=== PATIENT | female | born 1935 | race Caucasian/White ===

== ENCOUNTER 2017-10-27 07:30 | Outpatient (RCR) | payer MEDICARE, SELFPAY ==
--- NOTE | 2017-09-29 08:09 | NT_ITS ---
Brie cancelled today's scheduled appointment. She is going out of town for the day. Christine Kumar Foreign Language Interpreter
--- NOTE | 2017-10-01 09:30 | PTTR_ITS ---
DATE: 10/01/17 SUBJECTIVE: Brie states she continues to experience LBP with sciatica in L LE to the lower butt cheek, upper thigh posteriorly. Did make a bed today with more manageable symptoms compared to last week. Questions whether or not she thinks she is getting any better. She does note better tolerance with sitting. Manual therapy: ([id number]). Gentle grade 2 and grade 3 PA mobilizations to the lumbar spine, segmental mobilization into rotator L and R. Increased tenderness to palpation through the glut med, piriformis on the L. Hypomobility with PA mobilization. The patient received integrated dry needling today. Homeostatic points bilateral superior cluneals 3, bilateral inferior gluteal 3 , posterior cutaneous L5, paravertebrals L3-L5 with 2 bilaterally. Did perform symptomatic points with 3 to L glut med and piriformis. Also applied stim with IDN to L3-L5 bilaterally. Continued care performed by Meenakshi Garza PTA (see her note for specifics) Direct treatment time: 15 mins Total treatment time: 30 mins with me no charge dry needling. MM/dl
--- NOTE | 2017-10-01 10:00 | PTTR_ITS ---
DATE: 10/01/17 Co-treat with supervising therapist Yogi Hood DPT (see his note for details) Manual therapy: ([id number]). Did receive soft tissue mobilization throughout the entire back with focus on L periscapular region to mid back, utilized tendon massage along the thoracic and lumbar vertebra, medial, scapular borders , and iliac crest as well as cross friction to the mid thoracic paraspinals and trigger point work into the L periscapular region, skin rolling throughout bilateral lumbar and thoracic paraspinals was also performed as well as fascial stretching throughout the entire L thoracic region. * x Electrical Stim Unattended - [id number]: spot cold to the L mid back region with global heat to remaining back x15 mins in prone position. Direct treatment time: 18 MINS Total treatment time: 33 MINS SG/dl
--- NOTE | 2017-10-08 16:19 | PTTR_ITS ---
DATE: 10/08/17 SUBJECTIVE: Brie indicates today that she is currently feeling about the same. No significant change in her discomfort level. Continues to have discomfort int he left hip and upper thigh region. OBJECTIVE: Manual therapy: ([id number]). Did receive Grade 2 PA mobs to the lumbar vertebrae region while in prone, as well as segmental rotary mobs left / right, also while in the prone position. Soft tissue mobs were performed throughout the mid to low back and left glute / piriformis region while in prone. This included tendon massage along the lower thoracic / lumbar vertebrae and iliac crest as well as sacral border and posterior greater trochanter, as well as TP work to the QL, glutes and piriformis musculature. * [x] Electrical Stim Unattended - [id number][1]: applied with spot cold to the left sided low back / buttock region w/global moist heat to the remaining mid to low back while in prone x15 minutes. Direct treatment time: 20 minutes. Total treatment time: 35 minutes. SG/gc
--- NOTE | 2017-10-14 15:30 | PTTR_ITS ---
DATE: 10/14/17 SUBJECTIVE: Indicated she felt pretty good after last Wednesday's appt, but on Wednesday evening started having a great deal of pain in the left buttock region where cyst in located. Indicated this region feels swollen. Does not remember anything that could have triggered this pain. Frustrated today with left low back and buttock pain, continues to have radiating pain down into back side of left knee, does not feel the pain in the leg goes down any further than it had been. Has been laying on the couch a lot the last few days. Pain number: 10out of 10 at times since Wednesday evening Indicated she was feeling better at conclusion of session, upon exiting dept. OBJECTIVE: Manual therapy: ([id number]). Mobilization of low back and left buttock soft tissue with in prone position. This included tendon massage along the lower thoracic / lumbar vertebrae, iliac crest and sacral border. TPM to left LQ and CFM to lower thoracic / lumbar paraspinals. Attempted TPM to piriformis and glut max but this was too sensitive. Extremely sensitive around cyst region so left buttock soft tissue work was very limited today. Did have slight visible swelling in this region today. Advised to apply cryotherapy or try Salonpas in this region as per discussion with supervising PT. Performed grade 2 PA mobs to lumbar vertebrae and segmental rotational mobs R/L as well while in prone position without complaints of pain. * x HEP review: Reviewed TA activation exercise. Instructed to try doing them when she is hurting to see if this helps with pain. * x Electrical Stim Unattended - [id number]: Ended session with IFC and MHP x 15 minutes to low back with cryotherapy to left buttock. To be see again 1 x next week. Direct treatment time: 20 minutes Total treatment time: 35 minutes
--- NOTE | 2017-10-22 13:00 | PTTR_ITS ---
DATE: 10/22/17 SUBJECTIVE: Indicated she is frustrated with pain across her low back. Bought Salonpas and thinks this has helped a little in the left buttock region when used. Seeing her doctor in mid October. OBJECTIVE: Manual therapy: ([id number]). Mobilization of lumbar region consisting of grade 2 PA mobs and segmental rotational mobs on right and left while in prone. While remaining in prone she received STM throughout the low back and left buttock with care taken to avoid cyst region. Utilized tendon massage to lower thoracic and lumbar vertebrae, iliac crest and sacral border. TPM to left QL and gluts, CFM to bilateral lumbar paraspinals and fascial stretching throughout the entire low back and left buttock. * x Electrical Stim Unattended - [id number]: Ended session with IFC and cryotherapy to low back and left buttock x 15 minutes while in prone. Direct treatment time: 20 minutes Total treatment time: 35 minutes
--- NOTE | 2017-10-27 07:30 | PN_ITS ---
DATE: 10/27/17 REFERRING: NILDA Zarco REFERRING PROVIDER DIAGNOSIS:: PHYSICAL THERAPY DIAGNOSIS: REPORTING PERIOD (for progress note and discharge note only): 09/16/17 to SUBJECTIVE: Brie states she feels as though she is getting worse. Does have some mild symptom reduction with soft tissue work and dry needling, but admits that symptom reduction does not last long. She has a more open opinion of attending a consult at the pain clinic. Still having difficulty with functional activities such as cooking, prolonged standing, customer experience specialist, such as making beds and mowing her lawn. Had to make a turkey for [facility] wagner and had a lot of pain just standing to cook in the kitchen. Having more difficulty at night sleeping. Standardized Measures: * Modified Oswestry Low Back Pain Questionnaire (MOLBPDQ): 46% which is worse compared to IE which was 38% OBJECTIVE: Seen for re-check Upon observation, still moving with pain behaviors from sit to stand as well as transfers on the bed. Palpation: Pain with palpation through bilateral lumbar paraspinals L worse than R as well as L glut med, glut max and over her cyst near the glut med. Pain with PA mobilizations, grades 2 throughout the entire lumbar spine. AROM flexion WFL with pain, extension 10 degrees with pulling sensation and pain in the low back with radiation into L glut, lateral thigh. Rotation 45 degrees of bent knee fall out in supine. She has more pain with L rotation with pulling pain in L lumbar spine, sidebending hypomobile bilaterally with pain. Neurological: Myotomes WNL bilaterally. Sensation to light touch is WNL bilateral LE's. DTR's hyporesponsive. 1: KJ bilaterally, 0: AJ bilaterally * Special Tests (indicate): (+) compression testing, (-) SLR, (-) slump test. Treatment: Consisted of Ultrasound [id number]: continuous 1.0 w/cm2 to the L lumbar paraspinals Manual Therapy [id number]: for soft tissue mobilization to the low back, PRT's to L glut med and some strumming along the lateral border of the sacrum. Did perform some gentle segmental mobilization into rotator which patient did not tolerate very well. Pain with PA's L1-L5. We do discuss the possibility of her initiating a pool program, which she is agreeable to. Ended with ESU [id number] for 15 mins in prone with cryotherapy. Treatment time: 35 mins Direct/45 mins total ASSESSMENT: No appreciable gains being made at this point. No ST/LTG have been met. Do feel return to physician is required, which she was told to do to discuss pain clinic and aquatic therapy to initiate. (SEE BELOW FOR GOALS) She appears to be gaining some mild symptom reduction, but short term symptom control. G-Codes (fill in modifier after appropriate code): Patient's primary functional limitation remain in the category of: __x__ Mobility - walking and moving around : [id number] Projected goal: __x__ Mobility - walking and moving around: [id number], based on her MOLBPDQ STG: __6__ weeks. 1) decrease pain by 50% 2) improve tolerance to household activities by 50% (per subjective report) 3) painfree AROM of the lumbar spine LTG: __12__ weeks. 1) return to painfree functional mobility PLAN: Continue as above. MM/dl
== END 2017-10-29 23:59 | disposition home or self-care (01) ==
LOC: PT 07:30
DX: M54.5 Low back pain (principal); M47.26 Other spondylosis with radiculopathy, lumbar region; M35.3 Polymyalgia rheumatica
CPT/HCPCS: 97014; 97035; 97140; G8978

== ENCOUNTER 2017-11-19 00:26 | Outpatient (CLI) | payer MEDICARE, SELFPAY ==
--- NOTE | 2017-11-19 09:30 | DI.MAMMO_ITS ---
SYMPTOM/DIAGNOSIS: PERSONAL HX OF BREAST CA, C50.264 RIGHT MAMMOGRAM: Mammograms were interpreted according to the usual protocol including computer analysis with CAD system, tomosynthesis and C view imaging. The patient is status post left mastectomy. Breast density B. No masses or microcalcifications are seen. There is nothing to suggest malignancy. IMPRESSION: Negative mammogram. Routine screening is recommended. Category I. MQSA ASSESSMENT OF FINDINGS: Negative. Category 1. Patient will receive a letter notifying them of these results. BI-RADS category B. There are scattered areas of fibroglandular density.
== END 2017-11-19 00:46 ==
DX: C50.912 Malignant neoplasm of unspecified site of left female breast (principal); Z90.12 Acquired absence of left breast and nipple
CPT/HCPCS: 77063; 77067

== ENCOUNTER 2017-11-26 07:14 | Outpatient (CLI) | payer MEDICARE, SELFPAY ==
[2017-11-26 08:13] LABS: HCT 32.4 % (36.0-46.0); HGB 10.4 g/dL (12.0-15.5)
[2017-11-26 09:13] LABS: ALT 32 U/L (12-78); AST 21 U/L (15-37); Albumin 3.7 g/dL (3.4-5.0); Alkaline Phosphatase 88 U/L (46-116); Anion Gap 7.5 mmol/L (3-11); BUN 25 mg/dL (7-18); Bilirubin, Total 0.4 mg/dL (0.2-1.0); CO2 25.5 mmol/L (21.0-32.0); CREATININE 1.21 mg/dL (0.55-1.02); Chloride 105 mmol/L (98-107); Cholesterol 307 mg/dL (50-200); Glucose 110 mg/dL (70-100); HDL Cholesterol 36 mg/dL (40-60); LDL CHOLESTEROL 221 mg/dL (<100); Potassium 5.1 mmol/L (3.5-5.1); Sodium 138 mmol/L (136-145); TSH (W/Ref FT4) 9.59 uIU/mL (0.358-3.74); Total Protein 6.7 g/dL (6.4-8.2); Triglyceride 251 mg/dL (30-150)
[2017-11-26 09:42] LABS: FREE T4 0.66 ng/dL (0.76-1.46)
== END 2017-11-26 07:34 ==
DX: D64.9 Anemia, unspecified (principal); E78.5 Hyperlipidemia, unspecified; E03.9 Hypothyroidism, unspecified; K21.9 Gastro-esophageal reflux disease without esophagitis; M54.30 Sciatica, unspecified side; I10 Essential (primary) hypertension; M35.3 Polymyalgia rheumatica; R73.01 Impaired fasting glucose
CPT/HCPCS: 36415; 80053; 80061; 83721; 84439; 84443; 85014; 85018

== ENCOUNTER 2017-12-16 11:51 | Outpatient (CLI) | payer MEDICARE, SELFPAY ==
--- NOTE | 2017-12-16 06:00 | DI.RAD_ITS ---
SYMPTOMS/DIAGNOSIS: LUMBAR RADICULOPATHY PAIN CLINIC LUMBAR SPINE: Fluoroscopy Time: 43.5 sec Images submitted from the Pain Clinic demonstrate needle positioning over the right paramedian position at the level of S1 in conjunction with a caudal epidural steroid injection. Please see Dr. Valenzuela's procedure report for further information.
[2017-12-16 11:53] VITALS: BP 160/56; PULSE 64; RESP 20; TEMP 36.6
--- NOTE | 2017-12-16 12:26 | PDOC.PAIN ---
Pain Clinic Procedure Note Current Active Problems Problem Status Onset Lumbar radiculopathy Acute Chronic renal disease, stage 3, moderately decreased glomerular filtration rate (GFR) between 30-59 mL/min/1.73 square meter Acute CAUDAL EPIDURAL STEROID WITH CATHETER INJECTION PROCEDURE NOTE COMMENTS: I did review the evaluation by Ms. Osborn from 12/08/17 and her recent imaging.. REGINO GRIMALDO has been referred to the [facility] for lumbar epidural steroid injection. Patient was greeted by the nurse who verified patients name and . Patient was then taken to the fluoroscopy suite. Patient was interviewed and the medical record reviewed. There were no medical, pharmacologic, radiographic, or other structural contraindications to attempting fluoroscopically guided lumbar epidural steroid injection. Risks and expected side effects as well as potential benefits of the procedure were reviewed and voiced concerns addressed. The patient consent form was signed and witnessed. Standard time-out procedure was performed. Patient was placed in the prone position on the fluoroscopy table and automated blood pressure cuff and pulse oximeter applied. The skin entry point for entering/approaching the epidural space at the sacral hiatus and marked. Following thorough chlorhexadine preparation of the skin and draping and 1% lidocaine infiltration of the skin entry point and subcutaneous tissues, a 17 gauge Touhy needle was placed under fluoroscopic guidance and with loss of resistance technique into the epidural space. Needle tip placement and depth were aided and confirmed by fluoroscopy. There was no paresthesia or return of blood or CSF through the needle. An Arrow cath was thread to the L5-S1 and 1 cc's of Omnipaque 240 was injected with clear epidural spread confirmed with fluoroscopy. 80mg depomedrol was injected. There was not any unusual discomfort expressed. Vital signs were stable throughout the procedure and were as recorded in nursing records. Follow up plans and appointments were discussed.Post procedure instruction was given as documented in nursing records and having met discharge criteria and was discharged from the [facility] Management Center. COMMENTS: This procedure can be completed up to 3 times per 12 months if it is found to be helpful. Kalia Valenzuela DO, MPH ABPMR - SU[employer]pec[employer]ty Board Certification in Pain Medicine
[2017-12-16] MEDS: Omnipaque 240 MG/ML 50 ML BTL IJ (12:28)
[2017-12-16] MEDS: methylPREDNISolone ACETATE 80 MG/ML VIAL IM (12:29)
--- NOTE | 2017-12-16 12:29 | PDOC.PAIN_ITS ---
Pain Clinic Procedure Note Current Active Problems Problem Status Onset Lumbar radiculopathy Acute Chronic renal disease, stage 3, moderately decreased glomerular filtration rate (GFR) between 30-59 mL/min/1.73 square meter Acute CAUDAL EPIDURAL STEROID WITH CATHETER INJECTION PROCEDURE NOTE COMMENTS: I did review the evaluation by Ms. Osborn from 12/08/17 and her recent imaging.. REGINO GRIMALDO has been referred to the [facility] for lumbar epidural steroid injection. Patient was greeted by the nurse who verified patients name and . Patient was then taken to the fluoroscopy suite. Patient was interviewed and the medical record reviewed. There were no medical , pharmacologic, radiographic, or other structural contraindications to attempting fluoroscopically guided lumbar epidural steroid injection. Risks and expected side effects as well as potential benefits of the procedure were reviewed and voiced concerns addressed. The patient consent form was signed and witnessed. Standard time-out procedure was performed. Patient was placed in the prone position on the fluoroscopy table and automated blood pressure cuff and pulse oximeter applied. The skin entry point for entering/approaching the epidural space at the sacral hiatus and marked. Following thorough chlorhexadine preparation of the skin and draping and 1% lidocaine infiltration of the skin entry point and subcutaneous tissues, a 17 gauge Touhy needle was placed under fluoroscopic guidance and with loss of resistance technique into the epidural space. Needle tip placement and depth were aided and confirmed by fluoroscopy. There was no paresthesia or return of blood or CSF through the needle. An Arrow cath was thread to the L5-S1 and 1 cc' s of Omnipaque 240 was injected with clear epidural spread confirmed with fluoroscopy. 80mg depomedrol was injected. There was not any unusual discomfort expressed. Vital signs were stable throughout the procedure and were as recorded in nursing records. Follow up plans and appointments were discussed.Post procedure instruction was given as documented in nursing records and having met discharge criteria and was discharged from the [facility] Management Center. COMMENTS: This procedure can be completed up to 3 times per 12 months if it is found to be helpful. Kalia Valenzuela DO, MPH ABPMR - SU[employer]pec[employer]ty Board Certification in Pain Medicine
[2017-12-16 12:44] VITALS: BP 158/56; PULSE 71; RESP 17; O2SAT 99
== END 2017-12-16 12:11 ==
PROVIDERS: Visit Provider Preventive Medicine Occupational Medicine
DX: M54.16 Radiculopathy, lumbar region (principal)
CPT/HCPCS: 62323; 72100; J1040; Q9967

== ENCOUNTER 2018-01-05 13:01 | Outpatient (CLI) | payer MEDICARE, SELFPAY ==
[2018-01-05 13:10] VITALS: BP 121/57; PULSE 73; RESP 20; TEMP 36.5; O2SAT 97
--- NOTE | 2018-01-05 14:07 | DI.RAD_ITS ---
SYMPTOMS/DIAGNOSIS: SACROILIAC JOINT DYSFUNCTION PAIN CLINIC SACROILIAC JOINT: Fluoroscopy Time: 45.8 sec 15.78 mGy Fluoroscopy was utilized by Dr. Cristina during the performance of a right sacroiliac joint injection. Please refer to the procedure report for complete details.
[2018-01-05 14:11] VITALS: BP 132/70; PULSE 69; RESP 21; O2SAT 100
--- NOTE | 2018-01-05 14:13 | PDOC.PAIN ---
Pain Clinic Procedure Note Current Active Problems Problem Status Onset Sacroiliac joint dysfunction Chronic INTRA-ARTICULAR SI JOINT INJECTION REGINO GRIMALDO has been referred to the [facility] for intra-articular SI joint injection. COMMENTS: Patient has had multiple injections including epidurals and radiofrequency ablation. She has severe spinal stenosis at multiple levels. She had a caudal epidural last visit which only gave her 20% relief of her pain. She did not complaining mostly pain in the right sacrum. Painful to sit on that side. On examination she has a positive maneuvers for SI joint dysfunction including: Richy's, hip, distraction, and compression. Patient was interviewed and the medical record reviewed. There were no medical, pharmacologic, radiographic or other structural contraindications to attempting fluoroscopically guided intra-articular SI joint injection. Risks and expected side effects as well as potential benefit of the procedure were reviewed and voiced concerns addressed. The printed consent form was signed and witnessed. Standard time-out procedure was performed. Patient was placed in the prone position on the fluoroscopy table and automated blood pressure cuff and pulse oximeter applied. The skin entry point for approaching {right} SI joints was identified under the most advantageous fluoroscopic view and marked. Following thorough Chlorhexadine preparation of the skin and draping and 1% lidocaine infiltration of the skin entry point and subcutaneous tissues, a 22 gauge spinal needle was placed under fluoroscopic guidance into {right/} SI joints was identified under the most advantageous fluoroscopic view and marked. Following thorough Chlorhexadine preparation of the skin and draping and 1% lidocaine infiltration of the skin entry point and subcutaneous tissues, a 22 gauge spinal needle was placed under fluoroscopic guidance into {right/} SI joint. Intra-articular placement was confirmed by a clear arthrogram resulting from the injection of 0.25ml Omnipaque 240, 1ml 0.5% bupivacaine, and half ml (40mg) of 80mg concentration Depomedrol were injected intra-articularily with an initial reproduction of a significant component of the usual pain. Vital signs were stable throughout the procedure and were as recorded in the docflowsheet by the nursing staff. If given, dosages of intravenous drugs for anxiolysis and analgesia were documented in MAR. Follow up plans and appointments were discussed with the patient. Post procedure instruction was given as documented in nursing documentation and having met discharge criteria, and was discharged from the Pain Management Center. COMMENTS: pain went from 7/10 to 0/10. f/u prn. CC: Maricel Bella
[2018-01-05] MEDS: Omnipaque 240 MG/ML 50 ML BTL IJ (14:16)
[2018-01-05] MEDS: methylPREDNISolone ACETATE 80 MG/ML VIAL IJ (14:16)
[2018-01-05] MEDS: Bupivacaine 0.5% Pres-Free 30 ML VIAL IJ (14:17)
--- NOTE | 2018-01-05 14:17 | PDOC.PAIN_ITS ---
Pain Clinic Procedure Note Current Active Problems Problem Status Onset Sacroiliac joint dysfunction Chronic INTRA-ARTICULAR SI JOINT INJECTION REGINO GRIMALDO has been referred to the [facility] for intra- articular SI joint injection. COMMENTS: Patient has had multiple injections including epidurals and radiofrequency ablation. She has severe spinal stenosis at multiple levels. She had a caudal epidural last visit which only gave her 20% relief of her pain. She did not complaining mostly pain in the right sacrum. Painful to sit on that side. On examination she has a positive maneuvers for SI joint dysfunction including: Richy's, hip, distraction, and compression. Patient was interviewed and the medical record reviewed. There were no medical , pharmacologic, radiographic or other structural contraindications to attempting fluoroscopically guided intra-articular SI joint injection. Risks and expected side effects as well as potential benefit of the procedure were reviewed and voiced concerns addressed. The printed consent form was signed and witnessed. Standard time-out procedure was performed. Patient was placed in the prone position on the fluoroscopy table and automated blood pressure cuff and pulse oximeter applied. The skin entry point for approaching {right} SI joints was identified under the most advantageous fluoroscopic view and marked. Following thorough Chlorhexadine preparation of the skin and draping and 1% lidocaine infiltration of the skin entry point and subcutaneous tissues, a 22 gauge spinal needle was placed under fluoroscopic guidance into {right/} SI joints was identified under the most advantageous fluoroscopic view and marked. Following thorough Chlorhexadine preparation of the skin and draping and 1% lidocaine infiltration of the skin entry point and subcutaneous tissues, a 22 gauge spinal needle was placed under fluoroscopic guidance into {right/} SI joint. Intra-articular placement was confirmed by a clear arthrogram resulting from the injection of 0.25ml Omnipaque 240, 1ml 0.5% bupivacaine, and half ml (40mg) of 80mg concentration Depomedrol were injected intra- articularily with an initial reproduction of a significant component of the usual pain. Vital signs were stable throughout the procedure and were as recorded in the docflowsheet by the nursing staff. If given, dosages of intravenous drugs for anxiolysis and analgesia were documented in MAR. Follow up plans and appointments were discussed with the patient. Post procedure instruction was given as documented in nursing documentation and having met discharge criteria, and was discharged from the Pain Management Center. COMMENTS: pain went from 7/10 to 0/10. f/u prn. CC: Maricel Bella
== END 2018-01-05 13:21 ==
PROVIDERS: Visit Provider Anesthesiology Pain Medicine
DX: M53.3 Sacrococcygeal disorders, not elsewhere classified (principal)
CPT/HCPCS: 27096; 72200; J1040; Q9967

== ENCOUNTER 2018-02-10 13:05 | Outpatient (CLI) | payer MEDICARE, SELFPAY ==
[2018-02-10 14:28] LABS: BUN 29 mg/dL (7-18); CREATININE 1.12 mg/dL (0.55-1.02); Chloride 106 mmol/L (98-107); Estimated GFR 46.57 (mL/min/1.73m2); Glucose 99 mg/dL (70-100); Potassium 5.4 mmol/L (3.5-5.1); Sodium 142 mmol/L (136-145); TSH (W/Ref FT4) 0.03 uIU/mL (0.358-3.74)
[2018-02-10 14:51] LABS: FREE T4 1.48 ng/dL (0.76-1.46)
== END 2018-02-10 13:25 ==
DX: E03.9 Hypothyroidism, unspecified (principal); I10 Essential (primary) hypertension; N18.3 Chronic kidney disease, stage 3 (moderate)
CPT/HCPCS: 36415; 80048; 84439; 84443

== ENCOUNTER 2018-04-16 09:37 | Inpatient (IN) | payer MEDICARE, SELFPAY ==
[2018-04-16] VITALS (107 sets, daily range): BP systolic 93–176; BP diastolic 22–143; PULSE 60–103; RESP 12–27; TEMP 36.8–37.3; O2SAT 91–100
--- NOTE | 2018-04-16 09:53 | DI.CT_ITS ---
SYMPTOM/DIAGNOSIS: SYNCOPE, RT ARM WEAKNESS, GARBLED SPEECH NONCONTRAST HEAD CT: No priors. There is cerebral atrophy consistent with the patient's age. There are areas of decreased attenuation in the white matter, most consistent with small vessel ischemic disease. No evidence of acute intracranial hemorrhage, infarct, midline shift or mass effect is identified. The visualized paranasal sinuses are clear. The mastoid air cells are well pneumatized. The calvarium is intact. There is patient motion artifact present. IMPRESSION: No acute intracranial process. PE CHEST CT: CT angiography was performed with multi slice acquisition and multi planar and 3D reconstruction. CT scan of the chest was performed according to the pulmonary embolus protocol. Comparison CT scan is abdomen and pelvis from 10/28/11. There is no evidence of a pulmonary embolus. There is atherosclerosis of the thoracic aorta but no aneurysmal dilatation or dissection is seen. There does appear to be narrowing of the proximal right innominate and left subclavian arteries. Heart size is within normal limits. No significant pericardial effusion is seen. No evidence of right ventricular dysfunction is present. Coronary artery calcifications are identified. There is no significant thoracic adenopathy, pleural effusion or pneumothorax. Within the lungs, there is again seen a 6 mm., non calcified pulmonary nodule in the right lower lobe. This is unchanged compared to the CT scan of the abdomen from 10/28/11. There is a 5 mm. nodule in the right middle lobe, this area was not definitely imaged on the prior examination. No pulmonary infiltrates are seen. The tracheobronchial tree is unremarkable. Dependent atelectatic changes are seen in the lung bases. Upper abdominal images show the patient is status post cholecystectomy. Degenerative changes are seen in the spine. IMPRESSION: 1. No evidence of a pulmonary embolus, thoracic aortic dissection or aneurysm. 2. Pulmonary nodules in the right lung. There is an unchanged right lower lobe pulmonary nodule. The right middle lobe pulmonary nodule may be new but the area was not definitely imaged on the prior examination. Follow up as clinically indicated. For high risk patients, a follow up CT scan of the chest in 6-12 months is recommended.
--- NOTE | 2018-04-16 09:57 | ED.GENADUL_ITS ---
Discharge Plan Discharge Details Chief Complaint: CVA/TIA Reason For Visit: SYNCOPAL EPISODE,HYPERKALEMIA,R PERIPROSTHETIC DIS Admit Date/Time: 04/16/18 11:42 Admit Provider: Karyna Romero Attending Provider: Karyna Romero Primary Care Provider: Maricel Bella ED Provider: Braeden Harding Discharge Data Discharge Date/Time-TO BE ENTERED AT DEPARTURE: 04/16/18 13:20 Medical Decision Making 10:00 --patient seen immediately after arrival. 82-year-old female with multiple medical problems including history of hyperlipidemia and hypertension here after syncopal episode with mild dysarthria, weakness in her right upper extremity and right lower extremity pain. Concern for CVA versus arrhythmia versus pulmonary embolism versus other. Consider injury to right lower extremity. ECG reviewed and interpreted by me: nsr 62bpm, nl axis, nondiagnostic Plan for stat CT head. CT chest to assess for pulmonary embolism. Will obtain x-ray imaging of the right knee. 10:50 -- Patient reassessed: speech improved. Still with mild weakness right editing internship. CT of the head interpreted by radiology: No acute abnormality. Will give asa 325. 11:00 -- CT of the chest interpreted by radiology: No pulmonary arterial embolism. Atherosclerosis of these thoracic aorta and great vessels. Moderate stenosis of the proximal right innominate and left subclavian arteries. Unchanged 6 mm right lower lobe pulmonary nodule and 6 mm right middle lobe pulmonary nodule either new or not imaged on prior CT. X-ray of the right knee interpreted by radiology: Acute mildly impacted and posterior laterally angled the periprosthetic fracture of the distal femur metaphysis. Will place knee immobilizer. 11:23 -- Labs reviewed. CORBIN noted. Will give IVF bolus. Hyperkalemia noted. Will give insulin/gluc, sodium bicarb. Spoke with baylee Trinidad, he will see patient in consult. Spoke with hospitalist - looking into bed availability. -- Patient admitting to hospitalist. HPI General Mode of arrival: ambulatory . Date/Time Provider Initiated Documentation: 04/16/18 09:38 . Limitations to Documentation: no limitations . Information obtained by: patient . HPI Narrative: 82-year-old female with multiple medical problems including history of hyperlipidemia, hypertension, presents after syncopal episode. Patient notes she was feeling well this morning and was at [employer] and suddenly lost consciousness at around 8:45a. She did not have any symptoms prior to losing consciousness. She was helped to the floor. She was unconscious for about 30sec. EMS was called and when they arrived they noted she was somewhat confused and drowsy but arousable to voice. No observed seizure activity. Patient denies feeling weak or having slurred speech. She does complain of pain in her right lower leg mainly in her knee. She does not recall injuring this and was not painful prior to syncope. No recent cough, fever, chest pain or SOB. Related Data Home Medications Medication Instructions Recorded Confirmed halobetasol propionate [Ultravate] 1 jason TOPICAL HS PRN #50 gm 03/09/14 04/16/18 acetaminophen [Tylenol] 650 mg PO Q4H PRN PRN tab 12/15/16 04/16/18 hydrocortisone [Proctozone-Hc] 30 gm RC BID PRN #30 gm 02/01/17 04/16/18 cyanocobalamin (vitamin B-12) 1 tab PO DAILY #100 tab 03/02/17 04/16/18 [B-12] levothyroxine 100 mcg tablet 100 mcg PO DAILY #90 tab 02/15/18 04/16/18 acetaminophen 300 mg-codeine 30 mg 1 - 2 tab PO Q8H PRN #90 tab 03/03/18 04/16/18 tablet hydrochlorothiazide 25 mg PO q AM #90 tab-cap 04/08/18 04/16/18 Previous Rx's Medication Instructions Recorded acetaminophen [Tylenol] 650 mg PO Q4H PRN PRN tab 12/15/16 cyanocobalamin (vitamin B-12) 1 tab PO DAILY #100 tab 03/02/17 [B-12] levothyroxine 100 mcg tablet 100 mcg PO DAILY #90 tab 02/15/18 acetaminophen 300 mg-codeine 30 mg 1 - 2 tab PO Q8H PRN #90 tab 03/03/18 tablet hydrochlorothiazide 25 mg PO q AM #90 tab-cap 04/08/18 Allergies Allergy/AdvReac Type Severity Reaction Status Date / Time adhesive Allergy Severe Skin Rash Unverified 04/16/18 09:58 latex Allergy Intermediate Skin Rash Unverified 04/16/18 09:58 azithromycin AdvReac Severe DIARRHEA Unverified 04/16/18 09:58 fluticasone propionate AdvReac Severe SEVER NOSE Unverified 04/16/18 09:58 [From Flonase] IRRITATION General Stated Complaint: CVA/TIA AYAD: 2 Review of Systems Review of Systems All systems reviewed & are unremarkable except as noted in HPI and below Cardiovascular Denies chest pain, Reports syncope and Denies dyspnea Respiratory Denies cough and Denies dyspnea Gastrointestinal Denies abdominal pain and Reports belching Neurologic Reports syncope PFSH Medical History Sacroiliac joint dysfunction (Chronic) Cervical radiculopathy Chronic shoulder pain Cold sore Colon polyps GERD (gastroesophageal reflux disease) Hx of breast cancer Hyperlipidemia Hypertension Hypothyroidism Impaired fasting glucose Lichen planus Osteoarthritis PMR (polymyalgia rheumatica) Sciatica Surgical History S/P carpal tunnel release (Acute) Breast, Mastectomy Cholecystectomy Repair of umbilical hernia (04/15/16) Replacement of total knee joint Family History Sister Personal history of malignant neoplasm Mother No problems noted. Father No problems noted. Sister No problems noted. Son No problems noted. Son No problems noted. Social History housing: house lives independently: Yes number of children: 2 current occupation: retired pets and animals: No what type of physical activity do you participate in: swimming frequency: 1-2 times per week Smoking and Tabacco status: Former Tobacco Use alcohol intake: current alcohol intake frequency: holidays/special occasions only substance use type: does not use mia/orthodoxy: Buddhist special mia needs: No Exam Const General: cooperative and no acute distress HENMT Head: normocephalic and atraumatic Mouth: moist mucous membranes Eyes Conjunctivae: normal conjunctivae Sclera: normal sclerae EOM: EOM intact bilaterally Neck Neck: trachea midline and supple Resp Auscultation: clear to auscultation bilaterally, no rales, no rhonchi and no wheezes Cardio Jugular venous pressure: no JVD Rate: regular rate and not tachycardic Rhythm: regular rhythm GI Palpation: soft, not firm, no guarding, no masses, not rigid and nontender Skin General skin exam: no rashes or lesions noted Neuro General: alert, awake, oriented x3 and tone normal Cranial Nerves: PERRL and EOM intact bilaterally Cognition: normal cognition Speech: other (garbled speech) Motor: other (RUE 4/5 strenght, LUE 5/5 strenght, wiggles toes but unable to assess RLE) Sensory Exam: no sensory deficits noted Extrem General: no edema Psych Appearance: grossly normal Mental Status: mental status grossly normal Speech and Movement: speech and movement normal Course Vital Signs Temperature 36.9 C 04/16/18 09:46 Pulse 65 04/16/18 09:46 Respiratory Rate 18 04/16/18 09:46 Blood Pressure 136/49 L 04/16/18 09:46 Pulse Oximetry 96 04/16/18 09:46 Temperature 36.9 C 04/16/18 09:46 Temperature Source Temporal Artery Scan 04/16/18 09:46 Pulse 65 04/16/18 09:46 Respiratory Rate 18 04/16/18 09:46 Respiratory Effort Non-Labored 04/16/18 09:55 Blood Pressure 136/49 L 04/16/18 09:46 Blood Pressure Position Supine 04/16/18 09:46 Pulse Oximetry 96 04/16/18 09:46 Oxygen Delivery Method Room Air 04/16/18 09:46 Oxygen Flow Rate 0 04/16/18 09:46 Pain Level 9 04/16/18 09:46
--- NOTE | 2018-04-16 09:57 | DI.RAD_ITS ---
SYMPTOM/DIAGNOSIS: PAIN RIGHT KNEE: Three views. Comparison is made with 10/08/10. There is again seen the distal aspect of an intramedullary christina with two screws. There is also again seen a right total knee replacement. There is a transverse fracture through the distal metaphysis of the right femur. There is lateral angulation and impaction of the fracture noted. The bones appear osteopenic. No other fracture is seen. Vascular calcifications are seen in the soft tissues. IMPRESSION: Acute impacted and laterally angulated periprosthetic fracture involving the distal right femoral metaphysis.
[2018-04-16] MEDS: Omnipaque 350 MG/ML 100 ML BTL IJ (10:11)
[2018-04-16] MEDS: Normal Saline Flush 10 ML SYR IVP ×3 (10:12→20:18)
--- NOTE | 2018-04-16 10:23 | DI.VRAD_ITS ---
EXAM: CT Head Without Contrast EXAM DATE/TIME: 04/16/2018 9:55 AM CLINICAL HISTORY: 82 years old, female; Signs and symptoms; Other: Right arm weakness, garbled speech TECHNIQUE: Axial computed tomography images of the head/brain without contrast. All CT scans at this facility use at least one of these dose optimization techniques: automated exposure control; mA and/or kV adjustment per patient size (includes targeted exams where dose is matched to clinical indication); or iterative reconstruction. Coronal and sagittal reformatted images were created and reviewed. COMPARISON: No relevant prior studies available. FINDINGS: Brain: Global cerebral atrophy is consistent with patient's age. Decreased attenuation within the white matter tracts of both cerebral hemispheres is nonspecific but typically seen with small vessel disease/chronic white matter ischemic changes of aging. No CT scan evidence of acute stroke. No intracranial hemorrhage or mass effect. Ventricles: Unremarkable. No ventriculomegaly. Bones/joints: Unremarkable. No acute fracture. Sinuses: Visualized sinuses are unremarkable. No acute sinusitis. Mastoid air cells: Visualized mastoid air cells are unremarkable. No mastoid effusion. Soft tissues: Unremarkable. Vasculature: Atherosclerosis of the cavernous carotid and vertebral arteries. IMPRESSION: No acute abnormality. Dictated and Authenticated by: Godwin Tobar MD. Ordering:ROXY Deras MD
[2018-04-16 10:37] LABS: Abs Immature Grans 0.03 k/cumm (0.0-0.09); Absolute Basophil Count 0.04 k/cumm (0.0-0.2); Absolute Eosinophil Count 0.14 k/cumm (0.0-0.7); Absolute Lymphocyte Count 1.44 k/cumm (1.2-3.4); Absolute Monocyte Count 0.68 k/cumm (0.11-0.7); Absolute Neutrophil Count 6.04 k/cumm (1.2-6.7); Basophils % 0.5; Eosinophils % 1.7; HCT 34.8 % (36.0-46.0); HGB 11.2 g/dL (12.0-15.5); Immature Grans % 0.4; Lymphocytes % 17.2; Mean Corp. HGB Concentration 32.2 g/dL (32.0-36.0); Mean Corpuscular Hemoglobin 30.7 pg (27.0-33.0); Mean Corpuscular Volume 95.3 fL (80-95); Mean Platelet Volume 11.2 fL (8.0-11.0); Monocytes % 8.1; Neutrophils % 72.1; Platelet Count 286 x1000/uL (130-400); RBC 3.65 m/cumm (4.00-5.20); White Blood Cell Count 8.37 k/cumm (4.4-10.8)
[2018-04-16 10:52] LABS: ALT 26 U/L (12-78); AST 21 U/L (15-37); Alkaline Phosphatase 87 U/L (46-116); Anion Gap 13.2 mmol/L (3-11); BUN 31 mg/dL (7-18); Bilirubin, Total 0.5 mg/dL (0.2-1.0); CO2 22.8 mmol/L (21.0-32.0); Calcium 10.2 mg/dL (8.5-10.1); Chloride 106 mmol/L (98-107); Estimated GFR 28.77 (mL/min/1.73m2); Glucose 163 mg/dL (70-100); Magnesium 1.8 mg/dL (1.8-2.4); Potassium 5.7 mmol/L (3.5-5.1); Sodium 142 mmol/L (136-145); Total Protein 7.7 g/dL (6.4-8.2)
--- NOTE | 2018-04-16 10:55 | DI.VRAD_ITS ---
EXAM: CT Angiography Chest With Contrast EXAM DATE/TIME: 04/16/2018 9:55 AM CLINICAL HISTORY: 82 years old, female; Signs and symptoms; Other: Syncope, right leg pain TECHNIQUE: Axial computed tomographic angiography images of the chest with intravenous contrast using CT angiography protocol. All CT scans at this facility use at least one of these dose optimization techniques: automated exposure control; mA and/or kV adjustment per patient size (includes targeted exams where dose is matched to clinical indication); or iterative reconstruction. Coronal and sagittal reformatted images were created and reviewed. MIP reconstructed images were created and reviewed. CONTRAST: 100 ml of Omnipaque 350 administered intravenously. COMPARISON: CR ABD FLAT UPRIGHT PA CHEST 10/28/2011 9:25 AM FINDINGS: Pulmonary arteries: No pulmonary arterial embolism. Aorta: Moderate atherosclerosis of the thoracic aorta. No aortic aneurysm or dissection. Great vessels off aortic arch: Atherosclerosis of the proximal aspects of the great vessels with moderate stenoses within the right innominate and proximal left subclavian arteries. Lungs: Minimal dependent atelectasis within the lung bases. No pulmonary consolidation. Pleural space: Normal. No pneumothorax. No pleural effusion. Heart: Normal. No cardiomegaly. No pericardial effusion. Kidneys and ureters: Tiny left renal cysts, incompletely visualized. Upper abdomen: 5 mm right middle lobe pulmonary nodule (axial image 48 of series 5) not present or imaged on the prior examination CT scan of the abdomen performed on 10/28/2011. 6 mm nodule within the right lower lobe (axial image 70 of series 5), unchanged compared to the prior CT scan of the abdomen performed 2011. Lymph nodes: Unremarkable. No enlarged lymph nodes. Bones/joints: Unremarkable. No acute fracture. Soft tissues: Unremarkable. IMPRESSION: 1. No pulmonary arterial embolism. 2. Atherosclerosis of the thoracic aorta and great vessels. No dissection or aneurysm. Moderate stenoses of the proximal right innominate and left subclavian arteries. 3. Unchanged 6 mm right lower lobe pulmonary nodule and 6 mm right middle lobe pulmonary nodule, either new or not imaged on the prior CT scan of the abdomen performed at 2011. For patients at low risk (minimal or absent history of smoking and of other known risk factors), no routine follow-up is indicated. For patients at high risk (history of smoking or of other known risk factors), consider optional CT at 12 months. (armaan Crawford al., Fleischner Society, 2017). Dictated and Authenticated by: Godwin Tobar MD. Ordering:ROXY Deras MD
--- NOTE | 2018-04-16 10:58 | DI.VRAD_ITS ---
EXAM: XR Right Knee, 3 Views EXAM DATE/TIME: 04/16/2018 9:58 AM CLINICAL HISTORY: 82 years old, female; Signs and symptoms; Other: Pain; Prior surgery; Surgery date: 6+ months; Surgery type: Femur christina TECHNIQUE: XR Right knee 3 views. COMPARISON: No relevant prior studies available. FINDINGS: A knee arthroplasty consisting of cemented femoral and tibial components is present. No radiographic evidence of prosthesis component loosening is seen. There is an intramedullary christina extending into the distal femur metaphysis. There is an acute mildly impacted fracture of the distal femur metaphysis. This fracture is mildly posteriorly and laterally angled. The bones are osteopenic. No focal osteolytic or blastic lesion is seen. IMPRESSION: Acute, mildly impacted and postero-laterally angled periprosthetic fracture of the distal femur metaphysis. Dictated and Authenticated by: Godwin Tobar MD. Ordering:ROXY Deras MD
[2018-04-16 11:04] LABS: Troponin I < 0.02 ng/mL (0.00-0.06)
[2018-04-16 11:13] LABS: Bilirubin Negative (Negative); Blood Negative (Negative); Clarity Clear; Glucose Negative (Negative); Ketones Negative (Negative); Leukocyte Esterase Negative (Negative); Nitrite Negative (Negative); Urobilinogen 0.2 EU/dL (Up TO 0.2)
[2018-04-16 12:00] LABS: Creatine Kinase 120 U/L (26-192)
[2018-04-16] MEDS: Normal Saline 1,000 ML 1000 ML IV (12:06)
[2018-04-16] MEDS: Aspirin 325 MG TAB PO (12:09)
[2018-04-16] MEDS: Dextrose 50%-Water 25 GM/50 ML SYR IVP (12:19)
[2018-04-16] MEDS: Sodium Bicarbonate 50 MEQ/50 ML SYR IVP (12:19)
[2018-04-16] MEDS: Insulin REGULAR-Human 100 UNITS/ML UNIT 10 UNITS SC (12:20)
[2018-04-16] MEDS: Calcium Gluconate 4.65 MEQ/10 ML VIAL 4.65 MG IVP (12:30)
[2018-04-16] MEDS: Normal Saline 50 ML (12:37)
[2018-04-16] MEDS: Heparin 5,000 UNITS/ML VIAL 5000 UNITS SC ×2 (12:42→20:18)
--- NOTE | 2018-04-16 13:12 | NUR.NOTE ---
report to joanna rn in ICU and pt family has her belongings and brant pt was placed on right knee imobliser Nursing Note:
--- NOTE | 2018-04-16 13:16 | NUR.NOTE ---
16 fr middleton cath placed with myself and solomon arevalo Nursing Note:
[2018-04-16 13:22] LABS: Anion Gap 9.4 mmol/L (3-11); BUN 29 mg/dL (7-18); CO2 25.6 mmol/L (21.0-32.0); CREATININE 1.35 mg/dL (0.55-1.02); Calcium 9.6 mg/dL (8.5-10.1); Chloride 105 mmol/L (98-107); Estimated GFR 37.54 (mL/min/1.73m2); Glucose 183 mg/dL (70-100); Potassium 4.7 mmol/L (3.5-5.1); Sodium 140 mmol/L (136-145)
--- NOTE | 2018-04-16 15:31 | W.PM.HP.N ---
Date of service: 04/16/18 Time of Service: 15:31 Assessment and Plan (1) Syncopal episodes: Current visit: Yes Status: Chronic Episode (singular). Continue to monitor on tele. So far, EKG and troponins are negative. Obtain a carotid doppler and echo. (2) Transient neurologic deficit: Current visit: Yes Status: Acute Possibly signs of hypoperfusion in setting of syncope - but could be TIA. Will need MRI/neurology consult. Neurochecks. Start aspirin 81 mg PO daily. (3) Tata-prosthetic femur fracture at tip of prosthesis: Current visit: Yes Status: Acute Orthopedics consulted. Keep in knee immobilizer. Check vitamin D level (4) Hypothyroidism: Current visit: No Status: Acute Continue synthroid Qualifiers: Hypothyroidism type: unspecified Qualified Code(s): E03.9 - Hypothyroidism, unspecified (5) Hyperlipidemia: Current visit: No Status: Acute Check fasting lipid panel (6) Essential hypertension: Current visit: No Status: Acute Hold HCTZ (7) Hyperkalemia: Current visit: Yes Status: Acute Resolved. No evidence for rhabdo. 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 The patient states that the last thing that she remembers is sitting down at a bar stool. She does not recall feeling dizzy, having palpitations or chest pain. She came to it on the floor. It was felt that her speech was not quite right. She could not get up from the floor because of pain in her R leg. She cannot definitively say whether or not she felt any weakness, numbness or tingling in her R arm. She was taken to [facility] ED by EMS. Here, she was felt to be dysarthric and to have RUE weakness. Her CT of the head was negative. The XR of her R knee does show an acute, mildly impacted and postero-laterally angled periprosthetic fracture of the distal femur metaphysis. We were asked to admit the patient for furher care and evaluation of the syncopal episode, possible TIA, and R femoral periprosthetic fx. Review of Systems Review of Systems 12 systems reviewed. Pertinent positives and negatives are as per HPI. Additionally, the patient reported a very brief L-sided chest pain at the time of our actual interview, gone in less than 1 second, as well as L-sided chest-wall pain (chronic). She states she does not normally get dizzy, have chest pains, or shortness of breath. She was nauseated when she came to it, but isn't now. She is having some belching. [facility] Medical History Sacroiliac joint dysfunction (Chronic) Cervical radiculopathy Chronic shoulder pain Cold sore Colon polyps GERD (gastroesophageal reflux disease) Hx of breast cancer Hyperlipidemia Hypertension Hypothyroidism Impaired fasting glucose Lichen planus Osteoarthritis PMR (polymyalgia rheumatica) Sciatica Surgical History S/P carpal tunnel release (Acute) Breast, Mastectomy Cholecystectomy Repair of umbilical hernia (04/15/16) Replacement of total knee joint Family History Sister Personal history of malignant neoplasm Mother No problems noted. Father No problems noted. Sister No problems noted. Son No problems noted. Son No problems noted. Social History housing: house lives independently: Yes number of children: 2 current occupation: retired pets and animals: No what type of physical activity do you participate in: swimming frequency: 1-2 times per week Smoking and Tabacco status: Former Tobacco Use alcohol intake: current alcohol intake frequency: holidays/special occasions only substance use type: does not use mia/yarsanism: [employer]aritan special mia needs: No Meds Home Medications Medication Instructions Recorded Confirmed Type halobetasol propionate [Ultravate] 1 jason TOPICAL HS PRN #50 gm 03/09/14 04/16/18 History acetaminophen [Tylenol] 650 mg PO Q4H PRN PRN tab 12/15/16 04/16/18 Rx hydrocortisone [Proctozone-Hc] 30 gm RC BID PRN #30 gm 02/01/17 04/16/18 History cyanocobalamin (vitamin B-12) 1 tab PO DAILY #100 tab 03/02/17 04/16/18 Rx [B-12] levothyroxine 100 mcg tablet 100 mcg PO DAILY #90 tab 02/15/18 04/16/18 Rx acetaminophen 300 mg-codeine 30 mg 1 - 2 tab PO Q8H PRN #90 tab 03/03/18 04/16/18 Rx tablet hydrochlorothiazide 25 mg PO q AM #90 tab-cap 04/08/18 04/16/18 Rx Allergies Allergy/AdvReac Type Severity Reaction Status Date / Time adhesive Allergy Severe Skin Rash Unverified 04/16/18 09:58 latex Allergy Intermediate Skin Rash Unverified 04/16/18 09:58 azithromycin AdvReac Severe DIARRHEA Unverified 04/16/18 09:58 fluticasone propionate AdvReac Severe SEVER NOSE Unverified 04/16/18 09:58 [From Flonase] IRRITATION Exam Narrative Exam Narrative: General: Very pleasant elderly female, very conversant, not in acute distress Neurological: A&Ox3, no focal deficits appreciated, equal strength in BUE's. Clear speech Psychiatric: appropriate speech pattern/content; bright affect Skin: no bruising or rashes appreciated; R knee in immobilizer at the time of exam HEENT: EOMI, Dry MM, clear oropharynx, no submandibular/cervical lymphadenopathy, no goiter or JVD Cardiovascular: RRR, + KRISHAN Lungs: CTAB Gastrointestinal: abdomen soft, full, nontender, nondistended Genitourinary: Has a middleton Extremities: RLE in immobilizer. No e/c/c BLE's; 2+ pedal pulses B. Results Imaging Additional studies: CT head without contrast: no acute abnormality. CTA chest: 1. No pulmonary arterial embolism. 2. Atherosclerosis of the thoracic aorta and great vessels. No dissection or aneurysm. Moderate stenoses of the proximal right innominate and left subclavian arteries. 3. Unchanged 6 mm right lower lobe pulmonary nodule and 6 mm right middle lobe pulmonary nodule, either new or not imaged on the prior CT scan of the abdomen performed at 2012. For patients at low risk (minimal or absent history of smoking and of other known risk factors), no routine follow-up is indicated. For patients at high risk (history of smoking or of other known risk factors), consider optional CT at 12 months. (Yvette et al., Fleischner Society, 2017). XR right knee: Acute, mildly impacted and postero-laterally angled periprosthetic fracture of the distal femur metaphysis. EKG: HR 62, NSR, no acute ischemia Labs : 04/16/18 10:00 04/16/18 13:00 Laboratory Results - last 24 hr 04/16/18 04/16/18 04/16/18 10:00 10:00 10:53 WBC 8.37 RBC 3.65 L Hgb 11.2 L Hct 34.8 L MCV 95.3 H MCH 30.7 MCHC 32.2 RDW 13.0 Plt Count 286 MPV 11.2 H Immature Gran % 0.4 Neutrophils % 72.1 Lymphocytes % 17.2 Monocytes % 8.1 Eosinophils % 1.7 Basophils % 0.5 Absolute Neutrophils 6.04 Absolute Lymphocytes 1.44 Absolute Monocytes 0.68 Absolute Eosinophils 0.14 Absolute Basophils 0.04 Sodium 142 Potassium 5.7 H Chloride 106 Carbon Dioxide 22.8 Anion Gap 13.2 H BUN 31 H Creatinine 1.70 H Estimated GFR/1.73 m2 28.77 Glucose 163 H Calcium 10.2 H Magnesium 1.8 Total Bilirubin 0.5 AST 21 ALT 26 Alkaline Phosphatase 87 Creatine Kinase 120 Troponin I < 0.02 Total Protein 7.7 Albumin 4.0 Urine Color Yellow Urine Clarity Clear Urine pH 6.0 Ur Specific [place] 1.010 Urine Protein Negative Urine Ketones Negative Urine Blood Negative Urine Nitrite Negative Urine Bilirubin Negative Urine Urobilinogen 0.2 Ur Leukocyte Esterase Negative Urine Glucose Negative 04/16/18 13:00 WBC RBC Hgb Hct MCV MCH MCHC RDW Plt Count MPV Immature Gran % Neutrophils % Lymphocytes % Monocytes % Eosinophils % Basophils % Absolute Neutrophils Absolute Lymphocytes Absolute Monocytes Absolute Eosinophils Absolute Basophils Sodium 140 Potassium 4.7 Chloride 105 Carbon Dioxide 25.6 Anion Gap 9.4 BUN 29 H Creatinine 1.35 H Estimated GFR/1.73 m2 37.54 Glucose 183 H Calcium 9.6 Magnesium Total Bilirubin AST ALT Alkaline Phosphatase Creatine Kinase Troponin I Total Protein Albumin Urine Color Urine Clarity Urine pH Ur Specific [place] Urine Protein Urine Ketones Urine Blood Urine Nitrite Urine Bilirubin Urine Urobilinogen Ur Leukocyte Esterase Urine Glucose Last Vital Signs Temp 37.1 C 04/16/18 13:14 Pulse 89 04/16/18 13:20 Resp 15 04/16/18 13:20 BP 147/103 H 04/16/18 13:20 Pulse Ox 99 04/16/18 13:14
[2018-04-16 17:18] LABS: Troponin I < 0.02 ng/mL (0.00-0.06)
[2018-04-16] MEDS: Normal Saline 1,000 ML 125 ML IV (18:20)
[2018-04-16] MEDS: Acetaminophen 325 MG TAB PO (20:19)
[2018-04-16] MEDS: Docusate Sodium 100 MG CAP PO (20:20)
[2018-04-16 22:37] LABS: Troponin I < 0.02 ng/mL (0.00-0.06)
[2018-04-17] VITALS (159 sets, daily range): BP systolic 103–141; BP diastolic 35–87; PULSE 54–90; RESP 10–28; TEMP 36.7–37.6; O2SAT 88–97
[2018-04-17] MEDS: Acetaminophen 325 MG TAB PO (00:27)
[2018-04-17] MEDS: Normal Saline 1,000 ML 125 ML IV ×3 (01:04→17:34)
[2018-04-17] MEDS: Heparin 5,000 UNITS/ML VIAL 5000 UNITS SC (03:39)
[2018-04-17] MEDS: Levothyroxine 100 MCG TAB PO (05:50)
[2018-04-17 06:08] LABS: Abs Immature Grans 0.02 k/cumm (0.0-0.09); Absolute Basophil Count 0.03 k/cumm (0.0-0.2); Absolute Eosinophil Count 0.21 k/cumm (0.0-0.7); Absolute Lymphocyte Count 1.85 k/cumm (1.2-3.4); Absolute Monocyte Count 0.74 k/cumm (0.11-0.7); Absolute Neutrophil Count 2.08 k/cumm (1.2-6.7); Basophils % 0.6; Eosinophils % 4.3; HCT 27.1 % (36.0-46.0); HGB 8.5 g/dL (12.0-15.5); Immature Grans % 0.4; Lymphocytes % 37.5; Mean Corp. HGB Concentration 31.4 g/dL (32.0-36.0); Mean Corpuscular Hemoglobin 30.7 pg (27.0-33.0); Mean Corpuscular Volume 97.8 fL (80-95); Mean Platelet Volume 10.7 fL (8.0-11.0); Neutrophils % 42.2; Platelet Count 215 x1000/uL (130-400); RBC 2.77 m/cumm (4.00-5.20); RBC Distribution Width 13.1 % (11.7-14.6); White Blood Cell Count 4.93 k/cumm (4.4-10.8)
[2018-04-17 06:24] LABS: Anion Gap 8.9 mmol/L (3-11); BUN 31 mg/dL (7-18); CO2 26.1 mmol/L (21.0-32.0); CREATININE 1.44 mg/dL (0.55-1.02); Calcium 8.6 mg/dL (8.5-10.1); Chloride 105 mmol/L (98-107); Estimated GFR 34.85 (mL/min/1.73m2); Glucose 93 mg/dL (70-100); Potassium 4.4 mmol/L (3.5-5.1); Sodium 140 mmol/L (136-145)
[2018-04-17 06:34] LABS: Cholesterol 255 mg/dL (50-200); HDL Cholesterol 37 mg/dL (40-60); LDL CHOLESTEROL 182 mg/dL (<100); Magnesium 1.7 mg/dL (1.8-2.4); TSH (W/Ref FT4) 0.04 uIU/mL (0.358-3.74); Triglyceride 173 mg/dL (30-150)
[2018-04-17 07:11] LABS: FREE T4 1.09 ng/dL (0.76-1.46)
[2018-04-17 08:09] LABS: RBC Morphology Normal
[2018-04-17] MEDS: Aspirin 81 MG CHEW PO (08:18)
[2018-04-17] MEDS: Cyanocobalamin 500 MCG TAB 1000 MCG PO (08:18)
--- NOTE | 2018-04-17 08:35 | PT.INIE ---
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 She sustained a periprosthetic femur fracture as a result of the fall on the right. PMHX: Sacroiliac joint dysfunction (Chronic),Cervical radiculopathy,Chronic shoulder pain,Cold sore Colon polyps, GERD (gastroesophageal reflux disease), Hx of breast cancer,Hyperlipidemia,Hypertension Hypothyroidism, Impaired fasting glucose, Lichen planus, Osteoarthritis, PMR (polymyalgia rheumatica) Sciatica Social History/Home Situation: She lives alone and prior to admission was I. She reports that her home is 1 level living and does report of 2 steps to enter. She reports that she does not have a handicap shower. She has a traditional tub/shower combo. She does have railings in her bathroom however no other adaptive equipment Current Functional Limitations: S/p fracture of the periprosthetic femur NWB awaiting ortho consultation. Equipment Owned/DME: No equipment at home Subjective: Brie reports that she is very tired this morning. She did not sleep well at all last night. Objective: General Observation: Catheter, telemetry, IV, R LE immobilizer Mental Status: Alert and oriented x3. Pain: 6-7/10 on VAS right knee Vital Signs: BP 109/40 mmHg; HR 69 bpm, O2 97% ROM: Right Upper Extremity: Active shoulder flexion 130 degrees, abduction 100 degrees, able to place hand behind head. Demonstrates WFL elbow and wrist mobility Left Upper Extremity: Active shoulder flexion 130 degrees, abduction 100 degrees, able to place hand behind head. Demonstrates WFL elbow and wrist mobility Right Lower Extremity: N/A, Long leg immobilizer in place s/p fracture Left Lower Extremity: Demonstrates hip flexion 100 degrees, knee flexion 100 degrees, knee extension 0 degrees Strength: Right Upper Extremity: Demonstrates grossly 4-/5 to 4/5 UE strength. Weak sustainable landscape architect Left Upper Extremity: Demonstrates grossly 4-/5 to 4/5 UE strength. Weak sustainable landscape architect Right Lower Extremity: N/A Left Lower Extremity: I SLR, Hip flexion 4/5, knee flexion 4/5, knee extension 4/5, DF 5/5 Bed Mobility/Transfers: Supine-sit: HOB 30 degrees mod A Sit-supine: HOB flat mod Ax2 Gait: N/A at this time. Awaiting ortho consult Balance: Static Sitting: Normal Dynamic Sitting: Good Static Standing: N/A Dynamic Standing: N/A Special Tests: Mobility Limitations Standardized Measure [facility] AM-PAC 6 clicks Basic Mobility Inpatient Short Form: Raw Score: 9 Standardized Score: 25.33 CMS Score: 79% [facility] Modifier: CI Informed Consent/Education: Patient instructed in purpose of PT consult and plan of care. Assessment: Patient is a 82 year old female referred to physical therapy services with the diagnosis of syncopal episode status post fall resulting in a periprosthetic femur fracture right. Patient presents with clinical signs and symptoms consistent with diagnosis, as demonstrated by the following impairment level findings: Nonweightbearing right lower extremity with impaired joint mobility, motor function, muscle performance, gait and balance. Impairments are contributing to the following functional limitations: AMPAC score. 79%. Patient requires skilled PT services to promote tranfers, bed mobility, gait, and balance promoting UE and LE strength. Awaiting ortho consultation for further orders on Right LE. Patient is assessed as a Moderate 72626 complexity based on the following: History: See above Examination: See above functional limitations Presentation: Evolving Decision Making: Moderate Goals: Goals X1 week 1. Supine-Sit SBA 2. Sit-Supine SBA 3. Sit-Stand CGA with FWW 4. Stand-Sit CGA 5. Bed-Chair Jurgen with FWW 6. Chair-Bed Jurgen with FWW 7. Gait Jurgen with FWW 25ft or greater Plan of Care/Treatment Plan: 1-2x/day, 7 days/week x 1 week. Plan of care has been reviewed with the HOP WEIGHER providing the service under Physical Therapy direction. Initiate Physical Therapy intervention for strengthening, bed mobility, transfers, gait, stairs, balance training, use of assistive device. DISCHARGE RECOMMENDATIONS: Probable Rehab placement due to living alone. TREATMENT CODE/TIME: 25 [place] [id number] Tracey Graham, YEIMY
--- NOTE | 2018-04-17 08:38 | IN_ITS ---
Date of service: 04/17/18 Time of Service: 08:10 PT Notes Inpatient Physical Therapy Evaluation Date: April 17, 2018 Referring Doctor: Karyna Romero MD PT Orders: PT CONSULT: eval and treat Precautions: falls, NWB right LE Patient Profile/Admitting Diagnosis: Brie is a 82 year old female referred for PT consult s/p admission yesterday due to a syncopal episode while serving pancakes at her [employer] breakfast. She sustained a periprosthetic femur fracture as a result of the fall on the right. PMHX: Sacroiliac joint dysfunction (Chronic),Cervical radiculopathy,Chronic shoulder pain,Cold sore Colon polyps, GERD (gastroesophageal reflux disease), Hx of breast cancer,Hyperlipidemia,Hypertension Hypothyroidism, Impaired fasting glucose, Lichen planus, Osteoarthritis, PMR (polymyalgia rheumatica) Sciatica Social History/Home Situation: She lives alone and prior to admission was I. She reports that her home is 1 level living and does report of 2 steps to enter. She reports that she does not have a handicap shower. She has a traditional tub/shower combo. She does have railings in her bathroom however no other adaptive equipment Current Functional Limitations: S/p fracture of the periprosthetic femur NWB awaiting ortho consultation. Equipment Owned/DME: No equipment at home Subjective: Brie reports that she is very tired this morning. She did not sleep well at all last night. Objective: General Observation: Catheter, telemetry, IV, R LE immobilizer Mental Status: Alert and oriented x3. Pain: 6-7/10 on VAS right knee Vital Signs: BP 109/40 mmHg; HR 69 bpm, O2 97% ROM: Right Upper Extremity: Active shoulder flexion 130 degrees, abduction 100 degrees, able to place hand behind head. Demonstrates WFL elbow and wrist mobility Left Upper Extremity: Active shoulder flexion 130 degrees, abduction 100 degrees, able to place hand behind head. Demonstrates WFL elbow and wrist mobility Right Lower Extremity: N/A, Long leg immobilizer in place s/p fracture Left Lower Extremity: Demonstrates hip flexion 100 degrees, knee flexion 100 degrees, knee extension 0 degrees Strength: Right Upper Extremity: Demonstrates grossly 4-/5 to 4/5 UE strength. Weak cutter operator brick Left Upper Extremity: Demonstrates grossly 4-/5 to 4/5 UE strength. Weak cutter operator brick Right Lower Extremity: N/A Left Lower Extremity: I SLR, Hip flexion 4/5, knee flexion 4/5, knee extension 4/5, DF 5/5 Bed Mobility/Transfers: Supine-sit: HOB 30 degrees mod A Sit-supine: HOB flat mod Ax2 Gait: N/A at this time. Awaiting ortho consult Balance: Static Sitting: Normal Dynamic Sitting: Good Static Standing: N/A Dynamic Standing: N/A Special Tests: Mobility Limitations Standardized Measure [facility] AM-PAC 6 clicks Basic Mobility Inpatient Short Form: Raw Score: 9 Standardized Score: 25.33 CMS Score: 79% [facility] Modifier: CI Informed Consent/Education: Patient instructed in purpose of PT consult and plan of care. Assessment: Patient is a 82 year old female referred to physical therapy services with the diagnosis of syncopal episode status post fall resulting in a periprosthetic femur fracture right. Patient presents with clinical signs and symptoms consistent with diagnosis, as demonstrated by the following impairment level findings: Nonweightbearing right lower extremity with impaired joint mo bility, motor function, muscle performance, gait and balance. Impairments are contributing to the following functional limitations: AMPAC score. 79%. Patient requires skilled PT services to promote tranfers, bed mobility, gait, and balance promoting UE and LE strength. Awaiting ortho consultation for further orders on Right LE. Patient is assessed as a Moderate [id number] complexity based on the following: History: See above Examination: See above functional limitations Presentation: Evolving Decision Making: Moderate Goals: Goals X1 week 1. Supine-Sit SBA 2. Sit-Supine SBA 3. Sit-Stand CGA with FWW 4. Stand-Sit CGA 5. Bed-Chair Jurgen with FWW 6. Chair-Bed Jurgen with FWW 7. Gait Jurgen with FWW 25ft or greater Plan of Care/Treatment Plan: 1-2x/day, 7 days/week x 1 week. Plan of care has been reviewed with the PRESS ASSISTANT AND FEEDER providing the service under Physical Therapy direction. Initiate Physical Therapy intervention for strengthening, bed mobility, transfers, gait, stairs, balance training, use of assistive device. DISCHARGE RECOMMENDATIONS: Probable Rehab placement due to living alone. TREATMENT CODE/TIME: 25 [place] [id number] Tracey Graham, YEIMY
[2018-04-17 10:40] LABS: Creatine Kinase 75 U/L (26-192)
[2018-04-17] MEDS: MAGNESIUM SULFATE 2 GM/50 ML BAG IVPB (10:56)
--- NOTE | 2018-04-17 12:27 | W.ORTHOCONSU ---
Date of service: 04/17/18 Time of Service: 12:27 History of Present Illness Chief Complaint: Right knee pain Narrative: This is an 82-year-old white female well-known to me due to previous orthopedic procedures, who had a syncopal episode at her hinduism as pancake breakfast yesterday. She does not remember what happened but came to on the floor. She has no clear recollection of an an injury to her right knee. Nevertheless, when she was evaluated in the emergency room x-ray revealed a periprosthetic fracture of the right distal femur. She was admitted for further evaluation of her syncopal episode and for observation. I was consulted for treatment of her periprosthetic fracture. She had a right total knee by Dr. Fraire in [place] over 20 years ago. In 2008 she had a subtrochanteric fracture of her right femur that was treated by me with a trochanteric femoral nail. I purposely extended the nail so that it was at the level of the flange of her total knee femoral component. The nail was locked distally with 2 screws. She had had no problems with her right knee over the years. Assessment and Plan (1) Tata-prosthetic femur fracture at tip of prosthesis: Current visit: Yes Status: Acute Assessment: Periprosthetic fracture right total knee replacement. The fracture occurred at the distal locking screw of her TFN. The distal femur including the femoral component of her total knee replacement is now flexed and increased valgus. This should be corrected. Treatment choices are closed treatment with a long-leg cast or ORIF. I have a long discussion with Brie and her son about the pluses and minuses of both treatments. She does not feel that she will tolerate closed treatment with a long-leg cast. ORIF offers multiple advantages including improve mobility, early weightbearing and early range of motion. . Plan: When she has been stabilized and any intracranial pathology is ruled out, I can proceed with semielective ORIF of a periprosthetic fracture right distal femur. My plan is to fixate it with a lateral locking plate. I should be able to fixate the plate around the IM nail with a combination of unicortical locking screws, nonlocking screws, and cerclage cables. I have spoken with Dr. Romero about this and she will notify me when she feels the patient is stable for surgery. [facility] Medical History Sacroiliac joint dysfunction (Chronic) Cervical radiculopathy Chronic shoulder pain Cold sore Colon polyps GERD (gastroesophageal reflux disease) Hx of breast cancer Hyperlipidemia Hypertension Hypothyroidism Impaired fasting glucose Lichen planus Osteoarthritis PMR (polymyalgia rheumatica) Sciatica Surgical History S/P carpal tunnel release (Acute) Breast, Mastectomy Cholecystectomy Repair of umbilical hernia (04/15/16) Replacement of total knee joint Family History Sister Personal history of malignant neoplasm Mother No problems noted. Father No problems noted. Sister No problems noted. Son No problems noted. Son No problems noted. Social History housing: house lives independently: Yes number of children: 2 current occupation: retired pets and animals: No what type of physical activity do you participate in: swimming frequency: 1-2 times per week Smoking and Tabacco status: Former Tobacco Use alcohol intake: current alcohol intake frequency: holidays/special occasions only substance use type: does not use mia/scientologist: Yazdanism special mia needs: No Exam Narrative Exam Narrative: She has good peripheral pulses right foot. She has good sensation of her entire right foot. No skin breakdown is noted in her right foot or lower leg. Her right knee is lined up and increased valgus that is noticeable. She has localized tenderness around the distal femur. She has been mobilized bed to chair by PT yesterday and today. She has a knee immobilizer on her right. I review her x-rays of her right knee. She has a transverse fracture of the distal femur at the level of her distal interlocking screw from her TFN. She has a posterior cruciate retaining knee replacement. The distal fracture fragment is flexed relative to the femoral shaft on the lateral view. On the AP view there is impaction of the lateral femoral cortex causing increased valgus angulation of the distal femur. It looks like he has adequate bone on the distal fracture fragment to allow for fixation. Results Last Vital Signs Temp 37.2 C 04/17/18 08:21 Pulse 75 04/17/18 12:15 Resp 16 04/17/18 08:10 BP 109/40 L 02/17/19 08:01 Pulse Ox 96 04/17/18 08:01 Labs : 04/17/18 05:52 04/17/18 05:52 Laboratory Results - last 24 hr 04/16/18 04/16/18 04/16/18 13:00 16:32 21:45 WBC RBC Hgb Hct MCV MCH MCHC RDW Plt Count MPV Immature Gran % Neutrophils % Lymphocytes % Monocytes % Eosinophils % Basophils % Absolute Neutrophils Absolute Lymphocytes Absolute Monocytes Absolute Eosinophils Absolute Basophils RBC Morphology Sodium 140 Potassium 4.7 Chloride 105 Carbon Dioxide 25.6 Anion Gap 9.4 BUN 29 H Creatinine 1.35 H Estimated GFR/1.73 m2 37.54 Glucose 183 H Calcium 9.6 Magnesium Creatine Kinase Troponin I < 0.02 < 0.02 Triglycerides Total Cholesterol LDL Cholesterol Direct HDL Cholesterol TSH Free T4 04/17/18 04/17/18 04/17/18 05:52 05:52 05:52 WBC 4.93 D RBC 2.77 L Hgb 8.5 L D Hct 27.1 L D MCV 97.8 H MCH 30.7 MCHC 31.4 L RDW 13.1 Plt Count 215 MPV 10.7 Immature Gran % 0.4 Neutrophils % 42.2 Lymphocytes % 37.5 Monocytes % 15.0 Eosinophils % 4.3 Basophils % 0.6 Absolute Neutrophils 2.08 Absolute Lymphocytes 1.85 Absolute Monocytes 0.74 H Absolute Eosinophils 0.21 Absolute Basophils 0.03 RBC Morphology Normal Sodium 140 Potassium 4.4 Chloride 105 Carbon Dioxide 26.1 Anion Gap 8.9 BUN 31 H Creatinine 1.44 H Estimated GFR/1.73 m2 34.85 Glucose 93 D Calcium 8.6 Magnesium 1.7 L Creatine Kinase 75 Troponin I Triglycerides 173 H Total Cholesterol 255 H LDL Cholesterol Direct 182 H HDL Cholesterol 37 L TSH 0.04 L Free T4 1.09
--- NOTE | 2018-04-17 12:41 | OCONE_ITS ---
Date of service: 04/17/18 Time of Service: 12:27 History of Present Illness Chief Complaint: Right knee pain Narrative: This is an 82-year-old white female well-known to me due to previous orthopedic procedures, who had a syncopal episode at her confucianism as pancake breakfast yesterday. She does not remember what happened but came to on the floor. She has no clear recollection of an an injury to her right knee. Nevertheless, when she was evaluated in the emergency room x-ray revealed a periprosthetic fracture of the right distal femur. She was admitted for further evaluation of her syncopal episode and for observation. I was consulted for treatment of her periprosthetic fracture. She had a right total knee by Dr. Fraire in [place] over 20 years ago. In 2008 she had a subtrochanteric fracture of her right femur that was treated by me with a trochanteric femoral nail. I purposely extended the nail so that it was at the level of the flange of her total knee femoral component. The nail was locked distally with 2 screws. She had had no problems with her right knee over the years. Assessment and Plan (1) Tata-prosthetic femur fracture at tip of prosthesis: Current visit: Yes Status: Acute Assessment: Periprosthetic fracture right total knee replacement. The fracture occurred at the distal locking screw of her TFN. The distal femur including the femoral component of her total knee replacement is now flexed and increased valgus. This should be corrected. Treatment choices are closed treatment with a long-leg cast or ORIF. I have a long discussion with Brie and her son about the pluses and minuses of both treatments. She does not feel that she will tolerate closed treatment with a long-leg cast. ORIF offers multiple advantages including improve mobility, early weightbearing and early range of motion. . Plan: When she has been stabilized and any intracranial pathology is ruled out, I can proceed with semielective ORIF of a periprosthetic fracture right distal f huma. My plan is to fixate it with a lateral locking plate. I should be able to fixate the plate around the IM nail with a combination of unicortical locking screws, nonlocking screws, and cerclage cables. I have spoken with Dr. Romero about this and she will notify me when she feels the patient is stable for surgery. [facility] Medical History Sacroiliac joint dysfunction (Chronic) Cervical radiculopathy Chronic shoulder pain Cold sore Colon polyps GERD (gastroesophageal reflux disease) Hx of breast cancer Hyperlipidemia Hypertension Hypothyroidism Impaired fasting glucose Lichen planus Osteoarthritis PMR (polymyalgia rheumatica) Sciatica Surgical History S/P carpal tunnel release (Acute) Breast, Mastectomy Cholecystectomy Repair of umbilical hernia (04/15/16) Replacement of total knee joint Family History Sister Personal history of malignant neoplasm Mother No problems noted. Father No problems noted. Sister No problems noted. Son No problems noted. Son No problems noted. Social History housing: house lives independently: Yes number of children: 2 current occupation: retired pets and animals: No what type of physical activity do you participate in: swimming frequency: 1-2 times per week Smoking and Tabacco status: Former Tobacco Use alcohol intake: current alcohol intake frequency: holidays/special occasions only substance use type: does not use mia/orthodoxy: Christianity special mia needs: No Exam Narrative Exam Narrative: She has good peripheral pulses right foot. She has good sensation of her entire right foot. No skin breakdown is noted in her right foot or lower leg. Her right knee is lined up and increased valgus that is noticeable. She has localized tenderness around the distal femur. She has been mobilized bed to chair by PT yesterday and today. She has a knee immobilizer on her right. I review her x-rays of her right knee. She has a transverse fracture of the distal femur at the level of her distal interlocking screw from her TFN. She has a posterior cruciate retaining knee replacement. The distal fracture fragment is flexed relative to the femoral shaft on the lateral view. On the AP view there is impaction of the lateral femoral cortex causing increased valgus angulation of the distal femur. It looks like he has adequate bone on the distal fracture fragment to allow for fixation. Results Last Vital Signs Temp 37.2 C 04/17/18 08:21 Pulse 75 04/17/18 12:15 Resp 16 04/17/18 08:10 BP 109/40 L 04/17/18 08:01 Pulse Ox 96 04/17/18 08:01 Labs : 04/17/18 05:52 04/17/18 05:52 Laboratory Results - last 24 hr 04/16/18 04/16/18 04/16/18 13:00 16:32 21:45 WBC RBC Hgb Hct MCV MCH MCHC RDW Plt Count MPV Immature Gran % Neutrophils % Lymphocytes % Monocytes % Eosinophils % Basophils % Absolute Neutrophils Absolute Lymphocytes Absolute Monocytes Absolute Eosinophils Absolute Basophils RBC Morphology Sodium 140 Potassium 4.7 Chloride 105 Carbon Dioxide 25.6 Anion Gap 9.4 BUN 29 H Creatinine 1.35 H Estimated GFR/1.73 m2 37.54 Glucose 183 H Calcium 9.6 Magnesium Creatine Kinase Troponin I < 0.02 < 0.02 Triglycerides Total Cholesterol LDL Cholesterol Direct HDL Cholesterol TSH Free T4 04/17/18 04/17/18 04/17/18 05:52 05:52 05:52 WBC 4.93 D RBC 2.77 L Hgb 8.5 L D Hct 27.1 L D MCV 97.8 H MCH 30.7 MCHC 31.4 L RDW 13.1 Plt Count 215 MPV 10.7 Immature Gran % 0.4 Neutrophils % 42.2 Lymphocytes % 37.5 Monocytes % 15.0 Eosinophils % 4.3 Basophils % 0.6 Absolute Neutrophils 2.08 Absolute Lymphocytes 1.85 Absolute Monocytes 0.74 H Absolute Eosinophils 0.21 Absolute Basophils 0.03 RBC Morphology Normal Sodium 140 Potassium 4.4 Chloride 105 Carbon Dioxide 26.1 Anion Gap 8.9 BUN 31 H Creatinine 1.44 H Estimated GFR/1.73 m2 34.85 Glucose 93 D Calcium 8.6 Magnesium 1.7 L Creatine Kinase 75 Troponin I Triglycerides 173 H Total Cholesterol 255 H LDL Cholesterol Direct 182 H HDL Cholesterol 37 L TSH 0.04 L Free T4 1.09
--- NOTE | 2018-04-17 14:11 | INITIAL_ITS ---
Care Management Initial Assess REASON FOR HOSPITALIZATION:: Syncopal episode, R periprosthetic fracture of the distal femur PAST MEDICAL HISTORY/PAST SURGICAL HISTORY:: Medical: Sacroiliac joint dysfunction,Cervical radiculopathy,Chronic shoulder pain,Cold sore,Colon polyps, GERD,Hx of breast cancer, Hyperlipidemia, hypertension, Hypothyroidism,Impaired fasting glucose,Lichen planus,. Osteoarthritis, PMR (polymyalgia rheumatica), Sciatica. Surgical: S/P carpal tunnel release, Breast, Mastectomy,Cholecystectomy,. Repair of umbilical hernia, Replacement of total knee joint PREVIOUS FUNCTIONAL STATUS/SOCIAL/FAMILY SUPPORTS:: She lives alone and prior to admission was Independent. PT reports that her home is 1 level living and there are 2 steps to enter. She reports that she does not have a handicap shower. She has a traditional tub/shower combo. She does have railings in her bathroom however no other adaptive equipment Son, Jay, lives nearby in [place] and is supportive. CURRENT FUNCTIONAL STATUS:: Brie was last in the hospital for Ambulatory surgical procedure, L Carpal Tunnel release 12/15/16. She was sitting up in bed and expected Dr. Villar to see her today about her right leg. ADVANCE DIRECTIVES:: None on file Has patient been provided with information about the portal?: No Did the patient sign up for the portal?: No CODE STATUS:: Full Code INSURANCE COVERAGE / FINANCIAL ISSUES:: Medicare. AARP CURRENT HOME/COMMUNITY SERVICES/EQUIPMENT:: No current services or equipment. PRIMARY CARE PHYSICIAN:: [facility]: Maricel Bella NP POTENTIAL DISCHARGE NEEDS:: DME, HH Services for PT/OT PATIENT/FAMILY EDUCATION NEEDS:: Discharge instructions, F/U appointments ANTICIPATED BARRIERS TO DISCHARGE:: None identified TRANSPORTATION:: Family will transport PLAN:: Return home when medically cleared for discharge. Will need F2F for new HH services for PT/OT and will need to order any needed adaptive equipment. Family to transport.
[2018-04-17 14:25] LABS: HCT 28.4 % (36.0-46.0)
[2018-04-17] MEDS: Acetaminophen 500 MG TAB 1000 MG PO ×2 (14:36→20:11)
[2018-04-17] MEDS: Ondansetron 4 MG/2 ML VIAL IVP (14:36)
--- NOTE | 2018-04-17 14:54 | NUR.NOTE ---
C/O nausea. Vomiting small amount mucous. Dr. Romero made aware. Zophran PO given with effect pending.Nursing Note:
--- NOTE | 2018-04-17 15:01 | W.PM.PROGNOT ---
Date of Service Date of service: 04/17/18 Time of Service: 15:01 Assessment and Plan (1) Syncopal episodes: Current visit: Yes Status: Acute It now appears that there may have been 2 episodes. Continue to monitor on tele. Repeat EKG pending. Obtain a carotid doppler and echo. (2) Transient neurologic deficit: Current visit: Yes Status: Acute Possibly signs of hypoperfusion in setting of syncope - but could be TIA. Will need MRI/neurology consult. Continue aspirin 81 mg PO daily. Start a statin based on the lipid profile. (3) Tata-prosthetic femur fracture at tip of prosthesis: Current visit: Yes Status: Acute Orthopedics consulted. Plan is to take the patient to the OR once medically cleared - ?Wednesday Keep in knee immobilizer. Check vitamin D level (4) Hypothyroidism: Current visit: No Status: Acute TSH is 0.04, so synthroid is actually on hold as the patient likely has iatrogenic hyperthyroidism. We are rechecking TSH tomorrow to ensure that there has not been a lab error. Qualifiers: Hypothyroidism type: unspecified Qualified Code(s): E03.9 - Hypothyroidism, unspecified (5) Hyperlipidemia: Current visit: No Status: Acute Start atorvastatin (6) Essential hypertension: Current visit: No Status: Acute Hold HCTZ (7) Hyperkalemia: Current visit: Yes Status: Acute Resolved. No evidence for rhabdo. (8) DVT prophylaxis: Current visit: Yes Status: Acute Heparin SC + TEDs + SCD's (9) Discharge planning issues: Current visit: Yes Status: Acute Full code Lives alone at home on Discharge, may require rehab Subjective Interval history since last seen: Ms Dai says that her pain is well controlled. However, she reports nausea and vomiting without abdominal pain. She also reports belching. Her last BM was 3 days ago. She states she has not passed flatus since arrival to the hospital. Per patient, she was told by her friends at the [employer] that there in fact were 2 syncopal episodes and that she was lowered down to the ground rather than falling there, so she definitely did not hit her head. She denies dizziness, chest pain, shortness of breath. Exam Narrative Exam Narrative: General: Very pleasant elderly female, belching Neurological: A&Ox3, no focal deficits; pupils are pinpoint Psychiatric: appropriate speech pattern/content HEENT: EOMI, MMM, no JVD Cardiovascular: RRR, + KRISHAN Lungs: CTAB Gastrointestinal: abdomen soft, full, nontender, nondistended Genitourinary: Has a middleton Extremities: RLE in immobilizer. No e/c/c BLE's; 2+ pedal pulses B. Objective Objective Clinical Data: Abnormal lab results 04/17/18 04/17/18 04/17/18 Range/Units 05:52 05:52 05:52 RBC 2.77 L (4.00-5.20) m/cumm Hgb 8.5 L D (12.0-15.5) g/dL Hct 27.1 L D (36.0-46.0) % MCV 97.8 H (80-95) fL MCHC 31.4 L (32.0-36.0) g/dL Absolute Monocytes 0.74 H (0.11-0.7) k/cumm BUN 31 H (7-18) mg/dL Creatinine 1.44 H (0.55-1.02) mg/dL Magnesium 1.7 L (1.8-2.4) mg/dL Triglycerides 173 H (30-150) mg/dL Total Cholesterol 255 H (50-200) mg/dL LDL Cholesterol Direct 182 H (<100) mg/dL HDL Cholesterol 37 L (40-60) mg/dL TSH 0.04 L (0.358-3.74) uIU/mL 04/17/18 Range/Units 14:10 RBC (4.00-5.20) m/cumm Hgb 9.0 L (12.0-15.5) g/dL Hct 28.4 L (36.0-46.0) % MCV (80-95) fL MCHC (32.0-36.0) g/dL Absolute Monocytes (0.11-0.7) k/cumm BUN (7-18) mg/dL Creatinine (0.55-1.02) mg/dL Magnesium (1.8-2.4) mg/dL Triglycerides (30-150) mg/dL Total Cholesterol (50-200) mg/dL LDL Cholesterol Direct (<100) mg/dL HDL Cholesterol (40-60) mg/dL TSH (0.358-3.74) uIU/mL Vital Signs Temperature 37.2 C 04/17/18 08:21 Temperature Source Temporal Artery Scan 04/17/18 08:21 Pulse 75 04/17/18 12:15 Pulse Rhythm Regular 04/17/18 12:05 Pulse 67 04/17/18 14:40 Respiratory Rate 15 04/17/18 14:40 Respiratory Effort 04/17/18 12:05 Respiratory Depth Normal 04/16/18 16:11 Respiratory Pattern Normal 04/16/18 16:11 Blood Pressure 115/61 04/17/18 10:01 Blood Pressure Mean 68 04/17/18 10:01 Blood Pressure Position Supine 04/16/18 16:11 Pulse Oximetry 96 04/17/18 08:01 Oxygen Delivery Method Room Air 04/17/18 00:05 Oxygen Flow Rate 0 04/17/18 00:05 Pain Level 8 04/17/18 10:55 Intake & Output 04/16/18 04/17/18 04/17/18 23:59 11:59 23:59 Intake Total 1550 / 1550 2131.667 / 2131.667 Output Total 1150 / 1575 425 / 1575 Balance 1550 / 1550 981.667 / 556.667 -425 / 556.667 Weight 95 kg 95.8 kg Intake: IV 1000 / 1000 1841.667 / 1841.667 Oral 550 / 550 290 / 290 Output: Urine 1150 / 1575 425 / 1575 Other: Urine Color Yellow Yellow Urine Appearance Clear Cloudy Urine Odor Strong Comment REPORTS BREAST CA, MASTECOMY Draining QS Voiding Methods Indwelling Catheter Laboratory Results WBC 4.93 k/cumm (4.4-10.8) D 04/17/18 05:52 RBC 2.77 m/cumm (4.00-5.20) L 04/17/18 05:52 Hgb 9.0 g/dL (12.0-15.5) L 04/17/18 14:10 Hct 28.4 % (36.0-46.0) L 04/17/18 14:10 MCV 97.8 fL (80-95) H 04/17/18 05:52 MCH 30.7 pg (27.0-33.0) 04/17/18 05:52 MCHC 31.4 g/dL (32.0-36.0) L 04/17/18 05:52 RDW 13.1 % (11.7-14.6) 04/17/18 05:52 Plt Count 215 x1000/uL (130-400) 04/17/18 05:52 MPV 10.7 fL (8.0-11.0) 04/17/18 05:52 Immature Gran % 0.4 04/17/18 05:52 Neutrophils % 42.2 04/17/18 05:52 Lymphocytes % 37.5 04/17/18 05:52 Monocytes % 15.0 04/17/18 05:52 Eosinophils % 4.3 04/17/18 05:52 Basophils % 0.6 04/17/18 05:52 Absolute Neutrophils 2.08 k/cumm (1.2-6.7) 04/17/18 05:52 Absolute Lymphocytes 1.85 k/cumm (1.2-3.4) 04/17/18 05:52 Absolute Monocytes 0.74 k/cumm (0.11-0.7) H 04/17/18 05:52 Absolute Eosinophils 0.21 k/cumm (0.0-0.7) 04/17/18 05:52 Absolute Basophils 0.03 k/cumm (0.0-0.2) 04/17/18 05:52 RBC Morphology Normal 04/17/18 05:52 Sodium 140 mmol/L (136-145) 04/17/18 05:52 Potassium 4.4 mmol/L (3.5-5.1) 04/17/18 05:52 Chloride 105 mmol/L (98-107) 04/17/18 05:52 Carbon Dioxide 26.1 mmol/L (21.0-32.0) 04/17/18 05:52 Anion Gap 8.9 mmol/L (3-11) 04/17/18 05:52 BUN 31 mg/dL (7-18) H 04/17/18 05:52 Creatinine 1.44 mg/dL (0.55-1.02) H 04/17/18 05:52 Estimated GFR/1.73 m2 34.85 (mL/min/1.73m2) 04/17/18 05:52 Glucose 93 mg/dL (70-100) D 04/17/18 05:52 Calcium 8.6 mg/dL (8.5-10.1) 04/17/18 05:52 Magnesium 1.7 mg/dL (1.8-2.4) L 04/17/18 05:52 Total Bilirubin 0.5 mg/dL (0.2-1.0) 04/16/18 10:00 AST 21 U/L (15-37) 04/16/18 10:00 ALT 26 U/L (12-78) 04/16/18 10:00 Alkaline Phosphatase 87 U/L (46-116) 04/16/18 10:00 Creatine Kinase 75 U/L (26-192) 04/17/18 05:52 Troponin I < 0.02 ng/mL (0.00-0.06) 04/16/18 21:45 Total Protein 7.7 g/dL (6.4-8.2) 04/16/18 10:00 Albumin 4.0 g/dL (3.4-5.0) 04/16/18 10:00 Triglycerides 173 mg/dL (30-150) H 04/17/18 05:52 Total Cholesterol 255 mg/dL (50-200) H 04/17/18 05:52 LDL Cholesterol Direct 182 mg/dL (<100) H 04/17/18 05:52 HDL Cholesterol 37 mg/dL (40-60) L 04/17/18 05:52 TSH 0.04 uIU/mL (0.358-3.74) L 04/17/18 05:52 Free T4 1.09 ng/dL (0.76-1.46) 04/17/18 05:52 Urine Color Yellow (Yellow) 04/16/18 10:53 Urine Clarity Clear 04/16/18 10:53 Urine pH 6.0 (5-8) 04/16/18 10:53 Ur Specific [place] 1.010 (1.005-1.025) 04/16/18 10:53 Urine Protein Negative mg/dL (Negative) 04/16/18 10:53 Urine Ketones Negative mg/dL (Negative) 04/16/18 10:53 Urine Blood Negative (Negative) 04/16/18 10:53 Urine Nitrite Negative (Negative) 04/16/18 10:53 Urine Bilirubin Negative (Negative) 04/16/18 10:53 Urine Urobilinogen 0.2 EU/dL (Up TO 0.2) 04/16/18 10:53 Ur Leukocyte Esterase Negative (Negative) 04/16/18 10:53 Urine Glucose Negative mg/dL (Negative) 04/16/18 10:53
[2018-04-17] MEDS: Normal Saline Flush 10 ML SYR IVP ×2 (20:11→23:52)
[2018-04-17] MEDS: Senna TAB 1 TAB PO (20:11)
[2018-04-17] MEDS: Docusate Sodium 100 MG CAP PO ×2 (20:12)
[2018-04-17] MEDS: HYDROmorphone 2 MG/ML VIAL 0.5 MG IVP ×2 (20:12→23:52)
[2018-04-17] MEDS: Atorvastatin 40 MG TAB PO (20:13)
[2018-04-18] VITALS (46 sets, daily range): BP systolic 95–134; BP diastolic 38–92; PULSE 55–79; RESP 9–24; TEMP 36.6–37.6; O2SAT 90–97
[2018-04-18] MEDS: Normal Saline 1,000 ML 125 ML IV ×2 (00:45→10:31)
[2018-04-18 07:41] LABS: Abs Immature Grans 0.01 k/cumm (0.0-0.09); Absolute Basophil Count 0.02 k/cumm (0.0-0.2); Absolute Eosinophil Count 0.23 k/cumm (0.0-0.7); Absolute Lymphocyte Count 1.31 k/cumm (1.2-3.4); Absolute Monocyte Count 0.76 k/cumm (0.11-0.7); Absolute Neutrophil Count 3.53 k/cumm (1.2-6.7); Basophils % 0.3; Eosinophils % 3.9; HCT 26.2 % (36.0-46.0); Immature Grans % 0.2; Lymphocytes % 22.4; Mean Corp. HGB Concentration 30.5 g/dL (32.0-36.0); Mean Corpuscular Hemoglobin 30.1 pg (27.0-33.0); Mean Corpuscular Volume 98.5 fL (80-95); Mean Platelet Volume 11.5 fL (8.0-11.0); Neutrophils % 60.2; Platelet Count 194 x1000/uL (130-400); RBC 2.66 m/cumm (4.00-5.20); RBC Distribution Width 12.8 % (11.7-14.6); White Blood Cell Count 5.86 k/cumm (4.4-10.8)
--- NOTE | 2018-04-18 08:00 | DI.US_ITS ---
SYMPTOM/DIAGNOSIS: SYNCOPE, ? CAROTID STENOSIS, HYPERTENSION CAROTID ULTRASOUND: Routine examination was performed. On the right, there is significant plaque seen in the carotid bulb with marked elevation of the velocities in the internal carotid artery, particularly proximally. The findings are consistent with significant stenosis (greater than 70%, likely near occlusive). The right vertebral artery is antegrade. There is moderate plaque seen in the distal left common carotid artery and carotid bulb with elevation of the velocities in the internal carotid arteries consistent with greater than 70% internal carotid artery stenosis. The left vertebral artery is antegrade. IMPRESSION: Hemodynamically significant bilateral internal carotid artery stenosis, right greater than left.
[2018-04-18 08:11] LABS: Anion Gap 8.4 mmol/L (3-11); BUN 25 mg/dL (7-18); CO2 22.6 mmol/L (21.0-32.0); CREATININE 1.41 mg/dL (0.55-1.02); Calcium 8.5 mg/dL (8.5-10.1); Chloride 108 mmol/L (98-107); Estimated GFR 35.71 (mL/min/1.73m2); Glucose 96 mg/dL (70-100); Magnesium 1.9 mg/dL (1.8-2.4); Potassium 4.8 mmol/L (3.5-5.1); Sodium 139 mmol/L (136-145); TSH (W/Ref FT4) 0.02 uIU/mL (0.358-3.74)
[2018-04-18 08:30] LABS: FREE T4 1.09 ng/dL (0.76-1.46)
[2018-04-18 08:48] LABS: Vitamin D 25 Total 13.5 ng/ml (30-100)
[2018-04-18 08:51] LABS: Hypochromasia 1+
[2018-04-18 08:52] LABS: Diff Comment RBC Morph Reviewed
[2018-04-18] MEDS: Aspirin 81 MG CHEW PO (08:54)
[2018-04-18] MEDS: Pantoprazole 40 MG VIAL IVP (08:54)
[2018-04-18] MEDS: Cyanocobalamin 500 MCG TAB 1000 MCG PO (08:54)
[2018-04-18] MEDS: Docusate Sodium 100 MG CAP PO ×2 (08:54→20:42)
[2018-04-18] MEDS: Senna TAB 1 TAB PO ×2 (08:54→20:42)
[2018-04-18] MEDS: Acetaminophen 500 MG TAB 1000 MG PO ×3 (08:54→20:42)
[2018-04-18] MEDS: Normal Saline Flush 10 ML SYR IVP ×5 (08:55→21:02)
--- NOTE | 2018-04-18 09:15 | MERGE_ITS ---
*[facility]* *[facility]* [address] [place] [address] Date of study: 04/18/2018 Transthoracic Echocardiography M-mode, complete 2D, complete spectral Doppler, and color Doppler *STUDY CONCLUSIONS* Summary: 1. Left ventricle: The cavity size was normal. Wall thickness was increased in a pattern of mild LVH. The estimated ejection fraction was 65%. Findings consistent with diastolic dysfunction. Doppler parameters are consistent with high ventricular filling pressure. 2. Mitral valve: There was mild to moderate regurgitation. 3. Right ventricle: The cavity size was normal. Wall thickness was normal. Systolic function was normal. 4. Right atrium: The atrium was mildly dilated. 5. Atrial septum: No defect or patent foramen ovale was identified. 6. Pulmonary arteries: Pulmonary systolic pressure was in the range of 55mm Hg to 65mm Hg. 7. Inferior vena cava: The vessel was patent and normal in size. The respirophasic diameter changes were in the normal range (greater than or equal to 50%), consistent with normal central venous pressure. *PATIENT PRESENTATION* Height: 167.6cm ((66in) ) S/D Pressure: 133 / 92 Weight: 95.7kg ((210.6lb) ) BSA: 2.15m^2 Test start time: 09:15 AM. Test stop time: 10:10 AM. REFERRING Jay Mabry MD PERFORMING Unknown PERFORMING [facility] ARTS MANAGER Magalie Lucia, RT (R)(CT), RDCS REFERRING Md Raghavendra Lamar CONSULTING Karyna Romero ORDERING Karyna Romero REFERRING Karyna Romero *PROCEDURE DATA* Procedure information: The patient was identified by two identifiers. This study was interpreted by [facility]. Pertinent images and digital data are archived for permanent storage and are available for subsequent review. No prior study was available for comparison. Study status: Routine. Transthoracic echocardiography. M-mode, complete 2D, complete spectral Doppler, and color Doppler. A Transthoracic Echocardiogram was performed. Scanning was performed from the parasternal, apical, subcostal, and suprasternal notch acoustic windows. Images were obtained using an [id number] cardiac ultrasound machine. Image quality was adequate. Study completion: The patient tolerated the procedure well. History: PMH: Syncope heart murmur. *CARDIAC ANATOMY* Left ventricle: The cavity size was normal. Wall thickness was increased in a pattern of mild LVH. The estimated ejection fraction was 65%. The tissue Doppler parameters were abnormal. Findings consistent with diastolic dysfunction. Doppler parameters are consistent with high ventricular filling pressure. Aortic valve: Trileaflet. Doppler: There was no stenosis. There was no regurgitation. VTI ratio of LVOT to aortic valve: 0.54. Valve area (VTI): 2cm^2. Indexed valve area (VTI): 0.9cm^2/m^2. Peak velocity ratio of LVOT to aortic valve: 0.54. Valve area (Vmax): 1.9cm^2. Indexed valve area (Vmax): 0.9cm^2/m^2. Mean velocity ratio of LVOT to aortic valve: 0.46. Valve area (Vmean): 1.7cm^2. Indexed valve area (Vmean): 0.8cm^2/m^2. Mean gradient (S): 9.5mm Hg. Peak gradient (S): 16.3mm Hg. Aorta: Aortic root: The aortic root was normal in size. Ascending aorta: The ascending aorta was mildly dilated. Mitral valve: Doppler: There was no evidence for stenosis. There was mild to moderate regurgitation. Valve area by pressure half-time: 4.3cm^2. Indexed valve area by pressure half-time: 2cm^2/m^2. Peak gradient (D): 8.7mm Hg. Left atrium: The atrium was normal in size. Atrial septum: No defect or patent foramen ovale was identified. Right ventricle: The cavity size was normal. Wall thickness was normal. Systolic function was normal. Pulmonic valve: Doppler: There was no evidence for stenosis. There was mild regurgitation. Peak gradient (S): 4.5mm Hg. Tricuspid valve: Doppler: There was mild regurgitation. Pulmonary artery: Poorly visualized. Pulmonary systolic pressure was in the range of 55mm Hg to 65mm Hg. Right atrium: The atrium was mildly dilated. Pericardium: There was no pericardial effusion. Systemic veins: Inferior vena cava: Well visualized. The vessel was patent and normal in size. The respirophasic diameter changes were in the normal range (greater than or equal to 50%), consistent with normal central venous pressure. Baseline ECG: Normal sinus rhythm. Measurements Left ventricle Value Reference LV ID, ED, PLAX 5.2 cm 3.5 - 6.0 LV ID, ES, PLAX 3.5 cm 2.1 - 4.0 LV PW thickness, ED, PLAX 1.3 cm LV end-diastolic volume, 1-p A2C 99 ml LV ejection fraction, 1-p A2C 61 % LV end-diastolic volume, 1-p A4C 111 ml LV ejection fraction, 1-p A4C 74 % LV e', lateral 0.098 m/sec LV E/e', lateral 15 LV e', medial 0.073 m/sec LV E/e', medial 20 LV e', average 0.085 m/sec LV E/e', average 17 Ventricular septum Value Reference IVS thickness, ED, PLAX 1.2 cm LVOT Value Reference LVOT ID, A-P 2.1 cm LVOT area 3.6 cm^2 LVOT peak velocity, S 1.09 m/sec LVOT mean velocity, S 0.68 m/sec LVOT VTI, S 22.8 cm LVOT peak gradient, S 4.7 mm Hg LVOT mean gradient, S 2.2 mm Hg Stroke volume (SV), LVOT DP 82 ml Stroke index (SV/bsa), LVOT DP 38 ml/m^2 Aortic valve Value Reference Aortic valve peak velocity, S 2 m/sec Aortic valve mean velocity, S 1.46 m/sec Aortic valve VTI, S 42.0 cm Aortic mean gradient, S 9.5 mm Hg Aortic peak gradient, S 16.3 mm Hg VTI ratio, LVOT/AV 0.54 Aortic valve area, VTI 2 cm^2 Velocity ratio, peak, LVOT/AV 0.54 Aortic valve area, peak velocity 1.9 cm^2 Velocity ratio, mean, LVOT/AV 0.46 Aortic valve area, mean velocity 1.7 cm^2 Aortic valve area/bsa, mean velocity 0.8 cm^2/m^2 Aorta Value Reference Aortic root ID, ED 2.9 cm Ascending aorta ID, A-P, S 3.5 cm Left atrium Value Reference LA ID, A-P, ES 3.5 cm LA ID/bsa, A-P 1.6 cm/m^2 <=2.2 LA area, ES, A4C (H) 24.4 cm^2 8.8 - 23.4 LA area, ES, A2C 16 cm^2 LA volume/bsa, ES, 1-p A4C 36 ml/m^2 LA volume, ES, 2-p 68 ml LA volume/bsa, ES, 2-p 32 ml/m^2 LA/aortic root ratio 1.17 Mitral valve Value Reference Mitral E-wave peak velocity 1.47 m/sec Mitral A-wave peak velocity 1.16 m/sec Mitral deceleration time 175 ms 150 - 230 Mitral pressure half-time 51 ms Mitral peak gradient, D 8.7 mm Hg Mitral E/A ratio, peak 1.27 Mitral valve area, PHT, DP 4.3 cm^2 Mitral peak LV-LA gradient, S 148.6 mm Hg Mitral maximal regurg velocity, PISA 6.09 m/sec Mitral regurg VTI, PISA 178.7 cm Tricuspid valve Value Reference Tricuspid regurg peak velocity 3.8 m/sec Tricuspid peak RV-RA gradient 58.2 mm Hg Right atrium Value Reference RA area, ES, A4C (H) 25.4 cm^2 8.3 - 19.5 Pulmonic valve Value Reference Pulmonic peak gradient, S 4.5 mm Hg Legend: (L) and (H) tomy values outside specified reference range. I have personally reviewed the images and have reviewed and edited the reported findings. Electronically signed by Jay Mabry MD 04/18/2018 10:48
--- NOTE | 2018-04-18 09:32 | PT.INTREAT ---
Date of service: 04/18/18 Time of Service: 08:30 PT Notes 04/18/18 Subjective: Patient states that she is feeling comfortable with the exception of her knee immobilizer pressing into her thigh. She states that nursing added a foam pad posteriorly yesterday. She's hopeful that she'll be going into surgery tomorrow. Objective: Pain: 0/10 at rest. Increased with any movement. Supine-Sit: Unable due to pain Rolling: Patient able to perform partial roll for inspection of posterior aspect of knee immobilizer Treatment: Patient was instructed in bed exercises for completion throughout the day. Her knee immobilizer was inspected, and additional padding added. ([id number]) Assessment: Patient will complete limited exercise program in bed while she awaits surgery. Otherwise, will place on hold from formal PT intervention until after surgical repair, which is anticipated tomorrow. Plan: Hold PT until patient undergoes ORIF.
[2018-04-18] MEDS: HYDROmorphone 2 MG/ML VIAL 0.5 MG IVP ×3 (09:35→21:01)
[2018-04-18] MEDS: LORazepam 2 MG/ML VIAL 0.5 MG IVP (10:50)
--- NOTE | 2018-04-18 11:47 | OT.INIE ---
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 She sustained a periprosthetic femur fracture as a result of the fall on the (R) LE. Past Medical History: Sacroiliac joint dysfunction (Chronic),Cervical radiculopathy,Chronic shoulder pain,Cold sore Colon polyps, GERD (gastroesophageal reflux disease), Hx of breast cancer,Hyperlipidemia,Hypertension, Hypothyroidism, Impaired fasting glucose, Lichen planus, Osteoarthritis, PMR (polymyalgia rheumatica), Sciatica. Current Functional Limitations: NWB (R) LE, surgery performed by Dr. Villar to be performed on 04/19/18, decreased functional activity tolerance, decreased strength (B) UE, decreased (I) ADLs/IADLs. Social History/Home Situation: Pt lives alone in a private home with 2 steps to enter. Prior to admission her baseline is (I) in all ADLs/ IADLs. She reports that she has a tub/shower combination and at baseline stands in shower. She also has grab bars in her bathroom. Equipment owned/DME: Grab bars. SUBJECTIVE: Pt reports that she has had multiple tests performed this morning. She is agreeable to OT consult and reports that she is getting ready to go to another test soon. OBJECTIVE: General Observation: Romero, telemetry, IV Mental Status: A&Ox3 Pain: no c/o pain although pt had just received pain medication ROM: RUE AROM WFL L UE AROM WFL STRENGTH: RUE 4-/5 shoulder flexion and elbow, ride operator is weak LUE 4-/5 shoulder flexion and elbow, ride operator is weak FUNCTIONAL MOBILITY/ADLS: No ADLs performed at todays evaluation. BATHING- baseline standing in tub/shower combination with grab bars in shower (I) DRESSING- baseline Sitting in chair (I) UE/LE GROOMING - baseline standing at sink (I) with teeth/hair brushing TOILETING - baseline (I) on toilet EATING (I) BALANCE: Static sitting Normal Dynamic Sitting Good Static Standing NT Dynamic Standing NT SPECIAL TESTS: Daily Activity Limitations Standardized Measure [facility] AM -PAC ?6 clicks? Daily Activity Inpatient Short Form: Raw score: 18 CMS score: 46.65% INFORMED CONSENT/EDUCATION: Pt instructed in purpose of OT Consult and plan of care. 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 She sustained a periprosthetic femur fracture as a result of the fall on the (R) LE in setting of Sacroiliac joint dysfunction (Chronic),Cervical radiculopathy,Chronic shoulder pain,Cold sore Colon polyps, GERD (gastroesophageal reflux disease), Hx of breast cancer,Hyperlipidemia,Hypertension, Hypothyroidism, Impaired fasting glucose, Lichen planus, Osteoarthritis, PMR (polymyalgia rheumatica), Sciatica. Patient presents with clinical signs and symptoms consistent with dx, as demonstrated by the following impairment level findings: NWB (R) LE, surgery performed by Dr. Villar to be performed on 04/19/18, decreased functional activity tolerance, decreased strength (B) UE, decreased (I) ADLs/IADLs. Impairments are contributing to the following functional limitations: Decreased (I) in ADLs/IADLs, decreased functional activity tolerance, decreased WB status. AMPAC score 18, CMS score 46.65% Patient is assessed as a high 95759 complexity based on the following: History: See Above Examination: See Above Presentation: Evolving Decision Making: AMPAC score 18, CMS score 46.65% GOALS Goals x1 week 1. Transfers CGA, FWW 2. Dressing- pt will be able to (I) don and doff LE dressing with adaptive equipment. 3. Bathing- Sitting in chair pt will be able to (I) bath UE/LE. 4. Toileting- On toilet, SBA 5. Eating- (I) PLAN OF CARE/TREATMENT PLAN: 1x/day, 5 days/ week x 1week Initiate Occupational Therapy Services for bathing, dressing, grooming, toileting, eating, transfer training. DISCHARGE RECOMMENDATIONS OT recommends that pt at this time due to medical status go to SNF for further rehabilitation post surgery OT recommends shower bench to increase pts safety when transferring into tub/shower combination TREATMENT TIME/MINUTES/CODES 57120, 10 minutes, (10:40) Tessa Alvarez, OTR/L [facility]
--- NOTE | 2018-04-18 12:04 | OTIE_ITS ---
Occupational Therapy Notes Inpatient Occupational Therapy Evaluation Date: 04/18/18 Referring Doctor: Karyna Romero MD OT Orders: Eval and treat Precautions: NWB (R) LE, Fall and Standard precautions PATIENT PROFILE/ADMITTING DIAGNOSIS: Pt is an 82 year old female who was admitted to [facility] s/p admission yesterday due to a syncopal episode while serving pancakes at her judaism breakfast. She sustained a periprosthetic femur fracture as a result of the fall on the (R) LE. Past Medical History: Sacroiliac joint dysfunction (Chronic),Cervical radiculopathy,Chronic shoulder pain,Cold sore Colon polyps, GERD (gastroesophageal reflux disease), Hx of breast cancer,Hyperlipidemia,Hypertension, Hypothyroidism, Impaired fasting glucose, Lichen planus, Osteoarthritis, PMR (polymyalgia rheumatica), Sciatica. Current Functional Limitations: NWB (R) LE, surgery performed by Dr. Villar to be performed on 04/19/18, decreased functional activity tolerance, decreased strength (B) UE, decreased (I) ADLs/IADLs. Social History/Home Situation: Pt lives alone in a private home with 2 steps to enter. Prior to admission her baseline is (I) in all ADLs/ IADLs. She reports that she has a tub/shower combination and at baseline stands in shower. She also has grab bars in her bathroom. Equipment owned/DME: Grab bars. SUBJECTIVE: Pt reports that she has had multiple tests performed this morning. She is agreeable to OT consult and reports that she is getting ready to go to another test soon. OBJECTIVE: General Observation: Romero, telemetry, IV Mental Status: A&Ox3 Pain: no c/o pain although pt had just received pain medication ROM: RUE AROM WFL L UE AROM WFL STRENGTH: RUE 4-/5 shoulder flexion and elbow, putaway driver is weak LUE 4-/5 shoulder flexion and elbow, putaway driver is weak FUNCTIONAL MOBILITY/ADLS: No ADLs performed at todays evaluation. BATHING- baseline standing in tub/shower combination with grab bars in shower (I) DRESSING- baseline Sitting in chair (I) UE/LE GROOMING - baseline standing at sink (I) with teeth/hair brushing TOILETING - baseline (I) on toilet EATING (I) BALANCE: Static sitting Normal Dynamic Sitting Good Static Standing NT Dynamic Standing NT SPECIAL TESTS: Daily Activity Limitations Standardized Measure [facility] AM -PAC ?6 clicks? Daily Activity Inpatient Short Form: Raw score: 18 CMS score: 46.65% INFORMED CONSENT/EDUCATION: Pt instructed in purpose of OT Consult and plan of care. ASSESSMENT: Patient is a 82-year-old female referred to occupational therapy services with diagnosis of s/p admission yesterday due to a syncopal episode while serving pancakes at her judaism breakfast. She sustained a periprosthetic femur fracture as a result of the fall on the (R) LE in setting of Sacroiliac joint dysfunction (Chronic),Cervical radiculopathy,Chronic shoulder pain,Cold sore Colon polyps, GERD (gastroesophageal reflux disease), Hx of breast cancer,Hyperlipidemia,Hypertension, Hypothyroidism, Impaired fasting glucose, Lichen planus, Osteoarthritis, PMR (polymyalgia rheumatica), Sciatica. Patient presents with clinical signs and symptoms consistent with dx, as demonstrated by the following impairment level findings: NWB (R) LE, surgery performed by Dr. Villar to be performed on 04/19/18, decreased functional activity tolerance, decreased strength (B) UE, decreased (I) ADLs/IADLs. Impairments are contributing to the following functional limitations: Decreased (I) in ADLs/IADLs, decreased functional activity tolerance, decreased WB status. AMPAC score 18, CMS score 46.65% Patient is assessed as a high 42922 complexity based on the following: History: See Above Examination: See Above Presentation: Evolving Decision Making: AMPAC score 18, CMS score 46.65% GOALS Goals x1 week 1. Transfers CGA, FWW 2. Dressing- pt will be able to (I) don and doff LE dressing with adaptive equipment. 3. Bathing- Sitting in chair pt will be able to (I) bath UE/LE. 4. Toileting- On toilet, SBA 5. Eating- (I) PLAN OF CARE/TREATMENT PLAN: 1x/day, 5 days/ week x 1week Initiate Occupational Therapy Services for bathing, dressing, grooming, toileting, eating, transfer training. DISCHARGE RECOMMENDATIONS OT recommends that pt at this time due to medical status go to SNF for further rehabilitation post surgery OT recommends shower bench to increase pts safety when transferring into tub/shower combination TREATMENT TIME/MINUTES/CODES 14928, 10 minutes, (10:40) Tessa Alvarez, OTR/L [facility]
--- NOTE | 2018-04-18 12:05 | DI.MRI_ITS ---
SYMPTOM/DIAGNOSIS: TRANSIENT NEUROLOGICAL DEFECT BRAIN MRI: Routine noncontrast examination was performed. Comparison CT is 04/16/18. There is age appropriate cerebral atrophy present. There are areas of T 2 hyperintensity in the white matter on the FLAIR and T 2 weighted images most suggestive of small vessel ischemic disease. The diffusion weighted images show no evidence of an acute infarct. The gradient images show no evidence of intracranial hemorrhage. The ventricles are intact. The basilar cisterns are patent. No acute midline shift or mass effect is identified. The visualized paranasal sinuses are clear. 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 No evidence of an acute infarct. MRA OF [place]: Routine noncontrast examination was performed. The distal intracranial internal carotid arteries are unremarkable. No aneurysm or occlusion is seen. No significant stenosis is present. The anterior cerebral arteries are unremarkable without evidence of occlusion or aneurysm. No significant stenosis is seen. The middle cerebral arteries are unremarkable. No occlusion or aneurysm is seen. No significant stenosis is present. The basilar artery and distal vertebral arteries are unremarkable without evidence of occlusion, aneurysm or significant stenosis. The posterior cerebral arteries are unremarkable without evidence of occlusion, aneurysm or significant stenosis. IMPRESSION: Unremarkable [place].
--- NOTE | 2018-04-18 13:39 | PDOC.CMIN ---
- If Service Date Differs Date of service: 04/18/18 Time of Service: 13:39 Care Management Initial Assess REASON FOR HOSPITALIZATION:: Syncopal episode, right distal femur fracture PAST MEDICAL HISTORY/PAST SURGICAL HISTORY:: Cervical radiculopathy, chronic shoulder pain, colon polyps, GERD, history of breast cancer, hyperlipidemia, hypertension, hypothyroidism, impaired fasting glucose, osteoarthritis, polymyalgia rheumatica, sacral joint dysfunction, sciatica. Surgical history breast mastectomy left, cholecystectomy, repair of umbilical hernia, replacement of total knee on the right, carpal tunnel release. PREVIOUS FUNCTIONAL STATUS/SOCIAL/FAMILY SUPPORTS:: Brie lives alone in [place], [place]. She has two son's that live locally she states that they are helpful if they need to be. She is independent at baseline she does have a FINISH CLEANER through [facility]. Has patient been provided with information about the portal?: Yes Did the patient sign up for the portal?: No CODE STATUS:: Full Code POTENTIAL DISCHARGE NEEDS:: .
--- NOTE | 2018-04-18 13:58 | INITIAL_ITS ---
- If Service Date Differs Date of service: 04/18/18 Time of Service: 13:39 Care Management Initial Assess REASON FOR HOSPITALIZATION:: Syncopal episode, right distal femur fracture PAST MEDICAL HISTORY/PAST SURGICAL HISTORY:: Cervical radiculopathy, chronic shoulder pain, colon polyps, GERD, history of breast cancer, hyperlipidemia, hypertension, hypothyroidism, impaired fasting glucose, osteoarthritis, polymyalgia rheumatica, sacral joint dysfunction, sciatica. Surgical history breast mastectomy left, cholecystectomy, repair of umbilical hernia, replacement of total knee on the right, carpal tunnel release. PREVIOUS FUNCTIONAL STATUS/SOCIAL/FAMILY SUPPORTS:: Brie lives alone in [place], [place]. She has two son's that live locally she states that they are helpful if they need to be. She is independent at baseline she does have a ROOF SHINGLER through [facility]. Has patient been provided with information about the portal?: Yes Did the patient sign up for the portal?: No CODE STATUS:: Full Code POTENTIAL DISCHARGE NEEDS:: .
--- NOTE | 2018-04-18 15:31 | CHAPLAIN ---
I first visited with Brie on Wednesday (04/16) when she was first admitted. Today Brie was meeting with Catrachita Faust RN, from Care Management, when I visited. Brie talked about the tests she had today and her visit with Dr. Villar about her leg and the plan for surgery. Brie said later that Dr. Zavala was also going to be looking at her exrays and the plan. I offered a prayer with Brie and she said a prayer with Fr. Arthur this morning. She is a member of the [employer]. Her sulfonator operator is aware that she is here. Her son has been into visit and a granddaughter keeps in touch by phone.
--- NOTE | 2018-04-18 15:37 | PDOC.CMPRO ---
- If Service Date Differs Date of service: 04/18/18 Time of Service: 15:37 Care Management Progress Note S/O: CM met with patient at the bedside she is alert and engaged.at times. She has been down for serval imaging studies today. She is asking for a bed bath at the time of CM visit. Brie states that she believes she will need a half-way facility for short-term rehab prior to returning home. She describes a minimal support network. Anticipate Brie will have surgical repair of right femur possibly on Wednesday with Dr. Villar. CM to continue to provide support and send referrals at the request of the patient when she identifies facilities. A: Brie is a 82-year-old female admitted related to a syncopal episode, resulting in fracture of her right femur. P: Brie remains in the ICU, orthopedic consult for surgical repair of her right femur fracture. CM offered local half-way facilities to the patient. Brie would like to think about where to send referrals. Brie, will provide CM with a list when ready
--- NOTE | 2018-04-18 15:55 | CMPROGNOTE_ITS ---
- If Service Date Differs Date of service: 04/18/18 Time of Service: 15:37 Care Management Progress Note S/O: CM met with patient at the bedside she is alert and engaged.at times. She has been down for serval imaging studies today. She is asking for a bed bath at the time of CM visit. Brie states that she believes she will need a [facility] facility for short-term rehab prior to returning home. She describes a minimal support network. Anticipate Brie will have surgical repair of right femur possibly on Wednesday with Dr. Villar. CM to continue to provide support and send referrals at the request of the patient when she identifies facilities. A: Brie is a 82-year-old female admitted related to a syncopal episode, resulting in fracture of her right femur. P: Brie remains in the ICU, orthopedic consult for surgical repair of her right femur fracture. CM offered local [facility] facilities to the patient. Brie would like to think about where to send referrals. Brie, will provide CM with a list when ready
--- NOTE | 2018-04-18 16:01 | NCONE_ITS ---
Date of service: 04/18/18 Time of Service: 16:01 Assessment and Plan (1) Syncopal episodes: Current visit: Yes Status: Acute Ms. Dai is an 82 year-old, right handed woman admitted s/p collapse complicated by a right femur fracture. Upon awakening from her collapse, she was noted to have right hand weakness (which is stable on exam and chronic) as well as transient slurred speech. I do not think that her symptoms are consistent with TIA and a brain MRI today did not show any evidence of stroke. As for her collapse symptoms, I suspect that she had a syncopal episode, especially in light of further symptoms upon sitting (and not laying). The etiology of her syncope is unknown. Cardiac syncope remains the most worrisome of the possibilities and I recommend extended cardiac monitoring as further work-up after discharge. Otherwise, her labs were consistent with dehydration, but then one would expect an orthostatic component to her syncope which has not been reported. Finally, as she appeared to be asleep, sleep apnea also remains in the differential. She does not need aspirin from a TIA/stroke perspective as there is no benefit in primary prevention. As far as surgical risk, I could not find any studies equating risk s/p syncope. There is however, the concern below. She should f/up in the Neurology clinic 4-6 weeks after discharge. Qualifiers: Encounter type: initial encounter (2) Babinski reflex: Current visit: Yes Status: Acute On neurological exam, she had bilateral Babinski reflexes. This is concerning for a bilateral central nervous problem. She has no evidence of prior strokes on brain imaging. Therefore, I recommend a cervical spine MRI w/o contrast as further work-up. This is particularly important in light of need for surgery which will be associated with neck manipulation. History of Present Illness Chief Complaint: syncope Narrative: Handedness: right. HPI: Ms. Dai is an 82-year-old woman with a past medical history of hypertension, hyperlipidemia, thyroid disease, osteoporosis, prediabetes, polymyalgia rheumatica, remote breast cancer, osteoarthritis, and chronic constipation. 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 Someone around her recognized that she was unwell and helped her to sit down. She was becoming less responsive and was subsequently helped down to the floor. There was no reported fall or head injury. She was reported to look asleep for approximately 3-4 minutes with her eyes closed. She had no shaking. She had no preceding dizziness, vision changes, palpitations, tachycardia, or shortness of breath. EMS reported she appeared confused and drowsy upon arrival. Upon awakening, she recalls severe right leg pain as well as nausea. She was brought to the [facility] emergency room where she was noted to have mild dysarthria as well as right canine enforcement officer weakness. She reports a many year history of chronic right hand canine enforcement officer weakness. She does not know why she has that. The slurred speech resolved within an hour of arrival. Workup in the ER was significant for acute renal injury with a creatinine of 1.7. Her baseline is 1.1. She had a normal UA. Her TSH was 0.04 with a normal free T4. She had a CT chest which was negative for PE. She had a CT head which I was able to review and showed mild chronic white matter changes. She had an x-ray of her knee which showed a distal femur fracture around her prosthesis. Subsequent workup has included an MRI brain as well as an MRA head. I was able to review both of those images. She has no evidence of acute or prior strokes. She has mild chronic white matter changes with mild cerebral atrophy. MRA head was unremarkable. She had a TTE which showed mild left ventricular hypertrophy, an EF of 65%, no wall motion abnormalities, and a mildly dilated right atria. The left atria was normal. Carotid ultrasound is pending. On telemetry, she has had a first-degree heart block as well as sinus rhythm. Otherwise, she has no prior history of passing out spells or seizures. She has no family history of seizures. She does not have any history of head injuries or meningitis/encephalitis. She is not on aspirin at baseline. Last night, she was given supplemental oxygen for low O2 sats. She is not on oxygen at home. She has never had a sleep study. She does not know if she snores. She never feels rested even if she gets a full night sleep. Her son notes that she often naps daily. On the day of the event, she had been up since 4 AM. Her son thinks that she was dehydrated. Review of Systems Review of Systems All systems reviewed & are unremarkable except as noted in HPI and below [facility] Medical History Chronic constipation (Acute) Osteoporosis (Chronic) Sacroiliac joint dysfunction (Chronic) Cervical radiculopathy Chronic shoulder pain Cold sore Colon polyps GERD (gastroesophageal reflux disease) Hx of breast cancer Hyperlipidemia Hypertension Hypothyroidism Impaired fasting glucose Lichen planus Osteoarthritis PMR (polymyalgia rheumatica) Sciatica Surgical History S/P carpal tunnel release (Acute) Breast, Mastectomy Cholecystectomy Repair of umbilical hernia (04/15/16) Replacement of total knee joint Family History Sister Personal history of malignant neoplasm Mother No problems noted. Father No problems noted. Sister No problems noted. Son No problems noted. Son No problems noted. Social History housing: house lives independently: Yes number of children: 2 current occupation: retired pets and animals: No what type of physical activity do you participate in: swimming frequency: 1-2 times per week Smoking and Tabacco status: Former Tobacco Use alcohol intake: current alcohol intake frequency: holidays/special occasions only substance use type: does not use mia/mormonism: Religion special mia needs: No Visit Medication and Allergies Active Medications Generic Name Dose Route Start Last Admin Trade Name Freq PRN Reason Stop Dose Admin Acetaminophen 1,000 mg 04/17/18 14:00 04/18/18 14:30 Tylenol PO 1,000 mg TID MONSE Administration Al Hydrox/Mg Hydrox/Simethicone 30 ml 04/16/18 11:41 Mylanta Liquid PO Q2H PRN PRN Aspirin 81 mg 04/17/18 08:30 04/18/18 08:54 PO 81 mg DAILY MONSE Administration Atorvastatin Calcium 40 mg 04/17/18 20:00 04/17/18 20:13 Lipitor PO 40 mg QPM MONSE Administration Bisacodyl 10 mg 04/17/18 13:59 Dulcolax PO DAILY PRN PRN Calcium Citrate 950 mg 04/18/18 20:00 Citracal PO BID MONSE Cyanocobalamin 1,000 mcg 04/17/18 08:30 04/18/18 08:54 Vitamin B-12 PO 1,000 mcg DAILY MONSE Administration Dimethicone/Zinc Oxide 0 gm 04/16/18 11:41 Natasha Protect Cream TP PRN PRN Docusate Sodium 100 mg 04/16/18 11:41 04/17/18 20:12 Colace PO 100 mg TID PRN PRN Administration Docusate Sodium 100 mg 04/17/18 20:00 04/18/18 08:54 Colace PO 100 mg BID MONSE Administration Heparin Sodium (Porcine) 5,000 units 04/16/18 12:00 04/17/18 03:39 SC 5,000 units Q8H MONSE Administration Hydromorphone HCl 0.5 mg 04/17/18 14:00 04/18/18 09:35 Dilaudid Injection IVP 0.5 mg Q4H PRN PRN Administration Sodium Chloride 1,000 mls @ 125 mls/hr 04/16/18 11:45 04/18/18 10:31 Saline 1000ml Bag IV 125 mls/hr INFUSION MONSE Administration IV Miscellaneous Supplies 1 each 04/16/18 10:00 IV DIRECTED MONSE Iohexol 100 ml 04/16/18 10:15 04/16/18 10:11 Omnipaque 350 IJ 05/16/18 23:59 100 ml DIRECTED MONSE Administration Lorazepam 0.5 mg 04/18/18 15:54 Ativan Injection IVP 04/18/18 15:55 DIRECTED ONE Magnesium Hydroxide 30 ml 04/16/18 11:41 Milk Of Magnesia PO DAILY PRN PRN Ondansetron HCl 4 mg 04/17/18 13:55 Zofran Injection IVP Q6H PRN PRN Pantoprazole Sodium 40 mg 04/18/18 08:30 04/18/18 08:54 Protonix Injection IVP 40 mg DAILY MONSE Administration Halobetasol 1 each 04/17/18 07:45 Propionate 0.05% TP Ointment HS PRN PRN Sennosides 1 tab 04/17/18 20:00 04/18/18 08:54 Senokot PO 1 tab BID MONSE Administration Sodium Chloride 0 ml 04/16/18 09:53 04/18/18 14:29 Saline Flush 10 Ml Syringe IVP 20 ml PRN PRN Administration Allergies adhesive Allergy (Severe, Unverified 04/16/18 09:58) Skin Rash latex Allergy (Intermediate, Unverified 04/16/18 09:58) Skin Rash azithromycin Adverse Reaction (Severe, Unverified 04/16/18 09:58) DIARRHEA fluticasone propionate [From Flonase] Adverse Reaction (Severe, Unverified 04/16/18 09:58) SEVER NOSE IRRITATION Exam Narrative Exam Narrative: Physical Exam: Gen: Patient of apparent stated age, NAD Head and face: no facial or cranial abnormalities Neck: Supple, no meningismus, no occipital tenderness CV: + S1, S2, RRR, no murmur Resp: CTA B/L Abd: soft, nontender, nondistended Ext: No edema. No clubbing or cyanosis. R leg mobilizer in place. Neuro Exam: Language: fluency, naming, repetition, and comprehension intact; Mental Status: AAOx3, current events intact, fund of knowledge intact; Speech: no dysarthria Cranial nerves: Funduscopy: not performed CN II: visual coon intact CN III, IV, : extraocular movements intact, no nystagmus, pupils symmetric and reactive to light CN V: face sensation intact to LT and PP CN VII: no facial asymmetry noted CN VIII: hearing intact bilaterally CN IX, X: palate rises symmetrically CN XI: trapezius/SCM 5/5 bilaterally CN XII: protrudes tongue symmetrically Sensory: intact to LT, PP and joint position in all extremities; absent vibration in the toes bilaterally; Motor: bulk and tone intact. Fine motor movements intact bilaterally. No pronator drift. Strength 5/5 throughout the bilateral UE and LLE. RLE not teste d. She had reduced canine enforcement officer strength on the right which she reports as chronic. Reflexes: hyporeflexic throughout the bilateral UE and LLE; +Babinski bilaterally; Coordination: FTN intact bilaterally Gait: deferred Results Last Vital Signs Temp 37.4 C 04/18/18 14:00 Pulse 65 04/18/18 14:01 Resp 23 04/18/18 14:01 BP 107/54 L 04/18/18 14:00 Pulse Ox 95 04/18/18 14:00 Labs : 04/18/18 06:40 04/18/18 06:40 Laboratory Results - last 24 hr 04/18/18 04/18/1819 06:40 06:40 06:40 WBC 5.86 RBC 2.66 L Hgb 8.0 L Hct 26.2 L MCV 98.5 H MCH 30.1 MCHC 30.5 L RDW 12.8 Plt Count 194 MPV 11.5 H Immature Gran % 0.2 Neutrophils % 60.2 Lymphocytes % 22.4 Monocytes % 13.0 Eosinophils % 3.9 Basophils % 0.3 Absolute Neutrophils 3.53 Absolute Lymphocytes 1.31 Absolute Monocytes 0.76 H Absolute Eosinophils 0.23 Absolute Basophils 0.02 Differential Comment Rbc morph reviewed RBC Morphology See below Hypochromasia 1+ Sodium 139 Potassium 4.8 Chloride 108 H Carbon Dioxide 22.6 Anion Gap 8.4 BUN 25 H Creatinine 1.41 H Estimated GFR/1.73 m2 35.71 Glucose 96 Calcium 8.5 Magnesium 1.9 25-OH Vitamin D Total 13.5 L TSH 0.02 L Free T4 1.09
--- NOTE | 2018-04-18 18:54 | W.PM.PROGNOT ---
Date of Service Date of service: 04/18/18 Time of Service: 16:45 Assessment and Plan (1) Syncopal episodes: Current visit: Yes Status: Acute So far, does not appear cardiogenic, but will continue to monitor on tele. Await the read of the carotid doppler. (2) Transient neurologic deficit: Current visit: Yes Status: Resolved Possibly signs of hypoperfusion in setting of syncope. No evidence of TIA Continue aspirin 81 mg PO daily and atorvastatin. (3) Tata-prosthetic femur fracture at tip of prosthesis: Current visit: Yes Status: Acute Orthopedics consulted. Plan is for OR tomorrow assuming there is no emergent pathology seen on MRI c-spine. Continue to keep the extremity in an immobilizer. Vitamin D is noted to be low. Replete and supplement calcium as well. (4) Hypothyroidism: Current visit: No Status: Acute Repeat TSH is also low. We will continue to hold her Synthroid. Qualifiers: Hypothyroidism type: unspecified Qualified Code(s): E03.9 - Hypothyroidism, unspecified (5) Hyperlipidemia: Current visit: No Status: Acute Continue atorvastatin (6) Essential hypertension: Current visit: No Status: Chronic Hold HCTZ (7) Hyperkalemia: Current visit: Yes Status: Acute Resolved. No evidence for rhabdo. (8) Pulmonary hypertension: Current visit: Yes Status: Acute Suggestive of sleep apnea, in addition to her nocturnal hypoxia. Will benefit from a sleep study as an outpatient. At this time, I will hold her IV fluids. (9) Nocturnal hypoxia: Current visit: Yes Status: Acute Will need a sleep study as outpatient. (10) Cervical stenosis of spinal canal: Current visit: Yes Status: Suspected For MRI of her C-spine prior to surgery tomorrow. (11) Acute on chronic anemia: Current visit: Yes Status: Acute Likely due to acute right femoral fracture, also dilutional. We are checking her iron studies, B12, folate, and Hemoccult. Hold heparin. (12) DVT prophylaxis: Current visit: Yes Status: Acute Heparin SC is on hold due to anemia, likely due to her fracture. Continue TEDs + SCD's (13) Discharge planning issues: Current visit: Yes Status: Acute Full code Lives alone at home on Discharge, may require rehab Subjective Interval history since last seen: Continues to report nausea/vomiting after every time she eats. She doesn't seem to be getting nauseated after dilaudid. She denies dizziness, chest pain, shortness of breath, nausea, vomiting. Nursing reports that overnight the patient desaturated down to the 80's and required 2 L of O2. She does not have a diagnosis of JUNA. She was evaluated by neurology. She does not appear to have had a stroke, but there is a concern for cervical stenosis as Dr Cervantes noted abnormal plantar responses B. She is recommended to have an MRI of her C-spine prior to surgery. Exam Narrative Exam Narrative: General: Very pleasant elderly female, comfortable in bed Neurological: A&Ox3, no focal deficits; pupils are pinpoint Psychiatric: appropriate speech pattern/content HEENT: EOMI, MMM, no JVD Cardiovascular: RRR, + KRISHAN Lungs: CTAB Gastrointestinal: abdomen soft, full, nontender, nondistended Genitourinary: Has a middleton Extremities: RLE in immobilizer. No e/c/c BLE's; 2+ pedal pulses B. Objective Objective Clinical Data: Abnormal lab results 04/18/18 04/18/18 04/18/18 Range/Units 06:40 06:40 06:40 RBC 2.66 L (4.00-5.20) m/cumm Hgb 8.0 L (12.0-15.5) g/dL Hct 26.2 L (36.0-46.0) % MCV 98.5 H (80-95) fL MCHC 30.5 L (32.0-36.0) g/dL MPV 11.5 H (8.0-11.0) fL Absolute Monocytes 0.76 H (0.11-0.7) k/cumm Chloride 108 H (98-107) mmol/L BUN 25 H (7-18) mg/dL Creatinine 1.41 H (0.55-1.02) mg/dL 25-OH Vitamin D Total 13.5 L (30-100) ng/ml TSH 0.02 L (0.358-3.74) uIU/mL Vital Signs Temperature 37.4 C 04/18/18 14:00 Temperature Source Temporal Artery Scan 04/18/18 14:00 Pulse 66 04/18/18 15:57 Pulse Rhythm Regular 04/18/18 15:40 Pulse 65 02/18/19 16:00 Respiratory Rate 24 04/18/18 16:00 Respiratory Effort 04/18/18 15:40 Respiratory Depth Normal 04/18/18 15:40 Respiratory Pattern Normal 04/18/18 15:40 Blood Pressure 127/38 L 04/18/18 15:50 Blood Pressure Mean 60 04/18/18 15:50 Blood Pressure Position Supine 04/16/18 16:11 Pulse Oximetry 93 L 04/18/18 15:50 Oxygen Delivery Method Room Air 04/18/18 14:00 Oxygen Flow Rate 0 04/18/18 14:00 Pain Level 7 04/18/18 16:14 Intake & Output 04/17/18 04/18/18 04/18/18 23:59 11:59 23:59 Intake Total 1794.333 / 3926.000 1564.583 / 1864.583 300 / 1864.583 Output Total 1025 / 2175 750 / 1350 600 / 1350 Balance 769.333 / 1751.000 814.583 / 514.583 -300 / 514.583 Weight 102 kg Intake: IV 1394.333 / 3236.000 1564.583 / 1564.583 Oral 400 / 690 300 / 300 Output: Urine 975 / 2125 750 / 1350 600 / 1350 Emesis 50 / 50 Other: Urine Color Pale Yellow Yellow Yellow Urine Appearance Clear Clear Clear Emesis Description Clear/Water Retching Laboratory Results WBC 5.86 k/cumm (4.4-10.8) 04/18/18 06:40 RBC 2.66 m/cumm (4.00-5.20) L 04/18/18 06:40 Hgb 8.0 g/dL (12.0-15.5) L 04/18/18 06:40 Hct 26.2 % (36.0-46.0) L 04/18/18 06:40 MCV 98.5 fL (80-95) H 04/18/18 06:40 MCH 30.1 pg (27.0-33.0) 04/18/18 06:40 MCHC 30.5 g/dL (32.0-36.0) L 04/18/18 06:40 RDW 12.8 % (11.7-14.6) 04/18/18 06:40 Plt Count 194 x1000/uL (130-400) 04/18/18 06:40 MPV 11.5 fL (8.0-11.0) H 04/18/18 06:40 Immature Gran % 0.2 04/18/18 06:40 Neutrophils % 60.2 04/18/18 06:40 Lymphocytes % 22.4 04/18/18 06:40 Monocytes % 13.0 04/18/18 06:40 Eosinophils % 3.9 04/18/18 06:40 Basophils % 0.3 04/18/18 06:40 Absolute Neutrophils 3.53 k/cumm (1.2-6.7) 04/18/18 06:40 Absolute Lymphocytes 1.31 k/cumm (1.2-3.4) 04/18/18 06:40 Absolute Monocytes 0.76 k/cumm (0.11-0.7) H 04/18/18 06:40 Absolute Eosinophils 0.23 k/cumm (0.0-0.7) 04/18/18 06:40 Absolute Basophils 0.02 k/cumm (0.0-0.2) 04/18/18 06:40 Differential Comment Rbc morph reviewed 04/18/18 06:40 RBC Morphology See below 04/18/18 06:40 Hypochromasia 1+ 04/18/18 06:40 Sodium 139 mmol/L (136-145) 04/18/18 06:40 Potassium 4.8 mmol/L (3.5-5.1) 04/18/18 06:40 Chloride 108 mmol/L (98-107) H 04/18/18 06:40 Carbon Dioxide 22.6 mmol/L (21.0-32.0) 04/18/18 06:40 Anion Gap 8.4 mmol/L (3-11) 04/18/18 06:40 BUN 25 mg/dL (7-18) H 04/18/18 06:40 Creatinine 1.41 mg/dL (0.55-1.02) H 04/18/18 06:40 Estimated GFR/1.73 m2 35.71 (mL/min/1.73m2) 04/18/18 06:40 Glucose 96 mg/dL (70-100) 04/18/18 06:40 Calcium 8.5 mg/dL (8.5-10.1) 04/18/18 06:40 Magnesium 1.9 mg/dL (1.8-2.4) 04/18/18 06:40 Total Bilirubin 0.5 mg/dL (0.2-1.0) 04/16/18 10:00 AST 21 U/L (15-37) 04/16/18 10:00 ALT 26 U/L (12-78) 04/16/18 10:00 Alkaline Phosphatase 87 U/L (46-116) 04/16/18 10:00 Creatine Kinase 75 U/L (26-192) 04/17/18 05:52 Troponin I < 0.02 ng/mL (0.00-0.06) 04/16/18 21:45 Total Protein 7.7 g/dL (6.4-8.2) 04/16/18 10:00 Albumin 4.0 g/dL (3.4-5.0) 04/16/18 10:00 Triglycerides 173 mg/dL (30-150) H 04/17/18 05:52 Total Cholesterol 255 mg/dL (50-200) H 04/17/18 05:52 LDL Cholesterol Direct 182 mg/dL (<100) H 04/17/18 05:52 HDL Cholesterol 37 mg/dL (40-60) L 04/17/18 05:52 25-OH Vitamin D Total 13.5 ng/ml (30-100) L 04/18/18 06:40 TSH 0.02 uIU/mL (0.358-3.74) L 04/18/18 06:40 Free T4 1.09 ng/dL (0.76-1.46) 04/18/18 06:40 Urine Color Yellow (Yellow) 04/16/18 10:53 Urine Clarity Clear 04/16/18 10:53 Urine pH 6.0 (5-8) 04/16/18 10:53 Ur Specific [place] 1.010 (1.005-1.025) 04/16/18 10:53 Urine Protein Negative mg/dL (Negative) 04/16/18 10:53 Urine Ketones Negative mg/dL (Negative) 04/16/18 10:53 Urine Blood Negative (Negative) 04/16/18 10:53 Urine Nitrite Negative (Negative) 04/16/18 10:53 Urine Bilirubin Negative (Negative) 04/16/18 10:53 Urine Urobilinogen 0.2 EU/dL (Up TO 0.2) 04/16/18 10:53 Ur Leukocyte Esterase Negative (Negative) 04/16/18 10:53 Urine Glucose Negative mg/dL (Negative) 04/16/18 10:53 US carotid: read done; pending Echo; 1. Left ventricle: The cavity size was normal. Wall thickness was increased in a pattern of mild LVH. The estimated ejection fraction was 65%. Findings consistent with diastolic dysfunction. Doppler parameters are consistent with high ventricular filling pressure. 2. Mitral valve: There was mild to moderate regurgitation. 3. Right ventricle: The cavity size was normal. Wall thickness was normal. Systolic function was normal. 4. Right atrium: The atrium was mildly dilated. 5. Atrial septum: No defect or patent foramen ovale was identified. 6. Pulmonary arteries: Pulmonary systolic pressure was in the range of 55mm Hg to 65mm Hg. 7. Inferior vena cava: The vessel was patent and normal in size. The respirophasic diameter changes were in the normal range (greater than or equal to 50%), consistent with normal central venous pressure.
[2018-04-18] MEDS: Atorvastatin 40 MG TAB PO (20:42)
[2018-04-18] MEDS: Calcium Citrate 950 MG TAB PO (20:42)
[2018-04-18] MEDS: Bisacodyl 10 MG SUPP PR (20:42)
[2018-04-19] VITALS (25 sets, daily range): BP systolic 132–158; BP diastolic 39–69; PULSE 59–94; RESP 15–23; TEMP 36.6–37.1; O2SAT 92–97
[2018-04-19] MEDS: HYDROmorphone 2 MG/ML VIAL 0.5 MG IVP ×2 (01:13→18:30)
--- NOTE | 2018-04-19 07:05 | OT.INNT ---
Date of service: 04/19/18 Time of Service: 07:05 Occupational Therapy Notes 04/19/18 Pt is hold for OT services today as she is going for surgery on her (R) LE performed by Dr. Villar. OT will follow up with pt tomorrow for continued OT services at that time. Tessa Alvarez, OTR/L [facility]
[2018-04-19 07:47] LABS: Abs Immature Grans 0.02 k/cumm (0.0-0.09); Absolute Basophil Count 0.02 k/cumm (0.0-0.2); Absolute Eosinophil Count 0.24 k/cumm (0.0-0.7); Absolute Lymphocyte Count 1.01 k/cumm (1.2-3.4); Absolute Monocyte Count 0.79 k/cumm (0.11-0.7); Absolute Neutrophil Count 4.17 k/cumm (1.2-6.7); Basophils % 0.3; Eosinophils % 3.8; HCT 24.8 % (36.0-46.0); HGB 7.7 g/dL (12.0-15.5); Immature Grans % 0.3; Lymphocytes % 16.2; Mean Corpuscular Hemoglobin 30.1 pg (27.0-33.0); Mean Corpuscular Volume 96.9 fL (80-95); Mean Platelet Volume 11.7 fL (8.0-11.0); Monocytes % 12.6; Neutrophils % 66.8; Platelet Count 184 x1000/uL (130-400); RBC 2.56 m/cumm (4.00-5.20); RBC Distribution Width 12.5 % (11.7-14.6); White Blood Cell Count 6.25 k/cumm (4.4-10.8)
[2018-04-19 08:10] LABS: Anion Gap 5.5 mmol/L (3-11); BUN 24 mg/dL (7-18); CO2 24.5 mmol/L (21.0-32.0); CREATININE 1.28 mg/dL (0.55-1.02); Calcium 8.6 mg/dL (8.5-10.1); Chloride 109 mmol/L (98-107); Estimated GFR 39.92 (mL/min/1.73m2); Ferritin 488 ng/mL (8-388); Folate 11.5 ng/mL (8.6-20.0); Glucose 117 mg/dL (70-100); Magnesium 1.8 mg/dL (1.8-2.4); Potassium 5.1 mmol/L (3.5-5.1); Sodium 139 mmol/L (136-145)
[2018-04-19 08:33] LABS: Prothrombin Time 9.5 sec (9.3-11.0)
[2018-04-19 08:33] LABS: Iron 29 ug/dL (50-175); Total Iron Binding Capacity 182 ug/dL (250-450); Transferrin Sat 16 % (15-50)
[2018-04-19] MEDS: Pantoprazole 40 MG VIAL IVP (08:34)
[2018-04-19] MEDS: Normal Saline Flush 10 ML SYR IVP ×3 (08:35→23:55)
[2018-04-19] MEDS: Calcium Citrate 950 MG TAB PO ×2 (08:36→20:14)
[2018-04-19] MEDS: Cyanocobalamin 500 MCG TAB 1000 MCG PO (08:36)
[2018-04-19] MEDS: Acetaminophen 500 MG TAB 1000 MG PO ×2 (08:37→20:14)
[2018-04-19] MEDS: Aspirin 81 MG CHEW PO (08:49)
[2018-04-19 09:01] LABS: Vitamin B12 1138 pg/mL (193-986)
--- NOTE | 2018-04-19 11:34 | PHARADMIT ---
Addendum entered by Jessica Vergara 04/21/18 14:40: Pharmacy Note Subjective Objective VS good, lytes good, SCr up 1.66 (CrCl~24.4ml/min), H/H down 7.3/23.8 Pain 6/10, Heme positive stool yesterday Assessment one unit blood today PPI is IV daily Tramadol dc'd due to confusion which later resolved PT:increased pain with movement & dizziness but progressing Toradol dc'd, pain meds: MS IVP (not using), Dilaudid IVP Cefazolin completed post-op Heparin SQ is on HOLD due to anemia Plan Possible discharge Wednesday to H&R Original Note: Addendum entered by Osmany Gonzalez III 04/20/18 16:17: Pharmacy Note Subjective Tata-posthetic femur fracture at tip of prosthesis, repaired by yesterday. MRA today-pending : significant Carotid stenosis on US. Neurology to follow.. Objective VS-OK K+5.3 SCr-1.31 Assessment Patiromer given, Ancef 2gm post-op X 2 Plan Continue PT ZIO patch on discharge Original Note: Admission Pharmacy Clinical Review SYNCOPAL EPISODE, HYPERKALEMIA, Right PERIPROSSTHETIC DIS Code Status Full Code Current Weight Wgt-102.3 kg Renally Cleared and Narrow Therapeutic Index Meds CrCl~ 31.7 mL/min Meds-OK QTc Value / Action Taken QTc-422 NA BP Control, Fever BP-132/45 Tmax- 37.4C Electrolytes reviewed Na- 139 K+5.1 Mag-1.8 DVT Prophylaxis Heparin SC, ASA Opiate Usage / Scheduled Bowel Regimen Ordered Yes Yes Plt/SCr for Heparin / Enoxaparin Plts-184 SCr-1.28 INR for Warfarin inr-1.0 H/H stable, WBC/Bands H&H- 7.7/24.8 WBC- 6.25 Antibiotic appropriateness none Cultures and Sensitivities none Surgical ABX d/c within 24 hr na DM control / Insulin Dosing BG-117 Heart Failure (Check EF%) (ADRIANA's, B-Block, Diuretics) None IV to PO Switch No Home Meds Reviewed Yes Home Meds Not Ordered Acyclovir, HCTZ, Levothyroxine, Lisinopril, PROCTOSONE CRM, Comments PatOwn Halobetasol oint,
[2018-04-19] MEDS: Lactated Ringers 1,000 ML 200 ML IV ×2 (13:20→17:08)
--- NOTE | 2018-04-19 14:39 | PDOC.CMPRO ---
- If Service Date Differs Date of service: 04/19/18 Time of Service: 14:39 Care Management Progress Note S/O:Patient has gone to the OR at the time of CM visit. Per report she had family with her prior to transfer to the OR. No change in patient status today. CM to continue to provide support to patient discharge planning and disposition. A: Brie is a 82-year-old female admitted related to a syncopal episode, resulting in fracture of her right femur. P: Brie remains in the ICU, OR today for repair right femur. CM offered local fdc facilities to the patient. Brie would like to think about where to send referrals. Brie, will provide CM with a list when ready
--- NOTE | 2018-04-19 14:42 | CMPROGNOTE_ITS ---
- If Service Date Differs Date of service: 04/19/18 Time of Service: 14:39 Care Management Progress Note S/O:Patient has gone to the OR at the time of CM visit. Per report she had family with her prior to transfer to the OR. No change in patient status today. CM to continue to provide support to patient discharge planning and disposition. A: Brie is a 82-year-old female admitted related to a syncopal episode, resulting in fracture of her right femur. P: Brie remains in the ICU, OR today for repair right femur. CM offered local detention facilities to the patient. Brie would like to think about where to send referrals. Brie, will provide CM with a list when ready
--- NOTE | 2018-04-19 15:51 | DI.RAD_ITS ---
SYMPTOM/DIAGNOSIS: FEMUR FX, POST OP, CHECK REDUCTION AFTER ORIF RIGHT FEMUR IN THE OR: Fluoroscopy Time: 86.5 sec 6.98 Fluoroscopy was utilized by Dr. Villar during the reduction and internal fixation of the fracture involving the distal right femur. Alignment appears anatomic. Please refer to the procedure report for complete details. RIGHT FEMUR: Images of the distal right femur were obtained. Post surgical changes are now seen of reduction and internal fixation of the distal right femoral fracture. Side plate and screws are seen now transfixing the fracture. Findings of an old intramedullary christina and total knee replacement are also present. Skin anu are seen. IMPRESSION: Status post reduction and internal fixation of the distal right femoral fracture.
[2018-04-19] MEDS: Lidocaine 1% Multi-Dose 50 ML VIAL (16:15)
[2018-04-19] MEDS: fentaNYL 100 MCG/2 ML VIAL (17:07)
[2018-04-19 17:20] LABS: HCT 26.5 % (36.0-46.0); HGB 8.4 g/dL (12.0-15.5); Mean Corp. HGB Concentration 31.7 g/dL (32.0-36.0); Mean Corpuscular Hemoglobin 30.5 pg (27.0-33.0); Mean Corpuscular Volume 96.4 fL (80-95); Mean Platelet Volume 11.1 fL (8.0-11.0); Platelet Count 176 x1000/uL (130-400); RBC 2.75 m/cumm (4.00-5.20); RBC Distribution Width 12.5 % (11.7-14.6); White Blood Cell Count 5.09 k/cumm (4.4-10.8)
[2018-04-19 17:30] LABS: Anion Gap 5.7 mmol/L (3-11); BUN 22 mg/dL (7-18); CO2 26.3 mmol/L (21.0-32.0); CREATININE 1.19 mg/dL (0.55-1.02); Calcium 9.2 mg/dL (8.5-10.1); Chloride 110 mmol/L (98-107); Estimated GFR 43.43 (mL/min/1.73m2); Glucose 104 mg/dL (70-100); Potassium 5.1 mmol/L (3.5-5.1); Sodium 142 mmol/L (136-145)
[2018-04-19 17:37] LABS: Creatine Kinase 115 U/L (26-192)
[2018-04-19] MEDS: Ketorolac 15 MG/ML VIAL IVP ×2 (18:32→23:55)
[2018-04-19] MEDS: Ondansetron 4 MG/2 ML VIAL IVP (18:32)
--- NOTE | 2018-04-19 18:42 | ROE_ITS ---
DATE OF PROCEDURE: April 19, 2018 PREOPERATIVE DIAGNOSIS: Periprosthetic fracture right distal femur. POSTOPERATIVE DIAGNOSIS: Periprosthetic fracture right distal femur. PROCEDURE: Open reduction and internal fixation of periprosthetic fracture right distal femur. SURGEON: Sy Villar M.D. PACKAGE DYEING MACHINE OPERATOR: Parvin Haynes PA-C ANESTHESIA: Spinal, Bowen Ramos CRNA INDICATIONS: This is an 82-year-old white female who had a syncopal episode and fell at a [employer] cake breakfast on 04/16/18. She has sustained a periprosthetic fracture of her distal femur. She has a total knee in place from some 20 or 30 years ago on the right. In addition, she had a locked troc hanteric nail from a previous hip fracture that extended to the flange of the femoral component of he r knee replacement. She fractured transversely through the distal locking screw of the trochanteric nail device. The fracture caused the knee to be in increased valgus and it caused the femoral compon ent to be flexed relative to the femoral shaft. Open reduction and internal fixation of the peripros thetic fracture using a lateral locking plate was advised as optimum treatment. The risks and compli cations of the procedure were explained to the patient in detail preoperatively. PROCEDURE: After obtaining medical clearance, the patient was brought to the Operating Room on . A spinal anesthetic was administered. Once a good spinal was obtained, she was placed supine on the operating table. A large roll was placed under her right buttock and a proximal tourniquet was applied to the right thigh. The right lower extremity was then prepped from toes to tourniquet and d raped free in the usual sterile fashion. The leg was exsanguinated by elevation and the tourniquet w as inflated to 350 mmHg. A straight lateral incision was made in line with the lateral femur and it was extended distally to the joint line. The length of the incision was probably 10 to 12 inches. T he lateral incision was placed sufficiently so there was a wide skin bridge between the incision and the old total knee scar that would not compromise circulation. The incision was carried down to the iliotibial band. The iliotibial band was longitudinally incised in line with the skin incision. Sha rp dissection was then carried onto the lateral femoral condyle. The periosteum was stripped around the fracture until the total knee femoral component could be clearly seen, especially the anterior fl amanda. Two distal locking screws from the trochanteric femoral neck were easily removed. There was e nough mobility in the fracture site that I could easily reduce it and correct the valgus angulation a nd the flexion of the femoral component. I had an eight-hole lateral locking plate and I applied it to the distal femur. Using the C-arm image intensifier I was able to provisionally fix the plate dis tally to the distal fracture fragment. Using C-arm image intensification and control I was able to f britney four locking screws into the distal fracture fragment, providing secure fixation distally. I the n secured the plate proximally by placing some locking screws anterior and posterior to the nail. I was able to place one locking screw through the plate and through one of the distal holes in the IM n ail for more secure fixation. I then put in several unicortical screws proximal to the fracture. Ve ry stable fixation was obtained. The preoperative valgus angulation was corrected and the flexion of the femoral component was corrected as well. I then took 10 cc of demineralized bone matrix to pack into the fracture site and below the lateral locking plate. The wound was irrigated with Betadine a nd saline solution. The vastus lateralis was allowed to fall back over the plate. I repaired the iliotibial band and the lateral capsule of the knee with interrupted [id number] s utures of #1 Vicryl suture material. The subcu was approximated with interrupted #2-0 Vicryl sutures . The skin edges were approximated with skin anu. The wound margins were infiltrated with 0.5% Marcaine with epinephrine solution prior to beginning skin closure to help with postoperative analges ia. The tourniquet was released prior to beginning closure of the wound. I wrapped the leg with an Esmarch bandage, held it for two minutes, and then blood loss was minimal following tourniquet releas e. A few small bleeders were cauterized. No major bleeding was seen. The wound was dressed with Xe roform gauze, sterile gauze 4x4s, covered with ABD pads, wrapped with a Kerlix bandage, and then wrap ped with an Josesito bandage. Her right leg was placed in a knee immobilizer splint. Blood loss was mini mal due to tourniquet use. The patient tolerated the procedure well and was discharged to Recovery i n good condition.
--- NOTE | 2018-04-19 19:11 | PGE_ITS ---
Date of Service Date of service: 04/19/18 Time of Service: 13:15 Subjective Interval history since last seen: Attempted to see this patient x2 today. She was not back from the OR. Will follow up tomorrow. Objective Objective Clinical Data: Abnormal lab results 04/19/18 04/19/18 04/19/18 Range/Units 06:35 06:35 06:35 RBC 2.56 L (4.00-5.20) m/cumm Hgb 7.7 L (12.0-15.5) g/dL Hct 24.8 L (36.0-46.0) % MCV 96.9 H (80-95) fL MCHC 31.0 L (32.0-36.0) g/dL MPV 11.7 H (8.0-11.0) fL Absolute Lymphocytes 1.01 L (1.2-3.4) k/cumm Absolute Monocytes 0.79 H (0.11-0.7) k/cumm Chloride 109 H (98-107) mmol/L BUN 24 H (7-18) mg/dL Creatinine 1.28 H (0.55-1.02) mg/dL Glucose 117 H (70-100) mg/dL Iron 29 L (50-175) ug/dL TIBC 182 L (250-450) ug/dL Ferritin 488 H (8-388) ng/mL Vitamin B12 1138 H (193-986) pg/mL 04/19/18 04/19/18 Range/Units 17:00 17:00 RBC 2.75 L (4.00-5.20) m/cumm Hgb 8.4 L (12.0-15.5) g/dL Hct 26.5 L (36.0-46.0) % MCV 96.4 H (80-95) fL MCHC 31.7 L (32.0-36.0) g/dL MPV 11.1 H (8.0-11.0) fL Absolute Lymphocytes (1.2-3.4) k/cumm Absolute Monocytes (0.11-0.7) k/cumm Chloride 110 H (98-107) mmol/L BUN 22 H (7-18) mg/dL Creatinine 1.19 H (0.55-1.02) mg/dL Glucose 104 H (70-100) mg/dL Iron (50-175) ug/dL TIBC (250-450) ug/dL Ferritin (8-388) ng/mL Vitamin B12 (193-986) pg/mL Vital Signs Temperature 36.6 C 04/19/18 17:15 Temperature Source Temporal Artery Scan 04/19/18 12:55 Pulse 68 04/19/18 17:15 Pulse Rhythm Regular 04/19/18 08:30 Pulse 68 04/19/18 12:39 Respiratory Rate 15 04/19/18 17:15 Respiratory Effort Non-Labored 04/19/18 08:30 Respiratory Depth Normal 04/19/18 08:30 Respiratory Pattern Normal 04/19/18 08:30 Blood Pressure 150/60 H 04/19/18 17:15 Blood Pressure Mean 84 04/19/18 12:39 Blood Pressure Position Supine 04/16/18 16:11 Pulse Oximetry 96 04/19/18 17:15 Respiratory End-tidal CO2 42 04/19/18 17:15 Oxygen Delivery Method Room Air 04/19/18 17:15 Oxygen Flow Rate 0 04/19/18 17:15 Pain Level 10 04/19/18 18:32 Intake & Output 04/18/18 04/19/18 04/19/18 23:59 11:59 23:59 Intake Total 3000 / 4564.583 1000 / 1000 Output Total 1550 / 2300 1075 / 1735 660 / 1735 Balance 1450 / 2264.583 -1075 / -735 340 / -735 Weight 102.3 kg Intake: IV 1999 / 3564.583 1000 / 1000 Oral 1000 / 1000 Output: Urine 1550 / 2300 1025 / 1685 660 / 1685 Stool 50 / 50 Other: Urine Color Pale Yellow Yellow Yellow Urine Appearance Clear Clear Clear Urine Odor None Stool Occult Blood Negative Stool Size Moderate Stool Characteristics Liquid Brown Emesis Description None Laboratory Results WBC 5.09 k/cumm (4.4-10.8) 04/19/18 17:00 RBC 2.75 m/cumm (4.00-5.20) L 04/19/18 17:00 Hgb 8.4 g/dL (12.0-15.5) L 04/19/18 17:00 Hct 26.5 % (36.0-46.0) L 04/19/18 17:00 MCV 96.4 fL (80-95) H 04/19/18 17:00 MCH 30.5 pg (27.0-33.0) 04/19/18 17:00 MCHC 31.7 g/dL (32.0-36.0) L 04/19/18 17:00 RDW 12.5 % (11.7-14.6) 04/19/18 17:00 Plt Count 176 x1000/uL (130-400) 04/19/18 17:00 MPV 11.1 fL (8.0-11.0) H 04/19/18 17:00 Immature Gran % 0.3 04/19/18 06:35 Neutrophils % 66.8 04/19/18 06:35 Lymphocytes % 16.2 04/19/18 06:35 Monocytes % 12.6 04/19/18 06:35 Eosinophils % 3.8 04/19/18 06:35 Basophils % 0.3 04/19/18 06:35 Absolute Neutrophils 4.17 k/cumm (1.2-6.7) 04/19/18 06:35 Absolute Lymphocytes 1.01 k/cumm (1.2-3.4) L 04/19/18 06:35 Absolute Monocytes 0.79 k/cumm (0.11-0.7) H 04/19/18 06:35 Absolute Eosinophils 0.24 k/cumm (0.0-0.7) 04/19/18 06:35 Absolute Basophils 0.02 k/cumm (0.0-0.2) 04/19/18 06:35 Differential Comment Rbc morph reviewed 04/18/18 06:40 RBC Morphology See below 04/18/18 06:40 Hypochromasia 1+ 04/18/18 06:40 PT 9.5 sec (9.3-11.0) 04/19/18 08:00 INR 1.0 (0.9-1.1) 04/19/18 08:00 Sodium 142 mmol/L (136-145) 04/19/18 17:00 Potassium 5.1 mmol/L (3.5-5.1) 04/19/18 17:00 Chloride 110 mmol/L (98-107) H 04/19/18 17:00 Carbon Dioxide 26.3 mmol/L (21.0-32.0) 04/19/18 17:00 Anion Gap 5.7 mmol/L (3-11) 04/19/18 17:00 BUN 22 mg/dL (7-18) H 04/19/18 17:00 Creatinine 1.19 mg/dL (0.55-1.02) H 04/19/18 17:00 Estimated GFR/1.73 m2 43.43 (mL/min/1.73m2) 04/19/18 17:00 Glucose 104 mg/dL (70-100) H 04/19/18 17:00 Calcium 9.2 mg/dL (8.5-10.1) 04/19/18 17:00 Magnesium 1.8 mg/dL (1.8-2.4) 04/19/18 06:35 Iron 29 ug/dL (50-175) L 04/19/18 06:35 TIBC 182 ug/dL (250-450) L 04/19/18 06:35 Transferrin % Sat 16 % (15-50) 04/19/18 06:35 Ferritin 488 ng/mL (8-388) H 04/19/18 06:35 Total Bilirubin 0.5 mg/dL (0.2-1.0) 04/16/18 10:00 AST 21 U/L (15-37) 04/16/18 10:00 ALT 26 U/L (12-78) 04/16/18 10:00 Alkaline Phosphatase 87 U/L (46-116) 04/16/18 10:00 Creatine Kinase 115 U/L (26-192) 04/19/18 17:00 Troponin I < 0.02 ng/mL (0.00-0.06) 04/16/18 21:45 Total Protein 7.7 g/dL (6.4-8.2) 04/16/18 10:00 Albumin 4.0 g/dL (3.4-5.0) 04/16/18 10:00 Triglycerides 173 mg/dL (30-150) H 04/17/18 05:52 Total Cholesterol 255 mg/dL (50-200) H 04/17/18 05:52 LDL Cholesterol Direct 182 mg/dL (<100) H 04/17/18 05:52 HDL Cholesterol 37 mg/dL (40-60) L 04/17/18 05:52 Vitamin B12 1138 pg/mL (193-986) H 04/19/18 06:35 25-OH Vitamin D Total 13.5 ng/ml (30-100) L 04/18/18 06:40 Folate 11.5 ng/mL (8.6-20.0) 04/19/18 06:35 TSH 0.02 uIU/mL (0.358-3.74) L 04/18/18 06:40 Free T4 1.09 ng/dL (0.76-1.46) 04/18/18 06:40 Urine Color Yellow (Yellow) 04/16/18 10:53 Urine Clarity Clear 04/16/18 10:53 Urine pH 6.0 (5-8) 04/16/18 10:53 Ur Specific [place] 1.010 (1.005-1.025) 04/16/18 10:53 Urine Protein Negative mg/dL (Negative) 04/16/18 10:53 Urine Ketones Negative mg/dL (Negative) 04/16/18 10:53 Urine Blood Negative (Negative) 04/16/18 10:53 Urine Nitrite Negative (Negative) 04/16/18 10:53 Urine Bilirubin Negative (Negative) 04/16/18 10:53 Urine Urobilinogen 0.2 EU/dL (Up TO 0.2) 04/16/18 10:53 Ur Leukocyte Esterase Negative (Negative) 04/16/18 10:53 Urine Glucose Negative mg/dL (Negative) 04/16/18 10:53 Patient ABO/Rh A Positive 04/19/18 06:35 Antibody Screen Negative 04/19/18 06:35
[2018-04-19] MEDS: Atorvastatin 40 MG TAB PO (20:14)
[2018-04-19] MEDS: Normal Saline 1,000 ML 125 ML IV (20:40)
[2018-04-19] MEDS: HYDROcodone 5/Acetaminophen 325 TAB PO (23:55)
[2018-04-20] VITALS (17 sets, daily range): BP systolic 141–167; BP diastolic 37–84; PULSE 63–79; RESP 14–26; TEMP 37–37.2; O2SAT 94–98
[2018-04-20] MEDS: Normal Saline 1,000 ML 125 ML IV (03:57)
--- NOTE | 2018-04-20 05:13 | NUR.NOTE ---
Nursing Note: 04/20/18 @ 0345: removed ring from right hand without difficulty. placed in bag with patient sticker and then bag placed in patient's belongings bag in room.
[2018-04-20] MEDS: Ketorolac 15 MG/ML VIAL IVP ×3 (07:08→18:50)
[2018-04-20 07:37] LABS: Abs Immature Grans 0.02 k/cumm (0.0-0.09); Absolute Basophil Count 0.01 k/cumm (0.0-0.2); Absolute Eosinophil Count 0.24 k/cumm (0.0-0.7); Absolute Lymphocyte Count 0.62 k/cumm (1.2-3.4); Absolute Monocyte Count 0.95 k/cumm (0.11-0.7); Absolute Neutrophil Count 4.06 k/cumm (1.2-6.7); Basophils % 0.2; Eosinophils % 4.1; HCT 25.3 % (36.0-46.0); HGB 7.9 g/dL (12.0-15.5); Immature Grans % 0.3; Lymphocytes % 10.5; Mean Corp. HGB Concentration 31.2 g/dL (32.0-36.0); Mean Corpuscular Hemoglobin 30.2 pg (27.0-33.0); Mean Corpuscular Volume 96.6 fL (80-95); Mean Platelet Volume 11.1 fL (8.0-11.0); Monocytes % 16.1; Neutrophils % 68.8; Platelet Count 181 x1000/uL (130-400); RBC 2.62 m/cumm (4.00-5.20); RBC Distribution Width 12.5 % (11.7-14.6)
[2018-04-20 07:49] LABS: Anion Gap 5.8 mmol/L (3-11); BUN 24 mg/dL (7-18); CO2 25.2 mmol/L (21.0-32.0); CREATININE 1.31 mg/dL (0.55-1.02); Calcium 8.9 mg/dL (8.5-10.1); Chloride 109 mmol/L (98-107); Estimated GFR 38.87 (mL/min/1.73m2); Glucose 129 mg/dL (70-100); Magnesium 1.6 mg/dL (1.8-2.4); Potassium 5.3 mmol/L (3.5-5.1); Sodium 140 mmol/L (136-145)
[2018-04-20] MEDS: Normal Saline Flush 10 ML SYR IVP ×5 (08:00→18:49)
[2018-04-20] MEDS: LORazepam 2 MG/ML VIAL 0.5 MG IVP ×2 (08:00→12:44)
[2018-04-20] MEDS: Pantoprazole 40 MG VIAL IVP (09:03)
[2018-04-20] MEDS: Acetaminophen 500 MG TAB 1000 MG PO ×3 (09:04→20:44)
[2018-04-20] MEDS: Furosemide 40 MG/4 ML VIAL IVP (09:04)
[2018-04-20] MEDS: Aspirin 81 MG CHEW PO (09:04)
[2018-04-20] MEDS: Docusate Sodium 100 MG CAP PO ×2 (09:04→20:44)
[2018-04-20] MEDS: Calcium Citrate 950 MG TAB PO ×2 (09:04→20:44)
[2018-04-20] MEDS: Senna TAB 1 TAB PO ×2 (09:04→20:44)
[2018-04-20] MEDS: Ferrous Sulfate 325 MG TAB PO (09:05)
[2018-04-20] MEDS: Cyanocobalamin 500 MCG TAB 1000 MCG PO (09:05)
--- NOTE | 2018-04-20 10:11 | PDOC.CMPRO ---
- If Service Date Differs Date of service: 04/20/18 Time of Service: 10:11 Care Management Progress Note S/O:CM met with the patient at the bedside. She is alert and engaged with CM during assessment. She is requesting a referral [facility] her only choice. CM contacted director of infection control and faxed a referral. Anticipate she will not be ready until the end of the week vs Wednesday. A: Brie is a 82-year-old female admitted related to a syncopal episode, resulting in fracture of her right femur. P: Brie remains in the ICU she is status post femur repair. Brie, will need SNF placement coordinated for discharge. CM faxed referrals to requested SNF per the patient. Transportation to be determined pending disposition. CM to continue to provide support to Pt discharge planning and disposition.
--- NOTE | 2018-04-20 10:12 | OT.INTREAT ---
Date of service: 04/20/18 Time of Service: 09:25 Occupational Therapy Notes Occupational Therapy Inpatient Treatment Note Date: 04/20/18 PRECAUTIONS: PWBAT (R) LE, Fall and Standard precautions SUBJECTIVE: Pt had surgery performed by Dr. Villar on 04/19/18. She is now able to partial WB on (R) LE as tolerated. She was agreeable to OT session. She reports that she has brushed her teeth and does not want to get totally washed up until after her MRI which she reports is scheduled for today. OBJECTIVE: PAIN:c/o pain in (R) LE she does not quantify pain FUNCTIONAL MOBILITY performed with PT, please refer to PT note. BATHING: Sitting on side of the bed pt (I) washed her face and chest, max (A) back. GROOMING: Sitting on side of the bed min (A) brushing hair in the back otherwise (I) TOILETING: Romero ASSESSMENT/PLAN: Progression of ADLs in the sitting position at side of bed. TREATMENT CODES/TIME: [id number], 15 minutes (09:25) Tessa Alvarez OTR/[facility]
--- NOTE | 2018-04-20 10:16 | CMPROGNOTE_ITS ---
- If Service Date Differs Date of service: 04/20/18 Time of Service: 10:11 Care Management Progress Note S/O:CM met with the patient at the bedside. She is alert and engaged with CM during assessment. She is requesting a referral to [facility] which is her only choice. CM contacted observatory director and faxed a referral. Anticipate she will not be ready until the end of the week vs Wednesday. A: Brie is a 82-year-old female admitted related to a syncopal episode, resulting in fracture of her right femur. P: Brie remains in the ICU she is status post femur repair. Brie, will need SNF placement coordinated for discharge. CM faxed referrals to requested SNF per the patient. Transportation to be determined pending disposition. CM to continue to provide support to Pt discharge planning and disposition.
--- NOTE | 2018-04-20 10:21 | OTTR_ITS ---
Date of service: 04/20/18 Time of Service: 09:25 Occupational Therapy Notes Occupational Therapy Inpatient Treatment Note Date: 04/20/18 PRECAUTIONS: PWBAT (R) LE, Fall and Standard precautions SUBJECTIVE: Pt had surgery performed by Dr. Villar on 04/19/18. She is now able to partial WB on (R) LE as tolerated. She was agreeable to OT session. She reports that she has brushed her teeth and does not want to get totally washed up until after her MRI which she reports is scheduled for today. OBJECTIVE: PAIN:c/o pain in (R) LE she does not quantify pain FUNCTIONAL MOBILITY performed with PT, please refer to PT note. BATHING: Sitting on side of the bed pt (I) washed her face and chest, max (A) back. GROOMING: Sitting on side of the bed min (A) brushing hair in the back otherwise (I) TOILETING: Romero ASSESSMENT/PLAN: Progression of ADLs in the sitting position at side of bed. TREATMENT CODES/TIME: 51303q0, 15 minutes (09:25) Tessa Alvarez OTR/[facility]
--- NOTE | 2018-04-20 10:26 | PT.INPN ---
Date of service: 04/20/18 Time of Service: 09:45 PT Notes Date: April 20, 2018 Referring Doctor: Dr. Villar PT Orders: PT CONSULT: mobilize post-op repair of fifi-prosthetic fx right distal femur. PWB as tolerated RLE. 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 She sustained a periprosthetic femur fracture as a result of the fall on the right. She underwent surgery 04/19/18. PT was originally ordered 04/17/18, although patient was placed on hold the following day due to restriction to bedrest. PT has been re-ordered by Dr. Villar for post-operative mobilization. PMHX: Sacroiliac joint dysfunction (Chronic),Cervical radiculopathy,Chronic shoulder pain,Cold sore Colon polyps, GERD (gastroesophageal reflux disease), Hx of breast cancer,Hyperlipidemia,Hypertension Hypothyroidism, Impaired fasting glucose, Lichen planus, Osteoarthritis, PMR (polymyalgia rheumatica) Sciatica Social History/Home Situation: She lives alone and prior to admission was I. She reports that her home is 1 level living and does report of 2 steps to enter. She reports that she does not have a handicap shower. She has a traditional tub/shower combo. She does have railings in her bathroom however no other adaptive equipment Equipment Owned/DME: No equipment at home Subjective: Brie reports that she is feeling okay. She has no pain at rest. She's awaiting an MRI of the cervical spine which is scheduled for this morning. Objective: General Observation: Catheter, telemetry, IV, R LE immobilizer Mental Status: Alert and oriented x3. Pain: 0/10 on VAS right knee at rest ROM: Right Upper Extremity: Active shoulder flexion 130 degrees, abduction 100 degrees, able to place hand behind head. Demonstrates WFL elbow and wrist mobility Left Upper Extremity: Active shoulder flexion 130 degrees, abduction 100 degrees, able to place hand behind head. Demonstrates WFL elbow and wrist mobility Right Lower Extremity: Ankle DF is limited by ADRIANA wrap, although patient demonstrates good functional range. Knee ROM was not assessed. Left Lower Extremity: Demonstrates hip flexion 100 degrees, knee flexion 100 degrees, knee extension 0 degrees Strength: Right Upper Extremity: Demonstrates grossly 4-/5 to 4/5 UE strength. Weak medical collections representative Left Upper Extremity: Demonstrates grossly 4-/5 to 4/5 UE strength. Weak medical collections representative Right Lower Extremity: Ankle DF 3/5 or greater. She's able to perform SLR with 25% assist to the RLE with immobilizer in place. Left Lower Extremity: I SLR, Hip flexion 4/5, knee flexion 4/5, knee extension 4/5, DF 5/5 Bed Mobility/Transfers: Supine-sit: HOB 30 degrees mod Ax2 Sit-supine: HOB flat mod Ax2 sit-stand: modAx2 stand-sit: modAx2 Gait: Patient ambulates 10' with FWW with Mod A x 2. Balance: Static Sitting: Normal Dynamic Sitting: Fair Static Standing: fair Dynamic Standing: Fair Special Tests: Mobility Limitations Standardized Measure [facility] AM-PAC 6 clicks Basic Mobility Inpatient Short Form: Raw Score: 12 CMS Score: 69% Informed Consent/Education: Patient instructed in purpose of PT consult and plan of care. Assessment: Patient is a 82 year old female referred to physical therapy services with the diagnosis of syncopal episode status post fall resulting in a periprosthetic femur fracture right, which was surgically repaired by Dr. Villar 04/19/18. She's been on hold from PT while awaiting surgery, and new orders were received today for post-operative mobilization with patient to maintain PWB RLE. She tolerated early mobilization well, although with need for assist of 2 for bed mobility, transfers and ambulation. Anticipate need for short term rehab stay after her acute care stay to facilitate safe return home to independent living. Patient presents with clinical signs and symptoms consistent with diagnosis, as demonstrated by the following impairment level findings: 1. Decreased RLE ROM 2. Decreased RLE strength 3. Decreased activity tolerance 4. Post-operative pain 5. PWB RLE (post-op precaution) Impairments are contributing to the following functional limitations: 1. Unable to tolerate household distance ambulation 2. Unable to independently perform bed mobility 3. Unable to independently transfer 4. Unable to manage stairs Goals: Goals X1 week 1. Supine-Sit SBA (not met) 2. Sit-Supine SBA(not met) 3. Sit-Stand CGA with FWW(not met) 4. Stand-Sit CGA(not met) 5. Bed-Chair Jurgen with FWW(not met) 6. Chair-Bed Jurgen with FWW(not met) 7. Gait Jurgen with FWW 25ft or greater(not met) Plan of Care/Treatment Plan: 1-2x/day, 7 days/week x 1 week. Plan of care has been reviewed with the STORE DETECTIVE providing the service under Physical Therapy direction. Initiate Physical Therapy intervention for strengthening, bed mobility, transfers, gait, stairs, balance training, use of assistive device. DISCHARGE RECOMMENDATIONS: Probable Rehab placement due to significant mobility limitations. Patient will also require FWW prior to d/c. TREATMENT CODE/TIME:9:45-10:10 ([id number])
--- NOTE | 2018-04-20 10:35 | INPN_ITS ---
Date of service: 04/20/18 Time of Service: 09:45 PT Notes Date: April 20, 2018 Referring Doctor: Dr. Villar PT Orders: PT CONSULT: mobilize post-op repair of fifi-prosthetic fx right distal femur. PWB as tolerated RLE. 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 She sustained a periprosthetic femur fracture as a result of the fall on the right. She underwent surgery 04/19/18. PT was originally ordered 04/17/18, although patient was placed on hold the following day due to restriction to bedrest. PT has been re-ordered by Dr. Villar for post-operative mobilization. PMHX: Sacroiliac joint dysfunction (Chronic),Cervical radiculopathy,Chronic shoulder pain,Cold sore Colon polyps, GERD (gastroesophageal reflux disease), Hx of breast cancer,Hyperlipidemia,Hypertension Hypothyroidism, Impaired fasting glucose, Lichen planus, Osteoarthritis, PMR (polymyalgia rheumatica) Sciatica Social History/Home Situation: She lives alone and prior to admission was I. She reports that her home is 1 level living and does report of 2 steps to enter. She reports that she does not have a handicap shower. She has a traditional tub/shower combo. She does have railings in her bathroom however no other adaptive equipment Equipment Owned/DME: No equipment at home Subjective: Brie reports that she is feeling okay. She has no pain at rest. She's awaiting an MRI of the cervical spine which is scheduled for this morning. Objective: General Observation: Catheter, telemetry, IV, R LE immobilizer Mental Status: Alert and oriented x3. Pain: 0/10 on VAS right knee at rest ROM: Right Upper Extremity: Active shoulder flexion 130 degrees, abduction 100 degrees, able to place hand behind head. Demonstrates WFL elbow and wrist mobility Left Upper Extremity: Active shoulder flexion 130 degrees, abduction 100 degrees, able to place hand behind head. Demonstrates WFL elbow and wrist mobility Right Lower Extremity: Ankle DF is limited by ADRIANA wrap, although patient demonstrates good functional range. Knee ROM was not assessed. Left Lower Extremity: Demonstrates hip flexion 100 degrees, knee flexion 100 degrees, knee extension 0 degrees Strength: Right Upper Extremity: Demonstrates grossly 4-/5 to 4/5 UE strength. Weak bet taker Left Upper Extremity: Demonstrates grossly 4-/5 to 4/5 UE strength. Weak bet taker Right Lower Extremity: Ankle DF 3/5 or greater. She's able to perform SLR with 25% assist to the RLE with immobilizer in place. Left Lower Extremity: I SLR, Hip flexion 4/5, knee flexion 4/5, knee extension 4/5, DF 5/5 Bed Mobility/Transfers: Supine-sit: HOB 30 degrees mod Ax2 Sit-supine: HOB flat mod Ax2 sit-stand: modAx2 stand-sit: modAx2 Gait: Patient ambulates 10' with FWW with Mod A x 2. Balance: Static Sitting: Normal Dynamic Sitting: Fair Static Standing: fair Dynamic Standing: Fair Special Tests: Mobility Limitations Standardized Measure [facility] AM-PAC 6 clicks Basic Mobility Inpatient Short Form: Raw Score: 12 CMS Score: 69% Informed Consent/Education: Patient instructed in purpose of PT consult and plan of care. Assessment: Patient is a 82 year old female referred to physical therapy services with the diagnosis of syncopal episode status post fall resulting in a periprosthetic femur fracture right, which was surgically repaired by Dr. Villar 04/19/18. She's been on hold from PT while awaiting surgery, and new orders were received today for post-operative mobilization with patient to maintain PWB RLE. She tolerated early mobilization well, although with need for assist of 2 for bed mobility, transfers and ambulation. Anticipate need for short term rehab stay after her acute care stay to facilitate safe return home to independent living. Patient presents with clinical signs and symptoms consistent with diagnosis, as demonstrated by the following impairment level findings: 1. Decreased RLE ROM 2. Decreased RLE strength 3. Decreased activity tolerance 4. Post-operative pain 5. PWB RLE (post-op precaution) Impairments are contributing to the following functional limitations: 1. Unable to tolerate household distance ambulation 2. Unable to independently perform bed mobility 3. Unable to independently transfer 4. Unable to manage stairs Goals: Goals X1 week 1. Supine-Sit SBA (not met) 2. Sit-Supine SBA(not met) 3. Sit-Stand CGA with FWW(not met) 4. Stand-Sit CGA(not met) 5. Bed-Chair Jurgen with FWW(not met) 6. Chair-Bed Jurgen with FWW(not met) 7. Gait Jurgen with FWW 25ft or greater(not met) Plan of Care/Treatment Plan: 1-2x/day, 7 days/week x 1 week. Plan of care has been reviewed with the SENIOR SQL SERVER DATABASE DEVELOPER providing the service under Physical Therapy direction. Initiate Physical Therapy intervention for strengthening, bed mobility, transfers, gait, stairs, balance training, use of assistive device. DISCHARGE RECOMMENDATIONS: Probable Rehab placement due to significant mobility limitations. Patient will also require FWW prior to d/c. TREATMENT CODE/TIME:9:45-10:10 ([id number])
[2018-04-20] MEDS: Magnesium Oxide 400 MG TAB PO ×2 (10:36→20:44)
--- NOTE | 2018-04-20 12:32 | W.PM.PROGNOT ---
Date of Service Date of service: 04/20/18 Time of Service: 12:32 Assessment and Plan (1) Syncopal episodes: Current visit: Yes Status: Acute Ms. Dai is an 82 year-old, right handed woman admitted s/p collapse complicated by a right femur fracture. Upon awakening from her collapse, she was noted to have right hand weakness (which is stable on exam and chronic) as well as transient slurred speech. She was subsequently found to have significant bilateral carotid stenosis, right greater than left. I still do not think that her presenting symptoms are consistent with TIA/stroke. It's unlikely that the carotid stenosis caused her syncope. As far as the syncope, I recommend with continued cardiac monitoring and extended cardiac monitoring upon discharge. I also recommend a sleep study evaluation as an outpatient. At far as the carotid stenosis, it does not seem like the MRA neck is going to be very helpful that was performed today. We will wait to see if there are further images available. Otherwise, we should consider a CTA of the neck as further workup, even knowing her renal status, versus consulting with vascular an outside facility on their opinion she should continue aspirin and statin. . Qualifiers: Encounter type: initial encounter Syncope type: (2) Babinski reflex: Current visit: No Status: Acute On neurological exam, she had an incidental finding of bilateral Babinski reflexes. She has no clinical signs or symptoms of progressive myelopathy. 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 I recommend an MRI of her cervical spine without contrast as further workup. This can be done inpatient or outpatient. She should be on fall precautions. She should follow-up in the neurology clinic in 4-6 weeks after discharge. (3) Carotid stenosis, bilateral: Current visit: Yes Status: Acute Subjective Interval history since last seen: Mrs. Dai successfully underwent repair of her right femur fracture yesterday. She is doing well today. She was not able to get a cervical spine MRI yesterday due to the MRI machine being down. Of note, she does not have any history of clinical symptoms consistent with a myelopathy (progressive imbalance, etc). Otherwise, she had a carotid ultrasound which showed near occlusion of the right internal carotid and greater than 70% stenosis on the left. Radiology recommended MRA over a CTA due to renal insufficiency. The MRA of the neck was completed this afternoon. The official report is pending. I was able to look at the images myself. Unfortunately, there is significant motion artifact and I do not think that we can make any conclusion from it. Exam Narrative Exam Narrative: Physical Exam: Constitutional: Patient of apparent stated age, well nourished, well developed, no acute distress Neuro: MS/Language/Speech: Alert, oriented, clear language (fluency and comprehension), no dysarthria Reflexes: +Babinski bilaterally - not as robust response on left Gait: deferred Objective Objective Clinical Data: Abnormal lab results 04/19/18 04/19/18 04/20/18 Range/Units 17:00 17:00 07:25 RBC 2.75 L (4.00-5.20) m/cumm Hgb 8.4 L (12.0-15.5) g/dL Hct 26.5 L (36.0-46.0) % MCV 96.4 H (80-95) fL MCHC 31.7 L (32.0-36.0) g/dL MPV 11.1 H (8.0-11.0) fL Absolute Lymphocytes (1.2-3.4) k/cumm Absolute Monocytes (0.11-0.7) k/cumm Potassium 5.3 H (3.5-5.1) mmol/L Chloride 110 H 109 H (98-107) mmol/L BUN 22 H 24 H (7-18) mg/dL Creatinine 1.19 H 1.31 H (0.55-1.02) mg/dL Glucose 104 H 129 H (70-100) mg/dL Magnesium 1.6 L (1.8-2.4) mg/dL 04/20/18 Range/Units 07:25 RBC 2.62 L (4.00-5.20) m/cumm Hgb 7.9 L (12.0-15.5) g/dL Hct 25.3 L (36.0-46.0) % MCV 96.6 H (80-95) fL MCHC 31.2 L (32.0-36.0) g/dL MPV 11.1 H (8.0-11.0) fL Absolute Lymphocytes 0.62 L (1.2-3.4) k/cumm Absolute Monocytes 0.95 H (0.11-0.7) k/cumm Potassium (3.5-5.1) mmol/L Chloride (98-107) mmol/L BUN (7-18) mg/dL Creatinine (0.55-1.02) mg/dL Glucose (70-100) mg/dL Magnesium (1.8-2.4) mg/dL Vital Signs Temperature 37 C 04/20/18 08:20 Temperature Source Temporal Artery Scan 04/20/18 08:20 Pulse 73 04/20/18 08:39 Pulse Rhythm Regular 04/20/18 08:20 Pulse 79 04/20/18 10:00 Respiratory Rate 17 04/20/18 10:00 Respiratory Effort 04/20/18 08:20 Respiratory Depth Normal 04/20/18 08:20 Respiratory Pattern Normal 04/20/18 08:20 Blood Pressure 149/37 H 04/20/18 08:39 Blood Pressure Mean 66 04/20/18 08:39 Blood Pressure Position Supine 04/16/18 16:11 Pulse Oximetry 97 04/20/18 08:39 Respiratory End-tidal CO2 42 04/19/18 17:15 Oxygen Delivery Method Room Air 04/20/18 08:20 Oxygen Flow Rate 0 04/20/18 08:20 Pain Level 7 04/20/18 10:04 Intake & Output 04/19/18 04/20/18 04/20/18 23:59 11:59 23:59 Intake Total 0 / 0 1260.417 / 1260.417 Output Total 1009 175 / 175 Balance 930 / -145 1085.417 / 1085.417 Weight 104.2 kg Intake: IV 1700 / 1700 910.417 / 910.417 Oral 240 / 240 350 / 350 Output: Urine 1009 175 / 175 Other: Urine Color Yellow Light Genny Urine Appearance Clear Clear Emesis Description None Laboratory Results WBC 5.90 k/cumm (4.4-10.8) 04/20/18 07:25 RBC 2.62 m/cumm (4.00-5.20) L 04/20/18 07:25 Hgb 7.9 g/dL (12.0-15.5) L 04/20/18 07:25 Hct 25.3 % (36.0-46.0) L 04/20/18 07:25 MCV 96.6 fL (80-95) H 04/20/18 07:25 MCH 30.2 pg (27.0-33.0) 04/20/18 07:25 MCHC 31.2 g/dL (32.0-36.0) L 04/20/18 07:25 RDW 12.5 % (11.7-14.6) 04/20/18 07:25 Plt Count 181 x1000/uL (130-400) 04/20/18 07:25 MPV 11.1 fL (8.0-11.0) H 04/20/18 07:25 Immature Gran % 0.3 04/20/18 07:25 Neutrophils % 68.8 04/20/18 07:25 Lymphocytes % 10.5 04/20/18 07:25 Monocytes % 16.1 04/20/18 07:25 Eosinophils % 4.1 04/20/18 07:25 Basophils % 0.2 04/20/18 07:25 Absolute Neutrophils 4.06 k/cumm (1.2-6.7) 04/20/18 07:25 Absolute Lymphocytes 0.62 k/cumm (1.2-3.4) L 04/20/18 07:25 Absolute Monocytes 0.95 k/cumm (0.11-0.7) H 04/20/18 07:25 Absolute Eosinophils 0.24 k/cumm (0.0-0.7) 04/20/18 07:25 Absolute Basophils 0.01 k/cumm (0.0-0.2) 04/20/18 07:25 Differential Comment Rbc morph reviewed 04/18/18 06:40 RBC Morphology See below 04/18/18 06:40 Hypochromasia 1+ 04/18/18 06:40 PT 9.5 sec (9.3-11.0) 04/19/18 08:00 INR 1.0 (0.9-1.1) 04/19/18 08:00 Sodium 140 mmol/L (136-145) 04/20/18 07:25 Potassium 5.3 mmol/L (3.5-5.1) H 04/20/18 07:25 Chloride 109 mmol/L (98-107) H 04/20/18 07:25 Carbon Dioxide 25.2 mmol/L (21.0-32.0) 04/20/18 07:25 Anion Gap 5.8 mmol/L (3-11) 04/20/18 07:25 BUN 24 mg/dL (7-18) H 04/20/18 07:25 Creatinine 1.31 mg/dL (0.55-1.02) H 04/20/18 07:25 Estimated GFR/1.73 m2 38.87 (mL/min/1.73m2) 04/20/18 07:25 Glucose 129 mg/dL (70-100) H 04/20/18 07:25 Calcium 8.9 mg/dL (8.5-10.1) 04/20/18 07:25 Magnesium 1.6 mg/dL (1.8-2.4) L 04/20/18 07:25 Iron 29 ug/dL (50-175) L 04/19/18 06:35 TIBC 182 ug/dL (250-450) L 04/19/18 06:35 Transferrin % Sat 16 % (15-50) 04/19/18 06:35 Ferritin 488 ng/mL (8-388) H 04/19/18 06:35 Total Bilirubin 0.5 mg/dL (0.2-1.0) 04/16/18 10:00 AST 21 U/L (15-37) 04/16/18 10:00 ALT 26 U/L (12-78) 04/16/18 10:00 Alkaline Phosphatase 87 U/L (46-116) 04/16/18 10:00 Creatine Kinase 115 U/L (26-192) 04/19/18 17:00 Troponin I < 0.02 ng/mL (0.00-0.06) 04/16/18 21:45 Total Protein 7.7 g/dL (6.4-8.2) 04/16/18 10:00 Albumin 4.0 g/dL (3.4-5.0) 04/16/18 10:00 Triglycerides 173 mg/dL (30-150) H 04/17/18 05:52 Total Cholesterol 255 mg/dL (50-200) H 04/17/18 05:52 LDL Cholesterol Direct 182 mg/dL (<100) H 04/17/18 05:52 HDL Cholesterol 37 mg/dL (40-60) L 04/17/18 05:52 Vitamin B12 1138 pg/mL (193-986) H 04/19/18 06:35 25-OH Vitamin D Total 13.5 ng/ml (30-100) L 04/18/18 06:40 Folate 11.5 ng/mL (8.6-20.0) 04/19/18 06:35 TSH 0.02 uIU/mL (0.358-3.74) L 04/18/18 06:40 Free T4 1.09 ng/dL (0.76-1.46) 04/18/18 06:40 Urine Color Yellow (Yellow) 04/16/18 10:53 Urine Clarity Clear 04/16/18 10:53 Urine pH 6.0 (5-8) 04/16/18 10:53 Ur Specific [place] 1.010 (1.005-1.025) 04/16/18 10:53 Urine Protein Negative mg/dL (Negative) 04/16/18 10:53 Urine Ketones Negative mg/dL (Negative) 04/16/18 10:53 Urine Blood Negative (Negative) 04/16/18 10:53 Urine Nitrite Negative (Negative) 04/16/18 10:53 Urine Bilirubin Negative (Negative) 04/16/18 10:53 Urine Urobilinogen 0.2 EU/dL (Up TO 0.2) 04/16/18 10:53 Ur Leukocyte Esterase Negative (Negative) 04/16/18 10:53 Urine Glucose Negative mg/dL (Negative) 04/16/18 10:53 Patient ABO/Rh A Positive 04/19/18 06:35 Antibody Screen Negative 04/19/18 06:35
--- NOTE | 2018-04-20 14:13 | PT.INTREAT ---
Date of service: 04/20/18 Time of Service: 14:13 PT Notes 04/20/18 SUBJECTIVE: Osmany continues to slur his speech making it difficult to understand what he is saying. He is talking about a medication that he is going to refuse to take anymore because he thinks its the reason he is feeling so weak. He requests to talk to healthcare market consultant. OBJECTIVE: Pt is sitting in his recliner. Agreeable to PT treatment. TRANSFERS: Sit to stand: Min A Stand to sit: Min A Gait: Pt stands to walker and reporting feeling dizzy. He stands for approx. 2 minutes with increase in dizziness and we defer gait at this time and pt sits back down. Therex: Seated UE/LE strengthening performed in seated position. See flow sheet. ASSESSMENT: We decide to defer gait this afternoon due to his significant dizziness upon standing. He is frustrated with his current condition. We will monitor how he is feeling tomorrow in hopes to increase his gait distance and strength in his LE's. PLAN: Continue per established POC. Treatment time: 15 minutes [id number] Coretta Willams PTA
--- NOTE | 2018-04-20 14:15 | DI.MRI_ITS ---
SYMPTOMS/DIAGNOSIS: SUSPECTED CERVICAL STENOSIS, ABNORMAL PLANTAR RESPONSES MRI OF THE CERVICAL SPINE: Routine noncontrast examination. There is normal signal in the spinal cord. No evidence of tonsillar ectopia. Comparison is 11/07/14. At C7-T1, there is no significant central spinal canal stenosis. There are degenerative changes at the facets, resulting in mild bilateral neural foraminal stenosis. At C6-C7, there are degenerative endplate signal changes. There is prominence of the osteophyte-disc complex. Mild narrowing of the central spinal canal is noted. No significant neural foraminal stenosis is present. At C5-C6, there is prominence of the osteophyte-disc complex. Degenerative endplate signal changes are present. There is mild narrowing of the central spinal canal. Degenerative changes of the uncovertebral joints result in mild bilateral neural foraminal stenosis. At C4-C5, there is prominence of the osteophyte-disc complex resulting in mild central spinal canal stenosis. Degenerative changes of the uncovertebral joints bilaterally result in mild bilateral neural foraminal stenosis, left greater than right. At C3-C4, there is mild prominence of the osteophyte-disc complex effacing the anterior subarachnoid space, narrowing the central spinal canal. Degenerative changes of the facets and uncovertebral joints are noted. There is mild narrowing of the right neural foramen. C2-C3 shows no significant neural foraminal stenosis. Mild narrowing of the central spinal canal is seen. Apart from the degenerative signal changes, marrow signal is within normal limits. IMPRESSION: 1. Multilevel degenerative changes in the cervical spine resulting in multilevel central spinal canal and neural foraminal stenosis. 2. Normal signal seen in the spinal cord.
--- NOTE | 2018-04-20 14:15 | DI.MRI_ITS ---
SYMPTOMS/DIAGNOSIS: F/U SIGNIFICANT CAROTID ARTERY STENOSIS MRA OF THE NECK: Routine examination was performed. Comparison is with ultrasound from 04/18/18. The study is suboptimal due to significant patient motion artifact. There does appear to be narrowing at the origins of both internal carotid arteries. The degree of abnormality in this region is indeterminate as there is significant patient motion artifact present. The vertebral arteries appear patent without significant stenosis. The visualized portion of the basilar artery appears patent without significant stenosis. IMPRESSION: Severely limited examination due to significant patient motion artifact. Please see the above discussion for complete details.
--- NOTE | 2018-04-20 14:18 | PTTR_ITS ---
Date of service: 04/20/18 Time of Service: 14:13 PT Notes 04/20/18 SUBJECTIVE: Osmany continues to slur his speech making it difficult to understand what he is saying. He is talking about a medication that he is going to refuse to take anymore because he thinks its the reason he is feeling so weak. 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 OBJECTIVE: Pt is sitting in his recliner. Agreeable to PT treatment. TRANSFERS: Sit to stand: Min A Stand to sit: Min A Gait: Pt stands to walker and reporting feeling dizzy. He stands for approx. 2 minutes with increase in dizziness and we defer gait at this time and pt sits back down. Therex: Seated UE/LE strengthening performed in seated position. See flow sheet. ASSESSMENT: We decide to defer gait this afternoon due to his significant dizziness upon standing. He is frustrated with his current condition. We will monitor how he is feeling tomorrow in hopes to increase his gait distance and strength in his LE's. PLAN: Continue per established POC. Treatment time: 15 minutes [id number] Coretta Willams PTA
--- NOTE | 2018-04-20 14:47 | PGE_ITS ---
Date of Service Date of service: 04/20/18 Time of Service: 14:45 Assessment and Plan (1) Tata-prosthetic femur fracture at tip of prosthesis: Current visit: Yes Status: Acute Repaired by Dr. Villar on 04/19/2018. Doing well postoperatively. Continue physical therapy, continue pain control. Resume DVT prophylaxis per Ortho. (2) Carotid stenosis, bilateral: Current visit: Yes Status: Acute Significant bilateral carotid artery stenosis on ultrasound. MRA pending. Neurology following. Will potentially need CEA. (3) Syncopal episodes: Current visit: Yes Status: Acute Carotid artery ultrasound as above. MRA pending. Neurology continues to follow. Will need ZioPatch patch upon discharge. Qualifiers: Syncope type: Encounter type: initial encounter (4) Hypothyroidism: Current visit: No Status: Acute TSH low. Continue to hold levothyroxine. Qualifiers: Hypothyroidism type: unspecified Qualified Code(s): E03.9 - Hypothyroidism, unspecified (5) Hyperlipidemia: Current visit: No Status: Acute Continue atorvastatin. (6) Essential hypertension: Current visit: No Status: Chronic Blood pressure within acceptable range. Hydrochlorothiazide remains on hold. Continue to monitor blood pressures. (7) Hyperkalemia: Current visit: Yes Status: Acute Potassium elevated. [place] x1. Reassess BMP in the morning. (8) Pulmonary hypertension: Current visit: No Status: Acute With documented nocturnal hypoxia. Suggestive of sleep apnea. Will benefit from a sleep study as an outpatient. (9) Cervical stenosis of spinal canal: Current visit: No Status: Suspected MRI of her C-spine pending. (10) Acute on chronic anemia: Current visit: No Status: Acute Anemia of chronic disease. Stools Hemoccult negative. Continue iron supplementation. Subcutaneous heparin on hold. Reassess CBC in the morning. (11) DVT prophylaxis: Current visit: Yes Status: Acute Subcutaneous heparin on hold due to anemia. Continue teds and SCDs. Restart DVT prophylaxis per ortho. (12) Discharge planning issues: Current visit: Yes Status: Acute Is a full code She will likely need rehab prior to returning home. This case was discussed with Dr. Romero who is in agreement. 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 There was concern that a syncopal episode could have potentially contributed to her fall. She went to the operating room with Dr. Villar on 04/19/2018 for a repair of the fracture. Of note, during her workup for possible CVA versus TIA, she was noted to have significant bilateral carotid artery stenosis, greater than 70%. Neurology is also following her case. An MRA neck and MRI c-spine are currently pending. She reports that she is doing well today. She was able to get up out of bed and ambulate to the door in her room with physical therapy. She did have increased pain with ambulation. She denies significant pain at rest. She did feel slightly dizzy getting out of bed. She slept well last night. She denies headaches, fever, shortness of breath, coughing, wheezing, chest pain/pressure, palpitations, she is eating and drinking and tolerating her diet. She does report belching, no nausea, vomiting or diarrhea. She had a bowel movement yesterday. She reports that the brace on her right knee is uncomfortable, nursing is helping with positioning. She feels that she has some edema in her right leg and in her arms bilaterally. Exam Narrative Exam Narrative: General: Very pleasant elderly female, resting in bed, with head of bed elevated, in no acute distress. Answers questions approp riately. Neurological: A&Ox3, pupils are equal and round. No focal deficits HEENT: EOMI, Mucous membranes moist, no JVD Cardiovascular: Regular rate and rhythm, + KRISHAN. Lungs: Respirations even and unlabored, lung sounds clear to auscultation throughout. Gastrointestinal: abdomen round, soft, normoactive bowel sounds, nontender, nondistended Genitourinary: Has a middleton, draining clear yellow urine. Extremities: RLE in immobilizer. Trace to +1 pitting edema to right ankle. 2+ pedal pulses bilaterally. Objective Objective Clinical Data: Abnormal lab results 04/19/18 04/19/18 04/20/18 Range/Units 17:00 17:00 07:25 RBC 2.75 L (4.00-5.20) m/cumm Hgb 8.4 L (12.0-15.5) g/dL Hct 26.5 L (36.0-46.0) % MCV 96.4 H (80-95) fL MCHC 31.7 L (32.0-36.0) g/dL MPV 11.1 H (8.0-11.0) fL Absolute Lymphocytes (1.2-3.4) k/cumm Absolute Monocytes (0.11-0.7) k/cumm Potassium 5.3 H (3.5-5.1) mmol/L Chloride 110 H 109 H (98-107) mmol/L BUN 22 H 24 H (7-18) mg/dL Creatinine 1.19 H 1.31 H (0.55-1.02) mg/dL Glucose 104 H 129 H (70-100) mg/dL Magnesium 1.6 L (1.8-2.4) mg/dL 04/20/18 Range/Units 07:25 RBC 2.62 L (4.00-5.20) m/cumm Hgb 7.9 L (12.0-15.5) g/dL Hct 25.3 L (36.0-46.0) % MCV 96.6 H (80-95) fL MCHC 31.2 L (32.0-36.0) g/dL MPV 11.1 H (8.0-11.0) fL Absolute Lymphocytes 0.62 L (1.2-3.4) k/cumm Absolute Monocytes 0.95 H (0.11-0.7) k/cumm Potassium (3.5-5.1) mmol/L Chloride (98-107) mmol/L BUN (7-18) mg/dL Creatinine (0.55-1.02) mg/dL Glucose (70-100) mg/dL Magnesium (1.8-2.4) mg/dL Vital Signs Temperature 37 C 04/20/18 08:20 Temperature Source Temporal Artery Scan 04/20/18 08:20 Pulse 73 04/20/18 08:39 Pulse Rhythm Regular 04/20/18 08:20 Pulse 79 04/20/18 10:00 Respiratory Rate 17 04/20/18 10:00 Respiratory Effort 04/20/18 08:20 Respiratory Depth Normal 04/20/18 08:20 Respiratory Pattern Normal 04/20/18 08:20 Blood Pressure 149/37 H 04/20/18 08:39 Blood Pressure Mean 66 04/20/18 08:39 Blood Pressure Position Supine 04/16/18 16:11 Pulse Oximetry 97 04/20/18 08:39 Respiratory End-tidal CO2 42 04/19/18 17:15 Oxygen Delivery Method Room Air 04/20/18 08:20 Oxygen Flow Rate 0 04/20/18 08:20 Pain Level 7 04/20/18 10:04 Intake & Output 04/19/18 04/20/18 04/20/18 23:59 11:59 23:59 Intake Total 1940 / 1940 1260.417 / 1260.417 Output Total 1009 / 5 175 / 1375 1200 / 1375 Balance 930 / -145 1085.417 / -114.583 -1200 / -114.583 Weight 104.2 kg Intake: IV 1700 / 1700 910.417 / 910.417 Oral 240 / 240 350 / 350 Output: Urine 1009 / 5 175 / 1375 1200 / 1375 Other: Urine Color Yellow Light Genny Pale Yellow Urine Appearance Clear Clear Clear Emesis Description None Laboratory Results WBC 5.90 k/cumm (4.4-10.8) 04/20/18 07:25 RBC 2.62 m/cumm (4.00-5.20) L 04/20/18 07:25 Hgb 7.9 g/dL (12.0-15.5) L 04/20/18 07:25 Hct 25.3 % (36.0-46.0) L 04/20/18 07:25 MCV 96.6 fL (80-95) H 04/20/18 07:25 MCH 30.2 pg (27.0-33.0) 04/20/18 07:25 MCHC 31.2 g/dL (32.0-36.0) L 04/20/18 07:25 RDW 12.5 % (11.7-14.6) 04/20/18 07:25 Plt Count 181 x1000/uL (130-400) 04/20/18 07:25 MPV 11.1 fL (8.0-11.0) H 04/20/18 07:25 Immature Gran % 0.3 04/20/18 07:25 Neutrophils % 68.8 04/20/18 07:25 Lymphocytes % 10.5 04/20/18 07:25 Monocytes % 16.1 04/20/18 07:25 Eosinophils % 4.1 04/20/18 07:25 Basophils % 0.2 04/20/18 07:25 Absolute Neutrophils 4.06 k/cumm (1.2-6.7) 04/20/18 07:25 Absolute Lymphocytes 0.62 k/cumm (1.2-3.4) L 04/20/18 07:25 Absolute Monocytes 0.95 k/cumm (0.11-0.7) H 04/20/18 07:25 Absolute Eosinophils 0.24 k/cumm (0.0-0.7) 04/20/18 07:25 Absolute Basophils 0.01 k/cumm (0.0-0.2) 04/20/18 07:25 Differential Comment Rbc morph reviewed 04/18/18 06:40 RBC Morphology See below 04/18/18 06:40 Hypochromasia 1+ 04/18/18 06:40 PT 9.5 sec (9.3-11.0) 04/19/18 08:00 INR 1.0 (0.9-1.1) 04/19/18 08:00 Sodium 140 mmol/L (136-145) 04/20/18 07:25 Potassium 5.3 mmol/L (3.5-5.1) H 04/20/18 07:25 Chloride 109 mmol/L (98-107) H 04/20/18 07:25 Carbon Dioxide 25.2 mmol/L (21.0-32.0) 04/20/18 07:25 Anion Gap 5.8 mmol/L (3-11) 04/20/18 07:25 BUN 24 mg/dL (7-18) H 04/20/18 07:25 Creatinine 1.31 mg/dL (0.55-1.02) H 04/20/18 07:25 Estimated GFR/1.73 m2 38.87 (mL/min/1.73m2) 04/20/18 07:25 Glucose 129 mg/dL (70-100) H 04/20/18 07:25 Calcium 8.9 mg/dL (8.5-10.1) 04/20/18 07:25 Magnesium 1.6 mg/dL (1.8-2.4) L 04/20/18 07:25 Iron 29 ug/dL (50-175) L 04/19/18 06:35 TIBC 182 ug/dL (250-450) L 04/19/18 06:35 Transferrin % Sat 16 % (15-50) 04/19/18 06:35 Ferritin 488 ng/mL (8-388) H 04/19/18 06:35 Total Bilirubin 0.5 mg/dL (0.2-1.0) 04/16/18 10:00 AST 21 U/L (15-37) 04/16/18 10:00 ALT 26 U/L (12-78) 04/16/18 10:00 Alkaline Phosphatase 87 U/L (46-116) 04/16/18 10:00 Creatine Kinase 115 U/L (26-192) 04/19/18 17:00 Troponin I < 0.02 ng/mL (0.00-0.06) 04/16/18 21:45 Total Protein 7.7 g/dL (6.4-8.2) 04/16/18 10:00 Albumin 4.0 g/dL (3.4-5.0) 04/16/18 10:00 Triglycerides 173 mg/dL (30-150) H 04/17/18 05:52 Total Cholesterol 255 mg/dL (50-200) H 04/17/18 05:52 LDL Cholesterol Direct 182 mg/dL (<100) H 04/17/18 05:52 HDL Cholesterol 37 mg/dL (40-60) L 04/17/18 05:52 Vitamin B12 1138 pg/mL (193-986) H 04/19/18 06:35 25-OH Vitamin D Total 13.5 ng/ml (30-100) L 04/18/18 06:40 Folate 11.5 ng/mL (8.6-20.0) 04/19/18 06:35 TSH 0.02 uIU/mL (0.358-3.74) L 04/18/18 06:40 Free T4 1.09 ng/dL (0.76-1.46) 04/18/18 06:40 Urine Color Yellow (Yellow) 04/16/18 10:53 Urine Clarity Clear 04/16/18 10:53 Urine pH 6.0 (5-8) 04/16/18 10:53 Ur Specific Simpson 1.010 (1.005-1.025) 04/16/18 10:53 Urine Protein Negative mg/dL (Negative) 04/16/18 10:53 Urine Ketones Negative mg/dL (Negative) 04/16/18 10:53 Urine Blood Negative (Negative) 04/16/18 10:53 Urine Nitrite Negative (Negative) 04/16/18 10:53 Urine Bilirubin Negative (Negative) 04/16/18 10:53 Urine Urobilinogen 0.2 EU/dL (Up TO 0.2) 04/16/18 10:53 Ur Leukocyte Esterase Negative (Negative) 04/16/18 10:53 Urine Glucose Negative mg/dL (Negative) 04/16/18 10:53 Patient ABO/Rh A Positive 04/19/18 06:35 Antibody Screen Negative 04/19/18 06:35
[2018-04-20] MEDS: traMADol 50 MG TAB PO (15:26)
--- NOTE | 2018-04-20 15:29 | NT_ITS ---
Date of service: 04/20/18 Time of Service: 15:28 PT Notes 04/20/18 Pt just returning from testing this PM and is quite fatigued and uncomfortable. Would like to hold on PT this afternoon. Resume in AM. Coretta Willams, PERSONAL FINANCE INSTRUCTOR
[2018-04-20] MEDS: Atorvastatin 40 MG TAB PO (20:44)
[2018-04-21] VITALS (38 sets, daily range): BP systolic 107–170; BP diastolic 39–77; PULSE 60–78; RESP 13–22; TEMP 36.2–36.9; O2SAT 80–99
[2018-04-21] MEDS: Ketorolac 15 MG/ML VIAL IVP (02:10)
[2018-04-21] MEDS: Mylanta Suspension 30 ML CUP PO (05:30)
[2018-04-21 07:19] LABS: HCT 23.8 % (36.0-46.0); HGB 7.3 g/dL (12.0-15.5); Mean Corp. HGB Concentration 30.7 g/dL (32.0-36.0); Mean Corpuscular Hemoglobin 29.4 pg (27.0-33.0); Mean Platelet Volume 11.6 fL (8.0-11.0); Platelet Count 174 x1000/uL (130-400); RBC 2.48 m/cumm (4.00-5.20); RBC Distribution Width 12.7 % (11.7-14.6); White Blood Cell Count 4.94 k/cumm (4.4-10.8)
[2018-04-21 07:37] LABS: Anion Gap 7.7 mmol/L (3-11); BUN 28 mg/dL (7-18); CO2 25.3 mmol/L (21.0-32.0); CREATININE 1.66 mg/dL (0.55-1.02); Chloride 108 mmol/L (98-107); Estimated GFR 29.58 (mL/min/1.73m2); Glucose 126 mg/dL (70-100); Potassium 4.5 mmol/L (3.5-5.1); Sodium 141 mmol/L (136-145)
[2018-04-21] MEDS: Senna TAB 1 TAB PO ×2 (09:12→21:23)
[2018-04-21] MEDS: Pantoprazole 40 MG VIAL IVP (09:12)
[2018-04-21] MEDS: Magnesium Oxide 400 MG TAB PO ×2 (09:12→21:24)
[2018-04-21] MEDS: Normal Saline Flush 10 ML SYR IVP ×4 (09:12→21:07)
[2018-04-21] MEDS: Aspirin 81 MG CHEW PO (09:12)
[2018-04-21] MEDS: Calcium Citrate 950 MG TAB PO ×2 (09:12→21:24)
[2018-04-21] MEDS: Acetaminophen 500 MG TAB 1000 MG PO ×2 (09:13→14:38)
[2018-04-21] MEDS: Cyanocobalamin 500 MCG TAB 1000 MCG PO (09:13)
[2018-04-21] MEDS: Docusate Sodium 100 MG CAP PO ×2 (09:13→21:22)
[2018-04-21] MEDS: Ferrous Sulfate 325 MG TAB PO (09:13)
[2018-04-21] MEDS: diphenhydrAMINE 25 MG CAP PO (10:45)
--- NOTE | 2018-04-21 10:51 | PDOC.CMPRO ---
Care Management Progress Note S/O: Brie presented with some acute confusion last night per MD and it is assumed this was in reaction to tramadol which has now been discontinued. Kerry will have a surgical consult today as well as a blood transfusion due to heme positive stools and down trending hemoglobin. She continues to be closely monitored in the ICU, no change to disposition at this time. A: Brie is a 82-year-old female admitted related to a syncopal episode, resulting in fracture of her right femur. P: Brie remains in the ICU she is status post femur repair. Brie's referral continues to be reviewed by [facility] for possible admission early next week when Brie is medically stable. Transportation to be determined pending disposition. CM to continue to provide support regarding discharge planning and disposition.
[2018-04-21 11:22] LABS: Magnesium 1.8 mg/dL (1.8-2.4)
--- NOTE | 2018-04-21 12:02 | OT.INTREAT ---
Date of service: 04/21/18 Time of Service: 10:16 Occupational Therapy Notes Occupational Therapy Inpatient Treatment Note Date: 04/21/18 PRECAUTIONS: PWB (R) LE, standard precautions SUBJECTIVE: Pt was sitting in chair with leg elevated. She reports that she worked with physical therapy earlier and states that it feels nice to sit in the chair. OBJECTIVE: PAIN: no c/o pain during OT session. BATHING: Sitting in chair, max (A) set up Upper Body: (I) (B) UE, max (A) back and max (A) hair Lower Body: Washed to knees (I) DRESSING: Sitting in chair Upper Extremity: Mod (A) don and doing [facility] gown due to medical lines Lower Extremity: NT GROOMING: Sitting in chair, pt was mod (A) hair as pt had difficulty brushing out tangles. Pt has functional ROM to perform hair brushing. TOILETING: Device: Romero ASSESSMENT: Pt demonstrated increased (I) in ADL routine in the sitting position. She stayed in the sitting position with leg stabilized in brace. She was able to perform ADLs in sitting with min vc and (I). Pt would benefit from continued skilled OT intervention for progression of ADLs and increased (I) in functional activity tolerance. PLAN: Progression of ADLs TREATMENT CODES/TIME: [id number], 33 minutes (10:16) Tessa Alvarez OTR/[facility]
--- NOTE | 2018-04-21 12:11 | OTTR_ITS ---
Date of service: 04/21/18 Time of Service: 10:16 Occupational Therapy Notes Occupational Therapy Inpatient Treatment Note Date: 04/21/18 PRECAUTIONS: PWB (R) LE, standard precautions SUBJECTIVE: Pt was sitting in chair with leg elevated. She reports that she worked with physical therapy earlier and states that it feels nice to sit in the chair. OBJECTIVE: PAIN: no c/o pain during OT session. BATHING: Sitting in chair, max (A) set up Upper Body: (I) (B) UE, max (A) back and max (A) hair Lower Body: Washed to knees (I) DRESSING: Sitting in chair Upper Extremity: Mod (A) don and doing [facility] gown due to medical lines Lower Extremity: NT GROOMING: Sitting in chair, pt was mod (A) hair as pt had difficulty brushing out tangles. Pt has functional ROM to perform hair brushing. TOILETING: Device: Romero ASSESSMENT: Pt demonstrated increased (I) in ADL routine in the sitting position. She stayed in the sitting position with leg stabilized in brace. She was able to perform ADLs in sitting with min vc and (I). Pt would benefit from continued skilled OT intervention for progression of ADLs and increased (I) in functional activity tolerance. PLAN: Progression of ADLs TREATMENT CODES/TIME: [id number], 33 minutes (10:16) Tessa Alvarez OTR/[facility]
--- NOTE | 2018-04-21 12:21 | NUR.NOTE ---
04/21/18: Attempted to infuse ordered 1 unit PRBCs, IV leaking and painful, infusion stopped, blood bank notified.
[2018-04-21] MEDS: HYDROmorphone 2 MG/ML VIAL 0.5 MG IVP (13:04)
--- NOTE | 2018-04-21 13:31 | PT.INTREAT ---
Date of service: 04/21/18 Time of Service: 13:31 PT Notes 04/21/18 SUBJECTIVE: Brie stating she is doing okay today. She is comfortable in resting position but has increase in pain with movement. She complains of being dizzy during our AM session. OBJECTIVE: Pt seen for Pt treament in AM and PM. TRANSFERS Supine to sit: SBA Sit to supine: Min A for Right LE Sit to stand: CGA Stand to sit: CGA GAIT Device: FWW Weight bearing: PWB R to tolerance Assist: CGA Distance: 5' in AM, 5' in PM Deviation: In PM stood EOB x 2 minutes Therex: Instruct pt in early strengthening including quad and glut setting, SLR performs active assistively x 10 reps. See flow sheet for details. ASSESSMENT: Progressing with her mobility today. She requires cues for walker management to unweight the right LE. Begin with light LE strengthening which she tolerates well and is performing throughout the day. PLAN: Continue to progress per established POC. Treatment time: AM: 20 minutes [id number] PM: 25 minutes [id number], [id number] Coretta Willams PTA
--- NOTE | 2018-04-21 13:37 | PTTR_ITS ---
Date of service: 04/21/18 Time of Service: 13:31 PT Notes 04/21/18 SUBJECTIVE: Brie stating she is doing okay today. She is comfortable in resting position but has increase in pain with movement. She complains of being dizzy during our AM session. OBJECTIVE: Pt seen for Pt treament in AM and PM. TRANSFERS Supine to sit: SBA Sit to supine: Min A for Right LE Sit to stand: CGA Stand to sit: CGA GAIT Device: FWW Weight bearing: PWB R to tolerance Assist: CGA Distance: 5' in AM, 5' in PM Deviation: In PM stood EOB x 2 minutes Therex: Instruct pt in early strengthening including quad and glut setting, SLR performs active assistively x 10 reps. See flow sheet for details. ASSESSMENT: Progressing with her mobility today. She requires cues for walker management to unweight the right LE. Begin with light LE strengthening which she tolerates well and is performing throughout the day. PLAN: Continue to progress per established POC. Treatment time: AM: 20 minutes [id number] PM: 25 minutes [id number] Coretta Willams PTA
--- NOTE | 2018-04-21 17:29 | W.PM.PROGNOT ---
Date of Service Date of service: 04/21/18 Time of Service: 17:51 Assessment and Plan (1) Tata-prosthetic femur fracture at tip of prosthesis: Current visit: Yes Status: Acute Repaired by Dr. Villar on 04/19/2018. Doing well postoperatively. Continue physical therapy, continue pain control. DC tramadol because of mental status change. Resume Crane at limited dose and as needed acetaminophen. (2) Carotid stenosis, bilateral: Current visit: Yes Status: Acute Significant bilateral carotid artery stenosis on ultrasound. MRA pending. Neurology following. Will potentially need CEA. (3) Syncopal episodes: Current visit: Yes Status: Acute Carotid artery ultrasound as above. MRA was nondiagnostic. Neurology continues to follow. At this point is recommended that she have a CT angiogram of her carotids provided her renal function improves. Will base referral to vascular surgery on further testing. Will need ZioPatch patch upon discharge. Qualifiers: Encounter type: initial encounter Syncope type: (4) Hypothyroidism: Current visit: No Status: Acute TSH low. Continue to hold levothyroxine. Qualifiers: Hypothyroidism type: unspecified Qualified Code(s): E03.9 - Hypothyroidism, unspecified (5) Hyperlipidemia: Current visit: No Status: Acute Continue atorvastatin. (6) Essential hypertension: Current visit: No Status: Chronic Blood pressure within acceptable range. Hydrochlorothiazide remains on hold. Continue to monitor blood pressures. (7) Hyperkalemia: Current visit: Yes Status: Acute Potassium has normalized. BMP in the morning. (8) Pulmonary hypertension: Current visit: No Status: Acute With documented nocturnal hypoxia. Suggestive of sleep apnea. Will benefit from a sleep study as an outpatient. (9) Cervical stenosis of spinal canal: Current visit: No Status: Suspected MRI of her C-spine nondiagnostic due to patient motion. (10) Acute on chronic anemia: Current visit: No Status: Acute Anemia of chronic disease. Stools Hemoccult positive.. Continue iron supplementation. Subcutaneous heparin on hold. Aspirin on hold. Reassess CBC in the morning. (11) DVT prophylaxis: Current visit: Yes Status: Acute Subcutaneous heparin on hold due to anemia. Continue teds and SCDs. Restart DVT prophylaxis per ortho. (12) Discharge planning issues: Current visit: Yes Status: Acute Is a full code She will likely need rehab prior to returning home. 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 There was concern that a syncopal episode could have potentially contributed to her fall. She went to the operating room with Dr. Villar on 04/19/2018 for a repair of the fracture. Of note, during her workup for possible CVA versus TIA, she was noted to have significant bilateral carotid artery stenosis, right near total and left greater than 70%. Neurology is also following her case. An MRA neck and MRI c-spine were done 04/20/18. She reports that she is doing well today. She was able to get up out of bed and ambulate to the door in her room with physical therapy. She did have increased pain with ambulation. She denies significant pain at rest. She did feel slightly dizzy getting out of bed. She slept well last night. She denies headaches, fever, shortness of breath, coughing, wheezing, chest pain/pressure, palpitations, she is eating and drinking and tolerating her diet. She does report belching, no nausea, vomiting or diarrhea. She received 1 unit of packed red cells today. Exam Narrative Exam Narrative: Generally pleasant and in no apparent distress. She was sitting up in the chair with her right leg propped up on pillows. Her brace on the right leg was intact. The brace was taken down. She has an Josesito wrap that was left in place. There is no apparent bruising or ecchymosis above or below the Josesito wrap. Distal perfusion appeared to be good. Sensation was intact. Const General: cooperative, healthy appearing and comfortable Nutritional Appearance: overweight Orientation: alert, awake and oriented x3 Resp Auscultation: clear to auscultation bilaterally Cardio Rate: regular rate Rhythm: regular rhythm Heart Sounds: no murmurs GI Palpation: soft and nontender Extrem Right lower extremity: knee (Knee immobilizer taken off, good distal perfusion) Psych Appearance: grossly normal Mental Status: mental status grossly normal Objective Objective Clinical Data: Abnormal lab results 04/19/18 04/21/18 04/21/18 Range/Units 06:35 06:22 06:22 RBC 2.48 L (4.00-5.20) m/cumm Hgb 7.3 L (12.0-15.5) g/dL Hct 23.8 L (36.0-46.0) % MCV 96.0 H (80-95) fL MCHC 30.7 L (32.0-36.0) g/dL MPV 11.6 H (8.0-11.0) fL Chloride 108 H (98-107) mmol/L BUN 28 H (7-18) mg/dL Creatinine 1.66 H (0.55-1.02) mg/dL Glucose 126 H (70-100) mg/dL Crossmatch See Detail Vital Signs Temperature 36.6 C 04/21/18 15:30 Temperature Source Temporal Artery Scan 04/21/18 12:16 Pulse 62 04/21/18 16:01 Pulse Rhythm Regular 04/21/18 16:00 Pulse 61 04/21/18 16:01 Respiratory Rate 20 04/21/18 16:01 Respiratory Effort 04/21/18 16:00 Respiratory Depth Normal 04/21/18 16:00 Respiratory Pattern Normal 04/21/18 16:00 Blood Pressure 134/45 L 04/21/18 16:01 Blood Pressure Mean 65 04/21/18 16:01 Blood Pressure Position Supine 04/16/18 16:11 Pulse Oximetry 97 04/21/18 15:46 Respiratory End-tidal CO2 42 04/19/18 17:15 Oxygen Delivery Method Room Air 04/21/18 15:30 Oxygen Flow Rate 0 04/21/18 15:30 Pain Level 6 04/21/18 14:04 Intake & Output 04/20/18 04/21/18 04/21/18 23:59 11:59 23:59 Intake Total 2280 / 3640.417 133 / 1980 650 / 1980 Output Total 2350 / 2525 900 / 1450 550 / 1450 Balance -70 / 1115.417 430 / 530 100 / 530 Intake: IV 1100 / 2110.417 1010 / 1020 10 / 1020 Oral 1180 / 1530 320 / 610 290 / 610 Blood Product 350 / 350 Rbc Leuko Reduced Unit [id number] Rbc Leuko Reduced Unit 340 / 340 [id number] Output: Urine 2350 / 2525 900 / 1450 550 / 1450 Other: Urine Color Yellow Light Genny Yellow Urine Appearance Clear Clear Clear Comment kane d/c'd at this time Stool Occult Blood Positive Stool Size Moderate Stool Characteristics Formed Laboratory Results WBC 4.94 k/cumm (4.4-10.8) 04/21/18 06:22 RBC 2.48 m/cumm (4.00-5.20) L 04/21/18 06:22 Hgb 7.3 g/dL (12.0-15.5) L 04/21/18 06:22 Hct 23.8 % (36.0-46.0) L 04/21/18 06:22 MCV 96.0 fL (80-95) H 04/21/18 06:22 MCH 29.4 pg (27.0-33.0) 04/21/18 06:22 MCHC 30.7 g/dL (32.0-36.0) L 04/21/18 06:22 RDW 12.7 % (11.7-14.6) 04/21/18 06:22 Plt Count 174 x1000/uL (130-400) 04/21/18 06:22 MPV 11.6 fL (8.0-11.0) H 04/21/18 06:22 Immature Gran % 0.3 04/20/18 07:25 Neutrophils % 68.8 04/20/18 07:25 Lymphocytes % 10.5 04/20/18 07:25 Monocytes % 16.1 04/20/18 07:25 Eosinophils % 4.1 04/20/18 07:25 Basophils % 0.2 04/20/18 07:25 Absolute Neutrophils 4.06 k/cumm (1.2-6.7) 04/20/18 07:25 Absolute Lymphocytes 0.62 k/cumm (1.2-3.4) L 04/20/18 07:25 Absolute Monocytes 0.95 k/cumm (0.11-0.7) H 04/20/18 07:25 Absolute Eosinophils 0.24 k/cumm (0.0-0.7) 04/20/18 07:25 Absolute Basophils 0.01 k/cumm (0.0-0.2) 04/20/18 07:25 Differential Comment Rbc morph reviewed 04/18/18 06:40 RBC Morphology See below 04/18/18 06:40 Hypochromasia 1+ 04/18/18 06:40 PT 9.5 sec (9.3-11.0) 04/19/18 08:00 INR 1.0 (0.9-1.1) 04/19/18 08:00 Sodium 141 mmol/L (136-145) 04/21/18 06:22 Potassium 4.5 mmol/L (3.5-5.1) 04/21/18 06:22 Chloride 108 mmol/L (98-107) H 04/21/18 06:22 Carbon Dioxide 25.3 mmol/L (21.0-32.0) 04/21/18 06:22 Anion Gap 7.7 mmol/L (3-11) 04/21/18 06:22 BUN 28 mg/dL (7-18) H 04/21/18 06:22 Creatinine 1.66 mg/dL (0.55-1.02) H 04/21/18 06:22 Estimated GFR/1.73 m2 29.58 (mL/min/1.73m2) 04/21/18 06:22 Glucose 126 mg/dL (70-100) H 04/21/18 06:22 Calcium 9.0 mg/dL (8.5-10.1) 04/21/18 06:22 Magnesium 1.8 mg/dL (1.8-2.4) 04/21/18 06:22 Iron 29 ug/dL (50-175) L 04/19/18 06:35 TIBC 182 ug/dL (250-450) L 04/19/18 06:35 Transferrin % Sat 16 % (15-50) 04/19/18 06:35 Ferritin 488 ng/mL (8-388) H 04/19/18 06:35 Total Bilirubin 0.5 mg/dL (0.2-1.0) 04/16/18 10:00 AST 21 U/L (15-37) 04/16/18 10:00 ALT 26 U/L (12-78) 04/16/18 10:00 Alkaline Phosphatase 87 U/L (46-116) 04/16/18 10:00 Creatine Kinase 115 U/L (26-192) 04/19/18 17:00 Troponin I < 0.02 ng/mL (0.00-0.06) 04/16/18 21:45 Total Protein 7.7 g/dL (6.4-8.2) 04/16/18 10:00 Albumin 4.0 g/dL (3.4-5.0) 04/16/18 10:00 Triglycerides 173 mg/dL (30-150) H 04/17/18 05:52 Total Cholesterol 255 mg/dL (50-200) H 04/17/18 05:52 LDL Cholesterol Direct 182 mg/dL (<100) H 04/17/18 05:52 HDL Cholesterol 37 mg/dL (40-60) L 04/17/18 05:52 Vitamin B12 1138 pg/mL (193-986) H 04/19/18 06:35 25-OH Vitamin D Total 13.5 ng/ml (30-100) L 04/18/18 06:40 Folate 11.5 ng/mL (8.6-20.0) 04/19/18 06:35 TSH 0.02 uIU/mL (0.358-3.74) L 04/18/18 06:40 Free T4 1.09 ng/dL (0.76-1.46) 04/18/18 06:40 Urine Color Yellow (Yellow) 04/16/18 10:53 Urine Clarity Clear 04/16/18 10:53 Urine pH 6.0 (5-8) 04/16/18 10:53 Ur Specific [place] 1.010 (1.005-1.025) 04/16/18 10:53 Urine Protein Negative mg/dL (Negative) 04/16/18 10:53 Urine Ketones Negative mg/dL (Negative) 04/16/18 10:53 Urine Blood Negative (Negative) 04/16/18 10:53 Urine Nitrite Negative (Negative) 04/16/18 10:53 Urine Bilirubin Negative (Negative) 04/16/18 10:53 Urine Urobilinogen 0.2 EU/dL (Up TO 0.2) 04/16/18 10:53 Ur Leukocyte Esterase Negative (Negative) 04/16/18 10:53 Urine Glucose Negative mg/dL (Negative) 04/16/18 10:53 Patient ABO/Rh A Positive 04/19/18 06:35 Antibody Screen Negative 04/19/18 06:35 Crossmatch See Detail 04/19/18 06:35
[2018-04-21 17:30] LABS: HCT 25.9 % (36.0-46.0); HGB 8.2 g/dL (12.0-15.5)
--- NOTE | 2018-04-21 20:03 | PGE_ITS ---
Date of Service Date of service: 04/21/18 Time of Service: 17:02 Assessment and Plan (1) Syncopal episodes: Current visit: Yes Status: Acute Ms. Dai is an 82 year-old, right handed woman admitted s/p collapse complicated by a right femur fracture. Upon awakening from her collapse, she was noted to have right hand weakness (which is stable on exam and chronic) as well as transient slurred speech. She was subsequently found to have significant bilateral carotid stenosis, right greater than left. I still do not think that her presenting symptoms are consistent with TIA/stroke. Dysarthria alone is not a localizing symptom. It's unlikely that the carotid stenosis caused her syncope. As far as the syncope, I recommend continued cardiac monitoring and extended cardiac monitoring upon discharge. I also recommend a sleep study evaluation as an outpatient. Qualifiers: Syncope type: Encounter type: initial encounter (2) Babinski reflex: Current visit: No Status: Acute She had an incidental finding of bilateral Babinski reflexes. She has no clinical signs or symptoms of progressive myelopathy. MRI of the neck confirms severe cervical stenosis without cord impingement. No further work-up necessary. We discussed neck precautions - limited lifting, proper head rest alignment, etc. (3) Carotid stenosis, bilateral: Current visit: Yes Status: Acute Incidental finding. Per carotid ultrasound, she has near occlusive stenosis on the right and >70% on the left. MRA was unhelpful due to significant motion artifact. I recommend a CTA neck if able to from a renal standpoint. Please resume aspirin when able (on hold due to GI bleed). Otherwise, needs referral to vascular surgery. She should follow-up in the neurology clinic in 4-6 weeks after discharge. Subjective Interval history since last seen: Ms. Dai is overall doing well and progressing with PT. Her aspirin was held today for low H/H. She was transfused 1u PRBCS. She is stool guaiac positive. The MRI of her neck was performed yesterday and I was able to view the images. She has mild central canal narrowing throughout with more severe central canal stenosis at C4-5. There are no cord signal changes. The MRA was non-diagnostic. Unfortunately, her Cr is rising today and she is not a candidate for CTA. Exam Narrative Exam Narrative: Physical Exam: Constitutional: Patient of apparent stated age, well nourished, well developed, no acute distress Neuro: MS/Language/Speech: Alert, oriented, clear language (fluency and comprehension), no dysarthria CN: EOMI, visual coon full, trigeminal sensation intact, no facial asymmetry, hearing intact to whisper Motor: Normal bulk and tone. FMM intact, no pronator drift. 5/5 strength in bilateral upper and LLE. RLE in brace. Sensation: Intact to light touch throughout Reflexes: +R Babinski; Left toe neutral. Coordination: Finger to nose performed without dysmetria Gait: Deferred Objective Objective Clinical Data: Abnormal lab results 04/19/18 04/21/18 04/21/18 Range/Units 06:35 06:22 06:22 RBC 2.48 L (4.00-5.20) m/cumm Hgb 7.3 L (12.0-15.5) g/dL Hct 23.8 L (36.0-46.0) % MCV 96.0 H (80-95) fL MCHC 30.7 L (32.0-36.0) g/dL MPV 11.6 H (8.0-11.0) fL Chloride 108 H (98-107) mmol/L BUN 28 H (7-18) mg/dL Creatinine 1.66 H (0.55-1.02) mg/dL Glucose 126 H (70-100) mg/dL Crossmatch See Detail 04/21/18 Range/Units 16:58 RBC (4.00-5.20) m/cumm Hgb 8.2 L (12.0-15.5) g/dL Hct 25.9 L (36.0-46.0) % MCV (80-95) fL MCHC (32.0-36.0) g/dL MPV (8.0-11.0) fL Chloride (98-107) mmol/L BUN (7-18) mg/dL Creatinine (0.55-1.02) mg/dL Glucose (70-100) mg/dL Crossmatch Vital Signs Temperature 36.6 C 04/21/18 15:30 Temperature Source Temporal Artery Scan 04/21/18 12:16 Pulse 62 04/21/18 16:01 Pulse Rhythm Regular 04/21/18 16:00 Pulse 61 04/21/18 16:01 Respiratory Rate 20 04/21/18 16:01 Respiratory Effort 04/21/18 16:00 Respiratory Depth Normal 04/21/18 16:00 Respiratory Pattern Normal 04/21/18 16:00 Blood Pressure 134/45 L 04/21/18 16:01 Blood Pressure Mean 65 04/21/18 16:01 Blood Pressure Position Supine 04/16/18 16:11 Pulse Oximetry 97 04/21/18 15:46 Respiratory End-tidal CO2 42 04/19/18 17:15 Oxygen Delivery Method Room Air 04/21/18 15:30 Oxygen Flow Rate 0 04/21/18 15:30 Pain Level 6 04/21/18 14:04 Intake & Output 04/20/18 04/21/18 04/21/18 23:59 11:59 23:59 Intake Total 2280 / 3640.417 133 / 1980 650 / 1980 Output Total 2350 / 2525 900 / 1450 550 / 1450 Balance -70 / 1115.417 430 / 530 100 / 530 Intake: IV 1100 / 2110.417 1010 / 1020 10 / 1020 Oral 1180 / 1530 320 / 610 290 / 610 Blood Product 350 / 350 Rbc Leuko Reduced Unit [id number] Rbc Leuko Reduced Unit 340 / 340 [id number] Output: Urine 2350 / 2525 900 / 1450 550 / 1450 Other: Urine Color Yellow Light Genny Yellow Urine Appearance Clear Clear Clear Comment kane d/c'd at this time Stool Occult Blood Positive Stool Size Moderate Stool Characteristics Formed Laboratory Results WBC 4.94 k/cumm (4.4-10.8) 04/21/18 06:22 RBC 2.48 m/cumm (4.00-5.20) L 04/21/18 06:22 Hgb 8.2 g/dL (12.0-15.5) L 04/21/18 16:58 Hct 25.9 % (36.0-46.0) L 04/21/18 16:58 MCV 96.0 fL (80-95) H 04/21/18 06:22 MCH 29.4 pg (27.0-33.0) 04/21/18 06:22 MCHC 30.7 g/dL (32.0-36.0) L 04/21/18 06:22 RDW 12.7 % (11.7-14.6) 04/21/18 06:22 Plt Count 174 x1000/uL (130-400) 04/21/18 06:22 MPV 11.6 fL (8.0-11.0) H 04/21/18 06:22 Immature Gran % 0.3 04/20/18 07:25 Neutrophils % 68.8 04/20/18 07:25 Lymphocytes % 10.5 04/20/18 07:25 Monocytes % 16.1 04/20/18 07:25 Eosinophils % 4.1 04/20/18 07:25 Basophils % 0.2 04/20/18 07:25 Absolute Neutrophils 4.06 k/cumm (1.2-6.7) 04/20/18 07:25 Absolute Lymphocytes 0.62 k/cumm (1.2-3.4) L 04/20/18 07:25 Absolute Monocytes 0.95 k/cumm (0.11-0.7) H 04/20/18 07:25 Absolute Eosinophils 0.24 k/cumm (0.0-0.7) 04/20/18 07:25 Absolute Basophils 0.01 k/cumm (0.0-0.2) 04/20/18 07:25 Differential Comment Rbc morph reviewed 04/18/18 06:40 RBC Morphology See below 04/18/18 06:40 Hypochromasia 1+ 04/18/18 06:40 PT 9.5 sec (9.3-11.0) 04/19/18 08:00 INR 1.0 (0.9-1.1) 04/19/18 08:00 Sodium 141 mmol/L (136-145) 04/21/18 06:22 Potassium 4.5 mmol/L (3.5-5.1) 04/21/18 06:22 Chloride 108 mmol/L (98-107) H 04/21/18 06:22 Carbon Dioxide 25.3 mmol/L (21.0-32.0) 04/21/18 06:22 Anion Gap 7.7 mmol/L (3-11) 04/21/18 06:22 BUN 28 mg/dL (7-18) H 04/21/18 06:22 Creatinine 1.66 mg/dL (0.55-1.02) H 04/21/18 06:22 Estimated GFR/1.73 m2 29.58 (mL/min/1.73m2) 04/21/18 06:22 Glucose 126 mg/dL (70-100) H 04/21/18 06:22 Calcium 9.0 mg/dL (8.5-10.1) 04/21/18 06:22 Magnesium 1.8 mg/dL (1.8-2.4) 04/21/18 06:22 Iron 29 ug/dL (50-175) L 04/19/18 06:35 TIBC 182 ug/dL (250-450) L 04/19/18 06:35 Transferrin % Sat 16 % (15-50) 04/19/18 06:35 Ferritin 488 ng/mL (8-388) H 04/19/18 06:35 Total Bilirubin 0.5 mg/dL (0.2-1.0) 04/16/18 10:00 AST 21 U/L (15-37) 04/16/18 10:00 ALT 26 U/L (12-78) 04/16/18 10:00 Alkaline Phosphatase 87 U/L (46-116) 04/16/18 10:00 Creatine Kinase 115 U/L (26-192) 04/19/18 17:00 Troponin I < 0.02 ng/mL (0.00-0.06) 04/16/18 21:45 Total Protein 7.7 g/dL (6.4-8.2) 04/16/18 10:00 Albumin 4.0 g/dL (3.4-5.0) 04/16/18 10:00 Triglycerides 173 mg/dL (30-150) H 04/17/18 05:52 Total Cholesterol 255 mg/dL (50-200) H 04/17/18 05:52 LDL Cholesterol Direct 182 mg/dL (<100) H 04/17/18 05:52 HDL Cholesterol 37 mg/dL (40-60) L 04/17/18 05:52 Vitamin B12 1138 pg/mL (193-986) H 04/19/18 06:35 25-OH Vitamin D Total 13.5 ng/ml (30-100) L 04/18/18 06:40 Folate 11.5 ng/mL (8.6-20.0) 04/19/18 06:35 TSH 0.02 uIU/mL (0.358-3.74) L 04/18/18 06:40 Free T4 1.09 ng/dL (0.76-1.46) 04/18/18 06:40 Urine Color Yellow (Yellow) 04/16/18 10:53 Urine Clarity Clear 04/16/18 10:53 Urine pH 6.0 (5-8) 04/16/18 10:53 Ur Specific [place] 1.010 (1.005-1.025) 04/16/18 10:53 Urine Protein Negative mg/dL (Negative) 04/16/18 10:53 Urine Ketones Negative mg/dL (Negative) 04/16/18 10:53 Urine Blood Negative (Negative) 04/16/18 10:53 Urine Nitrite Negative (Negative) 04/16/18 10:53 Urine Bilirubin Negative (Negative) 04/16/18 10:53 Urine Urobilinogen 0.2 EU/dL (Up TO 0.2) 04/16/18 10:53 Ur Leukocyte Esterase Negative (Negative) 04/16/18 10:53 Urine Glucose Negative mg/dL (Negative) 04/16/18 10:53 Patient ABO/Rh A Positive 04/19/18 06:35 Antibody Screen Negative 04/19/18 06:35 Crossmatch See Detail 04/19/18 06:35
[2018-04-21] MEDS: Atorvastatin 40 MG TAB PO (21:23)
[2018-04-21] MEDS: HYDROcodone 5/Acetaminophen 325 TAB PO (21:29)
[2018-04-22] VITALS (8 sets, daily range): BP systolic 149–185; BP diastolic 51–70; PULSE 66–90; RESP 16–18; TEMP 36.9–37.5; O2SAT 94–96
[2018-04-22] MEDS: HYDROcodone 5/Acetaminophen 325 TAB PO ×2 (03:50→15:07)
[2018-04-22 07:16] LABS: HCT 26.1 % (36.0-46.0); HGB 8.2 g/dL (12.0-15.5); Mean Corp. HGB Concentration 31.4 g/dL (32.0-36.0); Mean Corpuscular Hemoglobin 29.6 pg (27.0-33.0); Mean Corpuscular Volume 94.2 fL (80-95); Mean Platelet Volume 11.3 fL (8.0-11.0); Platelet Count 189 x1000/uL (130-400); RBC 2.77 m/cumm (4.00-5.20); RBC Distribution Width 13.1 % (11.7-14.6); White Blood Cell Count 5.24 k/cumm (4.4-10.8)
[2018-04-22 07:40] LABS: Anion Gap 8.2 mmol/L (3-11); BUN 25 mg/dL (7-18); CO2 23.8 mmol/L (21.0-32.0); CREATININE 1.36 mg/dL (0.55-1.02); Calcium 8.6 mg/dL (8.5-10.1); Chloride 108 mmol/L (98-107); Estimated GFR 37.23 (mL/min/1.73m2); Glucose 98 mg/dL (70-100); Potassium 4.7 mmol/L (3.5-5.1); Sodium 140 mmol/L (136-145)
[2018-04-22] MEDS: Pantoprazole 40 MG VIAL IVP (09:15)
[2018-04-22] MEDS: Normal Saline Flush 10 ML SYR IVP (09:15)
[2018-04-22] MEDS: Ferrous Sulfate 325 MG TAB PO (09:16)
[2018-04-22] MEDS: Cyanocobalamin 500 MCG TAB 1000 MCG PO (09:16)
[2018-04-22] MEDS: Calcium Citrate 950 MG TAB PO ×2 (09:16→20:29)
[2018-04-22] MEDS: Senna TAB 1 TAB PO ×2 (09:16→20:30)
[2018-04-22] MEDS: Magnesium Oxide 400 MG TAB PO ×2 (09:17→20:30)
[2018-04-22] MEDS: Docusate Sodium 100 MG CAP PO ×2 (09:17→20:29)
--- NOTE | 2018-04-22 10:20 | PT.INTREAT ---
Date of service: 04/22/18 Time of Service: 10:20 PT Notes 04/22/18 SUBJECTIVE: Pt stating she had increase pain upon movement during the night. She has been in bed for quite some time and would like to get up and move. She notes that she will need a rehab stay prior to returning home. OBJECTIVE: Pt supine in bed. Agreeable to PT treatment. TRANSFERS Supine to sit: Min A for LE's Sit to stand: CGA Stand to sit: CGA GAIT Device: FWW Weight bearing: PWB R Assist: CGA Distance: 5'+8' Deviation: Cueing for walker management. Immobilizer donned. Therex: Light LE strengthening performed as noted on flow sheet. See flow sheet for details. Pt able to tolerate active SLR with immobilizer on. ASSESSMENT: Pt's technique with walker is improving. She continues to complain of pain through the right leg with transfers especially. PLAN: Continue to progress per established POC. AM session: 25 minutes [id number], [id number] Coretta Willams PTA
--- NOTE | 2018-04-22 11:04 | OT.INTREAT ---
Date of service: 04/22/18 Time of Service: 08:50 Occupational Therapy Notes Occupational Therapy Inpatient Treatment Note Date: 04/22/18 PRECAUTIONS: Fall, PWB (R) LE SUBJECTIVE: Pt was lying in bed when OT arrived. She was agreeable to OT session and was transferring out of bed with CUST[employer]S IMPORT SPECIALIST. OBJECTIVE: PAIN:c/o pain in (R) LE with functional mobility FUNCTIONAL MOBILITY Sit-stand: CGA, FWW Stand-sit: CGA, FWW BATHING: Sitting in chair with max (A) set up Upper Body: (I) face, (B) UE, max (A) back Lower Body: Max (A) (B) feet DRESSING: Sitting in chair Upper Extremity: (I) don and doffing [facility] gown Lower Extremity: Max (A) don and doffing (B) socks GROOMING: Sitting in chair max (A) set up, (I) brushing teeth, mod (A) hair as pt reports discomfort with lifting her arms above her head for long periods of time. TOILETING: Device: Commode Assist: Max (A) toileting hygiene ASSESSMENT: Pt is tolerating ADL routine well. She is demonstrating increased (I) in ADLs while sitting in the chair and pt would benefit from continued skilled OT intervention for education on energy conservation techniques, increased functional activity tolerance and increased (I) in ADLs in the standing position. PLAN: Pt reports that the plan is for her to go to SNF when medically cleared per MD for continued rehab at this time. TREATMENT CODES/TIME: [id number], 45 minutes (08:50) [facility]
--- NOTE | 2018-04-22 11:10 | OTTR_ITS ---
Date of service: 04/22/18 Time of Service: 08:50 Occupational Therapy Notes Occupational Therapy Inpatient Treatment Note Date: 04/22/18 PRECAUTIONS: Fall, PWB (R) LE SUBJECTIVE: Pt was lying in bed when OT arrived. She was agreeable to OT session and was transferring out of bed with ACCESS ANALYST. OBJECTIVE: PAIN:c/o pain in (R) LE with functional mobility FUNCTIONAL MOBILITY Sit-stand: CGA, FWW Stand-sit: CGA, FWW BATHING: Sitting in chair with max (A) set up Upper Body: (I) face, (B) UE, max (A) back Lower Body: Max (A) (B) feet DRESSING: Sitting in chair Upper Extremity: (I) don and doffing [facility] gown Lower Extremity: Max (A) don and doffing (B) socks GROOMING: Sitting in chair max (A) set up, (I) brushing teeth, mod (A) hair as pt reports discomfort with lifting her arms above her head for long periods of time. TOILETING: Device: Commode Assist: Max (A) toileting hygiene ASSESSMENT: Pt is tolerating ADL routine well. She is demonstrating increased (I) in ADLs while sitting in the chair and pt would benefit from continued skilled OT intervention for education on energy conservation techniques, increased functional activity tolerance and increased (I) in ADLs in the standing position. PLAN: Pt reports that the plan is for her to go to SNF when medically cleared per MD for continued rehab at this time. TREATMENT CODES/TIME: [id number], 45 minutes (08:50) [facility]
--- NOTE | 2018-04-22 12:10 | DI.CT_ITS ---
SYMPTOMS/DIAGNOSIS: F/U SIGNIFICANT CAROTID ARTERY STENOSIS: CERVICAL CT ANGIOGRAPHY: CT angiography was performed with multi slice acquisition and multi planar and 3D reconstruction. CT Angiography of the cervical region was performed with intravenous infusion of 85 cc's of Omnipaque 350. Images obtained through the lung apices show no focal pulmonary abnormality. No cervical mass or adenopathy. The tracheolaryngeal structures appear intact. The visualized brain is unremarkable. The orbital and temporal bone structures appear intact. The aortic arch is heavily calcified. No aneurysmal dilatation. There is some motion artifact obscuring the proximal most portions of the branches of the aortic arch but no gross stenosis is seen. Right common carotid artery is unremarkable in appearance to the level of the bifurcation. At the bifurcation there is heavy calcific plaque which limits interpretation. There appears to be an approximately 2 mm luminal diameter stenosis, more distal ICA has diameter of about 4 mm. The findings are consistent with 50% luminal diameter stenosis. The cavernous portion of the internal carotid artery on the right also shows heavily calcified plaque which limits interpretation. The findings suggest 50- 79% luminal diameter stenosis. On the left the common carotid artery is patent and is unremarkable to the level of the bifurcation where there is heavily calcified plaque. Minimal luminal diameter appears to be approximately 1 mm, more distal ICA is about 4 mm luminal diameter consistent with 70-80% luminal diameter stenosis. Heavily calcified plaque also noted in cavernous internal carotid artery with less than 50% stenosis. The vertebral arteries are patent and unremarkable bilaterally except for some calcified plaque. There is a left dominant vertebral circulation. The basal artery is unremarkable in appearance. Middle, anterior and posterior cerebral arteries and major branches are patent with no evidence of dissection, occlusion or aneurysm. CONCLUSION: 1. Limited evaluation of the carotid bifurcations/proximal internal carotid arteries due to heavily calcified plaque. 2. Stenosis of proximal right internal carotid artery estimated at 50% of the luminal diameter, cavernous portion right ICA stenosis estimated at 50-70% luminal diameter. 3. Proximal left ICA luminal diameter stenosis estimated at 70-80% of the luminal diameter, cavernous ICA on the left estimated luminal diameter stenosis about 50%. No additional significant findings.
[2018-04-22] MEDS: Omnipaque 350 MG/ML 100 ML BTL IJ (12:11)
--- NOTE | 2018-04-22 14:28 | PT.INPN ---
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 She sustained a periprosthetic femur fracture as a result of the fall on the right. She underwent ORIF 04/19/18, as well as a blood transfusion yesterday. She has been participating in PT intervention 1-2x/day since surgery, with a total of 7 PT sessions over the past 6 days. Her plan is to transition to a SNF for continued rehab prior to returning home. PMHX: Sacroiliac joint dysfunction (Chronic),Cervical radiculopathy,Chronic shoulder pain,Cold sore Colon polyps, GERD (gastroesophageal reflux disease), Hx of breast cancer,Hyperlipidemia,Hypertension Hypothyroidism, Impaired fasting glucose, Lichen planus, Osteoarthritis, PMR (polymyalgia rheumatica) Sciatica Social History/Home Situation: She lives alone and prior to admission was I. She reports that her home is 1 level living and does report of 2 steps to enter. She reports that she does not have a handicap shower. She has a traditional tub/shower combo. She does have railings in her bathroom however no other adaptive equipment Current Functional Limitations: S/p fracture of the periprosthetic femur NWB awaiting ortho consultation. Equipment Owned/DME: No equipment at home Subjective: Brie states that she has had a very busy day. She has just returned from a CT scan, and states that she needs to use the commode. She continues to struggle with dizziness. Objective: General Observation: R LE immobilizer Mental Status: Alert and oriented x3. Pain: 6-7/10 on VAS right lateral thigh ROM: Right Upper Extremity: Active shoulder flexion 130 degrees, abduction 100 degrees, able to place hand behind head. Demonstrates WFL elbow and wrist mobility Left Upper Extremity: Active shoulder flexion 130 degrees, abduction 100 degrees, able to place hand behind head. Demonstrates WFL elbow and wrist mobility Right Lower Extremity: N/A, Long leg immobilizer in place s/p fracture Left Lower Extremity: Demonstrates hip flexion 100 degrees, knee flexion 100 degrees, knee extension 0 degrees Strength: Right Upper Extremity: Demonstrates grossly 4-/5 to 4/5 UE strength. Weak social worker psychiatric Left Upper Extremity: Demonstrates grossly 4-/5 to 4/5 UE strength. Weak social worker psychiatric Right Lower Extremity: Patient requires 50% assist for SLR on the right. She is unable to perform supine hip abduction on the right (requires 50% assist). Ankle dorsiflexion greater than or equal to 3/5 Left Lower Extremity: I SLR, Hip flexion 4/5, knee flexion 4/5, knee extension 4/5, DF 5/5 Bed Mobility/Transfers: Supine-sit: Min assist Sit-supine: HOB flat min assist x1 Sit to stand: C GA Stand to sit: CGA Gait: During today's session, patient ambulates 3 feet x1, 6 feet x1, each with FW W, PWB right, CGA. She requires significant cueing for technique and equipment management. During the course of her care, her farthest distance has been 8 feet of ambulation, again with CGA, PWB ER, FW W (performed earlier this morning; see treatment note 04/22/2018). Balance: Static Sitting: Normal Dynamic Sitting: Good Static Standing: Fair Dynamic Standing: Fair Treatment: Today's session consisted of gait and transfer training as noted above. Patient was also instructed in a therapeutic exercise program, consisting of supine activities with both active and active assisted range of motion activities. She required a significant amount of positioning post treatment due to discomfort from her knee immobilizer. This was padded with 4 x 4 gauze pads to reduce pressure from brace stays. Assessment: Patient is a 82 year old female referred to physical therapy services with the diagnosis of syncopal episode status post fall resulting in a periprosthetic femur fracture right. Patient patient is now 3 days postop, and demonstrating slow gains in functional mobility. She is going to require extensive PT intervention, which [facility] once she medically stabilizes. She will require continued PT intervention in an acute care setting, to maximize independence and safety prior to transition to SNF for ongoing rehab. Goals: Goals X1 week 1. Supine-Sit SBA (progressing towards) 2. Sit-Supine SBA (progressing towards) 3. Sit-Stand CGA with FWW (met) 4. Stand-Sit CGA (met) 5. Bed-Chair Jurgen with FWW (met) 6. Chair-Bed Jurgen with FWW (met) 7. Gait Jurgen with FWW 25ft or greater (progressing towards) Plan of Care/Treatment Plan: Continue 1-2x/day, 7 days/week x 1 week. Plan of care has been reviewed with the TRACK OILER providing the service under Physical Therapy direction. Initiate Physical Therapy intervention for strengthening, bed mobility, transfers, gait, stairs, balance training, use of assistive device. DISCHARGE RECOMMENDATIONS: SNF for ongoing rehabilitation TREATMENT CODE/TIME: 145?155; 2:00?220 ([id number])
--- NOTE | 2018-04-22 14:39 | INPN_ITS ---
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 She sustained a periprosthetic femur fracture as a result of the fall on the right. She underwent ORIF 04/19/18, as well as a blood transfusion yesterday. She has been participating in PT intervention 1- 2x/day since surgery, with a total of 7 PT sessions over the past 6 days. Her plan is to transition to a SNF for continued rehab prior to returning home. PMHX: Sacroiliac joint dysfunction (Chronic),Cervical radiculopathy,Chronic shoulder pain,Cold sore Colon polyps, GERD (gastroesophageal reflux disease), Hx of breast cancer,Hyperlipidemia,Hypertension Hypothyroidism, Impaired fasting glucose, Lichen planus, Osteoarthritis, PMR (polymyalgia rheumatica) Sciatica Social History/Home Situation: She lives alone and prior to admission was I. She reports that her home is 1 level living and does report of 2 steps to enter. She reports that she does not have a handicap shower. She has a traditional tub/shower combo. She does have railings in her bathroom however no other adaptive equipment Current Functional Limitations: S/p fracture of the periprosthetic femur NWB awaiting ortho consultation. Equipment Owned/DME: No equipment at home Subjective: Brie states that she has had a very busy day. She has just returned from a CT scan, and states that she needs to use the commode. She continues to struggle with dizziness. Objective: General Observation: R LE immobilizer Mental Status: Alert and oriented x3. Pain: 6-7/10 on VAS right lateral thigh ROM: Right Upper Extremity: Active shoulder flexion 130 degrees, abduction 100 degrees, able to place hand behind head. Demonstrates WFL elbow and wrist mobility Left Upper Extremity: Active shoulder flexion 130 degrees, abduction 100 degrees, able to place hand behind head. Demonstrates WFL elbow and wrist mobility Right Lower Extremity: N/A, Long leg immobilizer in place s/p fracture Left Lower Extremity: Demonstrates hip flexion 100 degrees, knee flexion 100 degrees, knee extension 0 degrees Strength: Right Upper Extremity: Demonstrates grossly 4-/5 to 4/5 UE strength. Weak finance accounting internship Left Upper Extremity: Demonstrates grossly 4-/5 to 4/5 UE strength. Weak finance accounting internship Right Lower Extremity: Patient requires 50% assist for SLR on the right. She is unable to perform supine hip abduction on the right (requires 50% assist). Ankle dorsiflexion greater than or equal to 3/5 Left Lower Extremity: I SLR, Hip flexion 4/5, knee flexion 4/5, knee extension 4/5, DF 5/5 Bed Mobility/Transfers: Supine-sit: Min assist Sit-supine: HOB flat min assist x1 Sit to stand: C GA Stand to sit: CGA Gait: During today's session, patient ambulates 3 feet x1, 6 feet x1, each with FW W, PWB right, CGA. She requires significant cueing for technique and equipment management. During the course of her care, her farthest distance has been 8 feet of ambulation, again with CGA, PWB ER, FW W (performed earlier this morning; see treatment note 04/22/2018). Balance: Static Sitting: Normal Dynamic Sitting: Good Static Standing: Fair Dynamic Standing: Fair Treatment: Today's session consisted of gait and transfer training as noted above. Patient was also instructed in a therapeutic exercise program, consisting of supine activities with both active and active assisted range of motion activities. She required a significant amount of positioning post treatment due to discomfort from her knee immobilizer. This was padded with 4 x 4 gauze pads to reduce pressure from brace stays. Assessment: Patient is a 82 year old female referred to physical therapy services with the diagnosis of syncopal episode status post fall resulting in a periprosthetic femur fracture right. Patient patient is now 3 days postop, and demonstrating slow gains in functional mobility. She is going to require extensive PT intervention, which will be best achieved in a [facility] facility once she medically stabilizes. She will require continued PT intervention in an acute care setting, to maximize independence and safety prior to transition to SNF for ongoing rehab. Goals: Goals X1 week 1. Supine-Sit SBA (progressing towards) 2. Sit-Supine SBA (progressing towards) 3. Sit-Stand CGA with FWW (met) 4. Stand-Sit CGA (met) 5. Bed-Chair Jurgen with FWW (met) 6. Chair-Bed Jurgen with FWW (met) 7. Gait Jurgen with FWW 25ft or greater (progressing towards) Plan of Care/Treatment Plan: Continue 1-2x/day, 7 days/week x 1 week. Plan of care has been reviewed with the AUTOMATIC RIVETING MACHINE OPERATOR providing the service under Physical Therapy direction. Initiate Physical Therapy intervention for strengthening, bed mobility, transfers, gait, stairs, balance training, use of assistive device. DISCHARGE RECOMMENDATIONS: SNF for ongoing rehabilitation TREATMENT CODE/TIME: 145?155; 2:00?220 ([id number], [id number])
[2018-04-22] MEDS: Normal Saline 1,000 ML 100 ML IV (15:10)
--- NOTE | 2018-04-22 16:08 | CHAPLAIN ---
Brie was in bed when I visited. She said she had been up and walking a short distance today. She had another test today and is unclear what the test was for and she is nervous about that. Brie said there is something else wrong besides me leg now, and she is worrying about that. She is trying to take things day by day, but is worried about possible health issues that haven't been discussed with her yet. I offered a prayer with her and after we prayed she was a teary, talking about not knowing what will be happening. She is a member of the [employer] and her private branch exchange operator, Rev. Kenny Brooks, has been in to visit her.
--- NOTE | 2018-04-22 17:39 | PDOC.CMPRO ---
- If Service Date Differs Date of service: 04/22/18 Time of Service: 17:39 Care Management Progress Note S/O: Brie is In the chair in her room. She is being prepared to have a CTA. Brie has been offered a bed from [facility] and rehab plan will be for her to discharge there when medically ready. Carotid CT scan to determine if she will need transfer to vascular surgery at tertiary center prior to transfer SNF. Brie continues to receive pain control, PT and OT. Neurology consult, and surgical consult have been done. No change in status today. A: Brie is a 82-year-old female admitted related to a syncopal episode, resulting in fracture of her right femur. P: Brie remains acute she is status post femur repair. Brie's has been accepted at [facility] for possible admission early next week when she is medically ready. Transportation via wheelchair van. CM to continue to provide support regarding discharge planning and disposition.
--- NOTE | 2018-04-22 17:44 | CMPROGNOTE_ITS ---
- If Service Date Differs Date of service: 04/22/18 Time of Service: 17:39 Care Management Progress Note S/O: Brie is In the chair in her room. She is being prepared to have a CTA. Brie has been offered a bed from [facility] and rehab plan will be for her to discharge there when medically ready. Carotid CT scan to determine if she will need transfer to vascular surgery at tertiary center prior to transfer SNF. Brie continues to receive pain control, PT and OT. Neurology consult, and surgical consult have been done. No change in status today. A: Brei is a 82-year-old female admitted related to a syncopal episode, resulting in fracture of her right femur. P: Brie remains acute she is status post femur repair. Brie's has been accepted at [facility] for possible admission early next week when she is medically ready. Transportation via wheelchair van. CM to continue to provide support regarding discharge planning and disposition.
--- NOTE | 2018-04-22 18:17 | W.PM.PROGNOT ---
Date of Service Date of service: 04/22/18 Time of Service: 18:17 Assessment and Plan (1) Tata-prosthetic femur fracture at tip of prosthesis: Current visit: Yes Status: Acute Repaired by Dr. Villar on 04/19/2018. Doing well postoperatively. Continue physical therapy, continue pain control. Tramadol discontinued due to mental status change. Resume [place] at limited dose and as needed acetaminophen. (2) Carotid stenosis, bilateral: Current visit: No Status: Acute Significant bilateral carotid artery stenosis on ultrasound. MRA nondiagnostic due to patient motion. Neck CTA shows 50% stenosis on right, left with 70-80% stenosis of proximal ICA, left cavernous ICA about 50%. Will need referral to vascular surgery for further evaluation. Resume aspirin when safe, currently on hold due to hemepositive stools. (3) Syncopal episodes: Current visit: Yes Status: Acute No further syncopal episodes. She has been seen by neurology. Neurology following and recommends continued cardiac monitoring and extended cardiac monitoring upon discharge. She will need a sleep study evaluation as an outpatient. She will need to follow-up in the neurology clinic in 4-6 weeks after discharge. [place] as above. Qualifiers: Syncope type: Encounter type: initial encounter (4) Hypothyroidism: Current visit: No Status: Acute TSH low. Continue to hold levothyroxine. Qualifiers: Hypothyroidism type: unspecified Qualified Code(s): E03.9 - Hypothyroidism, unspecified (5) Hyperlipidemia: Current visit: No Status: Acute Continue atorvastatin. (6) Essential hypertension: Current visit: No Status: Chronic Blood pressure within acceptable range. Hydrochlorothiazide remains on hold. Continue to monitor blood pressures. (7) Pulmonary hypertension: Current visit: No Status: Acute With documented nocturnal hypoxia. Suggestive of sleep apnea. Will benefit from a sleep study as an outpatient. (8) Acute on chronic anemia: Current visit: No Status: Acute Anemia of chronic disease. Stools Hemoccult positive. Received one unit of PRBCs yesterday. Continue iron supplementation. Subcutaneous heparin on hold. Aspirin on hold. Reassess CBC in the morning. (9) DVT prophylaxis: Current visit: Yes Status: Acute Subcutaneous heparin on hold due to anemia. Continue teds and SCDs. Restart DVT prophylaxis per ortho. (10) Discharge planning issues: Current visit: Yes Status: Acute She is a full code. She will transfer to [facility] when ready. 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 There was concern that a syncopal episode could have potentially contributed to her fall. She went to the operating room with Dr. Villar on 04/19/2018 for a repair of the fracture. Of note, during her workup for possible CVA versus TIA, she was noted to have significant bilateral carotid artery stenosis, right near total and left greater than 70%. Neurology is also following her case. She reports doing well. She has some discomfort along the lateral aspect of her left leg. She has been working with PT. She has an occasional nonproductive cough. She denies shortness of breath, wheezing, chest pain/pressure, palpitations, she is eating and drinking and tolerating her diet. She does report belching, no nausea, vomiting or diarrhea. Exam Narrative Exam Narrative: General: Pleasant and cooperative, answers questions appropriately, sitting up in bed with her right lower extremity elevated on pillows. She is alert and oriented, she is in no acute distress. HEENT: Normocephalic, atraumatic, pupils equal and round, extraocular movements intact, mucous membranes moist. Neck: Supple, no JVD. Respiratory: Respirations even and unlabored. Lung sounds clear to auscultation throughout. Cardiovascular: Heart has regular rate and rhythm, 2/6 murmur at left sternal border. GI: Normoactive bowel sounds throughout all 4 quadrants, abdomen soft, nontender, no masses appreciated. Extremities: Right leg with knee immobilizer. Brace opened, dressing with [place] wrap in place, 1+ pitting edema to RLE. pedal pulses palpable. Objective Objective Clinical Data: Abnormal lab results 04/22/18 04/22/18 Range/Units 07:00 07:00 RBC 2.77 L (4.00-5.20) m/cumm Hgb 8.2 L (12.0-15.5) g/dL Hct 26.1 L (36.0-46.0) % MCHC 31.4 L (32.0-36.0) g/dL MPV 11.3 H (8.0-11.0) fL Chloride 108 H (98-107) mmol/L BUN 25 H (7-18) mg/dL Creatinine 1.36 H (0.55-1.02) mg/dL Vital Signs Temperature 37.5 C 04/22/18 16:55 Temperature Source Tympanic 04/22/18 16:55 Pulse 67 04/22/18 16:55 Pulse Rhythm Regular 04/22/18 08:30 Pulse 61 04/21/18 16:01 Respiratory Rate 18 04/22/18 16:55 Respiratory Effort Non-Labored 04/22/18 08:30 Respiratory Depth Normal 04/22/18 08:30 Respiratory Pattern Normal 04/22/18 08:30 Blood Pressure 155/61 H 04/22/18 16:55 Blood Pressure Mean 65 04/21/18 16:01 Blood Pressure Position Supine 04/16/18 16:11 Pulse Oximetry 96 04/22/18 16:55 Respiratory End-tidal CO2 42 04/19/18 17:15 Oxygen Delivery Method Room Air 04/22/18 16:55 Oxygen Flow Rate 0 04/22/18 16:55 Pain Level 7 04/22/18 15:07 Intake & Output 04/21/18 04/22/18 04/22/18 23:59 11:59 23:59 Intake Total 1110 / 2440 240 / 240 Output Total 1050 / 1950 600 / 1300 700 / 1300 Balance 60 / 490 -360 / -1060 -700 / -1060 Weight 98.9 kg Intake: IV 20 / 1030 Oral 740 / 1060 240 / 240 Blood Product 350 / 350 Rbc Leuko Reduced Unit 10 10 [id number] Rbc Leuko Reduced Unit 340 / 340 [id number] Output: Urine 1050 / 1950 600 / 1300 700 / 1300 Emesis 0 / 0 Other: Urine Color Yellow Yellow Yellow Urine Appearance Clear Clear Clear Urine Odor Normal Normal Normal Comment up to commode x2 this shift Stool Size Moderate Stool Characteristics Soft Formed Brown Emesis Description None Voiding Methods Bedside Commode Bedside Commode Bedside Commode Laboratory Results WBC 5.24 k/cumm (4.4-10.8) 04/22/18 07:00 RBC 2.77 m/cumm (4.00-5.20) L 04/22/18 07:00 Hgb 8.2 g/dL (12.0-15.5) L 04/22/18 07:00 Hct 26.1 % (36.0-46.0) L 04/22/18 07:00 MCV 94.2 fL (80-95) 04/22/18 07:00 MCH 29.6 pg (27.0-33.0) 04/22/18 07:00 MCHC 31.4 g/dL (32.0-36.0) L 04/22/18 07:00 RDW 13.1 % (11.7-14.6) 04/22/18 07:00 Plt Count 189 x1000/uL (130-400) 04/22/18 07:00 MPV 11.3 fL (8.0-11.0) H 04/22/18 07:00 Immature Gran % 0.3 04/20/18 07:25 Neutrophils % 68.8 04/20/18 07:25 Lymphocytes % 10.5 04/20/18 07:25 Monocytes % 16.1 04/20/18 07:25 Eosinophils % 4.1 04/20/18 07:25 Basophils % 0.2 04/20/18 07:25 Absolute Neutrophils 4.06 k/cumm (1.2-6.7) 04/20/18 07:25 Absolute Lymphocytes 0.62 k/cumm (1.2-3.4) L 04/20/18 07:25 Absolute Monocytes 0.95 k/cumm (0.11-0.7) H 04/20/18 07:25 Absolute Eosinophils 0.24 k/cumm (0.0-0.7) 04/20/18 07:25 Absolute Basophils 0.01 k/cumm (0.0-0.2) 04/20/18 07:25 Differential Comment Rbc morph reviewed 04/18/18 06:40 RBC Morphology See below 04/18/18 06:40 Hypochromasia 1+ 04/18/18 06:40 PT 9.5 sec (9.3-11.0) 04/19/18 08:00 INR 1.0 (0.9-1.1) 04/19/18 08:00 Sample Site Cancelled 04/21/18 18:30 pCO2 Cancelled 04/21/18 18:30 pO2 Cancelled 04/21/18 18:30 O2 Saturation Cancelled 04/21/18 18:30 ABG pH Cancelled 04/21/18 18:30 ABG HCO3 Cancelled 04/21/18 18:30 ABG Total CO2 Cancelled 04/21/18 18:30 ABG Base Excess Cancelled 04/21/18 18:30 Oxygen Liter Flow Cancelled 04/21/18 18:30 FiO2 Cancelled 04/21/18 18:30 Sodium 140 mmol/L (136-145) 04/22/18 07:00 Potassium 4.7 mmol/L (3.5-5.1) 04/22/18 07:00 Chloride 108 mmol/L (98-107) H 04/22/18 07:00 Carbon Dioxide 23.8 mmol/L (21.0-32.0) 04/22/18 07:00 Anion Gap 8.2 mmol/L (3-11) 04/22/18 07:00 BUN 25 mg/dL (7-18) H 04/22/18 07:00 Creatinine 1.36 mg/dL (0.55-1.02) H 04/22/18 07:00 Estimated GFR/1.73 m2 37.23 (mL/min/1.73m2) 04/22/18 07:00 Glucose 98 mg/dL (70-100) 04/22/18 07:00 Calcium 8.6 mg/dL (8.5-10.1) 04/22/18 07:00 Magnesium 1.8 mg/dL (1.8-2.4) 04/21/18 06:22 Iron 29 ug/dL (50-175) L 04/19/18 06:35 TIBC 182 ug/dL (250-450) L 04/19/18 06:35 Transferrin % Sat 16 % (15-50) 04/19/18 06:35 Ferritin 488 ng/mL (8-388) H 04/19/18 06:35 Total Bilirubin 0.5 mg/dL (0.2-1.0) 04/16/18 10:00 AST 21 U/L (15-37) 04/16/18 10:00 ALT 26 U/L (12-78) 04/16/18 10:00 Alkaline Phosphatase 87 U/L (46-116) 04/16/18 10:00 Creatine Kinase 115 U/L (26-192) 04/19/18 17:00 Troponin I < 0.02 ng/mL (0.00-0.06) 04/16/18 21:45 Total Protein 7.7 g/dL (6.4-8.2) 04/16/18 10:00 Albumin 4.0 g/dL (3.4-5.0) 04/16/18 10:00 Triglycerides 173 mg/dL (30-150) H 04/17/18 05:52 Total Cholesterol 255 mg/dL (50-200) H 04/17/18 05:52 LDL Cholesterol Direct 182 mg/dL (<100) H 04/17/18 05:52 HDL Cholesterol 37 mg/dL (40-60) L 04/17/18 05:52 Vitamin B12 1138 pg/mL (193-986) H 04/19/18 06:35 25-OH Vitamin D Total 13.5 ng/ml (30-100) L 04/18/18 06:40 Folate 11.5 ng/mL (8.6-20.0) 04/19/18 06:35 TSH 0.02 uIU/mL (0.358-3.74) L 04/18/18 06:40 Free T4 1.09 ng/dL (0.76-1.46) 04/18/18 06:40 Urine Color Yellow (Yellow) 04/16/18 10:53 Urine Clarity Clear 04/16/18 10:53 Urine pH 6.0 (5-8) 04/16/18 10:53 Ur Specific [place] 1.010 (1.005-1.025) 04/16/18 10:53 Urine Protein Negative mg/dL (Negative) 04/16/18 10:53 Urine Ketones Negative mg/dL (Negative) 04/16/18 10:53 Urine Blood Negative (Negative) 04/16/18 10:53 Urine Nitrite Negative (Negative) 04/16/18 10:53 Urine Bilirubin Negative (Negative) 04/16/18 10:53 Urine Urobilinogen 0.2 EU/dL (Up TO 0.2) 04/16/18 10:53 Ur Leukocyte Esterase Negative (Negative) 04/16/18 10:53 Urine Glucose Negative mg/dL (Negative) 04/16/18 10:53 Patient ABO/Rh A Positive 04/19/18 06:35 Antibody Screen Negative 04/19/18 06:35 Crossmatch See Detail 04/19/18 06:35
[2018-04-22] MEDS: Atorvastatin 40 MG TAB PO (20:30)
[2018-04-23] VITALS (8 sets, daily range): BP systolic 145–182; BP diastolic 55–75; PULSE 65–85; RESP 18–19; TEMP 37.1–37.5; O2SAT 94–98
[2018-04-23] MEDS: Normal Saline 1,000 ML 100 ML IV ×2 (00:26→09:22)
[2018-04-23] MEDS: Mylanta Suspension 30 ML CUP PO ×2 (00:27→13:49)
[2018-04-23] MEDS: Normal Saline Flush 10 ML SYR IVP ×3 (00:28→20:51)
[2018-04-23] MEDS: Ondansetron 4 MG/2 ML VIAL IVP (00:28)
[2018-04-23] MEDS: HYDROmorphone 2 MG/ML VIAL 0.5 MG IVP (02:08)
--- NOTE | 2018-04-23 08:11 | PGE_ITS ---
Date of Service Date of service: 04/22/18 Time of Service: 16:08 Assessment and Plan (1) Tata-prosthetic femur fracture at tip of prosthesis: Current visit: Yes Status: Acute Brie is an 82-year-old status post ORIF of a distal femoral periprosthetic fracture. She is doing very well. She does have acute postoperative blood loss anemia but appears stable. She has been able to ambulate with physical therapy although with some discomfort and with need will assistance. At this point, she may start working on bending the knee. This should be done only with physical therapy. When she is mobilizing or sleeping the knee immobilizer should be strapped on. If she is awake and laying in the bed or supported on a chair she may remove knee immobilizer to allow the knee some freedom. She remains touchdown weightbearing on the right lower extremity. She will likely need jail facility for discharge given her significant weakness, gait disturbances, immobility, and pain. Qualifiers: Encounter type: sequela Qualified Code(s): M97.8XXS - Periprosthetic fracture around other internal prosthetic joint, sequela; Z96.649 - Presence of unspecified artificial hip joint Subjective Interval history since last seen: Brie reports be doing well. She still continues have some dizziness. She has pain over the lateral aspect of the right proximal leg, knee, and distal thigh. She has been able to ambulate with physical therapy. She has been able to ambulate although with some assistance with her nonweightbearing precautions. She denies any fevers or chills. Exam Narrative Exam Narrative: No acute distress. Alert oriented x3. Lying comfortably in the bed. Knee immobilizer removed. The dressings are removed and the wound is inspected. There are no signs of active bleeding. No signs of infection. Minimal swelling. She tolerates gentle motion of the knee without significant increase in pain. She is also able to lift the leg off the bed with very minimal assistance. She endorses full sensation to the foot including the superficial deep peroneal nerve and tibial nerve. She has intact ankle dorsiflexion, plantarflexion and great toe extension and flexion. The foot is warm and well perfused with a palpable DP PT pulse. A Mepilex dressing was applied. Objective Objective Clinical Data: Vital Signs Temperature 37.5 C 04/23/18 04:12 Temperature Source Tympanic 04/23/18 04:12 Pulse 72 04/23/18 07:40 Pulse Rhythm Regular 04/22/18 23:30 Pulse 61 04/21/18 16:01 Respiratory Rate 19 04/23/18 04:12 Respiratory Effort 04/22/18 23:30 Respiratory Depth Normal 04/22/18 23:30 Respiratory Pattern Normal 04/22/18 23:30 Blood Pressure 171/75 H 04/23/18 04:12 Blood Pressure Mean 65 04/21/18 16:01 Blood Pressure Position Supine 04/16/18 16:11 Pulse Oximetry 96 04/23/18 04:12 Respiratory End-tidal CO2 42 04/19/18 17:15 Oxygen Delivery Method Room Air 04/23/18 04:12 Oxygen Flow Rate 0 04/23/18 04:12 Pain Level 8 04/23/18 02:08 Intake & Output 04/22/18 04/22/18 04/23/18 11:59 23:59 11:59 Intake Total 240 / 9203.252 1394.667 / 1256.667 590 / 590 Output Total 600 / 2500 1900 / 2500 Balance -360 / -1243.333 -883.333 / -1243.333 590 / 590 Weight 98.9 kg 98.9 kg Intake: IV 536.667 / 536.667 390 / 390 Oral 240 / 720 480 / 720 200 / 200 Output: Urine 600 / 2500 1900 / 2500 Other: Urine Color Yellow Yellow Urine Appearance Clear Clear Urine Odor Normal Normal Comment MIXED WITH MODERATE SOFT FORMED BM Stool Size Moderate Stool Characteristics Soft Formed Brown Voiding Methods Bedside Commode Toilet Laboratory Results WBC 5.24 k/cumm (4.4-10.8) 04/22/18 07:00 RBC 2.77 m/cumm (4.00-5.20) L 04/22/18 07:00 Hgb 8.2 g/dL (12.0-15.5) L 04/22/18 07:00 Hct 26.1 % (36.0-46.0) L 04/22/18 07:00 MCV 94.2 fL (80-95) 04/22/18 07:00 MCH 29.6 pg (27.0-33.0) 04/22/18 07:00 MCHC 31.4 g/dL (32.0-36.0) L 04/22/18 07:00 RDW 13.1 % (11.7-14.6) 04/22/18 07:00 Plt Count 189 x1000/uL (130-400) 04/22/18 07:00 MPV 11.3 fL (8.0-11.0) H 04/22/18 07:00 Immature Gran % 0.3 04/20/18 07:25 Neutrophils % 68.8 04/20/18 07:25 Lymphocytes % 10.5 04/20/18 07:25 Monocytes % 16.1 04/20/18 07:25 Eosinophils % 4.1 04/20/18 07:25 Basophils % 0.2 04/20/18 07:25 Absolute Neutrophils 4.06 k/cumm (1.2-6.7) 04/20/18 07:25 Absolute Lymphocytes 0.62 k/cumm (1.2-3.4) L 04/20/18 07:25 Absolute Monocytes 0.95 k/cumm (0.11-0.7) H 04/20/18 07:25 Absolute Eosinophils 0.24 k/cumm (0.0-0.7) 04/20/18 07:25 Absolute Basophils 0.01 k/cumm (0.0-0.2) 04/20/18 07:25 Differential Comment Rbc morph reviewed 04/18/18 06:40 RBC Morphology See below 04/18/18 06:40 Hypochromasia 1+ 04/18/18 06:40 PT 9.5 sec (9.3-11.0) 04/19/18 08:00 INR 1.0 (0.9-1.1) 04/19/18 08:00 Sample Site Cancelled 04/21/18 18:30 pCO2 Cancelled 04/21/18 18:30 pO2 Cancelled 04/21/18 18:30 O2 Saturation Cancelled 04/21/18 18:30 ABG pH Cancelled 04/21/18 18:30 ABG HCO3 Cancelled 04/21/18 18:30 ABG Total CO2 Cancelled 04/21/18 18:30 ABG Base Excess Cancelled 04/21/18 18:30 Oxygen Liter Flow Cancelled 04/21/18 18:30 FiO2 Cancelled 04/21/18 18:30 Sodium 140 mmol/L (136-145) 04/22/18 07:00 Potassium 4.7 mmol/L (3.5-5.1) 04/22/18 07:00 Chloride 108 mmol/L (98-107) H 04/22/18 07:00 Carbon Dioxide 23.8 mmol/L (21.0-32.0) 04/22/18 07:00 Anion Gap 8.2 mmol/L (3-11) 04/22/18 07:00 BUN 25 mg/dL (7-18) H 04/22/18 07:00 Creatinine 1.36 mg/dL (0.55-1.02) H 04/22/18 07:00 Estimated GFR/1.73 m2 37.23 (mL/min/1.73m2) 04/22/18 07:00 Glucose 98 mg/dL (70-100) 04/22/18 07:00 Calcium 8.6 mg/dL (8.5-10.1) 04/22/18 07:00 Magnesium 1.8 mg/dL (1.8-2.4) 04/21/18 06:22 Iron 29 ug/dL (50-175) L 04/19/18 06:35 TIBC 182 ug/dL (250-450) L 04/19/18 06:35 Transferrin % Sat 16 % (15-50) 04/19/18 06:35 Ferritin 488 ng/mL (8-388) H 04/19/18 06:35 Total Bilirubin 0.5 mg/dL (0.2-1.0) 04/16/18 10:00 AST 21 U/L (15-37) 04/16/18 10:00 ALT 26 U/L (12-78) 04/16/18 10:00 Alkaline Phosphatase 87 U/L (46-116) 04/16/18 10:00 Creatine Kinase 115 U/L (26-192) 04/19/18 17:00 Troponin I < 0.02 ng/mL (0.00-0.06) 04/16/18 21:45 Total Protein 7.7 g/dL (6.4-8.2) 04/16/18 10:00 Albumin 4.0 g/dL (3.4-5.0) 04/16/18 10:00 Triglycerides 173 mg/dL (30-150) H 04/17/18 05:52 Total Cholesterol 255 mg/dL (50-200) H 04/17/18 05:52 LDL Cholesterol Direct 182 mg/dL (<100) H 04/17/18 05:52 HDL Cholesterol 37 mg/dL (40-60) L 04/17/18 05:52 Vitamin B12 1138 pg/mL (193-986) H 04/19/18 06:35 25-OH Vitamin D Total 13.5 ng/ml (30-100) L 04/18/18 06:40 Folate 11.5 ng/mL (8.6-20.0) 04/19/18 06:35 TSH 0.02 uIU/mL (0.358-3.74) L 04/18/18 06:40 Free T4 1.09 ng/dL (0.76-1.46) 04/18/18 06:40 Urine Color Yellow (Yellow) 04/16/18 10:53 Urine Clarity Clear 04/16/18 10:53 Urine pH 6.0 (5-8) 04/16/18 10:53 Ur Specific [place] 1.010 (1.005-1.025) 04/16/18 10:53 Urine Protein Negative mg/dL (Negative) 04/16/18 10:53 Urine Ketones Negative mg/dL (Negative) 04/16/18 10:53 Urine Blood Negative (Negative) 04/16/18 10:53 Urine Nitrite Negative (Negative) 04/16/18 10:53 Urine Bilirubin Negative (Negative) 04/16/18 10:53 Urine Urobilinogen 0.2 EU/dL (Up TO 0.2) 04/16/18 10:53 Ur Leukocyte Esterase Negative (Negative) 04/16/18 10:53 Urine Glucose Negative mg/dL (Negative) 04/16/18 10:53 Patient ABO/Rh A Positive 04/19/18 06:35 Antibody Screen Negative 04/19/18 06:35 Crossmatch See Detail 04/19/18 06:35
[2018-04-23] MEDS: Pantoprazole 40 MG VIAL IVP ×2 (09:20→20:51)
[2018-04-23] MEDS: Calcium Citrate 950 MG TAB PO ×2 (09:21→20:52)
[2018-04-23] MEDS: Senna TAB 1 TAB PO ×2 (09:21→20:52)
[2018-04-23] MEDS: Magnesium Oxide 400 MG TAB PO ×2 (09:21→20:52)
[2018-04-23] MEDS: Cyanocobalamin 500 MCG TAB 1000 MCG PO (09:21)
[2018-04-23] MEDS: Docusate Sodium 100 MG CAP PO ×2 (09:21→20:52)
[2018-04-23] MEDS: Ferrous Sulfate 325 MG TAB PO (09:21)
--- NOTE | 2018-04-23 12:08 | PT.INTREAT ---
Date of service: 04/23/18 Time of Service: 09:45 PT Notes Inpatient Physical Therapy Treatment Note [facility] Date: 04/23/18 PRECAUTIONS:PWB R LE SUBJECTIVE: Pt complains of her leg still being very sore. OBJECTIVE: Sit-supine: CGA Sit-stand: CGA Stand-sit: CGA GAIT Assistive Device: FWW Weight bearing: PWB Assist: CGA Distance: 5ftx1 Ther Ex: Pt completed LE strengthening ther ex as per flow sheet. ASSESSMENT: Pt tolerated today's session failry well. Pt seems to be stil having difficulty with pain control. PLAN: Cont as per PT POC. TREATMENT CODE/TIME: 9:45-10:05 (20) TA
[2018-04-23] MEDS: Sucralfate 1 GM TAB PO ×3 (12:25→21:08)
[2018-04-23] MEDS: HYDROcodone 5/Acetaminophen 325 TAB PO ×2 (12:32→18:23)
--- NOTE | 2018-04-23 18:36 | PDOC.CMPRO ---
- If Service Date Differs Date of service: 04/23/18 Time of Service: 18:36 Care Management Progress Note S/O: No change in status today, Brie continues to recover from right femur fracture repair. Plan will be for her to go to health and rehab when she is medically ready. A: Brie is a 82-year-old female admitted related to a syncopal episode, resulting in fracture of her right femur. P: Brie remains acute she is status post femur repair. Brie's has been accepted at [facility] for possible admission early next week when she is medically ready. Transportation via wheelchair van. CM to continue to provide support regarding discharge planning and disposition.
--- NOTE | 2018-04-23 20:05 | W.PM.PROGNOT ---
Date of Service Date of service: 04/23/18 Time of Service: 20:05 Assessment and Plan (1) Syncopal episodes: Current visit: Yes Status: Acute Noted syncopal episode with reported right hand weakness and transient slurred speech following event. MRI negative for acute CVA, and only pertinent finding on work-up is of b/l carotid artery disease. Patient was evaluated by Neurology - her UE weakness was found to be chronic and stable, with evidence of Cervical stenosis on MRI. As per neurology, presenting symptoms are likely not consistent with TIA/CVA, and found unlikely to be due to carotid stenosis. Telemetry has been normal since admission, with occasional mild tachycardia. Will recommend continued cardiac monitoring and extended cardiac monitoring upon discharge. Also recommended sleep study evaluation as an outpatient per neurology, and neuro follow-up in 4-6 weeks. Qualifiers: Syncope type: Encounter type: initial encounter (2) Pulmonary nodule: Current visit: Yes Status: Acute Pulmonary nodules in the right lung. There is an unchanged right lower lobe pulmonary nodule. The right middle lobe pulmonary nodule may be new but the area was not definitely imaged on the prior examination. Follow up as clinically indicated. For high risk patients, a follow up CT scan of the chest in 6-12 months is recommended. (3) Tata-prosthetic femur fracture at tip of prosthesis: Current visit: Yes Status: Acute S/p Surgical repair with ORIF on 04/19. Doing well postoperatively. Continue physical therapy, continue pain control. Will need SNF placement at time of discharge. Qualifiers: Encounter type: sequela Qualified Code(s): M97.8XXS - Periprosthetic fracture around other internal prosthetic joint, sequela; Z96.649 - Presence of unspecified artificial hip joint (4) Carotid stenosis, bilateral: Current visit: No Status: Acute Noted >70% bilaterally by ultrasound, 50% right and 70-80% ICA stenosis on the left by CTA. Unlikely cause for patient's syncope per neurology evaluation. Will discuss with vascular surgery regarding timing for intervention vs. monitoring. Initiate statin therapy, and consider Antiplatelet therapy when hemoglobin appears stable. (5) Cervical stenosis of spinal canal: Current visit: No Status: Suspected (6) Acute on chronic anemia: Current visit: No Status: Acute Anemia of Chronic Disease by review of iron studies, with acute blood loss both post-op and potential via GI blood loss. Patient has had a heme + stool, and complaining of symptoms consistent with GERD and dyspepsia. Continue PPI but change to BID dosing, and initiate Sucralfate. Monitor H/H closely. (7) Chronic renal disease, stage 3, moderately decreased glomerular filtration rate (GFR) between 30-59 mL/min/1.73 square meter: Current visit: No Status: Acute Creatinine appears stable. (8) Hypothyroidism: Current visit: No Status: Acute TSH markedly low but measurable since 01/2018. Will continue but decrease dose of levothyroxine from 100 to 75 mcg. Will need repeat TSH in 8 weeks. Qualifiers: Hypothyroidism type: unspecified Qualified Code(s): E03.9 - Hypothyroidism, unspecified (9) DVT prophylaxis: Current visit: Yes Status: Acute Chemical DVT prophylaxis per ortho. Subjective Interval history since last seen: 82 year old woman with a past medical history significant for Osteoporosis, admitted from [facility] Emergency Department on 04/16 following a syncopal episode with a resultant femoral fracture. Mrs. Dai has a history of Osteoporosis as well as OA, s/p Right sided TKA. Her other history includes HTN, dyslipidemia, CKD, and hypothyroidism. She also has a prior anemia of chronic disease. The patient had a witnessed syncopal episode on the day of admission, stating that the last thing she remembers is sitting down at a bar stool. She does not recall feeling dizzy, having palpitations or chest pain. She was evaluated in the ED, felt to be dysarthric and to have RUE weakness. Her CT of the head was negative. She was also found to have an acute, mildly impacted and postero-laterally angled periprosthetic fracture of the distal femur metaphysis. The patient underwent surgical repair on 04/19 with an open reduction and internal fixation of the right distal femur periprosthetic fracture. Mrs. Dai's syncope work-up has been largely negative. A CT of the chest was largely normal and without PE, dissection, aneurysm, or infiltrate. She was found to have an unchanged RLL nodule, with an additional small nodule noted that may not be new. Her Carotid ultrasound did show evidence of significant b/l stenosis, noted to be >70%, but with follow-up CTA of the neck showing 50% right ICA and 70-80% left ICA disease. Further testing with imaging of the neck showed multilevel Degenerative changes and multilevel central spinal canal and neural foraminal stenosis, as potential etiology for patient's UE weakness at presentation. The MRI/MRA of the brain was largely unremarkable. Neurology noted that syncope likely did not represent an acute CVA/TIA event, and likely not a product of the patient's carotid disease. Hemoglobin remains low today - also with noted Heme + stools. Patient reports worsening GERD and dyspepsia. No overnight events reported. Remains afebrile. Exam Narrative Exam Narrative: General: Patient appears comfortable, AAOX3, NAD Neck: Supple CV: Regular, nontachycardic, S1S2, 3/6 LLSB murmur. Pulmonary: Clear to auscultation bilaterally, no crackles, wheezing, or rhonchi Abdomen: + Bowel Sounds, soft, nontender, nondistended Vascular: No lower extremity edema in the left. RLE with immobilizer in place. Psych: Normal mood and affect. Objective Objective Clinical Data: Vital Signs Temperature 37.1 C 04/23/18 16:25 Temperature Source Tympanic 04/23/18 16:25 Pulse 65 04/23/18 16:25 Pulse Rhythm Regular 04/23/18 16:00 Pulse 61 04/21/18 16:01 Respiratory Rate 18 04/23/18 16:25 Respiratory Effort Non-Labored 04/23/18 16:00 Respiratory Depth Normal 04/23/18 16:00 Respiratory Pattern Normal 04/23/18 16:00 Blood Pressure 165/68 H 04/23/18 16:25 Blood Pressure Mean 65 04/21/18 16:01 Blood Pressure Position Supine 04/16/18 16:11 Pulse Oximetry 95 04/23/18 16:25 Respiratory End-tidal CO2 42 04/19/18 17:15 Oxygen Delivery Method Room Air 04/23/18 16:25 Oxygen Flow Rate 0 04/23/18 16:25 Pain Level 7 04/23/18 18:23 Comment 04/23/18 15:05 Intake & Output 04/22/18 04/23/18 04/23/18 23:59 11:59 23:59 Intake Total 1016.667 / 0531.321 8419.333 / 2856.666 1013.333 / 2856.666 Output Total 1900 / 2500 600 / 850 250 / 850 Balance -883.333 / -3719.261 7678.333 / 2006.666 763.333 / 2005.6 Weight 98.9 kg Intake: IV 536.667 / 838.899 3669.333 / 1746.666 463.333 / 174.666 Oral 480 / 720 560 / 1110 550 / 1110 Output: Urine 1900 / 2500 600 / 850 250 / 850 Other: Urine Color Yellow Yellow Yellow Urine Appearance Clear Clear Clear Urine Odor Normal None None Comment MIXED WITH MODERATE SOFT FORMED BM large void mixed with stool Stool Size Moderate Large Moderate Stool Characteristics Soft Soft Soft Formed Formed Formed Brown Acevedo Green Voiding Methods Toilet Bedside Commode Bedside Commode Laboratory Results WBC 5.24 k/cumm (4.4-10.8) 04/22/18 07:00 RBC 2.77 m/cumm (4.00-5.20) L 04/22/18 07:00 Hgb 8.2 g/dL (12.0-15.5) L 04/22/18 07:00 Hct 26.1 % (36.0-46.0) L 04/22/18 07:00 MCV 94.2 fL (80-95) 04/22/18 07:00 MCH 29.6 pg (27.0-33.0) 04/22/18 07:00 MCHC 31.4 g/dL (32.0-36.0) L 04/22/18 07:00 RDW 13.1 % (11.7-14.6) 04/22/18 07:00 Plt Count 189 x1000/uL (130-400) 04/22/18 07:00 MPV 11.3 fL (8.0-11.0) H 04/22/18 07:00 Immature Gran % 0.3 04/20/18 07:25 Neutrophils % 68.8 04/20/18 07:25 Lymphocytes % 10.5 04/20/18 07:25 Monocytes % 16.1 04/20/18 07:25 Eosinophils % 4.1 04/20/18 07:25 Basophils % 0.2 04/20/18 07:25 Absolute Neutrophils 4.06 k/cumm (1.2-6.7) 04/20/18 07:25 Absolute Lymphocytes 0.62 k/cumm (1.2-3.4) L 04/20/18 07:25 Absolute Monocytes 0.95 k/cumm (0.11-0.7) H 04/20/18 07:25 Absolute Eosinophils 0.24 k/cumm (0.0-0.7) 04/20/18 07:25 Absolute Basophils 0.01 k/cumm (0.0-0.2) 04/20/18 07:25 Differential Comment Rbc morph reviewed 04/18/18 06:40 RBC Morphology See below 04/18/18 06:40 Hypochromasia 1+ 04/18/18 06:40 PT 9.5 sec (9.3-11.0) 04/19/18 08:00 INR 1.0 (0.9-1.1) 04/19/18 08:00 Sample Site Cancelled 04/21/18 18:30 pCO2 Cancelled 04/21/18 18:30 pO2 Cancelled 04/21/18 18:30 O2 Saturation Cancelled 04/21/18 18:30 ABG pH Cancelled 04/21/18 18:30 ABG HCO3 Cancelled 04/21/18 18:30 ABG Total CO2 Cancelled 04/21/18 18:30 ABG Base Excess Cancelled 04/21/18 18:30 Oxygen Liter Flow Cancelled 04/21/18 18:30 FiO2 Cancelled 04/21/18 18:30 Sodium 140 mmol/L (136-145) 04/22/18 07:00 Potassium 4.7 mmol/L (3.5-5.1) 04/22/18 07:00 Chloride 108 mmol/L (98-107) H 04/22/18 07:00 Carbon Dioxide 23.8 mmol/L (21.0-32.0) 04/22/18 07:00 Anion Gap 8.2 mmol/L (3-11) 04/22/18 07:00 BUN 25 mg/dL (7-18) H 04/22/18 07:00 Creatinine 1.36 mg/dL (0.55-1.02) H 04/22/18 07:00 Estimated GFR/1.73 m2 37.23 (mL/min/1.73m2) 04/22/18 07:00 Glucose 98 mg/dL (70-100) 04/22/18 07:00 Calcium 8.6 mg/dL (8.5-10.1) 04/22/18 07:00 Magnesium 1.8 mg/dL (1.8-2.4) 04/21/18 06:22 Iron 29 ug/dL (50-175) L 04/19/18 06:35 TIBC 182 ug/dL (250-450) L 04/19/18 06:35 Transferrin % Sat 16 % (15-50) 04/19/18 06:35 Ferritin 488 ng/mL (8-388) H 04/19/18 06:35 Total Bilirubin 0.5 mg/dL (0.2-1.0) 04/16/18 10:00 AST 21 U/L (15-37) 04/16/18 10:00 ALT 26 U/L (12-78) 04/16/18 10:00 Alkaline Phosphatase 87 U/L (46-116) 04/16/18 10:00 Creatine Kinase 115 U/L (26-192) 04/19/18 17:00 Troponin I < 0.02 ng/mL (0.00-0.06) 04/16/18 21:45 Total Protein 7.7 g/dL (6.4-8.2) 04/16/18 10:00 Albumin 4.0 g/dL (3.4-5.0) 04/16/18 10:00 Triglycerides 173 mg/dL (30-150) H 04/17/18 05:52 Total Cholesterol 255 mg/dL (50-200) H 04/17/18 05:52 LDL Cholesterol Direct 182 mg/dL (<100) H 04/17/18 05:52 HDL Cholesterol 37 mg/dL (40-60) L 04/17/18 05:52 Vitamin B12 1138 pg/mL (193-986) H 04/19/18 06:35 25-OH Vitamin D Total 13.5 ng/ml (30-100) L 04/18/18 06:40 Folate 11.5 ng/mL (8.6-20.0) 04/19/18 06:35 TSH 0.02 uIU/mL (0.358-3.74) L 04/18/18 06:40 Free T4 1.09 ng/dL (0.76-1.46) 04/18/18 06:40 Urine Color Yellow (Yellow) 04/16/18 10:53 Urine Clarity Clear 04/16/18 10:53 Urine pH 6.0 (5-8) 04/16/18 10:53 Ur Specific [place] 1.010 (1.005-1.025) 04/16/18 10:53 Urine Protein Negative mg/dL (Negative) 04/16/18 10:53 Urine Ketones Negative mg/dL (Negative) 04/16/18 10:53 Urine Blood Negative (Negative) 04/16/18 10:53 Urine Nitrite Negative (Negative) 04/16/18 10:53 Urine Bilirubin Negative (Negative) 04/16/18 10:53 Urine Urobilinogen 0.2 EU/dL (Up TO 0.2) 04/16/18 10:53 Ur Leukocyte Esterase Negative (Negative) 04/16/18 10:53 Urine Glucose Negative mg/dL (Negative) 04/16/18 10:53 Patient ABO/Rh A Positive 04/19/18 06:35 Antibody Screen Negative 04/19/18 06:35 Crossmatch See Detail 04/19/18 06:35
[2018-04-23] MEDS: Atorvastatin 40 MG TAB PO (20:52)
[2018-04-24] VITALS (8 sets, daily range): BP systolic 144–184; BP diastolic 53–67; PULSE 59–73; RESP 18–20; TEMP 36.9–37.3; O2SAT 93–97
[2018-04-24] MEDS: Levothyroxine 75 MCG TAB PO (06:05)
[2018-04-24 07:25] LABS: Abs Immature Grans 0.05 k/cumm (0.0-0.09); Absolute Basophil Count 0.03 k/cumm (0.0-0.2); Absolute Monocyte Count 0.71 k/cumm (0.11-0.7); Absolute Neutrophil Count 3.62 k/cumm (1.2-6.7); Basophils % 0.5; Eosinophils % 5.3; HCT 25.8 % (36.0-46.0); HGB 8.2 g/dL (12.0-15.5); Immature Grans % 0.9; Lymphocytes % 17.5; Mean Corp. HGB Concentration 31.8 g/dL (32.0-36.0); Mean Corpuscular Hemoglobin 30.4 pg (27.0-33.0); Mean Corpuscular Volume 95.6 fL (80-95); Mean Platelet Volume 10.8 fL (8.0-11.0); Monocytes % 12.4; Neutrophils % 63.4; Platelet Count 242 x1000/uL (130-400); RBC Distribution Width 12.8 % (11.7-14.6); White Blood Cell Count 5.71 k/cumm (4.4-10.8)
[2018-04-24 07:35] LABS: Anion Gap 7.2 mmol/L (3-11); BUN 16 mg/dL (7-18); CO2 25.8 mmol/L (21.0-32.0); CREATININE 1.17 mg/dL (0.55-1.02); Calcium 8.7 mg/dL (8.5-10.1); Chloride 107 mmol/L (98-107); Estimated GFR 44.28 (mL/min/1.73m2); Glucose 123 mg/dL (70-100); Magnesium 1.8 mg/dL (1.8-2.4); Potassium 4.3 mmol/L (3.5-5.1); Sodium 140 mmol/L (136-145)
[2018-04-24] MEDS: Cyanocobalamin 500 MCG TAB 1000 MCG PO (07:40)
[2018-04-24] MEDS: Normal Saline Flush 10 ML SYR IVP ×2 (07:41→10:17)
[2018-04-24] MEDS: Pantoprazole 40 MG VIAL IVP ×2 (07:42→21:40)
[2018-04-24] MEDS: Mylanta Suspension 30 ML CUP PO (07:42)
[2018-04-24] MEDS: Docusate Sodium 100 MG CAP PO ×2 (07:43→21:38)
[2018-04-24] MEDS: Sucralfate 1 GM TAB PO ×4 (07:43→21:39)
[2018-04-24] MEDS: Senna TAB 1 TAB PO ×2 (07:43→21:39)
[2018-04-24] MEDS: Ferrous Sulfate 325 MG TAB PO (07:43)
[2018-04-24] MEDS: Calcium Citrate 950 MG TAB PO ×2 (07:43→21:39)
[2018-04-24] MEDS: Magnesium Oxide 400 MG TAB PO ×3 (07:43→21:40)
--- NOTE | 2018-04-24 09:50 | CMPROGNOTE_ITS ---
- If Service Date Differs Date of service: 04/24/18 Time of Service: 09:50 Care Management Progress Note S/O: No change in status today, Brie continues to recover from right femur fracture repair. Plan will be for her to go to health and rehab when she is medically ready. Brie continues to have discomfort in that leg with ambulation per PT. Per provider and vascular at [facility] she will have follow-up with vascular after discharge. She will be started on aspirin and statin today. A: Brie is a 82-year-old female admitted related to a syncopal episode, resulting in fracture of her right femur. P: Brie remains acute she is status post femur repair. Brie's has been accepted at [facility] for possible admission early next week when she is medically ready. Transportation via wheelchair van. CM to continue to provide support regarding discharge planning and disposition.
[2018-04-24] MEDS: HYDROmorphone 2 MG/ML VIAL 0.5 MG IVP (10:17)
--- NOTE | 2018-04-24 11:47 | PT.INTREAT ---
Date of service: 04/24/18 Time of Service: 09:20 PT Notes Inpatient Physical Therapy Treatment Note [facility] Date: 04/24/18 PRECAUTIONS:PWB R LE SUBJECTIVE: Pt reports that her LE is still very sore. OBJECTIVE: Sit-stand: CGA Stand-sit: CGA GAIT Assistive Device: FWW Weight bearing: PWB R LE Assist: CGA Distance: 15ftx2 THEREX: Pt completed LE strengthening ther ex as per flow sheet while in the seated position. Pt did require assist with her SLR and hip abd. ASSESSMENT: Pt was able to ambulate farther today then yesterday but still seems to be having difficulty getting her pain under control. PLAN: Cont as per PT POC. TREATMENT CODE/TIME: 9:20-9:40 (20) TA
[2018-04-24] MEDS: HYDROcodone 5/Acetaminophen 325 TAB PO ×2 (11:50→21:38)
--- NOTE | 2018-04-24 13:01 | PGE_ITS ---
Date of Service Date of service: 04/24/18 Time of Service: 13:00 Assessment and Plan (1) Tata-prosthetic femur fracture at tip of prosthesis: Current visit: Yes Status: Gibson Baird is an 82-year-old status post ORIF of a distal femoral periprosthetic fracture. I think she is doing well. Her hemoglobin is stabilized from acute postoperative blood loss anemia. She is asymptomatic. She is able to take a few steps which is encouraging. There is a very challenging fracture in the rehabilitation given the limited weightbearing status. We can start some knee range of motion. If she is mobilizing or asleep in the bed she should have her knee immobilizer on and in place. She should continue DVT prophylaxis. Likely long-term facility discharge. Qualifiers: Encounter type: sequela Qualified Code(s): M97.8XXS - Periprosthetic fracture around other internal prosthetic joint, sequela; Z96.649 - Presence of unspecified artificial hip joint Subjective Patient reports: no new complaints and still having pain; denies nausea, vomiting and shortness of breath Interval history since last seen: She has been able to take a few steps with physical therapy reports pain laterally when she does. No new symptoms. No numbness and tingling. Exam Narrative Exam Narrative: Sitting in the chair. Appears comfortable. No acute distress. Alert and oriented x3. Evaluation of the right leg shows a clean dry and intact dressing. There is some swelling. No significant ecchymosis. No erythema. She tolerates very gentle range of motion of the knee. She is able to dorsiflex and plantar flex the ankle as well as extend and flex the great toe. Sensation intact light touch over the deep and superficial peroneal nerves and tibial nerve. The foot is warm and well perfused. Objective Objective Clinical Data: Abnormal lab results 04/24/18 04/24/18 Range/Units 07:10 07:10 RBC 2.70 L (4.00-5.20) m/cumm Hgb 8.2 L (12.0-15.5) g/dL Hct 25.8 L (36.0-46.0) % MCV 95.6 H (80-95) fL MCHC 31.8 L (32.0-36.0) g/dL Absolute Lymphocytes 1.00 L (1.2-3.4) k/cumm Absolute Monocytes 0.71 H (0.11-0.7) k/cumm Creatinine 1.17 H (0.55-1.02) mg/dL Glucose 123 H (70-100) mg/dL Vital Signs Temperature 37 C 04/24/18 00:36 Temperature Source Skin 04/24/18 00:36 Pulse 71 04/24/18 07:05 Pulse Rhythm Regular 04/23/18 21:16 Pulse 61 04/21/18 16:01 Respiratory Rate 18 04/24/18 00:36 Respiratory Effort Non-Labored 04/23/18 21:16 Respiratory Depth Normal 04/23/18 21:16 Respiratory Pattern Normal 04/23/18 21:16 Blood Pressure 144/53 H 04/24/18 00:36 Blood Pressure Mean 65 04/21/18 16:01 Blood Pressure Position Supine 04/16/18 16:11 Pulse Oximetry 95 04/24/18 09:40 Respiratory End-tidal CO2 42 04/19/18 17:15 Oxygen Delivery Method Room Air 04/24/18 09:40 Oxygen Flow Rate 0 04/24/18 09:40 Pain Level 7 04/24/18 11:50 Comment 04/23/18 15:05 Intake & Output 04/23/18 04/24/18 04/24/18 23:59 11:59 23:59 Intake Total 1503.333 / 3346.666 690 / 690 Output Total 250 / 850 Balance 1253.333 / 2496.666 690 / 690 Weight 97.85 kg Intake: IV 473.333 / 1756.666 Oral 1030 / 1590 690 / 690 Output: Urine 250 / 850 Other: Urine Color Pale Yellow Urine Appearance Clear Urine Odor None Comment patient was assisted on the commode Stool Size Moderate Stool Characteristics Soft Formed Acevedo Green Voiding Methods Bedside Commode Laboratory Results WBC 5.71 k/cumm (4.4-10.8) 04/24/18 07:10 RBC 2.70 m/cumm (4.00-5.20) L 04/24/18 07:10 Hgb 8.2 g/dL (12.0-15.5) L 04/24/18 07:10 Hct 25.8 % (36.0-46.0) L 04/24/18 07:10 MCV 95.6 fL (80-95) H 04/24/18 07:10 MCH 30.4 pg (27.0-33.0) 04/24/18 07:10 MCHC 31.8 g/dL (32.0-36.0) L 04/24/18 07:10 RDW 12.8 % (11.7-14.6) 04/24/18 07:10 Plt Count 242 x1000/uL (130-400) 04/24/18 07:10 MPV 10.8 fL (8.0-11.0) 04/24/18 07:10 Immature Gran % 0.9 04/24/18 07:10 Neutrophils % 63.4 04/24/18 07:10 Lymphocytes % 17.5 04/24/18 07:10 Monocytes % 12.4 04/24/18 07:10 Eosinophils % 5.3 04/24/18 07:10 Basophils % 0.5 04/24/18 07:10 Absolute Neutrophils 3.62 k/cumm (1.2-6.7) 04/24/18 07:10 Absolute Lymphocytes 1.00 k/cumm (1.2-3.4) L 04/24/18 07:10 Absolute Monocytes 0.71 k/cumm (0.11-0.7) H 04/24/18 07:10 Absolute Eosinophils 0.30 k/cumm (0.0-0.7) 04/24/18 07:10 Absolute Basophils 0.03 k/cumm (0.0-0.2) 04/24/18 07:10 Differential Comment Rbc morph reviewed 04/18/18 06:40 RBC Morphology See below 04/18/18 06:40 Hypochromasia 1+ 04/18/18 06:40 PT 9.5 sec (9.3-11.0) 04/19/18 08:00 INR 1.0 (0.9-1.1) 04/19/18 08:00 Sample Site Cancelled 04/21/18 18:30 pCO2 Cancelled 04/21/18 18:30 pO2 Cancelled 04/21/18 18:30 O2 Saturation Cancelled 04/21/18 18:30 ABG pH Cancelled 04/21/18 18:30 ABG HCO3 Cancelled 04/21/18 18:30 ABG Total CO2 Cancelled 04/21/18 18:30 ABG Base Excess Cancelled 04/21/18 18:30 Oxygen Liter Flow Cancelled 04/21/18 18:30 FiO2 Cancelled 04/21/18 18:30 Sodium 140 mmol/L (136-145) 04/24/18 07:10 Potassium 4.3 mmol/L (3.5-5.1) 04/24/18 07:10 Chloride 107 mmol/L (98-107) 04/24/18 07:10 Carbon Dioxide 25.8 mmol/L (21.0-32.0) 04/24/18 07:10 Anion Gap 7.2 mmol/L (3-11) 04/24/18 07:10 BUN 16 mg/dL (7-18) D 04/24/18 07:10 Creatinine 1.17 mg/dL (0.55-1.02) H 04/24/18 07:10 Estimated GFR/1.73 m2 44.28 (mL/min/1.73m2) 04/24/18 07:10 Glucose 123 mg/dL (70-100) H 04/24/18 07:10 Calcium 8.7 mg/dL (8.5-10.1) 04/24/18 07:10 Magnesium 1.8 mg/dL (1.8-2.4) 04/24/18 07:10 Iron 29 ug/dL (50-175) L 04/19/18 06:35 TIBC 182 ug/dL (250-450) L 04/19/18 06:35 Transferrin % Sat 16 % (15-50) 04/19/18 06:35 Ferritin 488 ng/mL (8-388) H 04/19/18 06:35 Total Bilirubin 0.5 mg/dL (0.2-1.0) 04/16/18 10:00 AST 21 U/L (15-37) 04/16/18 10:00 ALT 26 U/L (12-78) 04/16/18 10:00 Alkaline Phosphatase 87 U/L (46-116) 04/16/18 10:00 Creatine Kinase 115 U/L (26-192) 04/19/18 17:00 Troponin I < 0.02 ng/mL (0.00-0.06) 04/16/18 21:45 Total Protein 7.7 g/dL (6.4-8.2) 04/16/18 10:00 Albumin 4.0 g/dL (3.4-5.0) 04/16/18 10:00 Triglycerides 173 mg/dL (30-150) H 04/17/18 05:52 Total Cholesterol 255 mg/dL (50-200) H 04/17/18 05:52 LDL Cholesterol Direct 182 mg/dL (<100) H 04/17/18 05:52 HDL Cholesterol 37 mg/dL (40-60) L 04/17/18 05:52 Vitamin B12 1138 pg/mL (193-986) H 04/19/18 06:35 25-OH Vitamin D Total 13.5 ng/ml (30-100) L 04/18/18 06:40 Folate 11.5 ng/mL (8.6-20.0) 04/19/18 06:35 TSH 0.02 uIU/mL (0.358-3.74) L 04/18/18 06:40 Free T4 1.09 ng/dL (0.76-1.46) 04/18/18 06:40 Urine Color Yellow (Yellow) 04/16/18 10:53 Urine Clarity Clear 04/16/18 10:53 Urine pH 6.0 (5-8) 04/16/18 10:53 Ur Specific [place] 1.010 (1.005-1.025) 04/16/18 10:53 Urine Protein Negative mg/dL (Negative) 04/16/18 10:53 Urine Ketones Negative mg/dL (Negative) 04/16/18 10:53 Urine Blood Negative (Negative) 04/16/18 10:53 Urine Nitrite Negative (Negative) 04/16/18 10:53 Urine Bilirubin Negative (Negative) 04/16/18 10:53 Urine Urobilinogen 0.2 EU/dL (Up TO 0.2) 04/16/18 10:53 Ur Leukocyte Esterase Negative (Negative) 04/16/18 10:53 Urine Glucose Negative mg/dL (Negative) 04/16/18 10:53 Patient ABO/Rh A Positive 04/19/18 06:35 Antibody Screen Negative 04/19/18 06:35 Crossmatch See Detail 04/19/18 06:35
--- NOTE | 2018-04-24 18:27 | W.PM.PROGNOT ---
Date of Service Date of service: 04/24/18 Time of Service: 18:28 Assessment and Plan (1) Syncopal episodes: Current visit: Yes Status: Acute Noted syncopal episode with reported right hand weakness and transient slurred speech following event. MRI negative for acute CVA, and only pertinent finding on work-up is of b/l carotid artery disease. Patient was evaluated by Neurology - her UE weakness was found to be chronic and stable, with evidence of Cervical stenosis on MRI. As per neurology, presenting symptoms are likely not consistent with TIA/CVA, and found unlikely to be due to carotid stenosis. Telemetry has been normal since admission, with occasional mild tachycardia. Will recommend continued cardiac monitoring and extended cardiac monitoring upon discharge. Also recommended sleep study evaluation as an outpatient per neurology, and neuro follow-up in 4-6 weeks. Qualifiers: Syncope type: Encounter type: initial encounter (2) Pulmonary nodule: Current visit: Yes Status: Acute Pulmonary nodules in the right lung. There is an unchanged right lower lobe pulmonary nodule. The right middle lobe pulmonary nodule may be new but the area was not definitely imaged on the prior examination. Follow up recommended with CT scan of the chest in 6-12 months if patient is deemed high risk. (3) Tata-prosthetic femur fracture at tip of prosthesis: Current visit: Yes Status: Acute S/p Surgical repair with ORIF on 04/19. Doing well postoperatively. Continue physical therapy, continue pain control. Will need SNF placement at time of discharge. Qualifiers: Encounter type: sequela Qualified Code(s): M97.8XXS - Periprosthetic fracture around other internal prosthetic joint, sequela; Z96.649 - Presence of unspecified artificial hip joint (4) Carotid stenosis, bilateral: Current visit: No Status: Acute Noted >70% bilaterally by ultrasound, 50% right and 70-80% ICA stenosis on the left by CTA. Unlikely cause for patient's syncope per neurology evaluation. Will discuss with vascular surgery regarding timing for intervention vs. monitoring. Initiate statin therapy, and initiate Antiplatelet therapy with aspirin as hemoglobin appears stable. Discussed with Vascular Surgery at [facility] [place] today - plan for follow-up after discharge, with repeat imaging at [facility]. No acute intervention recommended. (5) Cervical stenosis of spinal canal: Current visit: No Status: Suspected Noted. (6) Acute on chronic anemia: Current visit: No Status: Acute Anemia of Chronic Disease by review of iron studies, with acute blood loss both post-op and potential via GI blood loss. Patient has had a heme + stool, and complaining of symptoms consistent with GERD and dyspepsia. Continue PPI but change to BID dosing, and initiate Sucralfate. Monitor H/H closely - remains stable. (7) Chronic renal disease, stage 3, moderately decreased glomerular filtration rate (GFR) between 30-59 mL/min/1.73 square meter: Current visit: No Status: Acute Creatinine appears stable. (8) Hypothyroidism: Current visit: No Status: Acute TSH markedly low but measurable since 01/2018. Will continue but decrease dose of levothyroxine from 100 to 75 mcg. Will need repeat TSH in 8 weeks. Qualifiers: Hypothyroidism type: unspecified Qualified Code(s): E03.9 - Hypothyroidism, unspecified (9) DVT prophylaxis: Current visit: Yes Status: Acute Chemical DVT prophylaxis per ortho. Subjective Interval history since last seen: 82 year old woman with a past medical history significant for Osteoporosis, admitted from [facility] Emergency Department on 04/16 following a syncopal episode with a resultant femoral fracture. Mrs. Dai has a history of Osteoporosis as well as OA, s/p Right sided TKA. Her other history includes HTN, dyslipidemia, CKD, and hypothyroidism. She also has a prior anemia of chronic disease. The patient had a witnessed syncopal episode on the day of admission, stating that the last thing she remembers is sitting down at a bar stool. She does not recall feeling dizzy, having palpitations or chest pain. She was evaluated in the ED, felt to be dysarthric and to have RUE weakness. Her CT of the head was negative. She was also found to have an acute, mildly impacted and postero-laterally angled periprosthetic fracture of the distal femur metaphysis. The patient underwent surgical repair on 04/19 with an open reduction and internal fixation of the right distal femur periprosthetic fracture. Mrs. Dai's syncope work-up has been largely negative. A CT of the chest was largely normal and without PE, dissection, aneurysm, or infiltrate. She was found to have an unchanged RLL nodule, with an additional small nodule noted that may not be new. Her Carotid ultrasound did show evidence of significant b/l stenosis, noted to be >70%, but with follow-up CTA of the neck showing 50% right ICA and 70-80% left ICA disease. Further testing with imaging of the neck showed multilevel Degenerative changes and multilevel central spinal canal and neural foraminal stenosis, as potential etiology for patient's UE weakness at presentation. The MRI/MRA of the brain was largely unremarkable. Neurology noted that syncope likely did not represent an acute CVA/TIA event, and likely not a product of the patient's carotid disease. Hemoglobin remains low today - also with noted Heme + stools. Patient had previously reported worsening GERD and dyspepsia, improved this morning. No overnight events reported. Remains afebrile. Exam Narrative Exam Narrative: General: Patient appears comfortable, AAOX3, NAD Neck: Supple CV: Regular, nontachycardic, S1S2, 3/6 LLSB murmur. Pulmonary: Clear to auscultation bilaterally, no crackles, wheezing, or rhonchi Abdomen: + Bowel Sounds, soft, nontender, nondistended Vascular: No lower extremity edema in the left. RLE with immobilizer in place. Psych: Normal mood and affect. Objective Objective Clinical Data: Abnormal lab results 04/24/18 04/24/18 Range/Units 07:10 07:10 RBC 2.70 L (4.00-5.20) m/cumm Hgb 8.2 L (12.0-15.5) g/dL Hct 25.8 L (36.0-46.0) % MCV 95.6 H (80-95) fL MCHC 31.8 L (32.0-36.0) g/dL Absolute Lymphocytes 1.00 L (1.2-3.4) k/cumm Absolute Monocytes 0.71 H (0.11-0.7) k/cumm Creatinine 1.17 H (0.55-1.02) mg/dL Glucose 123 H (70-100) mg/dL Vital Signs Temperature 36.9 C 04/24/18 16:15 Temperature Source Tympanic 04/24/18 16:15 Pulse 64 04/24/18 16:15 Pulse Rhythm Regular 04/24/18 07:45 Pulse 61 04/21/18 16:01 Respiratory Rate 20 04/24/18 16:15 Respiratory Effort Non-Labored 04/24/18 07:45 Respiratory Depth Normal 04/24/18 07:45 Respiratory Pattern Normal 04/24/18 07:45 Blood Pressure 184/67 H 04/24/18 16:15 Blood Pressure Mean 65 04/21/18 16:01 Blood Pressure Position Supine 04/16/18 16:11 Pulse Oximetry 93 L 04/24/18 16:15 Respiratory End-tidal CO2 42 04/19/18 17:15 Oxygen Delivery Method Room Air 04/24/18 16:15 Oxygen Flow Rate 0 04/24/18 16:15 Pain Level 7 04/24/18 11:50 Comment 04/24/18 07:50 Intake & Output 04/23/18 04/24/18 04/24/18 23:59 11:59 23:59 Intake Total 1503.333 / 3346.666 690 / 1410 720 / 1410 Output Total 250 / 850 400 / 400 Balance 1253.333 / 2496.666 690 / 1010 320 / 1010 Weight 97.85 kg Intake: IV 473.333 / 1756.666 Oral 1030 / 1590 690 / 1410 720 / 1410 Output: Urine 250 / 850 400 / 400 Other: Urine Color Pale Yellow Yellow Urine Appearance Clear Clear Clear Urine Odor None Normal Comment patient was assisted on the commode large amount of urine mixed w copious amounts of stool Stool Size Moderate Copious Stool Characteristics Soft Soft Formed Formed Acevedo Green Green Voiding Methods Bedside Commode Bedside Commode Bedside Commode Laboratory Results WBC 5.71 k/cumm (4.4-10.8) 04/24/18 07:10 RBC 2.70 m/cumm (4.00-5.20) L 04/24/18 07:10 Hgb 8.2 g/dL (12.0-15.5) L 04/24/18 07:10 Hct 25.8 % (36.0-46.0) L 04/24/18 07:10 MCV 95.6 fL (80-95) H 04/24/18 07:10 MCH 30.4 pg (27.0-33.0) 04/24/18 07:10 MCHC 31.8 g/dL (32.0-36.0) L 04/24/18 07:10 RDW 12.8 % (11.7-14.6) 04/24/18 07:10 Plt Count 242 x1000/uL (130-400) 04/24/18 07:10 MPV 10.8 fL (8.0-11.0) 04/24/18 07:10 Immature Gran % 0.9 04/24/18 07:10 Neutrophils % 63.4 04/24/18 07:10 Lymphocytes % 17.5 04/24/18 07:10 Monocytes % 12.4 04/24/18 07:10 Eosinophils % 5.3 04/24/18 07:10 Basophils % 0.5 04/24/18 07:10 Absolute Neutrophils 3.62 k/cumm (1.2-6.7) 04/24/18 07:10 Absolute Lymphocytes 1.00 k/cumm (1.2-3.4) L 04/24/18 07:10 Absolute Monocytes 0.71 k/cumm (0.11-0.7) H 04/24/18 07:10 Absolute Eosinophils 0.30 k/cumm (0.0-0.7) 04/24/18 07:10 Absolute Basophils 0.03 k/cumm (0.0-0.2) 04/24/18 07:10 Differential Comment Rbc morph reviewed 04/18/18 06:40 RBC Morphology See below 04/18/18 06:40 Hypochromasia 1+ 04/18/18 06:40 PT 9.5 sec (9.3-11.0) 04/19/18 08:00 INR 1.0 (0.9-1.1) 04/19/18 08:00 Sample Site Cancelled 04/21/18 18:30 pCO2 Cancelled 04/21/18 18:30 pO2 Cancelled 04/21/18 18:30 O2 Saturation Cancelled 04/21/18 18:30 ABG pH Cancelled 04/21/18 18:30 ABG HCO3 Cancelled 04/21/18 18:30 ABG Total CO2 Cancelled 04/21/18 18:30 ABG Base Excess Cancelled 04/21/18 18:30 Oxygen Liter Flow Cancelled 04/21/18 18:30 FiO2 Cancelled 04/21/18 18:30 Sodium 140 mmol/L (136-145) 04/24/18 07:10 Potassium 4.3 mmol/L (3.5-5.1) 04/24/18 07:10 Chloride 107 mmol/L (98-107) 04/24/18 07:10 Carbon Dioxide 25.8 mmol/L (21.0-32.0) 04/24/18 07:10 Anion Gap 7.2 mmol/L (3-11) 04/24/18 07:10 BUN 16 mg/dL (7-18) D 04/24/18 07:10 Creatinine 1.17 mg/dL (0.55-1.02) H 04/24/18 07:10 Estimated GFR/1.73 m2 44.28 (mL/min/1.73m2) 04/24/18 07:10 Glucose 123 mg/dL (70-100) H 04/24/18 07:10 Calcium 8.7 mg/dL (8.5-10.1) 04/24/18 07:10 Magnesium 1.8 mg/dL (1.8-2.4) 04/24/18 07:10 Iron 29 ug/dL (50-175) L 04/19/18 06:35 TIBC 182 ug/dL (250-450) L 04/19/18 06:35 Transferrin % Sat 16 % (15-50) 04/19/18 06:35 Ferritin 488 ng/mL (8-388) H 04/19/18 06:35 Total Bilirubin 0.5 mg/dL (0.2-1.0) 04/16/18 10:00 AST 21 U/L (15-37) 04/16/18 10:00 ALT 26 U/L (12-78) 04/16/18 10:00 Alkaline Phosphatase 87 U/L (46-116) 04/16/18 10:00 Creatine Kinase 115 U/L (26-192) 04/19/18 17:00 Troponin I < 0.02 ng/mL (0.00-0.06) 04/16/18 21:45 Total Protein 7.7 g/dL (6.4-8.2) 04/16/18 10:00 Albumin 4.0 g/dL (3.4-5.0) 04/16/18 10:00 Triglycerides 173 mg/dL (30-150) H 04/17/18 05:52 Total Cholesterol 255 mg/dL (50-200) H 04/17/18 05:52 LDL Cholesterol Direct 182 mg/dL (<100) H 04/17/18 05:52 HDL Cholesterol 37 mg/dL (40-60) L 04/17/18 05:52 Vitamin B12 1138 pg/mL (193-986) H 04/19/18 06:35 25-OH Vitamin D Total 13.5 ng/ml (30-100) L 04/18/18 06:40 Folate 11.5 ng/mL (8.6-20.0) 04/19/18 06:35 TSH 0.02 uIU/mL (0.358-3.74) L 04/18/18 06:40 Free T4 1.09 ng/dL (0.76-1.46) 04/18/18 06:40 Urine Color Yellow (Yellow) 04/16/18 10:53 Urine Clarity Clear 04/16/18 10:53 Urine pH 6.0 (5-8) 04/16/18 10:53 Ur Specific [place] 1.010 (1.005-1.025) 04/16/18 10:53 Urine Protein Negative mg/dL (Negative) 04/16/18 10:53 Urine Ketones Negative mg/dL (Negative) 04/16/18 10:53 Urine Blood Negative (Negative) 04/16/18 10:53 Urine Nitrite Negative (Negative) 04/16/18 10:53 Urine Bilirubin Negative (Negative) 04/16/18 10:53 Urine Urobilinogen 0.2 EU/dL (Up TO 0.2) 04/16/18 10:53 Ur Leukocyte Esterase Negative (Negative) 04/16/18 10:53 Urine Glucose Negative mg/dL (Negative) 04/16/18 10:53 Patient ABO/Rh A Positive 04/19/18 06:35 Antibody Screen Negative 04/19/18 06:35 Crossmatch See Detail 04/19/18 06:35
[2018-04-24] MEDS: Atorvastatin 40 MG TAB PO (21:39)
[2018-04-25] VITALS (7 sets, daily range): BP systolic 132–188; BP diastolic 55–92; PULSE 57–72; RESP 18–20; TEMP 36.5–37.2; O2SAT 96
[2018-04-25] MEDS: HYDROcodone 5/Acetaminophen 325 TAB PO ×4 (03:45→23:30)
[2018-04-25] MEDS: Levothyroxine 75 MCG TAB PO (06:47)
[2018-04-25 07:23] LABS: Abs Immature Grans 0.06 k/cumm (0.0-0.09); Absolute Basophil Count 0.02 k/cumm (0.0-0.2); Absolute Eosinophil Count 0.31 k/cumm (0.0-0.7); Absolute Lymphocyte Count 0.98 k/cumm (1.2-3.4); Absolute Monocyte Count 0.71 k/cumm (0.11-0.7); Absolute Neutrophil Count 3.45 k/cumm (1.2-6.7); Basophils % 0.4; Eosinophils % 5.6; Immature Grans % 1.1; Lymphocytes % 17.7; Mean Corpuscular Hemoglobin 30.7 pg (27.0-33.0); Mean Corpuscular Volume 95.8 fL (80-95); Monocytes % 12.8; Neutrophils % 62.4; Platelet Count 249 x1000/uL (130-400); RBC 2.61 m/cumm (4.00-5.20); RBC Distribution Width 12.6 % (11.7-14.6); White Blood Cell Count 5.53 k/cumm (4.4-10.8)
[2018-04-25 07:42] LABS: Anion Gap 7.6 mmol/L (3-11); BUN 12 mg/dL (7-18); CO2 26.4 mmol/L (21.0-32.0); CREATININE 1.17 mg/dL (0.55-1.02); Calcium 8.5 mg/dL (8.5-10.1); Chloride 107 mmol/L (98-107); Estimated GFR 44.28 (mL/min/1.73m2); Glucose 123 mg/dL (70-100); Magnesium 1.8 mg/dL (1.8-2.4); Potassium 4.3 mmol/L (3.5-5.1); Sodium 141 mmol/L (136-145)
[2018-04-25] MEDS: Normal Saline Flush 10 ML SYR IVP ×2 (08:37→21:00)
[2018-04-25] MEDS: Pantoprazole 40 MG VIAL IVP ×2 (08:37→21:00)
[2018-04-25] MEDS: Cyanocobalamin 500 MCG TAB 1000 MCG PO (08:37)
[2018-04-25] MEDS: Sucralfate 1 GM TAB PO ×4 (08:37→21:38)
[2018-04-25] MEDS: Calcium Citrate 950 MG TAB PO ×2 (08:37→20:59)
[2018-04-25] MEDS: Senna TAB 1 TAB PO ×2 (08:38→20:59)
[2018-04-25] MEDS: Magnesium Oxide 400 MG TAB PO ×3 (08:38→20:59)
[2018-04-25] MEDS: Docusate Sodium 100 MG CAP PO ×2 (08:38→20:59)
[2018-04-25] MEDS: Ferrous Sulfate 325 MG TAB PO (08:38)
[2018-04-25] MEDS: Aspirin 81 MG CHEW PO (08:38)
[2018-04-25] MEDS: Acetaminophen 500 MG TAB 1000 MG PO (10:17)
--- NOTE | 2018-04-25 10:24 | OT.INPN ---
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 She sustained a periprosthetic femur fracture as a result of the fall on the (R) LE. Past Medical History: Sacroiliac joint dysfunction (Chronic),Cervical radiculopathy,Chronic shoulder pain,Cold sore Colon polyps, GERD (gastroesophageal reflux disease), Hx of breast cancer,Hyperlipidemia,Hypertension, Hypothyroidism, Impaired fasting glucose, Lichen planus, Osteoarthritis, PMR (polymyalgia rheumatica), Sciatica. Current Functional Limitations: NWB (R) LE, surgery performed by Dr. Villar to be performed on 04/19/18, decreased functional activity tolerance, decreased strength (B) UE, decreased (I) ADLs/IADLs. Social History/Home Situation: Pt lives alone in a private home with 2 steps to enter. Prior to admission her baseline is (I) in all ADLs/ IADLs. She reports that she has a tub/shower combination and at baseline stands in shower. She also has grab bars in her bathroom. Equipment owned/DME: Grab bars. SUBJECTIVE: Pt was sitting in chair when OT arrived she was agreeable to OT session. OBJECTIVE: General Observation: Romero, telemetry, IV Mental Status: A&Ox3 Pain: c/o pain in (R) hip ROM: RUE AROM WFL L UE AROM WFL STRENGTH: RUE 4+/5 shoulder flexion and elbow, geophysical laboratory director is weak LUE 4+/5 shoulder flexion and elbow, geophysical laboratory director is weak FUNCTIONAL MOBILITY/ADLS: Sit to stand SBA, FWW Stand to sit CGA, FWW BATHING- Sitting in chair with max (A) set up pt was (I) washing (B) UE, face, abdomen, pelvic area, max (A) back and (B) feet, hair DRESSING- Sitting in chair (I) don and diff hospital gown, max (A) (B) socks GROOMING - Sitting in chair (I) max (A) set up (I) with brushing teeth, mod (A) brushing hair. 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 She sustained a periprosthetic femur fracture as a result of the fall on the (R) LE in setting of Sacroiliac joint dysfunction (Chronic),Cervical radiculopathy,Chronic shoulder pain,Cold sore Colon polyps, GERD (gastroesophageal reflux disease), Hx of breast cancer,Hyperlipidemia,Hypertension, Hypothyroidism, Impaired fasting glucose, Lichen planus, Osteoarthritis, PMR (polymyalgia rheumatica), Sciatica. Pt has been seen for 5 skilled OT sessions. Pt reports that the plan is [facility] medically cleared per MD. Pt would benefit from continued skilled OT intervention for progression of ADLs and education and training in adaptive equipment. GOALS Goals x1 week 1. Transfers CGA, FWW (MET) 2. Dressing- pt will be able to (I) don and doff LE dressing with adaptive equipment. (NOT MET) 3. Bathing- Sitting in chair pt will be able to (I) bath UE/LE. (Progressing towards) 4. Toileting- On toilet, SBA (progressing towards) 5. Eating- (I) (MET) PLAN OF CARE/TREATMENT PLAN: 1x/day, 5 days/ week x 1week Initiate Occupational Therapy Services for bathing, dressing, grooming, toileting, eating, transfer training. DISCHARGE RECOMMENDATIONS OT recommends that pt at this time due to medical status go to SNF for further rehabilitation post surgery OT recommends shower bench to increase pts safety when transferring into tub/shower combination TREATMENT TIME/MINUTES/CODES [id number], 40 minutes (08:50) Tessa Alvarez OTR/[facility]
--- NOTE | 2018-04-25 10:31 | OTPN_ITS ---
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 She sustained a periprosthetic femur fracture as a result of the fall on the (R) LE. Past Medical History: Sacroiliac joint dysfunction (Chronic),Cervical radiculopathy,Chronic shoulder pain,Cold sore Colon polyps, GERD (gastroesophageal reflux disease), Hx of breast cancer,Hyperlipidemia,Hypertension, Hypothyroidism, Impaired fasting glucose, Lichen planus, Osteoarthritis, PMR (polymyalgia rheumatica), Sciatica. Current Functional Limitations: NWB (R) LE, surgery performed by Dr. Villar to be performed on 04/19/18, decreased functional activity tolerance, decreased strength (B) UE, decreased (I) ADLs/IADLs. Social History/Home Situation: Pt lives alone in a private home with 2 steps to enter. Prior to admission her baseline is (I) in all ADLs/ IADLs. She reports that she has a tub/shower combination and at baseline stands in shower. She also has grab bars in her bathroom. Equipment owned/DME: Grab bars. SUBJECTIVE: Pt was sitting in chair when OT arrived she was agreeable to OT session. OBJECTIVE: General Observation: Romero, telemetry, IV Mental Status: A&Ox3 Pain: c/o pain in (R) hip ROM: RUE AROM WFL L UE AROM WFL STRENGTH: RUE 4+/5 shoulder flexion and elbow, complex commercial litigation paralegal is weak LUE 4+/5 shoulder flexion and elbow, complex commercial litigation paralegal is weak FUNCTIONAL MOBILITY/ADLS: Sit to stand SBA, FWW Stand to sit CGA, FWW BATHING- Sitting in chair with max (A) set up pt was (I) washing (B) UE, face, abdomen, pelvic area, max (A) back and (B) feet, hair DRESSING- Sitting in chair (I) don and diff hospital gown, max (A) (B) socks GROOMING - Sitting in chair (I) max (A) set up (I) with brushing teeth, mod (A) brushing hair. 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 She sustained a periprosthetic femur fracture as a result of the fall on the (R) LE in setting of Sacroiliac joint dysfunction (Chronic),Cervical radiculopathy,Chronic shoulder pain,Cold sore Colon polyps, GERD (gastroesophageal reflux disease), Hx of breast cancer,Hyperlipidemia,Hypertension, Hypothyroidism, Impaired fasting glucose, Lichen planus, Osteoarthritis, PMR (polymyalgia rheumatica), Sciatica. Pt has been seen for 5 skilled OT sessions. Pt reports that the plan is to go [facility] when medically cleared per MD. Pt would benefit from continued skilled OT intervention for progression of ADLs and education and training in adaptive equipment. GOALS Goals x1 week 1. Transfers CGA, FWW (MET) 2. Dressing- pt will be able to (I) don and doff LE dressing with adaptive equipment. (NOT MET) 3. Bathing- Sitting in chair pt will be able to (I) bath UE/LE. (Progressing towards) 4. Toileting- On toilet, SBA (progressing towards) 5. Eating- (I) (MET) PLAN OF CARE/TREATMENT PLAN: 1x/day, 5 days/ week x 1week Initiate Occupational Therapy Services for bathing, dressing, grooming, toileting, eating, transfer training. DISCHARGE RECOMMENDATIONS OT recommends that pt at this time due to medical status go to SNF for further rehabilitation post surgery OT recommends shower bench to increase pts safety when transferring into tub/shower combination TREATMENT TIME/MINUTES/CODES [id number], 40 minutes (08:50) Tessa Alvarez OTR/[facility]
--- NOTE | 2018-04-25 11:52 | PDOC.CMPRO ---
- If Service Date Differs Date of service: 04/25/18 Time of Service: 11:52 Care Management Progress Note S/O:CM met with patient at the bedside she is going to be [facility]. CM contacted [facility] wheelchair van and set up discharge time for 11 am. A: Brie is a 82-year-old female admitted related to a syncopal episode, resulting in fracture of her right femur. P: Brie remains acute she is status post femur repair. Brie's has been accepted at [facility] Wednesday. Transportation via wheelchair van [facility]. [place] to continue to provide support regarding discharge planning and disposition.
--- NOTE | 2018-04-25 11:57 | CMPROGNOTE_ITS ---
- If Service Date Differs Date of service: 04/25/18 Time of Service: 11:52 Care Management Progress Note S/O:CM met with patient at the bedside she is going to be discharged to [facility] Wednesday. CM contacted [facility] wheelchair van and set up discharge time for 11 am. A: Brie is a 82-year-old female admitted related to a syncopal episode, resulting in fracture of her right femur. P: Brie remains acute she is status post femur repair. Brie's has been accepted at [facility] Rehab Wednesday. Transportation via wheelchair van [facility]. [place] to continue to provide support regarding discharge planning and disposition.
--- NOTE | 2018-04-25 13:03 | W.PM.PROGNOT ---
Documented by User: Parvin Bobon 04/25/18 14:03 Date of Service Date of service: 04/25/18 Time of Service: 12:00 Assessment and Plan (1) Tata-prosthetic femur fracture at tip of prosthesis: Current visit: No Status: Acute Ms. Dai is a 82-year-old female who is status post ORIF of a distal femoral periprosthetic fracture by Dr. Villar on 04/19/18. At this time she is doing well post-operatively and will continue with physical therapy beginning to work on knee ROM. As per Dr. Zavala recommendation she should continue to wear the knee immobilizer when sleeping or mobilizing. Continue with DVT prophylaxis. Review of patient's chart shows possible plans to transfer to [facility] tomorrow (04/26/18), if this is the case patient will continue with recommended physical therapy while at the rehab. Qualifiers: Encounter type: sequela Qualified Code(s): M97.8XXS - Periprosthetic fracture around other internal prosthetic joint, sequela; Z96.649 - Presence of unspecified artificial hip joint (2) DVT prophylaxis: Current visit: No Status: Acute Subjective Interval history since last seen: Ms. Dai is a 82-year-old female who is status post ORIF of a distal femoral periprosthetic fracture by Dr. Villar on 04/19/18. Since patient was last seen by Dr. Zavala on 04/24/18 she reports she has continued to do well. She has been active with physical therapy and reports increasing her ankle and foot exercises to decrease swelling in her foot and big toe. During physical therapy she does experience lateral thigh discomfort. Patient has continued to wear her knee immobilizer and padded the top of the brace to prevent skin irritation. Denies any additional injuries, numbness or tingling. Exam Const General: comfortable and no acute distress Orientation: alert and awake (seated in chair eating her lunch) Extrem Other: Right lower extremity: Knee immobilizer was removed for examination. Mepilex dressing is intact and dry. No signs of erythema or calor are noted. Slight edema and tenderness is elicited with palpation over incision areas. Edema is present along dorsum of foot extending into great toe. Sensation to light touch was intact. Active ROM of ankle tested in dorsiflexion and plantar flexion was intact without discomfort. Active ROM of toes was intact without eliciting discomfort. Objective Objective Clinical Data: Abnormal lab results 04/25/18 04/25/18 Range/Units 06:50 06:50 RBC 2.61 L (4.00-5.20) m/cumm Hgb 8.0 L (12.0-15.5) g/dL Hct 25.0 L (36.0-46.0) % MCV 95.8 H (80-95) fL Absolute Lymphocytes 0.98 L (1.2-3.4) k/cumm Absolute Monocytes 0.71 H (0.11-0.7) k/cumm Creatinine 1.17 H (0.55-1.02) mg/dL Glucose 123 H (70-100) mg/dL Vital Signs Temperature 37.2 C 04/25/18 07:45 Temperature Source Tympanic 04/25/18 07:45 Pulse 66 04/25/18 07:45 Pulse Rhythm Regular 04/25/18 09:08 Pulse 61 04/21/18 16:01 Respiratory Rate 18 04/25/18 07:45 Respiratory Effort 04/25/18 09:08 Respiratory Depth Normal 04/25/18 09:08 Respiratory Pattern Normal 04/25/18 09:08 Blood Pressure 148/56 H 04/25/18 07:45 Blood Pressure Mean 65 04/21/18 16:01 Blood Pressure Position Supine 04/16/18 16:11 Pulse Oximetry 96 04/25/18 07:45 Respiratory End-tidal CO2 42 04/19/18 17:15 Oxygen Delivery Method Room Air 04/25/18 07:45 Oxygen Flow Rate 0 04/25/18 07:45 Pain Level 5 04/25/18 10:17 Comment 04/24/18 07:50 Intake & Output 04/24/18 04/25/18 04/25/18 23:59 11:59 23:59 Intake Total 720 / 1410 240 / 240 Output Total 800 / 800 1700 / 1700 Balance -80 / 610 -1460 / -1460 Weight 99.4 kg Intake: Oral 720 / 1410 240 / 240 Output: Urine 800 / 800 1700 / 1700 Other: Urine Color Yellow Yellow Straw Urine Appearance Clear Clear Urine Odor Normal Normal Stool Size Moderate Small Stool Characteristics Green Soft Formed Brown Green Voiding Methods Bedside Commode Bedside Commode Laboratory Results WBC 5.53 k/cumm (4.4-10.8) 04/25/18 06:50 RBC 2.61 m/cumm (4.00-5.20) L 04/25/18 06:50 Hgb 8.0 g/dL (12.0-15.5) L 04/25/18 06:50 Hct 25.0 % (36.0-46.0) L 04/25/18 06:50 MCV 95.8 fL (80-95) H 04/25/18 06:50 MCH 30.7 pg (27.0-33.0) 04/25/18 06:50 MCHC 32.0 g/dL (32.0-36.0) 04/25/18 06:50 RDW 12.6 % (11.7-14.6) 04/25/18 06:50 Plt Count 249 x1000/uL (130-400) 04/25/18 06:50 MPV 11.0 fL (8.0-11.0) 04/25/18 06:50 Immature Gran % 1.1 04/25/18 06:50 Neutrophils % 62.4 04/25/18 06:50 Lymphocytes % 17.7 04/25/18 06:50 Monocytes % 12.8 04/25/18 06:50 Eosinophils % 5.6 04/25/18 06:50 Basophils % 0.4 04/25/18 06:50 Absolute Neutrophils 3.45 k/cumm (1.2-6.7) 04/25/18 06:50 Absolute Lymphocytes 0.98 k/cumm (1.2-3.4) L 04/25/18 06:50 Absolute Monocytes 0.71 k/cumm (0.11-0.7) H 04/25/18 06:50 Absolute Eosinophils 0.31 k/cumm (0.0-0.7) 04/25/18 06:50 Absolute Basophils 0.02 k/cumm (0.0-0.2) 04/25/18 06:50 Differential Comment Rbc morph reviewed 04/18/18 06:40 RBC Morphology See below 04/18/18 06:40 Hypochromasia 1+ 04/18/18 06:40 PT 9.5 sec (9.3-11.0) 04/19/18 08:00 INR 1.0 (0.9-1.1) 04/19/18 08:00 Sample Site Cancelled 04/21/18 18:30 pCO2 Cancelled 04/21/18 18:30 pO2 Cancelled 04/21/18 18:30 O2 Saturation Cancelled 04/21/18 18:30 ABG pH Cancelled 04/21/18 18:30 ABG HCO3 Cancelled 04/21/18 18:30 ABG Total CO2 Cancelled 04/21/18 18:30 ABG Base Excess Cancelled 04/21/18 18:30 Oxygen Liter Flow Cancelled 04/21/18 18:30 FiO2 Cancelled 04/21/18 18:30 Sodium 141 mmol/L (136-145) 04/25/18 06:50 Potassium 4.3 mmol/L (3.5-5.1) 04/25/18 06:50 Chloride 107 mmol/L (98-107) 04/25/18 06:50 Carbon Dioxide 26.4 mmol/L (21.0-32.0) 04/25/18 06:50 Anion Gap 7.6 mmol/L (3-11) 04/25/18 06:50 BUN 12 mg/dL (7-18) 04/25/18 06:50 Creatinine 1.17 mg/dL (0.55-1.02) H 04/25/18 06:50 Estimated GFR/1.73 m2 44.28 (mL/min/1.73m2) 04/25/18 06:50 Glucose 123 mg/dL (70-100) H 04/25/18 06:50 Calcium 8.5 mg/dL (8.5-10.1) 04/25/18 06:50 Magnesium 1.8 mg/dL (1.8-2.4) 04/25/18 06:50 Iron 29 ug/dL (50-175) L 04/19/18 06:35 TIBC 182 ug/dL (250-450) L 04/19/18 06:35 Transferrin % Sat 16 % (15-50) 04/19/18 06:35 Ferritin 488 ng/mL (8-388) H 04/19/18 06:35 Total Bilirubin 0.5 mg/dL (0.2-1.0) 04/16/18 10:00 AST 21 U/L (15-37) 04/16/18 10:00 ALT 26 U/L (12-78) 04/16/18 10:00 Alkaline Phosphatase 87 U/L (46-116) 04/16/18 10:00 Creatine Kinase 115 U/L (26-192) 04/19/18 17:00 Troponin I < 0.02 ng/mL (0.00-0.06) 04/16/18 21:45 Total Protein 7.7 g/dL (6.4-8.2) 04/16/18 10:00 Albumin 4.0 g/dL (3.4-5.0) 04/16/18 10:00 Triglycerides 173 mg/dL (30-150) H 04/17/18 05:52 Total Cholesterol 255 mg/dL (50-200) H 04/17/18 05:52 LDL Cholesterol Direct 182 mg/dL (<100) H 04/17/18 05:52 HDL Cholesterol 37 mg/dL (40-60) L 04/17/18 05:52 Vitamin B12 1138 pg/mL (193-986) H 04/19/18 06:35 25-OH Vitamin D Total 13.5 ng/ml (30-100) L 04/18/18 06:40 Folate 11.5 ng/mL (8.6-20.0) 04/19/18 06:35 TSH 0.02 uIU/mL (0.358-3.74) L 04/18/18 06:40 Free T4 1.09 ng/dL (0.76-1.46) 04/18/18 06:40 Urine Color Yellow (Yellow) 04/16/18 10:53 Urine Clarity Clear 04/16/18 10:53 Urine pH 6.0 (5-8) 04/16/18 10:53 Ur Specific [place] 1.010 (1.005-1.025) 04/16/18 10:53 Urine Protein Negative mg/dL (Negative) 04/16/18 10:53 Urine Ketones Negative mg/dL (Negative) 04/16/18 10:53 Urine Blood Negative (Negative) 04/16/18 10:53 Urine Nitrite Negative (Negative) 04/16/18 10:53 Urine Bilirubin Negative (Negative) 04/16/18 10:53 Urine Urobilinogen 0.2 EU/dL (Up TO 0.2) 04/16/18 10:53 Ur Leukocyte Esterase Negative (Negative) 04/16/18 10:53 Urine Glucose Negative mg/dL (Negative) 04/16/18 10:53 Patient ABO/Rh A Positive 04/19/18 06:35 Antibody Screen Negative 04/19/18 06:35 Crossmatch See Detail 04/19/18 06:35 Documented by User: Danish Zavala MD 04/26/18 22:15
--- NOTE | 2018-04-25 15:04 | PT.INTREAT ---
Date of service: 04/25/18 Time of Service: 15:04 PT Notes 04/25/18 SUBJECTIVE: Brie stating she is doing better today with her movements but she continues to have 6-7/10 pain with weight bearing. OBJECTIVE: Pt seen for two sessions of PT today. TRANSFERS Sit to supine: Min A Sit to stand: SBA Stand to sit: SBA GAIT Device: FWW Weight bearing: PWB R Assist: CGA Distance: 15'x2 in AM 30'x2 in PM THEREX: Light Muscle setting performed in supine this AM. She was quite fatigued this PM for exercises and she will perform these independently later today. ASSESSMENT: Brie is making good gains in her mobility and transfers. She continues to complain of pain along the lateral thigh with weight bearing and we discuss options to unweight her leg with her UE's using the walker. PLAN: Continue to progress mobility as she is able to tolerate. Session #1: 8:50-9:05; [id number] Session #2: 12:30-1:00 [id number] Coretta Willams PTA
--- NOTE | 2018-04-25 15:07 | PTTR_ITS ---
Date of service: 04/25/18 Time of Service: 15:04 PT Notes 04/25/18 SUBJECTIVE: Brie stating she is doing better today with her movements but she continues to have 6-7/10 pain with weight bearing. OBJECTIVE: Pt seen for two sessions of PT today. TRANSFERS Sit to supine: Min A Sit to stand: SBA Stand to sit: SBA GAIT Device: FWW Weight bearing: PWB R Assist: CGA Distance: 15'x2 in AM 30'x2 in PM THEREX: Light Muscle setting performed in supine this AM. She was quite fatigued this PM for exercises and she will perform these independently later today. ASSESSMENT: Brie is making good gains in her mobility and transfers. She continues to complain of pain along the lateral thigh with weight bearing and we discuss options to unweight her leg with her UE's using the walker. PLAN: Continue to progress mobility as she is able to tolerate. Session #1: 8:50-9:05; [id number] Session #2: 12:30-1:00 [id number] Coretta Willams PTA
--- NOTE | 2018-04-25 15:35 | CHAPLAIN ---
Brie had lots of visitors today and said she was tired from visiting and doing PT. She said she will be going to [facility] tomorrow. Although she would like to go home, she said she realizes she needs to have PT and get stronger before going home. Brie is well supported by her bahai, the [facility], and her stoneworking belt sander, Rev. Kenny Brooks, who has been in to visit Brie. I offered a prayer with Brie.
--- NOTE | 2018-04-25 18:50 | PGE_ITS ---
Date of Service Date of service: 04/25/18 Time of Service: 18:46 Assessment and Plan (1) Syncopal episodes: Current visit: Yes Status: Acute Noted syncopal episode with reported right hand weakness and transient slurred speech following event. MRI negative for acute CVA, and only pertinent finding on work-up is of b/l carotid artery disease. Patient was evaluated by Neurology - her UE weakness was found to be chronic and stable, with evidence of Cervical stenosis on MRI. As per neurology, presenting symptoms are likely not consistent with TIA/CVA, and found unlikely to be due to carotid stenosis. Telemetry has been normal since admission, with occasional mild tachycardia. Will recommend continued cardiac monitoring and extended cardiac monitoring upon discharge. Also recommended sleep study evaluation as an outpatient per neurology, and neuro follow-up in 4-6 weeks. Qualifiers: Syncope type: Encounter type: initial encounter (2) Pulmonary nodule: Current visit: Yes Status: Acute Pulmonary nodules in the right lung - unchanged in the RLL and with RML pulmonary nodule that was not definitely imaged on the prior examination. Follow up recommended with CT scan of the chest in 6-12 months if patient is deemed high risk. (3) Tata-prosthetic femur fracture at tip of prosthesis: Current visit: Yes Status: Acute S/p Surgical repair with ORIF on 04/19. Doing well postoperatively. Continue physical therapy, continue pain control. Will need SNF placement at time of discharge. Qualifiers: Encounter type: sequela Qualified Code(s): M97.8XXS - Periprosthetic fracture around other internal prosthetic joint, sequela; Z96.649 - Presence of unspecified artificial hip joint (4) Carotid stenosis, bilateral: Current visit: No Status: Acute Noted >70% bilaterally by ultrasound, 50% right and 70-80% ICA stenosis on the left by CTA. Unlikely cause for patient's syncope per neurology evaluation. Will discuss with vascular surgery regarding timing for intervention vs. monitoring. Initiated statin therapy, and Antiplatelet therapy with aspirin as hemoglobin appears stable. Discussed with [place] [facility] [place] - plan for follow-up after discharge, with repeat imaging at [facility]. No acute intervention recommended. (5) Cervical stenosis of spinal canal: Current visit: No Status: Suspected Noted. (6) Acute on chronic anemia: Current visit: No Status: Acute Anemia of Chronic Disease by review of iron studies, with acute blood loss both post-op and potential via GI blood loss. Patient has had a heme + stool, and complaining of symptoms consistent with GERD and dyspepsia. As per discussion with son these symptoms have been ongoing for 'years', and include occasional vomiting - never worked up as patient has not voluntarily admitted these symptoms to physicians in the past. Continue PPI at BID dosing, and initiated Sucralfate. Monitor H/H closely - remains stable. Will recommend EGD at minimum as outpatient unless symptoms change. (7) Chronic renal disease, stage 3, moderately decreased glomerular filtration rate (GFR) between 30-59 mL/min/1.73 square meter: Current visit: No Status: Acute Creatinine appears stable. (8) Hypothyroidism: Current visit: No Status: Acute TSH markedly low but measurable since 01/2018. Will continue but decrease dose of levothyroxine from 100 to 75 mcg. Will need repeat TSH in 8 weeks. Qualifiers: Hypothyroidism type: unspecified Qualified Code(s): E03.9 - Hypothyroidism, unspecified (9) DVT prophylaxis: Current visit: Yes Status: Acute Chemical DVT prophylaxis per ortho. Subjective Interval history since last seen: 82 year old woman with a past medical history significant for Osteoporosis, admitted from [facility] Emergency Department on 04/16 following a syncopal episode with a resultant femoral fracture. Mrs. Dai has a history of Osteoporosis as well as OA, s/p Right sided TKA. Her other history includes HTN, dyslipidemia, CKD, and hypothyroidism. She also has a prior anemia of chronic disease. The patient had a witnessed syncopal episode on the day of admission, stating that the last thing she remembers is sitting down at a bar stool. She does not recall feeling dizzy, having palpitations or chest pain. She was evaluated in the ED, felt to be dysarthric and to have RUE weakness. Her CT of the head was negative. She was also found to have an acute, mildly impacted and postero-laterally angled periprosthetic fracture of the distal femur metaphysis. The patient underwent surgical repair on 04/19 with an open reduction and internal fixation of the right distal femur periprosthetic fracture. Mrs. Dai's syncope work-up has been largely negative. A CT of the chest was largely normal and without PE, dissection, aneurysm, or infiltrate. She was found to have an unchanged RLL nodule, with an additional small nodule noted that may not be new. Her Carotid ultrasound did show evidence of significant b/l stenosis, noted to be >70%, but with follow-up CTA of the neck showing 50% right ICA and 70-80% left ICA disease. Further testing with imaging of the neck showed multilevel Degenerative changes and multilevel central spinal canal and neural foraminal stenosis, as potential etiology for patient's UE weakness at presentation. The MRI/MRA of the brain was largely unremarkable. Neurology noted that syncope likely did not represent an acute CVA/TIA event, and likely not a product of the patient's carotid disease. Hemoglobin remains low today - also with noted Heme + stools. Patient had previously reported worsening GERD and dyspepsia, but son actually confirms symptoms ongoing for 'years', including occasional bouts of vomiting. No overnight events reported. Remains afebrile. Exam Narrative Exam Narrative: General: Patient appears comfortable, AAOX3, NAD Neck: Supple CV: Regular, nontachycardic, S1S2, 3/6 LLSB murmur. Pulmonary: Clear to auscultation bilaterally, no crackles, wheezing, or rhonchi Abdomen: + Bowel Sounds, soft, nontender, nondistended Vascular: No lower extremity edema in the left. RLE with immobilizer in place. Psych: Normal mood and affect. Objective Objective Clinical Data: Abnormal lab results 04/25/18 04/25/18 Range/Units 06:50 06:50 RBC 2.61 L (4.00-5.20) m/cumm Hgb 8.0 L (12.0-15.5) g/dL Hct 25.0 L (36.0-46.0) % MCV 95.8 H (80-95) fL Absolute Lymphocytes 0.98 L (1.2-3.4) k/cumm Absolute Monocytes 0.71 H (0.11-0.7) k/cumm Creatinine 1.17 H (0.55-1.02) mg/dL Glucose 123 H (70-100) mg/dL Vital Signs Temperature 36.5 C 04/25/18 16:03 Temperature Source Skin 04/25/18 16:03 Pulse 64 04/25/18 16:03 Pulse Rhythm Regular 04/25/18 09:08 Pulse 61 04/21/18 16:01 Respiratory Rate 19 04/25/18 16:03 Respiratory Effort 04/25/18 09:08 Respiratory Depth Normal 04/25/18 09:08 Respiratory Pattern Normal 04/25/18 09:08 Blood Pressure 132/58 L 04/25/18 16:03 Blood Pressure Mean 65 04/21/18 16:01 Blood Pressure Position Supine 04/16/18 16:11 Pulse Oximetry 96 04/25/18 16:03 Respiratory End-tidal CO2 42 04/19/18 17:15 Oxygen Delivery Method Room Air 04/25/18 16:03 Oxygen Flow Rate 0 04/25/18 16:03 Pain Level 7 04/25/18 17:09 Comment 04/24/18 07:50 Intake & Output 04/24/18 04/25/18 04/25/18 23:59 11:59 23:59 Intake Total 720 / 1410 480 / 970 490 / 970 Output Total 800 / 800 1700 / 2600 900 / 2600 Balance -80 / 610 -1220 / -1630 -410 / -1630 Weight 99.4 kg Intake: Oral 720 / 1410 480 / 970 490 / 970 Output: Urine 800 / 800 1700 / 2600 900 / 2600 Other: Urine Color Yellow Yellow Yellow Straw Urine Appearance Clear Clear Clear Urine Odor Normal Normal Stool Size Moderate Small Moderate Stool Characteristics Green Soft Soft Formed Brown Brown Green Voiding Methods Bedside Commode Bedside Commode Bedside Commode Laboratory Results WBC 5.53 k/cumm (4.4-10.8) 04/25/18 06:50 RBC 2.61 m/cumm (4.00-5.20) L 04/25/18 06:50 Hgb 8.0 g/dL (12.0-15.5) L 04/25/18 06:50 Hct 25.0 % (36.0-46.0) L 04/25/18 06:50 MCV 95.8 fL (80-95) H 04/25/18 06:50 MCH 30.7 pg (27.0-33.0) 04/25/18 06:50 MCHC 32.0 g/dL (32.0-36.0) 04/25/18 06:50 RDW 12.6 % (11.7-14.6) 04/25/18 06:50 Plt Count 249 x1000/uL (130-400) 04/25/18 06:50 MPV 11.0 fL (8.0-11.0) 04/25/18 06:50 Immature Gran % 1.1 04/25/18 06:50 Neutrophils % 62.4 04/25/18 06:50 Lymphocytes % 17.7 04/25/18 06:50 Monocytes % 12.8 04/25/18 06:50 Eosinophils % 5.6 04/25/18 06:50 Basophils % 0.4 04/25/18 06:50 Absolute Neutrophils 3.45 k/cumm (1.2-6.7) 04/25/18 06:50 Absolute Lymphocytes 0.98 k/cumm (1.2-3.4) L 04/25/18 06:50 Absolute Monocytes 0.71 k/cumm (0.11-0.7) H 04/25/18 06:50 Absolute Eosinophils 0.31 k/cumm (0.0-0.7) 04/25/18 06:50 Absolute Basophils 0.02 k/cumm (0.0-0.2) 04/25/18 06:50 Differential Comment Rbc morph reviewed 04/18/18 06:40 RBC Morphology See below 04/18/18 06:40 Hypochromasia 1+ 04/18/18 06:40 PT 9.5 sec (9.3-11.0) 04/19/18 08:00 INR 1.0 (0.9-1.1) 04/19/18 08:00 Sample Site Cancelled 04/21/18 18:30 pCO2 Cancelled 04/21/18 18:30 pO2 Cancelled 04/21/18 18:30 O2 Saturation Cancelled 04/21/18 18:30 ABG pH Cancelled 04/21/18 18:30 ABG HCO3 Cancelled 04/21/18 18:30 ABG Total CO2 Cancelled 04/21/18 18:30 ABG Base Excess Cancelled 04/21/18 18:30 Oxygen Liter Flow Cancelled 04/21/18 18:30 FiO2 Cancelled 04/21/18 18:30 Sodium 141 mmol/L (136-145) 04/25/18 06:50 Potassium 4.3 mmol/L (3.5-5.1) 04/25/18 06:50 Chloride 107 mmol/L (98-107) 04/25/18 06:50 Carbon Dioxide 26.4 mmol/L (21.0-32.0) 04/25/18 06:50 Anion Gap 7.6 mmol/L (3-11) 04/25/18 06:50 BUN 12 mg/dL (7-18) 04/25/18 06:50 Creatinine 1.17 mg/dL (0.55-1.02) H 04/25/18 06:50 Estimated GFR/1.73 m2 44.28 (mL/min/1.73m2) 04/25/18 06:50 Glucose 123 mg/dL (70-100) H 04/25/18 06:50 Calcium 8.5 mg/dL (8.5-10.1) 04/25/18 06:50 Magnesium 1.8 mg/dL (1.8-2.4) 04/25/18 06:50 Iron 29 ug/dL (50-175) L 04/19/18 06:35 TIBC 182 ug/dL (250-450) L 04/19/18 06:35 Transferrin % Sat 16 % (15-50) 04/19/18 06:35 Ferritin 488 ng/mL (8-388) H 04/19/18 06:35 Total Bilirubin 0.5 mg/dL (0.2-1.0) 04/16/18 10:00 AST 21 U/L (15-37) 04/16/18 10:00 ALT 26 U/L (12-78) 04/16/18 10:00 Alkaline Phosphatase 87 U/L (46-116) 04/16/18 10:00 Creatine Kinase 115 U/L (26-192) 04/19/18 17:00 Troponin I < 0.02 ng/mL (0.00-0.06) 04/16/18 21:45 Total Protein 7.7 g/dL (6.4-8.2) 04/16/18 10:00 Albumin 4.0 g/dL (3.4-5.0) 04/16/18 10:00 Triglycerides 173 mg/dL (30-150) H 04/17/18 05:52 Total Cholesterol 255 mg/dL (50-200) H 04/17/18 05:52 LDL Cholesterol Direct 182 mg/dL (<100) H 04/17/18 05:52 HDL Cholesterol 37 mg/dL (40-60) L 04/17/18 05:52 Vitamin B12 1138 pg/mL (193-986) H 04/19/18 06:35 25-OH Vitamin D Total 13.5 ng/ml (30-100) L 04/18/18 06:40 Folate 11.5 ng/mL (8.6-20.0) 04/19/18 06:35 TSH 0.02 uIU/mL (0.358-3.74) L 04/18/18 06:40 Free T4 1.09 ng/dL (0.76-1.46) 04/18/18 06:40 Urine Color Yellow (Yellow) 04/16/18 10:53 Urine Clarity Clear 04/16/18 10:53 Urine pH 6.0 (5-8) 04/16/18 10:53 Ur Specific [place] 1.010 (1.005-1.025) 04/16/18 10:53 Urine Protein Negative mg/dL (Negative) 04/16/18 10:53 Urine Ketones Negative mg/dL (Negative) 04/16/18 10:53 Urine Blood Negative (Negative) 04/16/18 10:53 Urine Nitrite Negative (Negative) 04/16/18 10:53 Urine Bilirubin Negative (Negative) 04/16/18 10:53 Urine Urobilinogen 0.2 EU/dL (Up TO 0.2) 04/16/18 10:53 Ur Leukocyte Esterase Negative (Negative) 04/16/18 10:53 Urine Glucose Negative mg/dL (Negative) 04/16/18 10:53 Patient ABO/Rh A Positive 04/19/18 06:35 Antibody Screen Negative 04/19/18 06:35 Crossmatch See Detail 04/19/18 06:35
[2018-04-25] MEDS: Atorvastatin 40 MG TAB PO (20:59)
[2018-04-26 00:08] VITALS: BP 165/59; PULSE 69; RESP 22; TEMP 36.8; O2SAT 95
--- NOTE | 2018-04-26 01:36 | NUR.NOTE ---
Nursing Note: At 22:30 hrs. Found pt crying for pain but refused to get any pain med. The instructional writer motivated her and narco given and repositioned on her side and slept after.
[2018-04-26] MEDS: Levothyroxine 75 MCG TAB PO (05:01)
[2018-04-26 07:12] LABS: Abs Immature Grans 0.07 k/cumm (0.0-0.09); Absolute Basophil Count 0.02 k/cumm (0.0-0.2); Absolute Eosinophil Count 0.35 k/cumm (0.0-0.7); Absolute Lymphocyte Count 0.94 k/cumm (1.2-3.4); Absolute Monocyte Count 0.81 k/cumm (0.11-0.7); Absolute Neutrophil Count 4.33 k/cumm (1.2-6.7); Basophils % 0.3; Eosinophils % 5.4; HGB 8.2 g/dL (12.0-15.5); Immature Grans % 1.1; Lymphocytes % 14.4; Mean Corp. HGB Concentration 31.5 g/dL (32.0-36.0); Mean Corpuscular Hemoglobin 30.3 pg (27.0-33.0); Mean Corpuscular Volume 95.9 fL (80-95); Mean Platelet Volume 11.2 fL (8.0-11.0); Monocytes % 12.4; Neutrophils % 66.4; Platelet Count 266 x1000/uL (130-400); RBC 2.71 m/cumm (4.00-5.20); RBC Distribution Width 12.7 % (11.7-14.6); White Blood Cell Count 6.52 k/cumm (4.4-10.8)
[2018-04-26 07:25] LABS: Anion Gap 7.3 mmol/L (3-11); BUN 12 mg/dL (7-18); CO2 27.7 mmol/L (21.0-32.0); CREATININE 1.16 mg/dL (0.55-1.02); Calcium 9.2 mg/dL (8.5-10.1); Chloride 105 mmol/L (98-107); Estimated GFR 44.73 (mL/min/1.73m2); Glucose 111 mg/dL (70-100); Magnesium 1.7 mg/dL (1.8-2.4); Potassium 4.4 mmol/L (3.5-5.1); Sodium 140 mmol/L (136-145)
[2018-04-26] MEDS: Ferrous Sulfate 325 MG TAB PO (07:33)
[2018-04-26] MEDS: Pantoprazole 40 MG VIAL IVP (07:33)
[2018-04-26] MEDS: Cyanocobalamin 500 MCG TAB 1000 MCG PO (07:33)
[2018-04-26] MEDS: Normal Saline Flush 10 ML SYR IVP (07:33)
[2018-04-26] MEDS: Acetaminophen 500 MG TAB 1000 MG PO (07:33)
[2018-04-26] MEDS: Docusate Sodium 100 MG CAP PO (07:34)
[2018-04-26] MEDS: Aspirin 81 MG CHEW PO (07:34)
[2018-04-26] MEDS: Magnesium Oxide 400 MG TAB PO (07:34)
[2018-04-26] MEDS: Senna TAB 1 TAB PO (07:34)
[2018-04-26] MEDS: Calcium Citrate 950 MG TAB PO (07:34)
[2018-04-26 07:35] VITALS: PULSE 61
[2018-04-26] MEDS: Sucralfate 1 GM TAB PO ×2 (07:45→11:30)
[2018-04-26 07:50] VITALS: BP 174/67; PULSE 62; RESP 18; TEMP 36.8; O2SAT 94
--- NOTE | 2018-04-26 09:09 | PT.INDS ---
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 She sustained a periprosthetic femur fracture as a result of the fall on the right. She underwent ORIF 04/19/18, as well as a blood transfusion yesterday. She has been participating in PT intervention 1-2x/day since surgery, with a total of 11 PT sessions over the past 10 days. Her plan is to transition to a SNF for continued rehab prior to returning home. PMHX: Sacroiliac joint dysfunction (Chronic),Cervical radiculopathy,Chronic shoulder pain,Cold sore Colon polyps, GERD (gastroesophageal reflux disease), Hx of breast cancer,Hyperlipidemia,Hypertension Hypothyroidism, Impaired fasting glucose, Lichen planus, Osteoarthritis, PMR (polymyalgia rheumatica) Sciatica Social History/Home Situation: She lives alone and prior to admission was I. She reports that her home is 1 level living and does report of 2 steps to enter. She reports that she does not have a handicap shower. She has a traditional tub/shower combo. She does have railings in her bathroom however no other adaptive equipment Current Functional Limitations: S/p fracture of the periprosthetic femur NWB awaiting ortho consultation. Equipment Owned/DME: No equipment at home Subjective: Brie states that she has had a very busy day. She has just returned from a CT scan, and states that she needs to use the commode. She continues to struggle with dizziness. Objective: General Observation: R LE immobilizer Mental Status: Alert and oriented x3. Pain: 6-7/10 on VAS right lateral thigh ROM: Right Upper Extremity: Active shoulder flexion 130 degrees, abduction 100 degrees, able to place hand behind head. Demonstrates WFL elbow and wrist mobility Left Upper Extremity: Active shoulder flexion 130 degrees, abduction 100 degrees, able to place hand behind head. Demonstrates WFL elbow and wrist mobility Right Lower Extremity: N/A, Long leg immobilizer in place s/p fracture Left Lower Extremity: Demonstrates hip flexion 100 degrees, knee flexion 100 degrees, knee extension 0 degrees Strength: Right Upper Extremity: Demonstrates grossly 4-/5 to 4/5 UE strength. Weak drugless physician Left Upper Extremity: Demonstrates grossly 4-/5 to 4/5 UE strength. Weak drugless physician Right Lower Extremity: Patient able to perform active SLR with knee immobilizer in place. Ankle dorsiflexion greater than or equal to 3/5 Left Lower Extremity: I SLR, Hip flexion 4/5, knee flexion 4/5, knee extension 4/5, DF 5/5 Bed Mobility/Transfers: Supine-sit: Min assist Sit-supine: HOB flat min assist x1 Sit to stand: SBA Stand to sit: SBA Gait: Patient able to ambulate 30' with FWW, CG and right knee immobilizer in place. She maintains PWB RLE throughout. Balance: Static Sitting: Normal Dynamic Sitting: Good Static Standing: Good Dynamic Standing: Fair Treatment: Today's session consisted of gait and transfer training as noted above. Patient was also instructed in a therapeutic exercise program, consisting of supine activities with both active and active assisted range of motion activities. Progressed therex as noted on flowsheet. Assessment: Patient is a 82 year old female referred to physical therapy services with the diagnosis of syncopal episode status post fall resulting in a periprosthetic femur fracture right. Patient patient is now 7 days postop, and demonstrating slow gains in functional mobility. She has a planned transfer to [facility] today, and is appropriate for d/c from physical therapy in acute care setting. She requires ongoing PT intervention in SNF setting to continue progressing toward established goal. Goals: Goals X1 week 1. Supine-Sit SBA (progressing towards) 2. Sit-Supine SBA (progressing towards) 3. Sit-Stand CGA with FWW (met) 4. Stand-Sit CGA (met) 5. Bed-Chair Jurgen with FWW (met) 6. Chair-Bed Jurgen with FWW (met) 7. Gait Jurgen with FWW 25ft or greater (met) Plan of Care/Treatment Plan: D/C from PT services in acute care setting. DISCHARGE RECOMMENDATIONS: SNF for ongoing rehabilitation TREATMENT CODE/TIME: 8:35 - 9:05 ([id number]) Lauren Resendez, PT, DPT [facility]
--- NOTE | 2018-04-26 10:14 | PDOC.CMDIS ---
- If Service Date Differs Date of service: 04/26/18 Time of Service: 10:14 LACE Index Scoring Tool - Questions: Length of Stay (in days): 7 - 13 Acuity (Admit via E.D.?): Yes E.D. Visits: 1 - Answers: Total Score: 9 Risk of Readmission: Low Risk Care Management Discharge Reason for Hospitalization: Syncopal episode, R periprosthetic fracture of the distal femur Discharge Plan: Brie to DC to [facility] today via w/c van at 1200. CM spoke with SAYDA Wahl, whom has confirmed 1200 transport time. TOÑA notified [facility], and faxed [facility]. TOÑA also notified HARJIT Webb, and TAMARA Ding, of timing and mode of transportation. SNF forms on the front of the chart for completion. Patient/Family Education Needs: Review DC instructions, any limitations, and discuss 'Ask Me Three' Services Needed at Discharge: Longterm Facility ( [facility]), Transportation ([facility] W/C van)
--- NOTE | 2018-04-26 10:18 | CMDISCH_ITS ---
- If Service Date Differs Date of service: 04/26/18 Time of Service: 10:14 LACE Index Scoring Tool - Questions: Length of Stay (in days): 7 - 13 Acuity (Admit via E.D.?): Yes E.D. Visits: 1 - Answers: Total Score: 9 Risk of Readmission: Low Risk Care Management Discharge Reason for Hospitalization: Syncopal episode, R periprosthetic fracture of the distal femur Discharge Plan: Brie to DC to [facility] today via w/c van at 1200. CM spoke with SAYDA Wahl, whom has confirmed 1200 transport time. TOÑA notified [facility], and faxed [facility]. TOÑA also notified HARJIT Webb, and TAMARA Ding, of timing and mode of transportation. SNF forms on the front of the chart for completion. Patient/Family Education Needs: Review DC instructions, any limitations, and discuss 'Ask Me Three' Services Needed at Discharge: Shelter Facility ( [facility]), Transportation ([facility])
[2018-04-26] MEDS: HYDROcodone 5/Acetaminophen 325 TAB PO (10:30)
--- NOTE | 2018-04-26 11:02 | OT.INDS ---
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 She sustained a periprosthetic femur fracture as a result of the fall on the (R) LE. Past Medical History: Sacroiliac joint dysfunction (Chronic),Cervical radiculopathy,Chronic shoulder pain,Cold sore Colon polyps, GERD (gastroesophageal reflux disease), Hx of breast cancer,Hyperlipidemia,Hypertension, Hypothyroidism, Impaired fasting glucose, Lichen planus, Osteoarthritis, PMR (polymyalgia rheumatica), Sciatica. Current Functional Limitations: NWB (R) LE, surgery performed by Dr. Villar to be performed on 04/19/18, decreased functional activity tolerance, decreased strength (B) UE, decreased (I) ADLs/IADLs. Social History/Home Situation: Pt lives alone in a private home with 2 steps to enter. Prior to admission her baseline is (I) in all ADLs/ IADLs. She reports that she has a tub/shower combination and at baseline stands in shower. She also has grab bars in her bathroom. Equipment owned/DME: Grab bars. SUBJECTIVE: Pt was lying in bed when OT arrived, she reports that she is being discharged today to [facility] and rehab. OBJECTIVE: General Observation: pleasant and answers questions appropriately Mental Status: A&Ox3 Pain: c/o pain in (R) hip ROM: RUE AROM WFL L UE AROM WFL STRENGTH: RUE 4+/5 shoulder flexion and elbow, facility specialist is weak LUE 4+/5 shoulder flexion and elbow, facility specialist is weak FUNCTIONAL MOBILITY/ADLS: Sit to stand SBA, FWW Stand to sit CGA, FWW BATHING- Sitting in chair with max (A) set up pt was (I) washing (B) UE, face, abdomen, pelvic area, max (A) back and (B) feet, hair DRESSING- Sitting in chair (I) don and diff [facility] gown, max (A) (B) socks GROOMING - Sitting in chair (I) max (A) set up (I) with brushing teeth, (I) brushing hair. 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 She sustained a periprosthetic femur fracture as a result of the fall on the (R) LE in setting of Sacroiliac joint dysfunction (Chronic),Cervical radiculopathy,Chronic shoulder pain,Cold sore Colon polyps, GERD (gastroesophageal reflux disease), Hx of breast cancer,Hyperlipidemia,Hypertension, Hypothyroidism, Impaired fasting glucose, Lichen planus, Osteoarthritis, PMR (polymyalgia rheumatica), Sciatica. Pt has been seen for 6 skilled OT sessions. Pt reports that she is being discharged to [facility] today. OT recommends SNF when medically cleared per MD. GOALS Goals x1 week 1. Transfers CGA, FWW (MET) 2. Dressing- pt will be able to (I) don and doff LE dressing with adaptive equipment. (NOT MET) 3. Bathing- Sitting in chair pt will be able to (I) bath UE/LE. (Progressing towards) 4. Toileting- On toilet, SBA (progressing towards) 5. Eating- (I) (MET) PLAN OF CARE/TREATMENT PLAN: Discharge from skilled OT services DISCHARGE RECOMMENDATIONS To [facility] when medically cleared per MD. TREATMENT TIME/MINUTES/CODES [id number], 35minutes (09:30) [facility]
--- NOTE | 2018-04-26 11:07 | OTDS_ITS ---
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 She sustained a periprosthetic femur fracture as a result of the fall on the (R) LE. Past Medical History: Sacroiliac joint dysfunction (Chronic),Cervical radiculopathy,Chronic shoulder pain,Cold sore Colon polyps, GERD (gastroesophageal reflux disease), Hx of breast cancer,Hyperlipidemia,Hypertension, Hypothyroidism, Impaired fasting glucose, Lichen planus, Osteoarthritis, PMR (polymyalgia rheumatica), Sciatica. Current Functional Limitations: NWB (R) LE, surgery performed by Dr. Villar to be performed on 04/19/18, decreased functional activity tolerance, decreased strength (B) UE, decreased (I) ADLs/IADLs. Social History/Home Situation: Pt lives alone in a private home with 2 steps to enter. Prior to admission her baseline is (I) in all ADLs/ IADLs. She reports that she has a tub/shower combination and at baseline stands in shower. She also has grab bars in her bathroom. Equipment owned/DME: Grab bars. SUBJECTIVE: Pt was lying in bed when OT arrived, she reports that she is being discharged today to [facility] and rehab. OBJECTIVE: General Observation: pleasant and answers questions appropriately Mental Status: A&Ox3 Pain: c/o pain in (R) hip ROM: RUE AROM WFL L UE AROM WFL STRENGTH: RUE 4+/5 shoulder flexion and elbow, business practices supervisor is weak LUE 4+/5 shoulder flexion and elbow, business practices supervisor is weak FUNCTIONAL MOBILITY/ADLS: Sit to stand SBA, FWW Stand to sit CGA, FWW BATHING- Sitting in chair with max (A) set up pt was (I) washing (B) UE, face, abdomen, pelvic area, max (A) back and (B) feet, hair DRESSING- Sitting in chair (I) don and diff [facility] gown, max (A) (B) socks GROOMING - Sitting in chair (I) max (A) set up (I) with brushing teeth, (I) brushing hair. BALANCE: Static sitting Normal Dynamic Sitting Good Static Standing Good Dynamic Standing Good ASSESSMENT: Patient is a 82-year-old female referred to occupational therapy services with diagnosis of s/p admission yesterday due to a syncopal episode while serving pancakes at her [employer] breakfast. She sustained a periprosthetic femur fracture as a result of the fall on the (R) LE in setting of Sacroiliac joint dysfunction (Chronic),Cervical radiculopathy,Chronic shoulder pain,Cold sore Colon polyps, GERD (gastroesophageal reflux disease), Hx of breast cancer,Hyperlipidemia,Hypertension, Hypothyroidism, Impaired fasting glucose, Lichen planus, Osteoarthritis, PMR (polymyalgia rheumatica), Sciatica. Pt has been seen for 6 skilled OT sessions. Pt reports that she is being discharged to [facility] today. OT recommends SNF when medically cleared per MD. GOALS Goals x1 week 1. Transfers CGA, FWW (MET) 2. Dressing- pt will be able to (I) don and doff LE dressing with adaptive equipment. (NOT MET) 3. Bathing- Sitting in chair pt will be able to (I) bath UE/LE. (Progressing towards) 4. Toileting- On toilet, SBA (progressing towards) 5. Eating- (I) (MET) PLAN OF CARE/TREATMENT PLAN: Discharge from skilled OT services DISCHARGE RECOMMENDATIONS To [facility] when medically cleared per MD. TREATMENT TIME/MINUTES/CODES [id number], 35minutes (09:30) [facility]
--- NOTE | 2018-04-26 11:38 | DSE_ITS ---
Date of service: 04/26/18 Time of Service: 11:35 DS: Diagnosis Discharge Diagnosis (1) Syncopal episodes: Status: Acute (2) Pulmonary nodule: Status: Acute (3) Tata-prosthetic femur fracture at tip of prosthesis: Status: Acute (4) Carotid stenosis, bilateral: Status: Acute (5) Cervical stenosis of spinal canal: Status: Suspected (6) Acute on chronic anemia: Status: Acute (7) Chronic renal disease, stage 3, moderately decreased glomerular filtration rate (GFR) between 30-59 mL/min/1.73 square meter: Status: Acute (8) Hypothyroidism: Status: Acute Discharge Plan Disposition Patient Disposition: SNF (LEVEL 1) [facility] Condition: Stable Discharge Details Reason For Visit: SYNCOPAL EPISODE,HYPERKALEMIA,R PERIPROSTHETIC DIS Admit Date/Time: 04/16/18 11:42 Admit Provider: Karyna Romero Attending Provider: Karyna Romero Primary Care Provider: Maricel Bella Hospital Course Hospital Course: CC: Syncope, Leg pain HPI: 82 year old woman with a past medical history significant for Osteoporosis, admitted from [facility] Emergency Department on 04/16 following a syncopal episode with a resultant femoral fracture. Mrs. Dai has a history of Osteoporosis as well as OA, s/p Right sided TKA. Her other history includes HTN, dyslipidemia, CKD, and hypothyroidism. She also has a prior history of anemia of chronic disease. The patient had a witnessed syncopal episode on the day of admission, stating that the last thing she remembers is sitting down at a bar stool. She did not recall feeling dizzy, having palpitations, or chest pain. She was evaluated in the ED, felt to be dysarthric and to have RUE weakness. CT of her head was negative. She was also found to have an acute, mildly impacted and postero-laterally angled periprosthetic fracture of the distal femur metaphysis. She was referred for admission for further evaluation and treatment of her Transient Loss of Consciousness and Femur Fracture. Mrs Dai underwent surgical repair on 04/19 with an open reduction and internal fixation of the right distal femur periprosthetic fracture. Syncope work-up was largely negative. A CT of the chest was essentially normal (Nodules) and without PE, dissection, aneurysm, or infiltrate. She was found to have an unchanged RLL nodule, with an additional small nodule noted that may or may not be new. Her Carotid ultrasound did show evidence of significant b/l stenosis, noted to be >70%, but with follow-up CTA of the neck showing 50% right ICA and 70-80% left ICA disease. Further testing with imaging of the neck showed multilevel Degenerative changes and multilevel central spinal canal and neural foraminal stenosis, as potential etiology for patient's UE weakness at presentation. The MRI/MRA of the brain was largely unremarkable. Neurology noted that syncope likely did not represent an acute CVA/TIA event, and likely not a product of the patient's carotid disease. Of Note, patient's ECHO demonstrated Diastolic Dysfunction and Pulmonary HTN. The patient's hemoglobin had an expected drop post-op, and remained but essentially stable. She complained of UGI symptoms including frequent belching, GERD, Dyspepsia, and occasional 'spitting up', and was noted to also haveHeme + stools. Patient had previously reported worsening GERD and dyspepsia, but son actually confirms symptoms ongoing for 'years', including occasional bouts of vomiting. Since initiation of PPI and sucralfate therapy she has noted a marked decrease in her belching, and improvement in her overall symptoms. No overnight events reported. Remains afebrile. Hospital Course: (1) Syncopal episodes: Noted syncopal episode with reported right hand weakness and transient slurred speech following event. MRI negative for acute CVA, and only pertinent finding on work-up is of b/l carotid artery disease. Patient was evaluated by Neurology - her UE weakness was found to be chronic and stable, with evidence of Cervical stenosis on MRI. As per neurology, presenting symptoms are likely not consistent with TIA/CVA (MRI negative as well), and found unlikely to be due to carotid stenosis. Telemetry has been normal since admission, with occasional mild tachycardia. Neurology also with recommended continued cardiac monitoring and extended c ardiac monitoring upon discharge. Also recommended sleep study evaluation as an outpatient per neurology, especially in light of ECHO findings of DD and PHTN, and neuro follow-up in 4-6 weeks. (2) Pulmonary nodule: Pulmonary nodules in the right lung - unchanged in the RLL and with RML pulmonary nodule that was not definitely imaged on the prior examination. Follow up recommended with CT scan of the chest in 6-12 months if patient is deemed high risk. (3) Tata-prosthetic femur fracture at tip of prosthesis: S/p Surgical repair with ORIF on 04/19. Doing well postoperatively. Continue ph ysical therapy, continue pain control. Discharge today to SNF (4) Carotid stenosis, bilateral: Noted >70% bilaterally by ultrasound, 50% right and 70-80% ICA stenosis on the left by CTA. Unlikely cause for patient's syncope per neurology evaluation. Discussed with vascular surgery regarding timing for intervention vs. monitoring. Initiated statin therapy, and Antiplatelet therapy with aspirin as hemoglobin appears stable, and has remained so following initiation. However, with continued positive stool for occult blood despite PPI and Carafate therapy - will hold aspirin for now. Discussed with Vascular Surgery at [facility] [place] - plan for follow-up after discharge, with repeat imaging at [facility]. No acute intervention recommended. Case Management working on referral for follow-up. (5) Cervical stenosis of spinal canal: Noted. (6) Acute on chronic anemia: Anemia of Chronic Disease by review of iron studies from 04/19, but with acute blood loss both post-op and potential via GI blood loss with Heme + stools. Patient has had heme + stool, and complaining of symptoms consistent with GERD and dyspepsia. As per discussion with son these symptoms have been ongoing for 'years', and include occasional vomiting - never worked up as patient has not voluntarily admitted these symptoms to physicians in the past. Continue PPI at BID dosing, and initiated Sucralfate. Monitor H/H closely - rem ains stable and unchanged, with plans for repeat in 3-5 days as an outpatient. Will recommend EGD at minimum as outpatient unless symptoms change - scheduled with surgery for follow-up at time of discharge. (7) Chronic renal disease, stage 3, moderately decreased glomerular filtration rate (GFR) between 30-59 mL/min/1.73 square meter: Creatinine appears stable. (8) Hypothyroidism: TSH markedly low but measurable since 01/2018. Will continue but decrease dose of levothyroxine from 100 to 75 mcg. Will need repeat TSH in 8 weeks. (9) DVT prophylaxis: Chemical DVT prophylaxis per ortho. Home Meds and New Rx's Prescriptions: New atorvastatin [Lipitor] 40 mg Tablet 40 mg PO QPM Qty: 0 RF: 0 sennosides [Senokot] 8.6 mg Tablet 8.6 mg PO BID Qty: 1 RF: 0 hydrocodone-acetaminophen 5-325 mg Tablet 1 - 2 tab PO Q4H PRN PRNQty: 50 RF: 0 sucralfate 1 gram Tablet 1 g PO AC & HS Qty: 0 RF: 0 levothyroxine 75 mcg Tablet 75 mcg PO DAILY@0600 Qty: 1 RF: 0 magnesium oxide 400 mg (241.3 mg magnesium) Tablet 400 mg PO BID Qty: 0 RF: 0 ferrous sulfate 325 mg (65 mg iron) Tablet 325 mg PO DAILY Qty: 0 RF: 0 docusate sodium [Colace] 100 mg Capsule 100 mg PO BID Qty: 0 RF: 0 bisacodyl 5 mg Tablet,Delayed Release (Dr/Ec) 10 mg PO DAILY PRN PRNQty: 0 RF: 0 alum-mag hydroxide-simeth [Mag-Al Plus] 200-200-20 mg/5 mL Suspension 30 ml PO Q2H PRN PRN (Reason: dyspepsia) Qty: 1 RF: 0 heparin (porcine) 5,000 unit/mL Solution 5,000 units subcut Q8H Qty: 0 RF: 0 calcium citrate [Calcitrate] 200 mg (950 mg) Tablet 950 mg PO BID Qty: 0 RF: 0 Continued acetaminophen-codeine 300-30 mg tablet 1 - 2 tab PO Q8H PRN Qty: 90 RF: 0 halobetasol propionate [Ultravate] 50 GM ointment 1 jason Topical HS PRNQty: 50 RF: 4 hydrocortisone [Proctozone-HC] 30 GM cream with perineal applicator 30 gm RC BID PRNQty: 30 RF: 6 cyanocobalamin (vitamin B-12) [Vitamin B-12] 1,000 MCG tablet extended release 1 tab PO DAILY Qty: 100 RF: 4 hydrochlorothiazide 25 mg tablet 25 mg PO q AM Qty: 90 RF: 4 acetaminophen [Tylenol] 325 MG tablet 650 mg PO Q4H PRN PRNRF: 0 Discontinued levothyroxine 100 mcg tablet 100 mcg PO DAILY Qty: 90 RF: 4 Discharge Instructions Stand Alone Forms: Nursing Discharge Form Referrals: [facility] [Provider Group] ([facility] has requested that [facility] call to schedule an appointment with you.) Sy Villar MD [ [facility] STAFF PHYSICIAN] - 05/10/18 11:15 am Stephanie Cervantes MD [ [facility] STAFF PHYSICIAN] - 05/30/18 8:15 am Activity:: As per PT Equipment/Supplies:: No Equipment Needed Diet:: Heart Healthy Discharge Orders Discharge Orders: Discharge Order (Routine); Ordered 04/26/18 Ordered By: Nahum Huffman DS: Data Vitals/I&O Vitals and I&O: Vital Signs Temperature 36.8 C 04/26/18 07:50 Temperature Source Tympanic 04/26/18 07:50 Pulse 62 04/26/18 07:50 Pulse Rhythm Regular 04/26/18 08:55 Pulse 61 04/21/18 16:01 Respiratory Rate 18 04/26/18 07:50 Respiratory Effort 04/26/18 08:55 Respiratory Depth Normal 04/26/18 08:55 Respiratory Pattern Normal 04/26/18 08:55 Blood Pressure 174/67 H 04/26/18 07:50 Blood Pressure Mean 65 04/21/18 16:01 Blood Pressure Position Supine 04/16/18 16:11 Pulse Oximetry 94 L 04/26/18 07:50 Respiratory End-tidal CO2 42 04/19/18 17:15 Oxygen Delivery Method Room Air 04/26/18 07:50 Oxygen Flow Rate 0 04/26/18 07:50 Pain Level 8 04/26/18 10:30 Comment 04/24/18 07:50 Intake & Output 04/25/18 04/25/18 04/26/18 11:59 23:59 11:59 Intake Total 480 / 980 500 / 980 670 / 670 Output Total 1700 / 3000 1300 / 3000 1200 / 1200 Balance -1220 / -2020 -800 / -2020 -530 / -530 Weight 99.4 kg 98.7 kg Intake: IV Oral 480 / 970 490 / 970 670 / 670 Output: Urine 1700 / 3000 1300 / 3000 1200 / 1200 Other: Urine Color Yellow Yellow Yellow Urine Appearance Clear Clear Clear Urine Odor Normal Normal Normal Stool Size Small Moderate Stool Characteristics Soft Soft Formed Brown Brown Green Voiding Methods Bedside Commode Bedside Commode Bedside Commode Completed studies during hospitalization [Text1]: Exam(s) a CT:CT chest PE CTA a CT:CT head - stroke protocol SYMPTOM/DIAGNOSIS: SYNCOPE, RT ARM WEAKNESS, GARBLED SPEECH NONCONTRAST HEAD CT: No priors. There is cerebral atrophy consistent with the patient's age. There are areas of decreased attenuation in the white matter, most consistent with small vessel ischemic disease. No evidence of acute intracranial hemorrhage, infarct, midline shift or mass effect is identified. The visualized paranasal sinuses are clear. The mastoid air cells are well pneumatized. The calvarium is intact. There is patient motion artifact present. IMPRESSION: No acute intracranial process. --------- PE CHEST CT: CT angiography was performed with multi slice acquisition and multi planar and 3D reconstruction. CT scan of the chest was performed according to the pulmonary embolus protocol. Comparison CT scan is abdomen and pelvis from 10/28/11. There is no evidence of a pulmonary embolus. There is atherosclerosis of the thoracic aorta but no aneurysmal dilatation or dissection is seen. There does appear to be narrowing of the proximal right innominate and left subclavian arteries. Heart size is within normal limits. No significant pericardial effusion is seen. No evidence of right ventricular dysfunction is present. Coronary artery calcifications are identified. There is no significant thoracic adenopathy, pleural effusion or pneumothorax. Within the lungs, there is again seen a 6 mm., non calcified pulmonary nodule in the right lower lobe. This is unchanged compared to the CT scan of the abdomen from 10/28/11. There is a 5 mm. nodule in the right middle lobe, this area was not definitely imaged on the prior examination. No pulmonary infiltrates are seen. The tracheobronchial tree is unremarkable. Dependent atelectatic changes are seen in the lung bases. Upper abdominal images show the patient is status post cholecystectomy. Degenerative changes are seen in the spine. IMPRESSION: 1. No evidence of a pulmonary embolus, thoracic aortic dissection or aneurysm. 2. Pulmonary nodules in the right lung. There is an unchanged right lower lobe pulmonary nodule. The right middle lobe pulmonary nodule may be new but the area was not definitely imaged on the prior examination. Follow up as clinically indicated. For high risk patients, a follow up CT scan of the chest in 6-12 months is recommended. Exam(s) a RAD:XR knee RT 3V AP,lat,leonel SYMPTOM/DIAGNOSIS: PAIN RIGHT KNEE: Three views. Comparison is made with 10/08/10. There is again seen the distal aspect of an intramedullary christina with two screws. There is also again seen a right total knee replacement. There is a transverse fracture through the distal metaphysis of the right femur. There is lateral angulation and impaction of the fracture noted. The bones appear osteopenic. No other fracture is seen. Vascular calcifications are seen in the soft tissues. IMPRESSION: Acute impacted and laterally angulated periprosthetic fracture involving the distal right femoral metaphysis. Exam(s) a US:US carotid SYMPTOM/DIAGNOSIS: SYNCOPE, ? CAROTID STENOSIS, HYPERTENSION CAROTID ULTRASOUND: Routine examination was performed. On the right, there is significant plaque seen in the carotid bulb with marked elevation of the velocities in the internal carotid artery, particularly proximally. The findings are consistent with significant stenosis (greater than 70%, likely near occlusive). The right vertebral artery is antegrade. There is moderate plaque seen in the distal left common carotid artery and carotid bulb with elevation of the velocities in the internal carotid arteries consistent with greater than 70% internal carotid artery stenosis. The left vertebral artery is antegrade. IMPRESSION: Hemodynamically significant bilateral internal carotid artery stenosis, right greater than left. Exam(s) a US:US echocardiogram Transthoracic Echocardiography M-mode, complete 2D, complete spectral Doppler, and color Doppler *STUDY CONCLUSIONS* Summary: 1. Left ventricle: The cavity size was normal. Wall thickness was increased in a pattern of mild LVH. The estimated ejection fraction was 65%. Findings consistent with diastolic dysfunction. Doppler parameters are consistent with high ventricular filling pressure. 2. Mitral valve: There was mild to moderate regurgitation. 3. Right ventricle: The cavity size was normal. Wall thickness was normal. Systolic function was normal. 4. Right atrium: The atrium was mildly dilated. 5. Atrial septum: No defect or patent foramen ovale was identified. 6. Pulmonary arteries: Pulmonary systolic pressure was in the range of 55mm Hg to 65mm Hg. 7. Inferior vena cava: The vessel was patent and normal in size. The respirophasic diameter changes were in the normal range (greater than or equal to 50%), consistent with normal central venous pressure. Exam(s) a MRI:MR angio brain wo a MRI:MR brain wo SYMPTOM/DIAGNOSIS: TRANSIENT NEUROLOGICAL DEFECT BRAIN MRI: Routine noncontrast examination was performed. Comparison CT is 04/16/18. There is age appropriate cerebral atrophy present. There are areas of T 2 hyperintensity in the white matter on the FLAIR and T 2 weighted images most suggestive of small vessel ischemic disease. The diffusion weighted images show no evidence of an acute infarct. The gradient images show no evidence of intracranial hemorrhage. The ventricles are intact. The basilar cisterns are patent. No acute midline shift or mass effect is identified. The visualized paranasal sinuses are clear. 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 No evidence of an acute infarct. MRA OF BILL MOORE'S SLOUGH OF FRE[place]: Routine noncontrast examination was performed. The distal intracranial internal carotid arteries are unremarkable. No aneurysm or occlusion is seen. No significant stenosis is present. The anterior cerebral arteries are unremarkable without evidence of occlusion or aneurysm. No significant stenosis is seen. The middle cerebral arteries are unremarkable. No occlusion or aneurysm is seen. No significant stenosis is present. The basilar artery and distal vertebral arteries are unremarkable without evidence of occlusion, aneurysm or significant stenosis. The posterior cerebral arteries are unremarkable without evidence of occlusion, aneurysm or significant stenosis. IMPRESSION: Unremarkable Craig of Fre[place]. Exam(s) a RAD:XR femur RT SYMPTOM/DIAGNOSIS: FEMUR FX, POST OP, CHECK REDUCTION AFTER ORIF RIGHT FEMUR IN THE OR: Fluoroscopy Time: 86.5 sec 6.98 Fluoroscopy was utilized by Dr. Villar during the reduction and internal fixation of the fracture involving the distal right femur. Alignment appears anatomic. Please refer to the procedure report for complete details. RIGHT FEMUR: Images of the distal right femur were obtained. Post surgical changes are now seen of reduction and internal fixation of the distal right femoral fracture. Side plate and screws are seen now transfixing the fracture. Findings of an old intramedullary christina and total knee replacement are also present. Skin anu are seen. IMPRESSION: Status post reduction and internal fixation of the distal right femoral fracture. Exam(s) a MRI:MR angio neck wo SYMPTOMS/DIAGNOSIS: F/U SIGNIFICANT CAROTID ARTERY STENOSIS MRA OF THE NECK: Routine examination was performed. Comparison is with ultrasound from 04/18/18. The study is suboptimal due to significant patient motion artifact. There does appear to be narrowing at the origins of both internal carotid arteries. The degree of abnormality in this region is indeterminate as there is significant patient motion artifact present. The vertebral arteries appear patent without significant stenosis. The visualized portion of the basilar artery appears patent without significant stenosis. IMPRESSION: Severely limited examination due to significant patient motion artifact. Please see the above discussion for complete details. Exam(s) a MRI:MR cervical spine wo SYMPTOMS/DIAGNOSIS: SUSPECTED CERVICAL STENOSIS, ABNORMAL PLANTAR RESPONSES MRI OF THE CERVICAL SPINE: Routine noncontrast examination. There is normal signal in the spinal cord. No evidence of tonsillar ectopia. Comparison is 11/07/14. At C7-T1, there is no significant central spinal canal stenosis. There are degenerative changes at the facets, resulting in mild bilateral neural foraminal stenosis. At C6-C7, there are degenerative endplate signal changes. There is prominence of the osteophyte-disc complex. Mild narrowing of the central spinal canal is noted. No significant neural foraminal stenosis is present. At C5-C6, there is prominence of the osteophyte-disc complex. Degenerative endplate signal changes are present. There is mild narrowing of the central spinal canal. Degenerative changes of the uncovertebral joints result in mild bilateral neural foraminal stenosis. At C4-C5, there is prominence of the osteophyte-disc complex resulting in mild central spinal canal stenosis. Degenerative changes of the uncovertebral joints bilaterally result in mild bilateral neural foraminal stenosis, left greater than right. At C3-C4, there is mild prominence of the osteophyte-disc complex effacing the anterior subarachnoid space, narrowing the central spinal canal. Degenerative changes of the facets and uncovertebral joints are noted. There is mild narrowing of the right neural foramen. C2-C3 shows no significant neural foraminal stenosis. Mild narrowing of the central spinal canal is seen. Apart from the degenerative signal changes, marrow signal is within normal l imits. IMPRESSION: 1. Multilevel degenerative changes in the cervical spine resulting in multilevel central spinal canal and neural foraminal stenosis. 2. Normal signal seen in the spinal cord. Exam(s) a CT:CT carotid neck CTA SYMPTOMS/DIAGNOSIS: F/U SIGNIFICANT CAROTID ARTERY STENOSIS: CERVICAL CT ANGIOGRAPHY: CT angiography was performed with multi slice acquisition and multi planar and 3D reconstruction. CT Angiography of the cervical region was performed with intravenous infusion of 85 cc's of Omnipaque 350. Images obtained through the lung apices show no focal pulmonary abnormality. No cervical mass or adenopathy. The tracheolaryngeal structures appear intact. The visualized brain is unremarkable. The orbital and temporal bone structures appear intact. The aortic arch is heavily calcified. No aneurysmal dilatation. There is some motion artifact obscuring the proximal most portions of the branches of the aortic arch but no gross stenosis is seen. Right common carotid artery is unremarkable in appearance to the level of the bifurcation. At the bifurcation there is heavy calcific plaque which limits interpretation. There appears to be an approximately 2 mm luminal diameter stenosis, more distal ICA has diameter of about 4 mm. The findings are consistent with 50% luminal diameter stenosis. The cavernous portion of the internal carotid artery on the right also shows heavily calcified plaque which limits interpretation. The findings suggest 50- 79% luminal diameter stenosis. On the left the common carotid artery is patent and is unremarkable to the level of the bifurcation where there is heavily calcified plaque. Minimal luminal diameter appears to be approximately 1 mm, more distal ICA is about 4 mm luminal diameter consistent with 70-80% luminal diameter stenosis. Heavily calcified plaque also noted in cavernous internal carotid artery with less than 50% stenosis. The vertebral arteries are patent and unremarkable bilaterally except for some calcified plaque. There is a left dominant vertebral circulation. The basal artery is unremarkable in appearance. Middle, anterior and posterior cerebral arteries and major branches are patent with no evidence of dissection, occlusion or aneurysm. CONCLUSION: 1. Limited evaluation of the carotid bifurcations/proximal internal carotid arteries due to heavily calcified plaque. 2. Stenosis of proximal right internal carotid artery estimated at 50% of the luminal diameter, cavernous portion right ICA stenosis estimated at 50-70% luminal diameter. 3. Proximal left ICA luminal diameter stenosis estimated at 70-80% of the luminal diameter, cavernous ICA on the left estimated luminal diameter stenosis about 50%. No additional significant findings. Labs on day of discharge: Labs from last 24 hours 04/26/18 04/26/18 06:30 06:30 WBC 6.52 RBC 2.71 L Hgb 8.2 L Hct 26.0 L MCV 95.9 H MCH 30.3 MCHC 31.5 L RDW 12.7 Plt Count 266 MPV 11.2 H Immature Gran % 1.1 Neutrophils % 66.4 Lymphocytes % 14.4 Monocytes % 12.4 Eosinophils % 5.4 Basophils % 0.3 Absolute Neutrophils 4.33 Absolute Lymphocytes 0.94 L Absolute Monocytes 0.81 H Absolute Eosinophils 0.35 Absolute Basophils 0.02 Sodium 140 Potassium 4.4 Chloride 105 Carbon Dioxide 27.7 Anion Gap 7.3 BUN 12 Creatinine 1.16 H Estimated GFR/1.73 m2 44.73 Glucose 111 H Calcium 9.2 Magnesium 1.7 L PFSH Medical History Chronic constipation (Acute) Osteoporosis (Chronic) Sacroiliac joint dysfunction (Chronic) Cervical radiculopathy Chronic shoulder pain Cold sore Colon polyps GERD (gastroesophageal reflux disease) Hx of breast cancer Hyperlipidemia Hypertension Hypothyroidism Impaired fasting glucose Lichen planus Osteoarthritis PMR (polymyalgia rheumatica) Sciatica Surgical History S/P carpal tunnel release (Acute) Breast, Mastectomy Cholecystectomy Repair of umbilical hernia (04/15/16) Replacement of total knee joint Family History Sister Personal history of malignant neoplasm Mother No problems noted. Father No problems noted. Sister No problems noted. Son No problems noted. Son No problems noted. Social History housing: house lives independently: Yes number of children: 2 current occupation: retired pets and animals: No what type of physical activity do you participate in: swimming frequency: 1-2 times per week Smoking and Tabacco status: Former Tobacco Use alcohol intake: current alcohol intake frequency: holidays/special occasions only substance use type: does not use mia/jew: Judaism special mia needs: No
[2018-04-26 11:58] VITALS: PULSE 81
== END 2018-04-26 12:32 | disposition skilled nursing facility (03) | DRG 982 ==
LOC: ER 12:33 → ICU 13:25 → MS 04-26 11:51 → ICU 04-27 14:01
PROVIDERS: Family Medicine; Nurse Practitioner; Orthopaedic Surgery; Admitting Provider Internal Medicine; Emergency Provider Student in an Organized Health Care Education/Training Program; Visit Provider Internal Medicine
PROC: 0QSB04Z Reposition Right Lower Femur with Internal Fixation Device, Open Approach (ICD-10-PCS; CPT 27514; principal; 2018-04-19 13:00)
DX: R55 Syncope and collapse (principal); S72.491A Other fracture of lower end of right femur, initial encounter for closed fracture; M97.11XA Periprosthetic fracture around internal prosthetic right knee joint, initial encounter; D62 Acute posthemorrhagic anemia; R47.1 Dysarthria and anarthria; R53.1 Weakness; W19.XXXA Unspecified fall, initial encounter; R91.8 Other nonspecific abnormal finding of lung field; E87.5 Hyperkalemia; I65.23 Occlusion and stenosis of bilateral carotid arteries; Y92.22 Religious institution as the place of occurrence of the external cause; M48.02 Spinal stenosis, cervical region; R19.5 Other fecal abnormalities; N18.3 Chronic kidney disease, stage 3 (moderate); D63.1 Anemia in chronic kidney disease; Y83.8 Other surgical procedures as the cause of abnormal reaction of the patient, or of later complication, without mention of misadventure at the time of the procedure; R29.2 Abnormal reflex; E03.9 Hypothyroidism, unspecified; M81.0 Age-related osteoporosis without current pathological fracture; I12.9 Hypertensive chronic kidney disease with stage 1 through stage 4 chronic kidney disease, or unspecified chronic kidney disease; E78.5 Hyperlipidemia, unspecified; Z96.651 Presence of right artificial knee joint; R10.13 Epigastric pain; R14.3 Flatulence; K21.9 Gastro-esophageal reflux disease without esophagitis; Z87.81 Personal history of (healed) traumatic fracture; Z98.890 Other specified postprocedural states; I51.89 Other ill-defined heart diseases; I51.7 Cardiomegaly; I34.0 Nonrheumatic mitral (valve) insufficiency; I27.20 Pulmonary hypertension, unspecified
CPT/HCPCS: 27514; 36410; 36415; 36430; 51702; 70498; 70544; 70547; 71275; 73552; 73562; 80048; 80053; 80061; 82306; 82550; 82805; 83721; 85027; 86850; 86900; 86901; 86920; 93005; 93306; 96361; 96372; 96374; 96375; 97110; 97162; 97167; 97530; 97535; 99222; 99223; 99232; 99233; 99239; 99252; 99255; 99285; NC; 70450; 70551; 72141; 81003; 82607; 82728; 82746; 83540; 83550; 83735; 84439; 84443; 84484; 85014; 85018; 85025; 85610; 93010; 93880; J0610; J0690; J1644; J1885; J1940; J2060; J2250; J2405; J3010; J3490; L0172; L1830; P9016

== ENCOUNTER → 2018-04-17 11:30 | Outpatient (BNVA) | payer MEDICARE, SELFPAY | PROVIDERS: Visit Provider Orthopaedic Surgery | DX: R69 Illness, unspecified (principal) ==

== ENCOUNTER → 2018-04-18 09:13 | Outpatient (BNVA) | payer MEDICARE, SELFPAY | PROVIDERS: Visit Provider Psychiatry & Neurology Neurology | DX: R69 Illness, unspecified (principal) ==

== ENCOUNTER → 2018-04-19 10:38 | Outpatient (BNVA) | payer MEDICARE, SELFPAY | PROVIDERS: Visit Provider Orthopaedic Surgery | DX: R69 Illness, unspecified (principal) ==

== ENCOUNTER 2018-04-29 12:13 | Outpatient (REF) | payer MEDICARE, SELFPAY ==
[2018-04-29 12:59] LABS: Abs Immature Grans 0.07 k/cumm (0.0-0.09); Absolute Basophil Count 0.06 k/cumm (0.0-0.2); Absolute Eosinophil Count 0.37 k/cumm (0.0-0.7); Absolute Lymphocyte Count 0.89 k/cumm (1.2-3.4); Absolute Monocyte Count 0.64 k/cumm (0.11-0.7); Basophils % 0.7; Eosinophils % 4.6; HCT 29.9 % (36.0-46.0); HGB 9.1 g/dL (12.0-15.5); Immature Grans % 0.9; Lymphocytes % 10.9; Mean Corp. HGB Concentration 30.4 g/dL (32.0-36.0); Mean Corpuscular Hemoglobin 29.4 pg (27.0-33.0); Mean Corpuscular Volume 96.5 fL (80-95); Mean Platelet Volume 11.5 fL (8.0-11.0); Monocytes % 7.9; Platelet Count 359 x1000/uL (130-400); RBC Distribution Width 12.9 % (11.7-14.6); White Blood Cell Count 8.13 k/cumm (4.4-10.8)
[2018-04-29 13:34] LABS: Anion Gap 6.3 mmol/L (3-11); BUN 15 mg/dL (7-18); CO2 32.7 mmol/L (21.0-32.0); CREATININE 1.08 mg/dL (0.55-1.02); Calcium 9.6 mg/dL (8.5-10.1); Chloride 103 mmol/L (98-107); Estimated GFR 48.57 (mL/min/1.73m2); Glucose 160 mg/dL (70-100); Potassium 4.6 mmol/L (3.5-5.1); Sodium 142 mmol/L (136-145)
[2018-04-29 13:48] LABS: TSH (W/Ref FT4) 5.59 uIU/mL (0.358-3.74)
[2018-04-29 14:05] LABS: FREE T4 0.76 ng/dL (0.76-1.46)
== END 2018-04-29 12:33 ==
LOC: LBN 12:13
PROVIDERS: Visit Provider Family Medicine
DX: I10 Essential (primary) hypertension (principal); D63.1 Anemia in chronic kidney disease; E03.9 Hypothyroidism, unspecified; M35.3 Polymyalgia rheumatica; N18.3 Chronic kidney disease, stage 3 (moderate); E78.5 Hyperlipidemia, unspecified
CPT/HCPCS: 80048; 84439; 84443; 85025

== ENCOUNTER 2018-05-29 12:28 | Outpatient (REF) | payer SELFPAY ==
[2018-05-29 12:43] LABS: Abs Immature Grans 0.03 k/cumm (0.0-0.09); Absolute Basophil Count 0.04 k/cumm (0.0-0.2); Absolute Lymphocyte Count 1.44 k/cumm (1.2-3.4); Absolute Monocyte Count 0.72 k/cumm (0.11-0.7); Absolute Neutrophil Count 4.54 k/cumm (1.2-6.7); Basophils % 0.6; Eosinophils % 4.2; HCT 34.3 % (36.0-46.0); HGB 10.9 g/dL (12.0-15.5); Immature Grans % 0.4; Lymphocytes % 20.4; Mean Corp. HGB Concentration 31.8 g/dL (32.0-36.0); Mean Corpuscular Hemoglobin 29.4 pg (27.0-33.0); Mean Corpuscular Volume 92.5 fL (80-95); Mean Platelet Volume 10.8 fL (8.0-11.0); Monocytes % 10.2; Neutrophils % 64.2; Platelet Count 253 x1000/uL (130-400); RBC 3.71 m/cumm (4.00-5.20); RBC Distribution Width 13.7 % (11.7-14.6); White Blood Cell Count 7.07 k/cumm (4.4-10.8)
[2018-05-29 12:46] LABS: BUN 21 mg/dL (7-18); Calcium 9.9 mg/dL (8.5-10.1); Chloride 101 mmol/L (98-107); Estimated GFR 39.21 (mL/min/1.73m2); Glucose 112 mg/dL (70-100); Potassium 4.5 mmol/L (3.5-5.1); Sodium 139 mmol/L (136-145)
[2018-05-29 16:05] LABS: TSH 2.76 uIU/mL (0.358-3.74)
== END 2018-05-29 12:48 ==
LOC: LBN 12:28
PROVIDERS: Visit Provider Family Medicine
DX: N18.3 Chronic kidney disease, stage 3 (moderate) (principal); E03.9 Hypothyroidism, unspecified
CPT/HCPCS: 80048; 84443; 85025

== ENCOUNTER → 2018-05-30 07:59 | Outpatient (BNVA) | payer MEDICARE, SELFPAY | PROVIDERS: Referring Provider Internal Medicine; Visit Provider Psychiatry & Neurology Neurology | DX: I65.23 Occlusion and stenosis of bilateral carotid arteries (principal); R55 Syncope and collapse; M47.12 Other spondylosis with myelopathy, cervical region | CPT/HCPCS: 99214 ==

== ENCOUNTER 2018-06-21 12:00 | Outpatient (CLI) | payer MEDICARE, SELFPAY ==
[2018-06-21 14:14] LABS: TSH 2.38 uIU/mL (0.358-3.74)
== END 2018-06-21 12:20 ==
PROVIDERS: Visit Provider Nurse Practitioner Adult Health
DX: E03.9 Hypothyroidism, unspecified (principal)
CPT/HCPCS: 84443

== ENCOUNTER 2018-07-18 13:18 | Outpatient (REF) | payer MEDICARE, SELFPAY ==
[2018-07-18 14:01] LABS: HCT 30.1 % (36.0-46.0); HGB 9.3 g/dL (12.0-15.5); Mean Corp. HGB Concentration 30.9 g/dL (32.0-36.0); Mean Corpuscular Hemoglobin 29.4 pg (27.0-33.0); Mean Corpuscular Volume 95.3 fL (80-95); Mean Platelet Volume 11.2 fL (8.0-11.0); Platelet Count 294 x1000/uL (130-400); RBC 3.16 m/cumm (4.00-5.20); RBC Distribution Width 14.9 % (11.7-14.6); White Blood Cell Count 6.53 k/cumm (4.4-10.8)
[2018-07-18 14:32] LABS: ALT 37 U/L (12-78); AST 34 U/L (15-37); Albumin 3.7 g/dL (3.4-5.0); Alkaline Phosphatase 195 U/L (46-116); Anion Gap 9.1 mmol/L (3-11); BUN 20 mg/dL (7-18); Bilirubin, Total 0.7 mg/dL (0.2-1.0); CO2 27.9 mmol/L (21.0-32.0); CREATININE 1.11 mg/dL (0.55-1.02); Calcium 9.5 mg/dL (8.5-10.1); Chloride 100 mmol/L (98-107); Estimated GFR 46.94 (mL/min/1.73m2); Glucose 102 mg/dL (70-100); Potassium 4.4 mmol/L (3.5-5.1); Sodium 137 mmol/L (136-145); Total Protein 7.1 g/dL (6.4-8.2)
== END 2018-07-18 13:38 ==
LOC: LBN 13:18
DX: D64.9 Anemia, unspecified (principal); E03.9 Hypothyroidism, unspecified; I65.23 Occlusion and stenosis of bilateral carotid arteries; K21.9 Gastro-esophageal reflux disease without esophagitis; M97 Periprosthetic fracture around internal prosthetic joint; R55 Syncope and collapse; Z96.649 Presence of unspecified artificial hip joint; D50.9 Iron deficiency anemia, unspecified; N18.3 Chronic kidney disease, stage 3 (moderate)
CPT/HCPCS: 80053; 85027

== ENCOUNTER 2018-07-19 10:55 | Outpatient (CLI) | payer MEDICARE, SELFPAY ==
--- NOTE | 2018-07-19 10:53 | DI.RAD_ITS ---
SYMPTOMS/DIAGNOSIS: F/U OPEN REDUCTION AND INTERNAL FIXATION RIGHT KNEE: When compared with the previous examination, there has been no interval change in the status of the right femoral fracture, orthopedic hardware in place. The patient is status post TKA.
== END 2018-07-19 11:15 ==
PROVIDERS: Visit Provider Orthopaedic Surgery
DX: M97.8XXD Periprosthetic fracture around other internal prosthetic joint, subsequent encounter (principal); Z96.651 Presence of right artificial knee joint
CPT/HCPCS: 99213; 73560

== ENCOUNTER 2018-08-01 02:28 | Outpatient (CLI) | payer MEDICARE, SELFPAY ==
--- NOTE | 2018-08-04 05:53 | HOLTER_ITS ---
HOLTER MONITOR DATE OF DICTATION August 03, 2018 STUDY INDICATIONS: Syncope. REQUESTING PROVIDER Maricel Bella NP FINDINGS: The patient was monitored for two days. The baseline rhythm was sinus rhythm. The average heart rate 62 beats per minute, range 49 to 100 beats per minute. Occasional PVCs 1046 per 48 hours, 0.6%. No VT. Occasional PACs, 1252 per 48 hours, 0.7%, one 4-beat atrial run, maximum heart 135 beats per minute. No higher degree heart block. No pauses greater than 3 seconds. No patient events. FINAL INTEPRETATION: Occasional ectopy, otherwise normal study. Corky Cardona M.D. ALAN/castro T - 06-06-19
== END 2018-08-01 02:48 ==
DX: R55 Syncope and collapse (principal); I49.3 Ventricular premature depolarization; I49.1 Atrial premature depolarization
CPT/HCPCS: 93227; 93225

== ENCOUNTER 2018-08-03 08:57 | Outpatient (CLI) | payer MEDICARE, SELFPAY | END 2018-08-03 09:17 | DX: R55 Syncope and collapse (principal); I49.3 Ventricular premature depolarization; I49.1 Atrial premature depolarization | CPT/HCPCS: 93227; 93226 ==

== ENCOUNTER 2018-08-10 08:18 | Outpatient (CLI) | payer MEDICARE, SELFPAY ==
[2018-08-10 08:22] VITALS: BP 182/58; PULSE 66; RESP 16; TEMP 36.8; O2SAT 100
--- NOTE | 2018-08-10 08:46 | DI.RAD_ITS ---
SYMPTOM/DIAGNOSIS: SI JOINT DYSFUNCTION, INJECTION C-ARM: Fluoroscopy Time: 25.4 sec., 9.14 mGy. Fluoroscopy was utilized by Dr. Cristina during the performance of a left sacroiliac joint injection. Please refer to the procedure report for complete details.
[2018-08-10 08:48] VITALS: BP 183/67; PULSE 73; RESP 20; O2SAT 100
[2018-08-10] MEDS: Bupivacaine 0.5% Pres-Free 10 ML VIAL IJ (08:49)
[2018-08-10] MEDS: methylPREDNISolone ACETATE 80 MG/ML VIAL IJ (08:49)
[2018-08-10] MEDS: Omnipaque 240 MG/ML 50 ML BTL IJ (08:49)
--- NOTE | 2018-08-10 08:55 | PDOC.PAIN_ITS ---
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 COMMENTS: Patient has had previous SI joint injection on the left with good relief Patient was interviewed and the medical record reviewed. There were no medical, pharmacologic, radiographic or other structural contraindications to attempting fluoroscopically guided intra-articular SI joint injection. Risks and expected side effects as well as potential benefit of the procedure were reviewed and voiced concerns addressed. The printed consent form was signed and witnessed. Standard time-out procedure was performed. Patient was placed in the prone position on the fluoroscopy table and automated blood pressure cuff and pulse oximeter applied. The skin entry point for approaching { left } SI joints was identified under the most advantageous fluoroscopic view and marked. Following thorough Chlorhexadine preparation of the skin and draping and 1% lidocaine infiltration of the skin entry point and subcutaneous tissues, a 22 gauge spinal needle was placed under fluoroscopic guidance into { left } SI joints was identified under the most advantageous fluoroscopic view and marked. Following thorough Chlorhexadine preparation of the skin and draping and 1% lidocaine infiltration of the skin entry point and subcutaneous tissues, a 22 gauge spinal needle was placed under fluoroscopic guidance into { /left/110 two 0/10} SI joint. Intra-articular placement was confirmed by a clear arthrogram resulting from the injection of 0.25ml Omnipaque 240, 1ml 0.5% bupivacaine, and half ml (40mg) of 80mg concentration Depomedrol were injected intra-articularily with an initial reproduction of a significant component of the usual pain. Vital signs were stable throughout the procedure and were as recorded in the docflowsheet by the nursing staff. If given, dosages of intravenous drugs for anxiolysis and analgesia were documented in MAR. Follow up plans and appointments were discussed with the patient. Post procedure instruction was given as documented in nursing documentation and having met discharge criteria, and was discharged from the [facility]. COMMENTS:. Pain went from 6/10 to 0/10. She will follow-up as needed. CC: Maricel Bella APRN
== END 2018-08-10 08:38 ==
PROVIDERS: Visit Provider Anesthesiology Pain Medicine
DX: M53.3 Sacrococcygeal disorders, not elsewhere classified (principal)
CPT/HCPCS: 27096; 72200; J1040; Q9967

== ENCOUNTER 2018-09-13 12:58 | Outpatient (CLI) | payer MEDICARE, SELFPAY ==
--- NOTE | 2018-09-13 10:38 | DI.RAD_ITS ---
SYMPTOM/DIAGNOSIS: F/U RIGHT KNEE: Comparison is made with 07/19/08. There is again seen side plate and screw transfixing a healing fracture of the distal right femur. No change in alignment of the visualized orthopedic hardware or fracture components is seen. Incidental note is again made of a right total knee replacement. The bones are osteopenic. There is a joint effusion present. Vascular calcifications are present.
== END 2018-09-13 13:18 ==
PROVIDERS: Visit Provider Orthopaedic Surgery
DX: M97.8XXD Periprosthetic fracture around other internal prosthetic joint, subsequent encounter (principal); Z96.651 Presence of right artificial knee joint; M25.461 Effusion, right knee; M85.88 Other specified disorders of bone density and structure, other site; I10 Essential (primary) hypertension
CPT/HCPCS: 99213; 73560

== ENCOUNTER 2018-11-08 10:31 | Outpatient (CLI) | payer MEDICARE, SELFPAY ==
--- NOTE | 2018-11-08 10:04 | DI.RAD_ITS ---
SYMPTOM/DIAGNOSIS: F/U RIGHT KNEE: 11/08 Two views were obtained and show total knee joint replacement in position with plate and screw fixation of the distal femur. Alignment appears unchanged in comparison with previous examination of September 13.
== END 2018-11-08 10:51 ==
PROVIDERS: Visit Provider Orthopaedic Surgery
DX: Z47.1 Aftercare following joint replacement surgery; M97.8XXA Periprosthetic fracture around other internal prosthetic joint, initial encounter; Z96.651 Presence of right artificial knee joint
CPT/HCPCS: 99213; 73560

== ENCOUNTER 2018-12-22 12:29 | Outpatient (CLI) | payer MEDICARE, SELFPAY ==
[2018-12-22 13:40] LABS: HCT 34.9 % (36.0-46.0); HGB 11.1 g/dL (12.0-15.5); Mean Corp. HGB Concentration 31.8 g/dL (32.0-36.0); Mean Corpuscular Hemoglobin 30.7 pg (27.0-33.0); Mean Corpuscular Volume 96.4 fL (80-95); Mean Platelet Volume 10.4 fL (8.0-11.0); Platelet Count 305 x1000/uL (130-400); RBC 3.62 m/cumm (4.00-5.20); RBC Distribution Width 12.9 % (11.7-14.6); White Blood Cell Count 6.04 k/cumm (4.4-10.8)
[2018-12-22 14:46] LABS: Hemoglobin A1C 5.6 % (4.5-6.2)
[2018-12-22 15:24] LABS: BUN 22 mg/dL (7-18); CREATININE 1.24 mg/dL (0.55-1.02); Calcium 9.9 mg/dL (8.5-10.1); Calculated LDL 237 mg/dL; Chloride 103 mmol/L (98-107); Cholesterol 331 mg/dL (50-200); Estimated GFR 41.31 (mL/min/1.73m2); Glucose 123 mg/dL (70-100); HDL Cholesterol 49 mg/dL (40-60); Potassium 4.8 mmol/L (3.5-5.1); Sodium 142 mmol/L (136-145); TSH (W/Ref FT4) 1.32 uIU/mL (0.36-3.74); Triglyceride 226 mg/dL (30-150); Vitamin B12 1478 pg/mL (193-986)
== END 2018-12-22 12:49 ==
DX: D64.9 Anemia, unspecified (principal); E03.9 Hypothyroidism, unspecified; E87.5 Hyperkalemia; F32.9 Major depressive disorder, single episode, unspecified; H43.813 Vitreous degeneration, bilateral; I10 Essential (primary) hypertension; I65.23 Occlusion and stenosis of bilateral carotid arteries; K21.9 Gastro-esophageal reflux disease without esophagitis; E78.5 Hyperlipidemia, unspecified; I27.20 Pulmonary hypertension, unspecified; L30.9 Dermatitis, unspecified; M19.90 Unspecified osteoarthritis, unspecified site; M35.3 Polymyalgia rheumatica; M54.12 Radiculopathy, cervical region; R73.09 Other abnormal glucose
CPT/HCPCS: 36415; 80048; 80061; 85027; 82607; 83036; 84443

== ENCOUNTER → 2019-03-27 09:51 | Outpatient (BNVA) | payer MEDICARE, SELFPAY | PROVIDERS: Visit Provider Student in an Organized Health Care Education/Training Program | DX: M16.12 Unilateral primary osteoarthritis, left hip (principal); G56.01 Carpal tunnel syndrome, right upper limb; M97 Periprosthetic fracture around internal prosthetic joint; Z96.641 Presence of right artificial hip joint; I12.9 Hypertensive chronic kidney disease with stage 1 through stage 4 chronic kidney disease, or unspecified chronic kidney disease; N18.3 Chronic kidney disease, stage 3 (moderate) | CPT/HCPCS: 99213; L3908 ==

== ENCOUNTER 2019-04-06 01:34 | Outpatient (CLI) | payer MEDICARE, SELFPAY ==
--- NOTE | 2019-04-06 15:03 | DI.RAD_ITS ---
EXAM: RF JOINT INJECTION FLUORO GUID CLINICAL HISTORY: PAIN-L HIP INJ UNDER FLUORO, PRIMARY OA LT HIP, M16.12 TECHNIQUE: Fluoroscopy was utilized by Dr. Zavala during left hip injection. COMPARISON: No exams were available for comparison FINDINGS: Hard copy shows intraarticular injection of the left. Fluoro time was 0.09 minutes.
[2019-04-06] MEDS: Omnipaque 300 MG/ML 10 ML BTL IV (15:34)
[2019-04-06] MEDS: Bupivacaine 0.5% Pres-Free 10 ML VIAL 50 ML IJ (15:35)
[2019-04-06] MEDS: methylPREDNISolone ACETATE 80 MG/ML VIAL IM (15:37)
--- NOTE | 2019-04-07 07:20 | W.PROCNOTE ---
Date of service: 04/06/19 Time of Service: 15:20 Procedure Note Date of procedure: 04/06/19 Procedure: Left Hip Injection with Fluoroscopic Guidance Surgeon/Proceduralist/Physician: Danish Zavala Procedure Diagnosis: Left Hip Osteoarthritis Procedure Indications: Brie has had persistent pain of the LEFT hip and groin. Noninvasive measures have been tried. To serve as both diagnostic and therapeutic, an injection under fluoroscopy was recommended. I had discussed the risks of the procedure and the patient elected to proceed. Procedure Description: Brie was greeted in the flouroscopy room. The correct side was identified and the consent was reviewed with the patient and signed. The patient was then placed in the supine position on the fluoroscopy table. The LEFT hip was then prepped with Chloraprep. The anterolateral injection starting point was identiifed by bony landmarks and fluoroscopy. The skin and soft tissue in the tract of the injection was anesthetized with 1% Lidocaine. A spinal needle was then inserted deep into the hip joint at the level of the lateral femoral neck under fluoroscopic guidance. A small amount of Omnipaque solution was injected to confirm intraarticular placement. Once confirmed, the hip was injected with 6cc of 0.5% Bupivicaine and 80mg of Depo-Medrol. A bandaid was placed on the injection site. The patient tolerated the procedure well and noted improvement in pre-injection pain.
== END 2019-04-06 01:54 ==
PROVIDERS: Visit Provider Student in an Organized Health Care Education/Training Program
DX: M25.552 Pain in left hip (principal); M16.12 Unilateral primary osteoarthritis, left hip
CPT/HCPCS: 20610; 77002; J1040

== ENCOUNTER → 2019-04-20 10:24 | Outpatient (BNVA) | payer MEDICARE, SELFPAY | PROVIDERS: Visit Provider Student in an Organized Health Care Education/Training Program | DX: M70.62 Trochanteric bursitis, left hip (principal); M16.12 Unilateral primary osteoarthritis, left hip; Z98.890 Other specified postprocedural states | CPT/HCPCS: 20610; 99213; J1040 ==

== ENCOUNTER 2019-11-21 01:13 | Outpatient (CLI) | payer MEDICARE, SELFPAY ==
--- NOTE | 2019-11-21 07:30 | DI.RAD_ITS ---
EXAM: XR HIP LT COMPLETE AP PELVIS CLINICAL HISTORY: Fall 1 month: continued hip pain,PRIMARY OA LT HIP, W19.XXXA,M16.12. TECHNIQUE: 2D digital imaging was performed. COMPARISON: RF XR femur RT from 04/19/2018 CR XR femur RT from 04/19/2018 FINDINGS: BONES: No acute or healing fracture is present. No bony destructive lesion is seen. There are again s een an intramedullary christina and screws in an old proximal right femoral fracture. JOINTS: No dislocation present. Moderate degenerative changes are seen in the hips bilaterally charac terized by joint space narrowing and periarticular spurring. SOFT TISSUE: Vascular calcifications are seen in the soft tissues. IMPRESSION: No evidence of an acute or healing left hip fracture. DATA REPOSITORY: RADIATION DOSE DELIVERED:
== END 2019-11-21 01:33 ==
DX: M25.552 Pain in left hip (principal); M16.12 Unilateral primary osteoarthritis, left hip
CPT/HCPCS: 73502

== ENCOUNTER 2020-01-19 01:32 | Outpatient (CLI) | payer MEDICARE, SELFPAY ==
[2020-01-19 13:52] LABS: ALT 24 U/L (14-59); AST 22 U/L (15-37); Albumin 4.2 g/dL (3.4-5.0); Alkaline Phosphatase 104 U/L (46-116); Anion Gap 10.2 mmol/L (3-11); BUN 20 mg/dL (7-18); Bilirubin, Total 0.7 mg/dL (0.2-1.0); CO2 27.8 mmol/L (21.0-32.0); CREATININE 1.29 mg/dL (0.55-1.02); Calcium 9.9 mg/dL (8.5-10.1); Calculated LDL 89 mg/dL (<100); Chloride 102 mmol/L (98-107); Cholesterol 172 mg/dL (<200); Estimated GFR 39.37 (mL/min/1.73m2); Glucose 109 mg/dL (74-106); HDL Cholesterol 69 mg/dL (40-60); Potassium 4.8 mmol/L (3.5-5.1); Sodium 140 mmol/L (136-145); TSH (W/Ref FT4) 0.44 uIU/mL (0.36-3.74); Total Protein 7.2 g/dL (6.4-8.2); Triglyceride 74 mg/dL (<150); Vitamin B12 1243 pg/mL (193-986)
== END 2020-01-19 01:52 ==
DX: D51.8 Other vitamin B12 deficiency anemias (principal); E03.9 Hypothyroidism, unspecified; E78.5 Hyperlipidemia, unspecified; M35.3 Polymyalgia rheumatica; N18.30 Chronic kidney disease, stage 3 unspecified; I10 Essential (primary) hypertension; K21.9 Gastro-esophageal reflux disease without esophagitis
CPT/HCPCS: 36415; 80053; 80061; 82607; 84443

== ENCOUNTER 2020-03-07 08:00 | Outpatient (CLI) | payer MEDICARE, SELFPAY ==
--- NOTE | 2020-03-07 11:15 | DI.RAD_ITS ---
EXAM: RF JOINT INJECTION FLUORO GUID CLINICAL HISTORY: LT HIP PAIN, M25.552 TECHNIQUE: 2D and realtime digital imaging was performed. CONTRAST MATERIAL: Refer to procedure report. COMPARISON: No exams were available for comparison FINDINGS: Fluoroscopy was provided for Dr. Zavala during left hip joint injection. Please refer to the procedure report for complete details. Fluoro time: 6 seconds. IMPRESSION:
[2020-03-07] MEDS: Bupivacaine 0.5% Pres-Free 10 ML VIAL 5 ML IJ (15:05)
[2020-03-07] MEDS: Omnipaque 300 MG/ML 10 ML BTL IJ (15:06)
[2020-03-07] MEDS: methylPREDNISolone ACETATE 80 MG/ML VIAL IM (15:07)
--- NOTE | 2020-03-08 14:25 | W.PROCNOTE ---
Date of service: 03/07/20 Time of Service: 14:51 Procedure Note Date of procedure: 03/07/20 Procedure: Left Hip Injection with Fluoroscopic Guidance Surgeon/Proceduralist/Physician: Danish Zavala Procedure Diagnosis: Left Hip Osteoarthritis Procedure Indications: Brie has had persistent pain of the LEFT hip and groin. Noninvasive measures have been tried. To serve as both diagnostic and therapeutic, an injection under fluoroscopy was recommended. She has had a previous injection in April with good results. I had discussed the risks of the procedure and the patient elected to proceed. Procedure Description: Brie was greeted in the flouroscopy room. The correct side was identified and the consent was reviewed with the patient and signed. The patient was then placed in the supine position on the fluoroscopy table. The LEFT hip was then prepped with Chloraprep. The anterolateral injection starting point was identiifed by bony landmarks and fluoroscopy. The skin and soft tissue in the tract of the injection was anesthetized with 1% Lidocaine. A spinal needle was then inserted deep into the hip joint at the level of the lateral femoral neck under fluoroscopic guidance. A small amount of Omnipaque solution was injected to confirm intraarticular placement. Once confirmed, the hip was injected with 6cc of 0.5% Bupivicaine and 80mg of Depo-Medrol. A bandaid was placed on the injection site. The patient tolerated the procedure well and noted improvement in pre-injection pain although not as complete as her previous injection.
== END 2020-03-07 08:20 ==
PROVIDERS: Visit Provider Student in an Organized Health Care Education/Training Program
DX: M25.552 Pain in left hip (principal); M16.11 Unilateral primary osteoarthritis, right hip; R10.32 Left lower quadrant pain
CPT/HCPCS: 20610; 77002; J1040

== ENCOUNTER 2020-08-09 15:17 | Emergency (ER) | payer MEDICARE, SELFPAY ==
[2020-08-09 15:32] VITALS: BP 167/53; PULSE 63; RESP 16; TEMP 36.6; O2SAT 98
--- NOTE | 2020-08-09 15:52 | W.ED.GENAD ---
Discharge Plan Disposition Patient Disposition: HOME Condition: Improving Discharge Details Clinical Impression: Acute pain of both shoulders Primary Care Provider: Maricel Bella ED Provider: Phoebe Strong Home Meds and New Rx's Prescriptions: Continued polyethylene glycol 3350 [Miralax] 17 gram powder in packet 17 gm PO DAILY RF: 0 loratadine [Allergy Relief (loratadine)] 10 mg tablet 10 mg PO DAILY PRN (Reason: allergy symptoms) Qty: 30 RF: 1 betamethasone dipropionate 0.05 % cream 1 applic topical BID PRN (Reason: skin irritation) Qty: 45 RF: 3 hydrocodone-acetaminophen 5-325 mg tablet 1 tab PO BID MDD 2 tabs PRN (Reason: chronic back ) Qty: 60 RF: 0 lidocaine 4 % adhesive patch,medicated 1 patch TP DAILY PRN (Reason: pain) Qty: 6 RF: 3 hydrocortisone [Proctozone-HC] 30 GM cream with perineal applicator 30 gm RC BID PRNQty: 30 RF: 6 sucralfate 1 gram tablet 1 g PO AC & HS Qty: 112 RF: 11 gabapentin 300 mg capsule 300 mg PO QHS Qty: 90 RF: 1 acyclovir 400 mg tablet 400 mg PO BID Qty: 20 RF: 5 atorvastatin [Lipitor] 40 mg tablet 40 mg PO QPM Qty: 30 RF: 11 docusate sodium [Colace] 100 mg capsule 100 mg PO BID Qty: 60 RF: 11 ferrous sulfate 325 mg (65 mg iron) tablet 325 mg PO DAILY Qty: 30 RF: 11 hydrochlorothiazide 25 mg tablet 25 mg PO DAILY Qty: 30 RF: 11 magnesium oxide 400 mg (241.3 mg magnesium) tablet 400 mg PO BID Qty: 60 RF: 11 calcium citrate [Calcitrate] 200 mg (950 mg) tablet 800 mg PO BID Qty: 240 RF: 11 cyanocobalamin (vitamin B-12) [Vitamin B-12] 1,000 mcg tablet extended release 1,000 mcg PO .every other day Qty: 15 RF: 11 levothyroxine 75 mcg tablet 75 mcg PO DAILY@0600 Qty: 30 RF: 11 lisinopril 5 mg tablet 5 mg PO DAILY Qty: 30 RF: 11 acetaminophen [Tylenol] 325 MG tablet 650 mg PO Q4H PRN PRNRF: 0 alum-mag hydroxide-simeth [Mag-Al Plus] 200-200-20 mg/5 mL Suspension 30 ml PO Q2H PRN PRN (Reason: dyspepsia) Qty: 1 RF: 0 Discharge Instructions Instructions: Shoulder Pain (ED) Additional Instructions: Please continue with physical therapy and your home exercises. Please avoid activites that cause pain. You received injection of local anesthetic and steroid in your left shoulder today. This can take several days to cause improvement. Referral for orthopedics has been sent, please call Wednesday to schedule follow up. If you develop fevers/chills, increased pain, redness or other new/worsening symptoms please seek care urgently once again. Referrals: Maricel Bella NP [Primary Care Provider] - Danish Zavala MD [ [facility] STAFF PHYSICIAN] - Discharge Data Discharge Date/Time-TO BE ENTERED AT DEPARTURE: 08/09/20 18:07 Medical Decision Making Patient is a pleasant 85-year-old fynim-gwtv-zcqxscep female presenting today with chief complaint of bilateral shoulder pain. She reports the pain began back in April. Initially, reports the pain is maximal in the posterior aspect of the right shoulder and scapula. However, pain continues to worsen and is now maximal over the left shoulder. She has been seen twice by her primary care. Has been working with physical therapy. Despite this, pain has continued to progress this point now she is having difficulty sleeping secondary to the pain on the left arm. She denies any trauma. No numbness or tingling. Denies any midline pain. On exam, patient appears nontoxic. She does appear uncomfortable. No midline or cervical tenderness. Negative Spurling's test. No midline tenderness throughout the thoracic spine. She does have pain at the edge of the right scapula as well as over the left scapula but no deformity, discoloration or evidence of trauma is appreciable. Exam of the shoulders is significant for limited forward elevation on the left shoulder compared to the right. She is neurovascularly intact. She does have pain with Neer and Pimentel bilaterally, again left greater than right. Pain is maximal over the subacromial space. She does have notably arthritic hands. States that she does have stiffness in the hands in the morning. Primarily concern for impingement syndrome particularly of the left shoulder. She is been working with PT for both shoulders the past few months, plan to move forward with x-ray for further evaluation. FINDINGS: Bones/joints: Enthesopathic change humeral head. Mild AC joint osteoarthrosis. Degenerative changes spine. No acute fracture or dislocation. Mild glenohumeral joint osteoarthrosis. Lungs: Visualized lung appears clear. Vasculature: Aortic arch calcifications. Soft tissues: Unremarkable soft tissues. IMPRESSION: Degenerative changes without acute findings. FINDINGS: Bones/joints: Enthesopathic change humeral head. Moderate osteoarthrosis glenohumeral joint. No acute fracture or dislocation. Soft tissues: Unremarkable soft tissues. IMPRESSION: Degenerative changes without acute findings. Discussed this finding with the patient. Patient clearly uncomfortable in the left shoulder. She denies discussed risk/benefits as well as expected procedural steps associated with steroid injection of the left shoulder for impingement syndrome. Patient has had steroid injections historically, last use of the left hip in March. She has not had any in the shoulder historically. S she was understanding and wishes to proceed. Please see procedure note. Patient was injected into the left shoulder using standard sterile technique with 40 of Kenalog and 3 cc of lidocaine. Patient tolerated this well. Had immediate improvement in her discomfort and improvement of her range of motion. She was given return precautions. She will continue to work with physical therapy. Will refer to orthopedics for her shoulder pain. Home remedies as well as otih-whg-[id number] medication to help her discomfort were discussed. All of her questions and concerns were addressed, she is in agreement with plan. HPI General Mode of arrival: ambulatory. Date/Time Provider Initiated Documentation: 08/09/20 15:52. Limitations to Documentation: no limitations. Information obtained by: patient, family (friend) and RN notes reviewed. History of Present Illness 85 year old F presents to the emergency department with the chief complaint of bilateral shoulder pain, described as severe, with intensity rated at 9. Quality is described as aching, and is localized to the left, right and upper extremity. Patient extremity (shoulder pain radiates toward elbow, both hands stiff). Patient started experiencing this month(s) (3) and it has been constant. Immobilization improves symptom(s), Movement worsens symptoms . Patient notes no other symptoms.. Patient did receive the following treatments prior to arrival, other (PT) Related Data Home Medications Medication Instructions Recorded Confirmed acetaminophen [Tylenol] 650 mg PO Q4H PRN PRN tab 12/15/16 08/09/20 hydrocortisone [Proctozone-HC] 30 gm RC BID PRN #30 gm 02/01/17 08/09/20 alum-mag hydroxide-simeth [Mag-Al 30 ml PO Q2H PRN PRN #1 ml 04/26/18 08/09/20 Plus] polyethylene glycol 3350 17 gram 17 gm PO DAILY 07/08/18 08/09/20 oral powder packet lidocaine 4 % topical patch 1 patch TP DAILY PRN #6 each 11/08/18 08/09/20 sucralfate 1 gram tablet 1 g PO AC & HS #112 tab 05/02/19 08/09/20 gabapentin 300 mg capsule 300 mg PO QHS #90 cap 05/24/19 08/09/20 acyclovir 400 mg tablet 400 mg PO BID #20 tab-cap 05/26/19 08/09/20 loratadine 10 mg tablet 10 mg PO DAILY PRN #30 tab 11/16/19 08/09/20 atorvastatin 40 mg tablet 40 mg PO QPM #30 tab 04/22/20 08/09/20 docusate sodium 100 mg capsule 100 mg PO BID #60 cap 04/22/20 08/09/20 ferrous sulfate 325 mg (65 mg 325 mg PO DAILY #30 tab 04/22/20 08/09/20 iron) tablet hydrochlorothiazide 25 mg tablet 25 mg PO DAILY #30 tab 04/22/20 08/09/20 magnesium oxide 400 mg (241.3 mg 400 mg PO BID #60 tab 04/22/20 08/09/20 magnesium) tablet calcium citrate 200 mg (950 mg) 800 mg PO BID #240 tab 04/23/20 08/09/20 tablet cyanocobalamin (vitamin B-12) 1,000 mcg PO .every other day #15 04/23/20 08/09/20 1,000 mcg tablet,extended release tab levothyroxine 75 mcg tablet 75 mcg PO DAILY@0600 #30 tab 04/23/20 08/09/20 betamethasone dipropionate 0.05 % 1 applic TOPICAL BID PRN #45 g 05/16/20 08/09/20 topical cream hydrocodone 5 mg-acetaminophen 325 1 tab PO BID PRN #60 tab MDD 2 tabs 05/16/20 08/09/20 mg tablet lisinopril 5 mg tablet 5 mg PO DAILY #30 tab 05/20/20 08/09/20 Previous Rx's Medication Instructions Recorded acetaminophen [Tylenol] 650 mg PO Q4H PRN PRN tab 12/15/16 alum-mag hydroxide-simeth [Mag-Al 30 ml PO Q2H PRN PRN #1 ml 04/26/18 Plus] lidocaine 4 % topical patch 1 patch TP DAILY PRN #6 each 11/08/18 sucralfate 1 gram tablet 1 g PO AC & HS #112 tab 05/02/19 gabapentin 300 mg capsule 300 mg PO QHS #90 cap 05/24/19 acyclovir 400 mg tablet 400 mg PO BID #20 tab-cap 05/26/19 loratadine 10 mg tablet 10 mg PO DAILY PRN #30 tab 11/16/19 atorvastatin 40 mg tablet 40 mg PO QPM #30 tab 04/22/20 docusate sodium 100 mg capsule 100 mg PO BID #60 cap 04/22/20 ferrous sulfate 325 mg (65 mg 325 mg PO DAILY #30 tab 04/22/20 iron) tablet hydrochlorothiazide 25 mg tablet 25 mg PO DAILY #30 tab 04/22/20 magnesium oxide 400 mg (241.3 mg 400 mg PO BID #60 tab 04/22/20 magnesium) tablet calcium citrate 200 mg (950 mg) 800 mg PO BID #240 tab 04/23/20 tablet cyanocobalamin (vitamin B-12) 1,000 mcg PO .every other day #15 04/23/20 1,000 mcg tablet,extended release tab levothyroxine 75 mcg tablet 75 mcg PO DAILY@0600 #30 tab 04/23/20 betamethasone dipropionate 0.05 % 1 applic TOPICAL BID PRN #45 g 05/16/20 topical cream hydrocodone 5 mg-acetaminophen 325 1 tab PO BID PRN #60 tab MDD 2 tabs 05/16/20 mg tablet lisinopril 5 mg tablet 5 mg PO DAILY #30 tab 05/20/20 Allergies Allergy/AdvReac Type Severity Reaction Status Date / Time adhesive Allergy Severe Skin Rash Verified 08/09/20 15:36 latex Allergy Intermediate Skin Rash Verified 08/09/20 15:36 azithromycin AdvReac Severe DIARRHEA Verified 08/09/20 15:36 fluticasone propionate AdvReac Severe SEVER NOSE Verified 08/09/20 15:36 [From Flonase] IRRITATION General Stated Complaint: Orthopedic AYAD: 3 Review of Systems Constitutional Constitutional: Reports as per HPI, Denies chills, Denies fever(s), Denies headache(s) and Denies weakness ENT Ears, Nose, Mouth, and Throat: Denies headache(s) Cardiovascular Cardiovascular: Reports as per HPI Respiratory Respiratory: Reports as per HPI and Denies cough Musculoskeletal Musculoskeletal: Reports as per HPI and Denies tingling Integumentary/Breasts Skin/Breast: Reports as per HPI, Denies rash and Denies wounds Neurologic Neurologic: Reports as per HPI, Denies headache(s), Denies tingling, Denies paresthesias and Denies weakness [facility] Medical History Acute effusion of left ear Acute on chronic anemia Acute upper back pain Advanced directives, counseling/discussion Babinski reflex Carotid stenosis, bilateral Cervical radiculopathy at C6 (08/10/14) neck pain Cervical stenosis of spinal canal Chronic constipation Chronic pain of both shoulders (09/18/15) Chronic renal disease, stage 3, moderately decreased glomerular filtration rate (GFR) between 30-59 mL/min/1.73 square meter Chronic shoulder pain Cold sore Colon polyps Depressive disorder (01/29/04) Dermatitis (03/03/16) Diarrhea (05/04/14) Elevated fasting glucose Essential hypertension (06/28/13) Exudative age-related macular degeneration, left eye, with active choroidal neovascularization Fall Foot pain, left (06/14/17) Gastroesophageal reflux disease (06/10/12) hiatal hernia (2006 UGI) GERD (gastroesophageal reflux disease) Hx of breast cancer Hyperkalemia Hyperlipidemia Hypothyroidism (06/10/12) Impaired fasting glucose Left carpal tunnel syndrome (03/19/17) Left hip pain Lichen planus OF [place] (seen at [facility]) Nocturnal hypoxia Nonexudative age-related macular degeneration, right eye, intermediate dry stage Osteoarthritis right TKR Osteoporosis Polymyalgia rheumatica (07/24/14) Posterior vitreous detachment of both eyes Pulmonary hypertension Pulmonary nodule Recurrent canker sores Sacroiliac joint dysfunction Sciatica bilateral; MRI 12/06 spinal stenosis; 2008-spine clinic [facility] steroid injections. 01/12 [facility] pain clinic meidal branch radiofrequency (MRI severe spinal stenosis) Skin lesion Syncopal episodes Tendinitis of right forearm Tendinitis of right shoulder Tinnitus of left ear Umbilical hernia without obstruction and without gangrene (11/20/15) Repair with 6.4 Ventralex Vitamin B12 deficiency disease Surgical History Breast, Mastectomy 1988-left Cholecystectomy laparoscopic Tata-prosthetic femur fracture at tip of prosthesis S/P ORIF of periprosthetic fracture of right distal femur DOS: 04/16/18 Dr. Villar Repair of umbilical hernia (04/15/16) Replacement of total knee joint right S/P carpal tunnel release Family History Sister Cancer Mother No problems noted. Father No problems noted. Sister No problems noted. Son No problems noted. Son No problems noted. Social History Smoking/Tobacco Use Status: Former Tobacco Use Smoking risk assessment performed?: Yes Alcohol Intake: current Alcohol Intake frequency: holidays/special occasions only Drug use: Never Substance use type: does not use Household members: none Housing: house Number of Children: 2 current occupation: retired Pets and animals: No Sexually active: No Current gender identity: female What is your relationship status?: refused to answer How often do you talk on the phone with friends or family?: decline to answer How often do you get together with friends or relatives?: decline to answer How often do you attend taoism or zoroastrian services?: 4 or more times per year Do you belong to any clubs or organized social groups?: decline to answer Panel score (0-1 are the most socially isolated patients): 1 What type of physical activity do you participate in: swimming Frequency: 1-2 times per week Evelyn/Scientology: [employer] Special evelyn needs: No Seatbelt use: always Drive intox 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 Do you feel safe in your relationship?: Yes Exam Const General: cooperative, healthy appearing, comfortable, no acute distress, well developed and well groomed Nutritional Appearance: average body habitus and well nourished Orientation: alert and awake Resp Effort & Inspection: normal respiratory effort, able to speak in complete sentences and no respiratory distress Cardio Rate: regular rate Rhythm: regular rhythm Back/Spine/Pelvis Cervical Spine: normal cervical lordosis, cervical ROM normal, No cervical spinal tenderness, No step off deformity and other (negative Spurling's test) Thoracic/Lumbar Spine: thoracic and lumbar spine normal to inspection, thoraco-lumbar ROM normal, No thoracic spinal tenderness, No lumbar spinal tenderness and other (muscle tenderness over both scapula, R>L) Skin General skin exam: no rashes or lesions noted Lesions: no lesions Rashes: no rashes Trauma: no lacerations or abrasions Neuro General: patient alert and patient awake Cognition: normal cognition Speech: speech normal Gait: normal gait Motor: muscle tone normal throughout, strength not 5/5 throughout (4/4 throughout, equal bilaterally), no movement abnormalities noted and no fasciculations Sensory Exam: no sensory deficits noted Extrem Shoulder/upper arm images: 1. Exam of the left upper extremity significant for pain maximal over the lateral aspect of the shoulder. Patient does have pain in this area elicited with Neer and Pimentel both of which causes pain going down the lateral aspect of the arm towards the elbow. She is lacking approximately 20 degrees from full forward flexion. Internal and external rotation is equal to that of the contralateral side. Full range of motion of the elbow, wrist, hand. 4 out of 5 poultryman strength but this is equal to the contralateral side. Hands are notably arthritic. She has 2+ distal pulses. Sensation is intact. Normal capillary refill. 2. Exam of the right upper extremity significant for pain maximal over the lateral aspect of the shoulder. Patient does have pain in this area elicited with Neer and Pimentel both of which causes pain going down the lateral aspect of the arm towards the elbow. Full forward extension. Internal and external rotation is equal to that of the contralateral side. Full range of motion of the elbow, wrist, hand. 4 out of 5 poultryman strength but this is equal to the contralateral side. Hands are notably arthritic. She has 2+ distal pulses. Sensation is intact. Normal capillary refill. Psych Appearance: grossly normal and well kempt Mental Status: mental status grossly normal Speech and Movement: speech and movement normal Course Vital Signs Vital signs: Vital Signs Temperature 36.6 C 08/09/20 15:32 Pulse 63 08/09/20 15:32 Respiratory Rate 16 08/09/20 15:32 Blood Pressure 167/53 H 08/09/20 15:32 Pulse Oximetry 98 08/09/20 15:32 Temperature 36.6 C 08/09/20 15:32 Temperature Source Skin 08/09/20 15:32 Pulse 63 08/09/20 15:32 Respiratory Rate 16 08/09/20 15:32 Respiratory Effort Non-Labored 08/09/20 15:32 Blood Pressure 167/53 H 08/09/20 15:32 Blood Pressure Position Sitting 08/09/20 15:32 Pulse Oximetry 98 08/09/20 15:32 Oxygen Delivery Method Room Air 08/09/20 15:32 Oxygen Flow Rate 0 08/09/20 15:32 Pain Level 9 08/09/20 15:32 Procedures Joint Aspiration/Injection Joint Asp./Inject. 1: Time Out Performed: Yes Side of body: left Joint Aspirated: shoulder Ultrasound Guidance: No Skin Prep: Chlorhexidene Local Anesthetic: Lidocaine 1% Amount of anesthesia used (mL): 3 Needle Size Used: 22G Medication Injected, if any: Triamcinolone Acetate Amount of Medication Injected (mls): 1 Patient Tolerated Procedure: well and no complications Complications: none
--- NOTE | 2020-08-09 16:00 | DI.RAD_ITS ---
Exam(s) XR SHOULDER LT COMPLETE 2+V EXAM: XR SHOULDER LT COMPLETE 2+V CLINICAL HISTORY: pain for months. TECHNIQUE: 2D digital imaging was performed. COMPARISON: No exams were available for comparison FINDINGS: No acute fracture or dislocation. Moderate degenerative changes are seen at the glenohumeral joint w ith joint space narrowing and periarticular spurring. There is a calcification adjacent to the great er tuberosity consistent with calcific tendinitis. The soft tissues are otherwise unremarkable. IMPRESSION: Degenerative changes of the left shoulder. DATA REPOSITORY: RADIATION DOSE DELIVERED:
--- NOTE | 2020-08-09 16:00 | DI.RAD_ITS ---
Exam(s) XR SHOULDER RT COMPLETE 2+V EXAM: XR SHOULDER RT COMPLETE 2+V CLINICAL HISTORY: pain for months. TECHNIQUE: 2D digital imaging was performed. COMPARISON: No exams were available for comparison FINDINGS: There are mild degenerative changes at the acromioclavicular joint. Enthesopathy is present at the g reater tuberosity. The bones are normally mineralized. No acute fracture or dislocation. Soft tiss ues are unremarkable. IMPRESSION: Degenerative changes at the right shoulder. DATA REPOSITORY: RADIATION DOSE DELIVERED:
[2020-08-09] MEDS: Acetaminophen 325 MG TAB 650 MG PO (16:19)
[2020-08-09] MEDS: Ibuprofen 600 MG TAB PO (16:20)
[2020-08-09] MEDS: Lidocaine 1% Multi-Dose 20 ML VIAL IJ (17:23)
[2020-08-09] MEDS: Triamcinolone 40 MG/ML VIAL IM (17:23)
--- NOTE | 2020-08-09 17:31 | DI.VRAD_ITS ---
PROCEDURE INFORMATION: Exam: XR Left Shoulder Exam date and time: 08/09/2020 4:12 PM Age: 85 years old Clinical indication: Patient HX: Left shoulder pain x months TECHNIQUE: Imaging protocol: XR Left shoulder. Views: 2 or more views. COMPARISON: No relevant images were readily available for comparison purposes. FINDINGS: Bones/joints: Enthesopathic change humeral head. Moderate osteoarthrosis glenohumeral joint. No acute fracture or dislocation. Soft tissues: Unremarkable soft tissues. IMPRESSION: Degenerative changes without acute findings. Dictated and Authenticated by: Otf Lopez MD. Ordering:LAZ Sandhu MD
--- NOTE | 2020-08-09 17:32 | DI.VRAD_ITS ---
PROCEDURE INFORMATION: Exam: XR Right Shoulder Exam date and time: 08/09/2020 4:12 PM Age: 85 years old Clinical indication: Patient HX: Right shoulder pain x months TECHNIQUE: Imaging protocol: XR Right shoulder. Views: 2 or more views. COMPARISON: CR XR SHOULDER LT COMPLETE 2+V 08/09/2020 4:49 PM FINDINGS: Bones/joints: Enthesopathic change humeral head. Mild AC joint osteoarthrosis. Degenerative changes spine. No acute fracture or dislocation. Mild glenohumeral joint osteoarthrosis. Lungs: Visualized lung appears clear. Vasculature: Aortic arch calcifications. Soft tissues: Unremarkable soft tissues. IMPRESSION: Degenerative changes without acute findings. Dictated and Authenticated by: Otf Lopez MD. Ordering:LAZ Sandhu MD
[2020-08-09 18:16] VITALS: BP 163/82; PULSE 64; TEMP 36.4
== END 2020-08-09 18:07 | disposition home or self-care (01) ==
PROVIDERS: Emergency Provider Physician Assistant
DX: M25.512 Pain in left shoulder (principal); M25.511 Pain in right shoulder
CPT/HCPCS: 20610; 99284; 73030; 99283; J3490

== ENCOUNTER → 2020-09-04 13:58 | Outpatient (BNVA) | payer MEDICARE, SELFPAY | PROVIDERS: Visit Provider Physician Assistant Surgical | DX: M75.82 Other shoulder lesions, left shoulder (principal); M75.52 Bursitis of left shoulder; M25.552 Pain in left hip | CPT/HCPCS: 20610; 99214; J1040 ==

== ENCOUNTER 2020-09-17 09:25 | Outpatient (CLI) | payer MEDICARE, SELFPAY ==
[2020-09-17 13:08] LABS: ALT 31 U/L (14-59); AST 21 U/L (15-37); Albumin 3.8 g/dL (3.4-5.0); Alkaline Phosphatase 97 U/L (46-116); Anion Gap 4.2 mmol/L (3-11); BUN 25 mg/dL (7-18); Bilirubin, Total 0.6 mg/dL (0.2-1.0); CO2 30.8 mmol/L (21.0-32.0); CREATININE 1.1 mg/dL (0.55-1.02); Calcium 9.8 mg/dL (8.5-10.1); Chloride 103 mmol/L (98-107); Estimated GFR 47.21 (mL/min/1.73m2); Glucose 86 mg/dL (74-106); Potassium 4.9 mmol/L (3.5-5.1); Sodium 138 mmol/L (136-145); Total Protein 6.6 g/dL (6.4-8.2)
== END 2020-09-17 09:26 | disposition home or self-care (01) ==
LOC: LOS 09:32
DX: N18.9 Chronic kidney disease, unspecified (principal)
CPT/HCPCS: 36415; 80053

== ENCOUNTER 2020-09-26 03:46 | Outpatient (CLI) | payer MEDICARE, SELFPAY ==
--- NOTE | 2020-09-26 09:00 | DI.RAD_ITS ---
Exam(s) RF JOINT INJECTION FLUORO GUID EXAM: RF JOINT INJECTION FLUORO GUID CLINICAL HISTORY: LEFT HIP PAIN.M25.552, LT HIP INJECTION TECHNIQUE: Fluoroscopy provided. Radiologist not present. CONTRAST MATERIAL: None COMPARISON: No exams were available for comparison FINDINGS: Fluoroscopy was provided for Dr. Zavala during left hip therapeutic injection. Submitted image(s) reveal distal tip of the needle to be at the lateral aspect of the femoral head. Intra-articular contrast noted Please refer to the procedure report for complete details. Cumulative Dose: lynn Ravi=9.13 mGy IMPRESSION: RADIATION DOSE DELIVERED:
[2020-09-26] MEDS: Bupivacaine 0.5% Pres-Free 10 ML VIAL IJ (15:12)
[2020-09-26] MEDS: Omnipaque 300 MG/ML 10 ML BTL IJ (15:13)
[2020-09-26] MEDS: methylPREDNISolone ACETATE 80 MG/ML VIAL IM (15:13)
--- NOTE | 2020-09-26 15:13 | W.PROCNOTE ---
Date of service: 09/26/20 Time of Service: 15:13 Procedure Note Date of procedure: 09/26/20 Procedure: Left Hip Injection with Fluoroscopic Guidance Surgeon/Proceduralist/Physician: Danish Zavala Procedure Diagnosis: Left Hip Osteoarthritis Procedure Indications: Brie has had acute and persistent pain of the LEFT hip and groin. Noninvasive measures have been tried. To serve as both diagnostic and therapeutic, an injection under fluoroscopy was recommended. I had discussed the risks of the procedure and the patient elected to proceed. Procedure Description: Brie was greeted in the flouroscopy room. The correct side was identified and the consent was reviewed with the patient and signed. The patient was then placed in the supine position on the fluoroscopy table. The LEFT hip was then prepped with Chloraprep. The anterolateral injection starting point was identiifed by bony landmarks and fluoroscopy. The skin and soft tissue in the tract of the injection was anesthetized with 1% Lidocaine. A spinal needle was then inserted deep into the hip joint at the level of the lateral femoral neck under fluoroscopic guidance. A small amount of Omnipaque solution was injected to confirm intraarticular placement. Once confirmed, the hip was injected with 5cc of 0.5% Bupivicaine and 80mg of Depo-Medrol. A bandaid was placed on the injection site. The patient tolerated the procedure well and noted improvement in pre-injection pain.
== END 2020-09-26 04:06 ==
PROVIDERS: Visit Provider Student in an Organized Health Care Education/Training Program
DX: M16.12 Unilateral primary osteoarthritis, left hip (principal); M25.552 Pain in left hip; R10.32 Left lower quadrant pain
CPT/HCPCS: 20610; 77002; 99213; 73110; J1040

== ENCOUNTER 2020-09-26 11:05 | Outpatient (CLI) | payer MEDICARE, SELFPAY ==
--- NOTE | 2020-09-26 10:15 | DI.RAD_ITS ---
Exam(s) XR WRIST RT COMPLETE EXAM: XR WRIST RT COMPLETE CLINICAL HISTORY: eval R wrist pain. TECHNIQUE: 2D digital imaging was performed. COMPARISON: CR XR WRIST LT COMPLETE from 09/26/2020 FINDINGS: No evidence of fracture or dislocation nor significant ulnar variance. No degenerative changes with the exception of mild-moderate degenerative changes at the articulation between the thumb metacarpal and trapezium. There is also an element of chondrocalcinosis at this joint. IMPRESSION: DATA REPOSITORY: RADIATION DOSE DELIVERED:
--- NOTE | 2020-09-26 10:15 | DI.RAD_ITS ---
Exam(s) XR WRIST LT COMPLETE EXAM: XR WRIST LT COMPLETE CLINICAL HISTORY: eval L wrist pain. TECHNIQUE: 2D digital imaging was performed. COMPARISON: No exams were available for comparison FINDINGS: There is no evidence of fracture or dislocation nor significant ulnar variance. Bone density is norm al. There are moderate degenerative changes at the articulation between the thumb metacarpal and tra pezium. IMPRESSION: DATA REPOSITORY: RADIATION DOSE DELIVERED:
== END 2020-09-26 11:06 | disposition home or self-care (01) ==
LOC: DIORS 11:06
PROVIDERS: Visit Provider Student in an Organized Health Care Education/Training Program
DX: M25.531 Pain in right wrist (principal); M25.532 Pain in left wrist; M75.52 Bursitis of left shoulder; M77.8 Other enthesopathies, not elsewhere classified; G56.01 Carpal tunnel syndrome, right upper limb
CPT/HCPCS: 20610; 99213; 73110; J1040

== ENCOUNTER 2020-12-07 11:38 | Emergency (ER) | payer MEDICARE, SELFPAY ==
[2020-12-07 11:52] VITALS: BP 185/63; PULSE 75; RESP 18; TEMP 36.7; O2SAT 98
--- NOTE | 2020-12-07 12:30 | ED.GENADUL_ITS ---
Discharge Plan Disposition Patient Disposition: HOME Condition: Stable Discharge Details Clinical Impression: Constipation Primary Care Provider: Maricel Bella ED Provider: Phoebe Strong Home Meds and New Rx's Prescriptions: New lactulose 10 gram/15 mL solution 10 g PO DAILY PRN (Reason: constipation) Qty: 473 RF: 0 Continued polyethylene glycol 3350 [Miralax] 17 gram powder in packet 17 gm PO DAILY RF: 0 loratadine [Allergy Relief (loratadine)] 10 mg tablet 10 mg PO DAILY PRN (Reason: allergy symptoms) Qty: 30 RF: 1 betamethasone dipropionate 0.05 % cream 1 applic topical BID PRN (Reason: skin irritation) Qty: 45 RF: 3 hydrocodone-acetaminophen 5-325 mg tablet 1 tab PO BID MDD 2 tabs PRN (Reason: chronic back ) Qty: 60 RF: 0 hydrocortisone [Proctozone-HC] 30 GM cream with perineal applicator 30 gm RC BID PRNQty: 30 RF: 6 sucralfate 1 gram tablet 1 g PO AC & HS Qty: 112 RF: 11 atorvastatin [Lipitor] 40 mg tablet 40 mg PO QPM Qty: 30 RF: 11 docusate sodium [Colace] 100 mg capsule 100 mg PO BID Qty: 60 RF: 11 ferrous sulfate 325 mg (65 mg iron) tablet 325 mg PO DAILY Qty: 30 RF: 11 hydrochlorothiazide 25 mg tablet 25 mg PO DAILY Qty: 30 RF: 11 magnesium oxide 400 mg (241.3 mg magnesium) tablet 400 mg PO BID Qty: 60 RF: 11 calcium citrate [Calcitrate] 200 mg (950 mg) tablet 800 mg PO BID Qty: 240 RF: 11 cyanocobalamin (vitamin B-12) [Vitamin B-12] 1,000 mcg tablet extended release 1,000 mcg PO .every other day Qty: 15 RF: 11 levothyroxine 75 mcg tablet 75 mcg PO DAILY@0600 Qty: 30 RF: 11 lisinopril 5 mg tablet 5 mg PO DAILY Qty: 30 RF: 11 gabapentin 300 mg capsule 300 mg PO QHS Qty: 90 RF: 3 acyclovir 400 mg tablet 400 mg PO BID Qty: 20 RF: 8 acetaminophen [Tylenol] 325 MG tablet 650 mg PO Q4H PRN PRNRF: 0 Discharge Instructions Instructions: Constipation (ED) Additional Instructions: Please encourage hydration. You may use Tylenol as needed for discomfort. Please take the lactulose as prescribed to encourage bowel movement. You may also try Colace which is also available [id number]. Please follow-up with primary care in 1 week for reevaluation. If you develop fever/chills, abdominal pain or other new/worsening symptom please seek care urgently once again. Referrals: Maricel Bella NP [Primary Care Provider] - Discharge Data Discharge Date/Time-TO BE ENTERED AT DEPARTURE: 12/07/20 14:27 Medical Decision Making Patient is a pleasant 85-year-old female presenting today with chief complaint of constipation. Last bowel movement was 3 days ago. States she contacted her primary care this morning who advised to try MiraLAX. If no success this morning recommended being seen in the emergency department for further evaluation. Patient denies any abdominal pain. No nausea or vomiting. No change in appetite. States that she is intermittently had constipation historically but not to this degree. Past surgical history is pertinent for cholecystectomy. States that she only has pain when she is trying to have a bowel movement and at that time will have rectal discomfort. On exam, patient does appear anxious. Her abdomen is benign with no tenderness. On rectal exam, patient had some formed stool in the rectal vault but this is quite soft. Due to the position, I was having difficulty removing this from the rectal vault and patient did have some significant anxiety associated with this. Heme-negative. She denies discussed treatment options. Would like to move forward with an enema. Patient had minimal results with the enema. Perform another rectal exam, I do not appreciate the formed stool that was in her rectum . She and I discussed continued management of this. We discussed repeating enema versus trying oral agent. Patient would prefer to move forward with an oral agent. Initially, we had discussed using magnesium citrate. However, on lab review I am concerned about her previous kidney function and feel that lactulose or Colace would be more appropriate. We will send prescription for the lactulose. Also discussed importance of increased water intake. I encouraged follow-up with primary care. Return precautions were discussed. All of her questions and concerns were addressed and she is in agreement this plan. HPI General Mode of arrival: ambulatory . Date/Time Provider Initiated Documentation: 12/07/20 12:30 . Limitations to Documentation: no limitations . Information obtained by: patient and RN notes reviewed . History of Present Illness 85 year old F presents to the emergency department with the chief complaint of constipation, described as moderate, Quality is described as aching, and is localized to the abdomen (rectal pain when trying to have a BM, no abdominal discomfort currently). Patient reports no radiation. Patient started experiencing this day(s) (Has not had a bowel movement since Wednesday) and it has been constant. No relieving factors improve symptom(s), No exace rbating factors reported . Patient notes no other symptoms.; denies chest pain, fever/chills, loss of appetite, nausea/vomiting and shortness of breath. Patient did receive the following treatments prior to arrival, other (MiraLAX) Related Data Home Medications Medication Instructions Recorded Confirmed acetaminophen [Tylenol] 650 mg PO Q4H PRN PRN tab 12/15/16 09/26/20 hydrocortisone [Proctozone-HC] 30 gm RC BID PRN #30 gm 02/01/17 09/26/20 polyethylene glycol 3350 17 gram 17 gm PO DAILY 07/08/18 09/26/20 oral powder packet sucralfate 1 gram tablet 1 g PO AC & HS #112 tab 05/02/19 09/26/20 loratadine 10 mg tablet 10 mg PO DAILY PRN #30 tab 11/16/19 09/26/20 atorvastatin 40 mg tablet 40 mg PO QPM #30 tab 04/22/20 09/26/20 docusate sodium 100 mg capsule 100 mg PO BID #60 cap 04/22/20 09/26/20 ferrous sulfate 325 mg (65 mg 325 mg PO DAILY #30 tab 04/22/20 09/26/20 iron) tablet hydrochlorothiazide 25 mg tablet 25 mg PO DAILY #30 tab 04/22/20 09/26/20 magnesium oxide 400 mg (241.3 mg 400 mg PO BID #60 tab 04/22/20 09/26/20 magnesium) tablet calcium citrate 200 mg (950 mg) 800 mg PO BID #240 tab 04/23/20 09/26/20 tablet cyanocobalamin (vitamin B-12) 1,000 mcg PO .every other day #15 04/23/20 09/26/20 1,000 mcg tablet,extended release tab levothyroxine 75 mcg tablet 75 mcg PO DAILY@0600 #30 tab 04/23/20 09/26/20 betamethasone dipropionate 0.05 % 1 applic TOPICAL BID PRN #45 g 05/16/20 09/26/20 topical cream lisinopril 5 mg tablet 5 mg PO DAILY #30 tab 05/20/20 09/26/20 gabapentin 300 mg capsule 300 mg PO QHS #90 cap 08/15/20 09/26/20 hydrocodone 5 mg-acetaminophen 325 1 tab PO BID PRN #60 tab MDD 2 tabs 09/09/20 09/26/20 mg tablet acyclovir 400 mg tablet 400 mg PO BID #20 tab-cap 12/02/20 lactulose 10 g PO DAILY PRN #473 ml 12/07/20 Previous Rx's Medication Instructions Recorded acetaminophen [Tylenol] 650 mg PO Q4H PRN PRN tab 12/15/16 sucralfate 1 gram tablet 1 g PO AC & HS #112 tab 05/02/19 loratadine 10 mg tablet 10 mg PO DAILY PRN #30 tab 11/16/19 atorvastatin 40 mg tablet 40 mg PO QPM #30 tab 04/22/20 docusate sodium 100 mg capsule 100 mg PO BID #60 cap 04/22/20 ferrous sulfate 325 mg (65 mg 325 mg PO DAILY #30 tab 04/22/20 iron) tablet hydrochlorothiazide 25 mg tablet 25 mg PO DAILY #30 tab 04/22/20 magnesium oxide 400 mg (241.3 mg 400 mg PO BID #60 tab 04/22/20 magnesium) tablet calcium citrate 200 mg (950 mg) 800 mg PO BID #240 tab 04/23/20 tablet cyanocobalamin (vitamin B-12) 1,000 mcg PO .every other day #15 04/23/20 1,000 mcg tablet,extended release tab levothyroxine 75 mcg tablet 75 mcg PO DAILY@0600 #30 tab 04/23/20 betamethasone dipropionate 0.05 % 1 applic TOPICAL BID PRN #45 g 05/16/20 topical cream lisinopril 5 mg tablet 5 mg PO DAILY #30 tab 05/20/20 gabapentin 300 mg capsule 300 mg PO QHS #90 cap 08/15/20 hydrocodone 5 mg-acetaminophen 325 1 tab PO BID PRN #60 tab MDD 2 tabs 09/09/20 mg tablet acyclovir 400 mg tablet 400 mg PO BID #20 tab-cap 12/02/20 lactulose 10 g PO DAILY PRN #473 ml 12/07/20 Allergies Allergy/AdvReac Type Severity Reaction Status Date / Time adhesive Allergy Severe Skin Rash Verified 12/07/20 11:57 latex Allergy Intermediate Skin Rash Verified 12/07/20 11:57 azithromycin AdvReac Severe DIARRHEA Verified 12/07/20 11:57 fluticasone propionate AdvReac Severe SEVER NOSE Verified 12/07/20 11:57 [From Flonase] IRRITATION General Stated Complaint: GenMedical AYAD: 3 Review of Systems Constitutional Constitutional: Reports as per HPI, Denies chills, Denies fatigue, Denies fever(s) and Denies headache(s) ENT Ears, Nose, Mouth, and Throat: Denies headache(s) Cardiovascular Cardiovascular: Reports as per HPI, Denies chest pain and Denies dyspnea Respiratory Respiratory: Reports as per HPI, Denies cough and Denies dyspnea Gastrointestinal Gastrointestinal: Reports as per HPI Musculoskeletal Musculoskeletal: Reports as per HPI and Denies back pain Integumentary/Breasts Skin/Breast: Reports as per HPI and Denies rash Neurologic Neurologic: Reports as per HPI and Denies headache(s) Endocrine Endocrine: Denies fatigue [facility] Medical History Acute effusion of left ear Acute on chronic anemia Acute upper back pain Advanced directives, counseling/discussion Babinski reflex Carotid stenosis, bilateral Cervical radiculopathy at C6 (08/10/14) neck pain Cervical stenosis of spinal canal Chronic constipation Chronic pain of both shoulders (09/18/15) Chronic renal disease, stage 3, moderately decreased glomerular filtration rate (GFR) between 30-59 mL/min/1.73 square meter Chronic shoulder pain Cold sore Colon polyps Depressive disorder (01/29/04) Dermatitis (03/03/16) Diarrhea (05/04/14) Elevated fasting glucose Essential hypertension (06/28/13) Exudative age-related macular degeneration, left eye, with active choroidal neovascularization Fall Foot pain, left (06/14/17) Gastroesophageal reflux disease (06/10/12) hiatal hernia (2006 UGI) GERD (gastroesophageal reflux disease) Hx of breast cancer Hyperkalemia Hyperlipidemia Hypothyroidism (06/10/12) Impaired fasting glucose Left carpal tunnel syndrome (03/19/17) Left hip pain Lichen planus OF [place] (seen at [facility]) Nocturnal hypoxia Nonexudative age-related macular degeneration, right eye, intermediate dry stage Osteoarthritis right TKR Osteoporosis Pain, hand Polymyalgia rheumatica (07/24/14) Posterior vitreous detachment of both eyes Pulmonary hypertension Pulmonary nodule Recurrent canker sores Sacroiliac joint dysfunction Sciatica bilateral; MRI 12/06 spinal stenosis; 2008-spine clinic [facility] steroid injections. 01/12 [facility] pain clinic [place] radiofrequency (MRI severe spinal liberty nosis) Skin lesion Syncopal episodes Tendinitis of right forearm Tendinitis of right shoulder Tinnitus of left ear Umbilical hernia without obstruction and without gangrene (11/20/15) Repair with 6.4 Ventralex Vitamin B12 deficiency disease Surgical History Breast, Mastectomy 1988-left Cholecystectomy laparoscopic Tata-prosthetic femur fracture at tip of prosthesis S/P ORIF of periprosthetic fracture of right distal femur DOS: 04/16/18 Dr. Villar Repair of umbilical hernia (04/15/16) Replacement of total knee joint right S/P carpal tunnel release Family History Sister Cancer Mother No problems noted. Father No problems noted. Sister No problems noted. Son No problems noted. Son No problems noted. Social History Smoking/Tobacco Use Status: Former Tobacco Use Smoking risk assessment performed?: Yes Alcohol Intake: former Drug use: Never Substance use type: does not use Household members: none Housing: house Number of Children: 2 current occupation: retired Pets and animals: No Sexually active: No Current gender identity: female What is your relationship status?: refused to answer How often do you talk on the phone with friends or family?: decline to answer How often do you get together with friends or relatives?: decline to answer How often do you attend taoism or sabianist services?: 4 or more times per year Do you belong to any clubs or organized social groups?: decline to answer Panel score (0-1 are the most socially isolated patients): 1 What type of physical activity do you participate in: swimming Frequency: 1-2 times per week Evelyn/Anabaptism: Adventist Special evelyn needs: No Seatbelt use: always Drive intox or ride w/intox dinkey driver: No Do you feel safe at home: Yes Do you feel safe in your relationship?: Yes Exam Const General: cooperative, healthy appearing, comfortable, no acute distress, well developed and anxious Nutritional Appearance: well nourished and overweight Orientation: alert and awake Resp Effort & Inspection: normal respiratory effort, able to speak in complete sentences and no respiratory distress Auscultation: clear to auscultation bilaterally, no rales, no rhonchi and no wheezes Cardio Rate: regular rate Rhythm: regular rhythm Heart Sounds: S1 normal and S2 normal GI Inspection: normal to inspection Palpation: soft, no hepatosplenomegaly, not firm, no guarding, no pulsatile masses and nontender Percussion: normal to percussion Auscultation: normal bowel sounds Rectal Exam - female: visual inspection normal, normal sphincter tone, heme negative stool and hemorrhoids (noninflammed, no thrombosis) Back/Spine/Pelvis Back: no CVA tenderness Skin General skin exam: no rashes or lesions noted Trauma: no lacerations or abrasions Neuro General: patient alert and patient awake Cognition: normal cognition Speech: speech normal Gait: normal gait Psych Appearance: grossly normal and well kempt Mental Status: mental status grossly normal Speech and Movement: speech and movement normal Course Vital Signs Vital signs: Vital Signs Temperature 36.7 C 12/07/20 11:52 Pulse 75 12/07/20 11:52 Respiratory Rate 18 12/07/20 11:52 Blood Pressure 185/63 H 12/07/20 11:52 Pulse Oximetry 98 12/07/20 11:52 Temperature 36.7 C 12/07/20 11:52 Temperature Source Temporal Artery Scan 12/07/20 11:52 Pulse 75 12/07/20 11:52 Respiratory Rate 18 12/07/20 11:52 Respiratory Effort Non-Labored 12/07/20 11:58 Blood Pressure 185/63 H 12/07/20 11:52 Blood Pressure Position Sitting 12/07/20 11:52 Pulse Oximetry 98 12/07/20 11:52 Oxygen Delivery Method Room Air 12/07/20 11:52 Oxygen Flow Rate 0 12/07/20 11:52
[2020-12-07 14:42] VITALS: BP 155/62; PULSE 59; RESP 16; TEMP 36.2; O2SAT 6
== END 2020-12-07 14:27 | disposition home or self-care (01) ==
PROVIDERS: Emergency Provider Physician Assistant
DX: K59.00 Constipation, unspecified (principal)
CPT/HCPCS: 99283

== ENCOUNTER 2020-12-13 10:18 | Emergency (ER) | payer MEDICARE, SELFPAY ==
[2020-12-13 10:23] VITALS: BP 190/70; PULSE 72; RESP 18; TEMP 35.4; O2SAT 98
--- NOTE | 2020-12-13 10:45 | DI.CT_ITS ---
Exam(s) CT ABDOMEN PELVIS W EXAM: CT ABDOMEN PELVIS W CLINICAL HISTORY: RLQ pain, difficulty moving bowel. TECHNIQUE: Imaging Protocol: Axial computed tomography images with coronal and sagittal reformatted images were created and reviewed CONTRAST MATERIAL: Intravenous: Omnipaque 350 Contrast volume:100 ml Oral: yes / no COMPARISON: CT ABD PELVIS WITH CONTRAST from 10/28/2011 CT ABD PELVIS WITH CONTRAST from 10/28/[address] chest PE CTA from 04/16/[address] chest PE CTA from 04/16/[address] carotid neck CTA from 04/22/2018 FINDINGS: ABDOMEN: Lung Bases: Normal where visualized. Liver: Normal density. No measurable mass. Gallbladder and biliary tract: Status post cholecystectomy. No radiodense calculus or dilation. Pancreas: Normal density, no abnormal calcifications or inflammatory process. Spleen: Normal. Kidneys: Normal size, contour and axis. No obstructive uropathy. Bilateral cysts. Nonobstructing sto ne lower pole left kidney. Adrenal glands: No masses seen. Abdominal Aorta: Abdominal portion non-dilated. Severe atherosclerotic changes. PELVIS: Bladder: No gross wall thickening. No calculi.No focal mass. Bowel: Focal rounded area of solid stool in the rectum. Inferior rectal wall thickening. Findings c ould represent mass versus inflammation. No focal abscess. Moderate quantity of stool elsewhere. N o small bowel dilatation. Appendix normal. Peritoneal cavity: No ascites, collection or mesenteric inflammatory response. Bones: Severe degenerative changes. Degenerative scoliosis. Hardware right hip. Reproductive organs: Retroverted uterus Lymph nodes: Unremarkable. Impression: Inferior rectal wall thickening, mass versus inflammation. Focal area of rounded solid stool in the upper rectum. Moderate quantity of stool elsewhere. Findings discussed with Emmie Diaz of the emergency department. RADIATION DOSE DELIVERED: 935mGy.cm Total DLP DATA REPOSITORY: All CT scans at this facility are submitted to the National Radiology Data Registry (NRDR) Dose Index Registry (DIR) with the [employer] (A[employer]). RADIATION OPTIMIZATION: All CT scans at this facility use at least one of these dose optimization te chniques: automated exposure control; mA and/or kV adjustment per patient size (includes targeted exa ms where dose is matched to clinical indication); or iterative reconstruction.
--- NOTE | 2020-12-13 10:57 | W.ED.GENAD ---
Discharge Plan Disposition Patient Disposition: HOME Condition: Stable Discharge Details Clinical Impression: Abdominal pain, Lesion of rectum Primary Care Provider: Maricel Bella ED Provider: Emmie Diaz Home Meds and New Rx's Prescriptions: New bisacodyl [Dulcolax (bisacodyl)] 10 mg suppository 10 mg AR DAILY Qty: 12 RF: 0 Continued loratadine [Allergy Relief (loratadine)] 10 mg tablet 10 mg PO DAILY PRN (Reason: allergy symptoms) Qty: 30 RF: 1 betamethasone dipropionate 0.05 % cream 1 applic topical BID PRN (Reason: skin irritation) Qty: 45 RF: 3 hydrocodone-acetaminophen 5-325 mg tablet 1 tab PO BID MDD 2 tabs PRN (Reason: chronic back ) Qty: 60 RF: 0 hydrocortisone [Proctozone-HC] 30 GM cream with perineal applicator 30 gm RC BID PRNQty: 30 RF: 6 sucralfate 1 gram tablet 1 g PO AC & HS Qty: 112 RF: 11 atorvastatin [Lipitor] 40 mg tablet 40 mg PO QPM Qty: 30 RF: 11 docusate sodium [Colace] 100 mg capsule 100 mg PO BID Qty: 60 RF: 11 ferrous sulfate 325 mg (65 mg iron) tablet 325 mg PO DAILY Qty: 30 RF: 11 hydrochlorothiazide 25 mg tablet 25 mg PO DAILY Qty: 30 RF: 11 magnesium oxide 400 mg (241.3 mg magnesium) tablet 400 mg PO BID Qty: 60 RF: 11 calcium citrate [Calcitrate] 200 mg (950 mg) tablet 800 mg PO BID Qty: 240 RF: 11 cyanocobalamin (vitamin B-12) [Vitamin B-12] 1,000 mcg tablet extended release 1,000 mcg PO .every other day Qty: 15 RF: 11 levothyroxine 75 mcg tablet 75 mcg PO DAILY@0600 Qty: 30 RF: 11 lisinopril 5 mg tablet 5 mg PO DAILY Qty: 30 RF: 11 gabapentin 300 mg capsule 300 mg PO QHS Qty: 90 RF: 3 acyclovir 400 mg tablet 400 mg PO BID Qty: 20 RF: 8 polyethylene glycol 3350 17 gram/dose powder 17 g PO DAILY Qty: 510 RF: 11 lactulose 10 gram/15 mL solution 10 g PO DAILY PRN (Reason: constipation) Qty: 473 RF: 0 acetaminophen [Tylenol] 325 MG tablet 650 mg PO Q4H PRN PRNRF: 0 Discharge Instructions Instructions: Abdominal Pain (ED) Additional Instructions: Continue using the lactulose, MiraLAX, and Dulcolax suppository Use these interventions daily as instructed Follow-up with the surgeon I have listed below for colonoscopy and please let your doctor know that you are in the emergency room and that you have a questionable lesion in your rectum that will need close follow-up Should you have new or worsening complaints, please return to the emergency room for reassessment Referrals: Dina Tucker DO [ NON-[facility] STAFF PHYSICIAN] - Medical Decision Making Possible rectal mass, this was discussed with on-call surgeon who reviewed CT imaging, she will need outpatient colonoscopy Milk and molasses and mineral oil enema were initiated with good result Patient feeling symptomatically improved She will be continued on her lactulose and MiraLAX and Dulcolax suppositories will be initiated Her diagnostic labs are unchanged from prior Her CT results were discussed with the on-call radiologistAniceto She will need close outpatient follow-up with her primary care physician Return precautions discussed and patient expressed understanding Mild anemia when compared to prior, grossly unchanged from prior Urinalysis without evidence of secondary infection Medical Records Medical records reviewed: Yes I reviewed the patient's medical records. Lab Data Lab results reviewed: Yes I reviewed the patient's lab results. HPI General Mode of arrival: ambulatory. Date/Time Provider Initiated Documentation: 12/13/20 10:33. Limitations to Documentation: no limitations. Information obtained by: patient. HPI Narrative: This 85-year-old female presents with report of difficulty moving her bowels. She states has not been constant for the past 6 days. She was previously evaluated in the emergency room and received an enema which did produce bowel movement per patient. Patient was sent home on MiraLAX and lactulose. She states she not had a bowel movement since that time. She states she did have an appointment this morning with a primary care physician but came to the emergency room and also receiving a enema. She has some pain in her right lower quadrant which is new. She is having some rectal pressure with some dribbling . She denies any urinary symptoms, chest pain, shortness of breath, nausea, vomiting. She had 1 tablet of Vicodin 2 weeks ago prior to a cranial procedure. She denies any additional opiate analgesics with time. Related Data Home Medications Medication Instructions Recorded Confirmed acetaminophen [Tylenol] 650 mg PO Q4H PRN PRN tab 12/15/16 12/13/20 hydrocortisone [Proctozone-HC] 30 gm RC BID PRN #30 gm 02/01/17 12/13/20 sucralfate 1 gram tablet 1 g PO AC & HS #112 tab 05/02/19 12/13/20 loratadine 10 mg tablet 10 mg PO DAILY PRN #30 tab 11/16/19 12/13/20 atorvastatin 40 mg tablet 40 mg PO QPM #30 tab 04/22/20 12/13/20 docusate sodium 100 mg capsule 100 mg PO BID #60 cap 04/22/20 12/13/20 ferrous sulfate 325 mg (65 mg 325 mg PO DAILY #30 tab 04/22/20 12/13/20 iron) tablet hydrochlorothiazide 25 mg tablet 25 mg PO DAILY #30 tab 04/22/20 09/26/20 magnesium oxide 400 mg (241.3 mg 400 mg PO BID #60 tab 04/22/20 12/13/20 magnesium) tablet calcium citrate 200 mg (950 mg) 800 mg PO BID #240 tab 04/23/20 12/13/20 tablet cyanocobalamin (vitamin B-12) 1,000 mcg PO .every other day #15 04/23/20 12/13/20 1,000 mcg tablet,extended release tab levothyroxine 75 mcg tablet 75 mcg PO DAILY@0600 #30 tab 04/23/20 12/13/20 betamethasone dipropionate 0.05 % 1 applic TOPICAL BID PRN #45 g 05/16/20 12/13/20 topical cream lisinopril 5 mg tablet 5 mg PO DAILY #30 tab 05/20/20 12/13/20 gabapentin 300 mg capsule 300 mg PO QHS #90 cap 08/15/20 12/13/20 hydrocodone 5 mg-acetaminophen 325 1 tab PO BID PRN #60 tab MDD 2 tabs 09/09/20 12/13/20 mg tablet acyclovir 400 mg tablet 400 mg PO BID #20 tab-cap 12/02/20 lactulose 10 g PO DAILY PRN #473 ml 12/07/20 12/13/20 polyethylene glycol 3350 17 17 g PO DAILY #510 g 12/11/20 12/13/20 gram/dose oral powder bisacodyl [Dulcolax (bisacodyl)] 10 mg AR DAILY #12 ea 12/13/20 Previous Rx's Medication Instructions Recorded acetaminophen [Tylenol] 650 mg PO Q4H PRN PRN tab 12/15/16 sucralfate 1 gram tablet 1 g PO AC & HS #112 tab 05/02/19 loratadine 10 mg tablet 10 mg PO DAILY PRN #30 tab 11/16/19 atorvastatin 40 mg tablet 40 mg PO QPM #30 tab 04/22/20 docusate sodium 100 mg capsule 100 mg PO BID #60 cap 04/22/20 ferrous sulfate 325 mg (65 mg 325 mg PO DAILY #30 tab 04/22/20 iron) tablet hydrochlorothiazide 25 mg tablet 25 mg PO DAILY #30 tab 04/22/20 magnesium oxide 400 mg (241.3 mg 400 mg PO BID #60 tab 04/22/20 magnesium) tablet calcium citrate 200 mg (950 mg) 800 mg PO BID #240 tab 04/23/20 tablet cyanocobalamin (vitamin B-12) 1,000 mcg PO .every other day #15 04/23/20 1,000 mcg tablet,extended release tab levothyroxine 75 mcg tablet 75 mcg PO DAILY@0600 #30 tab 04/23/20 betamethasone dipropionate 0.05 % 1 applic TOPICAL BID PRN #45 g 05/16/20 topical cream lisinopril 5 mg tablet 5 mg PO DAILY #30 tab 05/20/20 gabapentin 300 mg capsule 300 mg PO QHS #90 cap 08/15/20 hydrocodone 5 mg-acetaminophen 325 1 tab PO BID PRN #60 tab MDD 2 tabs 09/09/20 mg tablet acyclovir 400 mg tablet 400 mg PO BID #20 tab-cap 12/02/20 lactulose 10 g PO DAILY PRN #473 ml 12/07/20 polyethylene glycol 3350 17 17 g PO DAILY #510 g 12/11/20 gram/dose oral powder bisacodyl [Dulcolax (bisacodyl)] 10 mg AR DAILY #12 ea 12/13/20 Allergies Allergy/AdvReac Type Severity Reaction Status Date / Time adhesive Allergy Severe Skin Rash Verified 12/13/20 10:27 latex Allergy Intermediate Skin Rash Verified 12/13/20 10:27 azithromycin AdvReac Severe DIARRHEA Verified 12/13/20 10:27 fluticasone propionate AdvReac Severe SEVER NOSE Verified 12/13/20 10:27 [From Flonase] IRRITATION General Stated Complaint: Abd Prob AYAD: 3 Review of Systems All systems reviewed & are unremarkable except as noted in HPI and below PFSH Medical History Acute effusion of left ear Acute on chronic anemia Acute upper back pain Advanced directives, counseling/discussion Babinski reflex Carotid stenosis, bilateral Cervical radiculopathy at C6 (08/10/14) neck pain Cervical stenosis of spinal canal Chronic constipation Chronic pain of both shoulders (09/18/15) Chronic renal disease, stage 3, moderately decreased glomerular filtration rate (GFR) between 30-59 mL/min/1.73 square meter Chronic shoulder pain Cold sore Colon polyps Depressive disorder (01/29/04) Dermatitis (03/03/16) Diarrhea (05/04/14) Elevated fasting glucose Essential hypertension (06/28/13) Exudative age-related macular degeneration, left eye, with active choroidal neovascularization Fall Foot pain, left (06/14/17) Gastroesophageal reflux disease (06/10/12) hiatal hernia (2006 UGI) GERD (gastroesophageal reflux disease) Hx of breast cancer Hyperkalemia Hyperlipidemia Hypothyroidism (06/10/12) Impaired fasting glucose Left carpal tunnel syndrome (03/19/17) Left hip pain Lichen planus OF V[place] (seen at [facility]) Nocturnal hypoxia Nonexudative age-related macular degeneration, right eye, intermediate dry stage Osteoarthritis right TKR Osteoporosis Pain, hand Polymyalgia rheumatica (07/24/14) Posterior vitreous detachment of both eyes Pulmonary hypertension Pulmonary nodule Recurrent canker sores Sacroiliac joint dysfunction Sciatica bilateral; MRI 12/06 spinal stenosis; 2008-spine clinic [facility] steroid injections. 01/12 [facility] pain clinic [place] radiofrequency (MRI severe spinal stenosis) Skin lesion Syncopal episodes Tendinitis of right forearm Tendinitis of right shoulder Tinnitus of left ear Umbilical hernia without obstruction and without gangrene (11/20/15) Repair [id number] with 6.4 Ventralex Vitamin B12 deficiency disease Surgical History Breast, Mastectomy 1989-left Cholecystectomy laparoscopic Taat-prosthetic femur fracture at tip of prosthesis S/P ORIF of periprosthetic fracture of right distal femur DOS: 04/16/18 Dr. Villar Repair of umbilical hernia (04/15/16) Replacement of total knee joint right S/P carpal tunnel release Family History Sister Cancer Mother No problems noted. Father No problems noted. Sister No problems noted. Son No problems noted. Son No problems noted. Social History Smoking/Tobacco Use Status: Former Tobacco Use Smoking risk assessment performed?: Yes Alcohol Intake: former Drug use: Never Substance use type: does not use Household members: none Housing: house Number of Children: 2 current occupation: retired Pets and animals: No Sexually active: No Current gender identity: female What is your relationship status?: refused to answer How often do you talk on the phone with friends or family?: decline to answer How often do you get together with friends or relatives?: decline to answer How often do you attend anabaptist or rastafari services?: 4 or more times per year Do you belong to any clubs or organized social groups?: decline to answer Panel score (0-1 are the most socially isolated patients): 1 What type of physical activity do you participate in: swimming Frequency: 1-2 times per week Evelyn/Druze: Gnosticism Special evelyn needs: No Seatbelt use: always Drive intox or ride w/intox sales route driver: No Do you feel safe at home: Yes Do you feel safe in your relationship?: Yes Course Vital Signs Vital signs: Vital Signs Temperature 35.4 C L 12/13/20 10:23 Pulse 72 12/13/20 10:23 Respiratory Rate 18 12/13/20 10:23 Blood Pressure 190/70 H 12/13/20 10:23 Pulse Oximetry 98 12/13/20 10:23 Temperature 35.4 C L 12/13/20 10:23 Temperature Source Temporal Artery Scan 12/13/20 10:23 Pulse 72 12/13/20 10:23 Respiratory Rate 18 12/13/20 10:23 Respiratory Effort Non-Labored 12/13/20 10:31 Blood Pressure 190/70 H 12/13/20 10:23 Blood Pressure Position Sitting 12/13/20 10:23 Pulse Oximetry 98 12/13/20 10:23 Oxygen Delivery Method Room Air 12/13/20 10:23 Oxygen Flow Rate 0 12/13/20 10:23
[2020-12-13 11:06] LABS: Abs Immature Grans 0.04 10^3/uL (0.0-0.06); Absolute Basophil Count 0.06 10^3/uL (0.0-0.2); Absolute Eosinophil Count 0.18 10^3/uL (0.0-0.7); Absolute Lymphocyte Count 0.86 10^3/uL (1.2-3.4); Absolute Monocyte Count 0.64 10^3/uL (0.1-0.8); Absolute Neutrophil Count 6.27 10^3/uL (1.2-6.7); Basophils % 0.7; Eosinophils % 2.2; HCT 33.4 % (36.0-46.0); HGB 10.8 g/dL (11.2-15.7); Immature Grans % 0.5; Lymphocytes % 10.7; MCH 30.9 pg (27.0-33.0); MCHC 32.3 % (32.0-36.0); MCV 95.4 fL (80-95); MPV 10.3 fL (8.0-11.0); Neutrophils % 77.9; Nucleated RBC 0 %; Platelet Count 319 10^3/uL (130-400); RDW 13.4 % (11.7-14.6); RDW-SD 46.9 fL; WBC 8.05 10^3/uL (4.4-10.8)
[2020-12-13 11:20] LABS: Lipase 231 U/L (73-393)
[2020-12-13] MEDS: Normal Saline 500 ML IV (11:22)
[2020-12-13 11:23] LABS: ALT 16 U/L (14-59); AST 19 U/L (15-37); Albumin 3.7 g/dL (3.4-5.0); Alkaline Phosphatase 105 U/L (46-116); Anion Gap 7.4 mmol/L (3-11); BUN 13 mg/dL (7-18); Bilirubin, Total 0.6 mg/dL (0.2-1.0); CO2 29.6 mmol/L (21.0-32.0); CREATININE 1.1 mg/dL (0.55-1.02); Calcium 9.6 mg/dL (8.5-10.1); Chloride 102 mmol/L (98-107); Estimated GFR 47.21 (mL/min/1.73m2); Glucose 120 mg/dL (74-106); Sodium 139 mmol/L (136-145); Total Protein 7.4 g/dL (6.4-8.2)
[2020-12-13] MEDS: Omnipaque 350 MG/ML 100 ML BTL IJ (11:42)
[2020-12-13] MEDS: Normal Saline - Diluent 50 ML VIAL IV (11:43)
[2020-12-13 13:30] LABS: Bilirubin Negative (Negative); Blood Negative (Negative); Clarity Clear (Clear); Glucose Negative (Negative); Ketones Negative (Negative); Leukocyte Esterase Negative (Negative); Nitrite Negative (Negative); Urobilinogen 0.2 EU/dL (Up TO 0.2)
[2020-12-13] MEDS: Mineral Oil-Enema 133 ML BTL PR (13:36)
[2020-12-13 15:20] VITALS: BP 171/73; PULSE 64; RESP 18; TEMP 36.2; O2SAT 96
== END 2020-12-13 15:28 | disposition home or self-care (01) ==
PROVIDERS: Emergency Provider Physician Assistant
DX: R10.31 Right lower quadrant pain (principal); K59.00 Constipation, unspecified; K62.89 Other specified diseases of anus and rectum
CPT/HCPCS: 36415; 80053; 83690; 96361; 96374; 99285; 74177; 81003; 85025; 99284; J0131; J3490

== ENCOUNTER → 2020-12-20 13:29 | Outpatient (BNVA) | payer MEDICARE, SELFPAY | PROVIDERS: Visit Provider Surgery | DX: K62.89 Other specified diseases of anus and rectum (principal); K59.00 Constipation, unspecified; R93.3 Abnormal findings on diagnostic imaging of other parts of digestive tract | CPT/HCPCS: 99203; 99213 ==

== ENCOUNTER 2021-01-15 02:08 | Outpatient (CLI) | payer MEDICARE, SELFPAY ==
[2021-01-15 12:52] LABS: HCT 33.4 % (36.0-46.0); HGB 10.5 g/dL (11.2-15.7)
[2021-01-15 13:20] LABS: Anion Gap 8.6 mmol/L (3-11); BUN 22 mg/dL (7-18); CO2 28.4 mmol/L (21.0-32.0); CREATININE 1.1 mg/dL (0.55-1.02); Calcium 9.9 mg/dL (8.5-10.1); Calculated LDL 96 mg/dL (<100); Chloride 102 mmol/L (98-107); Cholesterol 184 mg/dL (<200); Estimated GFR 47.21 (mL/min/1.73m2); Glucose 95 mg/dL (74-106); HDL Cholesterol 60 mg/dL (40-60); Potassium 4.9 mmol/L (3.5-5.1); Sodium 139 mmol/L (136-145); TSH (W/Ref FT4) 1.28 uIU/mL (0.36-3.74); Triglyceride 140 mg/dL (<150)
== END 2021-01-15 02:09 | disposition home or self-care (01) ==
LOC: LOS 02:09
DX: E03.9 Hypothyroidism, unspecified (principal); G47.00 Insomnia, unspecified; E78.5 Hyperlipidemia, unspecified; I10 Essential (primary) hypertension; N18.30 Chronic kidney disease, stage 3 unspecified; D64.9 Anemia, unspecified
CPT/HCPCS: 36415; 80048; 80061; 84443; 85014; 85018

== ENCOUNTER → 2021-01-28 13:24 | Outpatient (BNVA) | payer MEDICARE, SELFPAY | PROVIDERS: Visit Provider Surgery | DX: R93.3 Abnormal findings on diagnostic imaging of other parts of digestive tract (principal); D64.9 Anemia, unspecified | CPT/HCPCS: 99212; 99213 ==

== ENCOUNTER → 2021-02-05 12:43 | Outpatient (BNVA) | payer MEDICARE, SELFPAY | PROVIDERS: Referring Provider Student in an Organized Health Care Education/Training Program; Visit Provider Psychiatry & Neurology Neurology | DX: R29.2 Abnormal reflex (principal); G56.01 Carpal tunnel syndrome, right upper limb; G56.23 Lesion of ulnar nerve, bilateral upper limbs; G62.9 Polyneuropathy, unspecified | CPT/HCPCS: 95886; 95911; 95913; 99203 ==

== ENCOUNTER → 2021-02-07 11:05 | Outpatient (BNVA) | payer MEDICARE, SELFPAY | PROVIDERS: Visit Provider Student in an Organized Health Care Education/Training Program | DX: M12.811 Other specific arthropathies, not elsewhere classified, right shoulder (principal); M12.812 Other specific arthropathies, not elsewhere classified, left shoulder; G56.23 Lesion of ulnar nerve, bilateral upper limbs; G56.03 Carpal tunnel syndrome, bilateral upper limbs | CPT/HCPCS: 20610; 99213; J1040 ==

== ENCOUNTER 2021-02-24 03:43 | Outpatient (CLI) | payer MEDICARE, SELFPAY ==
[2021-02-25 20:46] LABS: COVID-19 RT-PCR UVMMC Result Negative (Negative)
== END 2021-02-24 03:44 | disposition home or self-care (01) ==
LOC: LBO 03:43
PROVIDERS: Visit Provider Surgery
DX: Z20.822 Contact with and (suspected) exposure to COVID-19 (principal)
CPT/HCPCS: 87635; U0003; U0005

== ENCOUNTER 2021-02-26 11:14 | Day surgery (SDC) | payer MEDICARE, SELFPAY ==
--- NOTE | 2021-02-26 06:52 | W.COLOREPORT ---
Colonoscopy Report Date of procedure: 02/26/21 Pre-op diagnosis general: Abnormal CT scan, Anemia Post-op diagnosis procedure note: same Procedure: Flexible sigmoidoscopy Surgeon: Sherry Le Anesthesia Type: General LMA/ETT (Kalia Carroll CRNA) Estimated blood loss (mL): 3 Pathology: none sent Complications: None Disposition: same day Indications: Ms. Dai is a pleasant 85-year-old female who developed acute constipation. She ended up in the emergency department due to the severity as well as abdominal pain. She had 3 enemas in order to be able to go to the bathroom finally. CT scan was done which showed a thickening in the distal rectum concerning for a mass versus inflammation. She denies any melena or hematochezia. She did have an examination at her primary care's but unfortunately she had pain. Her primary care physician did see something but was not sure whether it was a large internal hemorrhoid or a mass. Her constipation has resolved since starting daily Miralax and prune juice. She continues to be anemic although her Hgb/HCT are stable. I discussed flexible sigmoidoscopy with Ms. Dai to start out with. We discussed the procedure, risks and benefits. Risks, benefits and complications have been reviewed. Complications include but are not limited to bleeding, pain, perforation, missed small lesion/polyp, sore throat, aspiration and adverse reaction to the medications. Questions were entertained and answered to their satisfaction and they wished to proceed. No guarantees were given or implied. Proceed with flexible sigmoidoscopy under sedation (2) Acute on chronic anemia: Prep: Other (Fleets) Findings: Normal colon up to the hepatic flexure Procedure Description: After informed consent was obtained the patient was taken to the procedure room and placed in a left decubitous position. Monitors were applied and a time out was done. The patients name, date of , procedure, allergies to medications and metal in their body was reviewed. The patient was then sedated. Once sedated and comfortable a rectal exam was done. External exam was normal. Internal exam revealed a normal sphincter tone and no palpable masses. The scope was then introduced and retro-flexed. No internal hemorrhoids, polyps or masses were identified on retro-flexion. The scope was then advanced to the hepatic flexure without difficulty. The prep was adequate. The scope was then slowly retracted back into the rectum. There were no polyps, no masses and no narrowing. There was no diverticulosis noted. The scope was removed and the patient was woken up and taken back to Same day surgery in stable condition. The patient tolerated the procedure well and there were no immediate complications. Follow up: The patient should follow up as needed if they develop changes in bowel habits or other new gastrointestinal complaints.
--- NOTE | 2021-02-26 06:53 | W.PM.DSUDISC ---
Discharge Plan Disposition Patient Disposition: HOME Condition: Good Discharge Details Reason For Visit: Flexible sigmoidoscopy Attending Provider: Sherry Le Primary Care Provider: Maricel Bella Home Meds and New Rx's Prescriptions: Continued loratadine [Allergy Relief (loratadine)] 10 mg tablet 10 mg PO DAILY PRN (Reason: allergy symptoms) Qty: 30 RF: 1 gabapentin 300 mg capsule 300 mg PO QHS PRNRF: 0 benzonatate [Tessalon Perles] 100 mg capsule 100 mg PO TID PRN (Reason: cough) Qty: 30 RF: 0 guaifenesin 100 mg/5 mL liquid 200 mg PO Q4H PRN (Reason: cough) Qty: 473 RF: 0 hydrocodone-acetaminophen 5-325 mg tablet 1 tab PO BID MDD 2 tabs PRN (Reason: chronic back ) Qty: 60 RF: 0 hydrocortisone [Proctozone-HC] 2.5 % cream with perineal applicator 1 applic TN BID PRN (Reason: hemorrhoids) Qty: 30 RF: 2 betamethasone dipropionate 0.05 % cream 1 applic topical BID PRN (Reason: skin irritation) Qty: 45 RF: 3 atorvastatin [Lipitor] 40 mg tablet 40 mg PO QPM Qty: 30 RF: 11 docusate sodium [Colace] 100 mg capsule 100 mg PO BID Qty: 60 RF: 11 ferrous sulfate 325 mg (65 mg iron) tablet 325 mg PO DAILY Qty: 30 RF: 11 hydrochlorothiazide 25 mg tablet 25 mg PO DAILY Qty: 30 RF: 11 magnesium oxide 400 mg (241.3 mg magnesium) tablet 400 mg PO BID Qty: 60 RF: 11 calcium citrate [Calcitrate] 200 mg (950 mg) tablet 800 mg PO BID Qty: 240 RF: 11 cyanocobalamin (vitamin B-12) [Vitamin B-12] 1,000 mcg tablet extended release 1,000 mcg PO .every other day Qty: 15 RF: 11 levothyroxine 75 mcg tablet 75 mcg PO DAILY@0600 Qty: 30 RF: 11 lisinopril 5 mg tablet 5 mg PO DAILY Qty: 30 RF: 11 acyclovir 400 mg tablet 400 mg PO BID Qty: 20 RF: 8 polyethylene glycol 3350 17 gram/dose powder 17 g PO DAILY Qty: 510 RF: 11 lactulose 10 gram/15 mL solution 10 g PO DAILY PRN (Reason: constipation) Qty: 1373 RF: 0 acetaminophen [Tylenol] 325 MG tablet 650 mg PO Q4H PRN PRNRF: 0 bisacodyl [Dulcolax (bisacodyl)] 10 mg suppository 10 mg TN DAILY Qty: 12 RF: 0 Discharge Instructions Additional Instructions: Findings: Normal Follow up: as needed Please call if you develop: fevers >101.5 Nausea or Vomiting Abdominal pain that is not transient Rectal bleeding that is more then a tbsp A hard abdomen and inability to pass gas DAY SURGERY UNIT POST ENDOSCOPY INSTRUCTIONS Instructions for everyone who is given Anesthesia: For your safety, please do the following for the next 24 Hours: a. Do not drive or operate dangerous equipment b. Do not drink alcohol beverages or use any recreational drugs for the first 24 hours or while taking pain medications. The medications in your body may have a reaction that can be dangerous. c. Do not make any important decisions or sign any important papers 1. Generally there are no restrictions on your activity after a day or so has gone by, but you may feel a bit fatigued for a few days. 2. After you arrive home you may have a light meal and return to a normal diet as you can tolerate it without feeling sick to your stomach. 3. After surgery, you may feel pain or discomfort. This should be only transient, but if it persists please contact your doctor. 4. If there are any questions regarding the findings of your procedure, please feel free to contact your doctor. 6. If you are unable to contact your doctor with a problem, contact the hospital at [phone]. 7. Continue all your regular medications unless directed otherwise. I understand the above instructions and have no questions. Signature of Patient or Responsible Adult Escort Date/Time Name of Responsible Adult Escort Signature of Nurse Date/Time Activity:: Activity as Tolerated Diet:: As Tolerated Discharge Orders Discharge Orders: Discharge Order (Routine); Ordered 02/26/21 Ordered By: Sherry Le
[2021-02-26 11:42] VITALS: BP 162/67; PULSE 63; RESP 16; TEMP 36.8; O2SAT 99
--- NOTE | 2021-02-26 12:30 | ANES.PREOP_ITS ---
General Info Date of Service Date Performed: 02/26/21 Height: 5 ft 6 in Weight: 78.4 kg Body Mass Index (BMI): 27.8 Surgical Procedure: Operation Date: 02/26/21 12:10 Proposed Procedures Side Surgeon p Flexible Sigmoidoscopy Sherry Le MD Meds Allergies and Home Medications Allergies Allergy/AdvReac Type Severity Reaction Status Date / Time adhesive Allergy Severe Skin Rash Verified 02/26/21 11:26 latex Allergy Intermediate Skin Rash Verified 02/26/21 11:26 azithromycin AdvReac Severe DIARRHEA Verified 02/26/21 11:26 fluticasone propionate AdvReac Severe SEVER NOSE Verified 02/26/21 11:26 [From Flonase] IRRITATION Home Medication Medication Instructions Recorded acetaminophen [Tylenol] 650 mg PO Q4H PRN PRN tab 12/15/16 loratadine 10 mg tablet 10 mg PO DAILY PRN #30 tab 11/16/19 atorvastatin 40 mg tablet 40 mg PO QPM #30 tab 04/22/20 docusate sodium 100 mg capsule 100 mg PO BID #60 cap 04/22/20 ferrous sulfate 325 mg (65 mg 325 mg PO DAILY #30 tab 04/22/20 iron) tablet hydrochlorothiazide 25 mg tablet 25 mg PO DAILY #30 tab 04/22/20 magnesium oxide 400 mg (241.3 mg 400 mg PO BID #60 tab 04/22/20 magnesium) tablet calcium citrate 200 mg (950 mg) 800 mg PO BID #240 tab 04/23/20 tablet cyanocobalamin (vitamin B-12) 1,000 mcg PO .every other day #15 04/23/20 1,000 mcg tablet,extended release tab levothyroxine 75 mcg tablet 75 mcg PO DAILY@0600 #30 tab 04/23/20 lisinopril 5 mg tablet 5 mg PO DAILY #30 tab 05/20/20 acyclovir 400 mg tablet 400 mg PO BID #20 tab-cap 12/02/20 polyethylene glycol 3350 17 17 g PO DAILY #510 g 12/11/20 gram/dose oral powder bisacodyl [Dulcolax (bisacodyl)] 10 mg MD DAILY #12 ea 12/13/20 hydrocortisone 2.5 % topical cream 1 applic MD BID PRN #30 g 12/16/20 with perineal applicator benzonatate 100 mg capsule 100 mg PO TID PRN #30 cap 12/30/20 guaifenesin 100 mg/5 mL oral liquid 200 mg PO Q4H PRN #473 ml 12/30/20 lactulose 10 gram/15 mL oral 10 g PO DAILY PRN #1373 ml 12/31/20 solution betamethasone dipropionate 0.05 % 1 applic TOPICAL BID PRN #45 g 01/07/21 topical cream hydrocodone 5 mg-acetaminophen 325 1 tab PO BID PRN #60 tab MDD 2 tabs 01/21/21 mg tablet gabapentin 300 mg capsule 300 mg PO QHS PRN cap 02/05/21 Current Visit Medications: Current Medications Generic Name Dose Route Start Last Admin Trade Name Freq PRN Reason Stop Dose Admin Hyoscyamine Sulfate 0.125 mg 02/26/21 06:54 Hyoscyamine 0.125 Mg Sl/Oral/Chew SL DIRECTED PRN Ringer's Solution 1,000 mls @ 80 mls/hr 02/26/21 06:00 IV 02/28/21 23:59 [facility]ION [facility] IV Miscellaneous Supplies 1 each 02/26/21 06:00 Iv Access IV 02/28/21 23:59 DIRECTED MONSE Ondansetron HCl 4 mg 02/26/21 06:54 Ondansetron 4 Mg/2 Ml Vial IVP Q4H PRN PRN Nausea / Vomiting Sodium Chloride 0 ml 02/26/21 06:00 Normal Saline Flush 10 Ml Syr IV 02/28/21 23:59 PRN PRN Sodium Chloride 0 ml 02/26/21 06:00 Normal Saline 10 Ml Vial IJ 02/28/21 23:59 DIRECTED PRN Sterile Water 0 ml 02/26/21 06:00 Water,Injection,Sterile 10 Ml Vial IJ 02/28/21 23:59 DIRECTED PRN PFSH Active Problems Active Problems: Problem Status Onset Code Rotator cuff arthropathy of both shoulders M12.811, M12.812 Peripheral neuropathy G62.9 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 Bursitis of shoulder, left M75.[address] scan, gastrointestinal tract R93.3 Rectal abnormality K62.9 Constipation K59.00 Abdominal pain R10.9 Lesion of rectum K62.9 Pain, hand M79.643 Acute pain of both shoulders M25.511, M25.512 Tendinitis of right shoulder M77.8 Acute upper back pain M54.9 Left hip pain M25.552 Acute effusion of left ear H65.192 Fall W19.XXXA Advanced directives, counseling/discussion Z71.89 Recurrent canker sores K12.0 Vitamin B12 deficiency disease E53.8 Elevated fasting glucose R73.01 Skin lesion L98.9 Sacroiliac joint dysfunction of left side M53.3 Anemia 03/18/12 D64.9 Carpal tunnel syndrome G56.00 Fracture of right hip 11/10/13 S72.001A Status post total knee replacement Z96.659 Synovial cyst of popliteal space 01/28/07 M71.20 Babinski reflex R29.2 Chronic constipation K59.09 Osteoporosis M81.0 Acute on chronic anemia D64.9 Nocturnal hypoxia G47.34 Hyperkalemia E87.5 DVT prophylaxis Discharge planning issues Z02.9 Transient neurologic deficit R29.818 Tata-prosthetic femur fracture at tip of prosthesis M97.8XXA, Z96.649 Syncopal episodes R55 Sacroiliac joint dysfunction M53.3 Sciatica M54.30 Polyp of colon K63.5 Osteoarthritis M19.90 Lichen planus L43.9 Left carpal tunnel syndrome 03/19/17 G56.02 Foot pain, left 06/14/17 M79.672 Diarrhea 05/04/14 R19.7 Dermatitis 03/03/16 L30.9 Chronic pain of both shoulders 09/18/15 M25.511, M25.512, G89.29 Cervical radiculopathy at C6 08/10/14 M54.12 Medical History Medical History Carotid stenosis, bilateral Chronic renal disease, stage 3, moderately decreased glomerular filtration rate (GFR) between 30-59 mL/min/1.73 square meter Chronic shoulder pain Cold sore Colon polyps Depressive disorder (01/29/04) Essential hypertension (06/28/13) Exudative age-related macular degeneration, left eye, with active choroidal neovascularization Gastroesophageal reflux disease (06/10/12) hiatal hernia (2006 UGI) GERD (gastroesophageal reflux disease) Hx of breast cancer Hyperlipidemia Hypothyroidism (06/10/12) Impaired fasting glucose Nonexudative age-related macular degeneration, right eye, intermediate dry stage Polymyalgia rheumatica (07/24/14) Posterior vitreous detachment of both eyes Primary osteoarthritis of left hip Pulmonary hypertension Pulmonary nodule Tendinitis of right forearm Tendonitis of left rotator cuff Tinnitus of left ear Umbilical hernia without obstruction and without gangrene (11/20/15) Repair / with 6.4 Ventralex Surgical History Surgical History Breast, Mastectomy 1988-left Cholecystectomy laparoscopic Repair of umbilical hernia (04/15/16) Replacement of total knee joint right S/P carpal tunnel release Tobacco Smoking/Tobacco Use Status: Former Tobacco Use Tobacco: How many years used: 40 Passive smoking exposure: Yes Second hand exposure: Yes Alcohol Alcohol Intake: never Substance Use Substance use: Never Substance use type: does not use Vital Signs and Lab Results Vital Signs Most Recent Vital Signs in EMR: Most Recent Vital Signs Temp Pulse Resp BP Pulse Ox 36.8 C 63 16 162/67 H 99 02/26/21 11:42 02/26/21 11:42 02/26/21 11:42 02/26/21 11:42 02/26/21 11:42 Lab Results Blood Type / Crossmatch: No Data to Display Complete Blood Count: No Data to Display Complete Metabolic Panel: No Data to Display Liver Function Panel: No Data to Display Coagulation Panel: No Data to Display Cardiac Panel: No Data to Display Arterial Blood Gas: No Data to Display Venous Blood Gas: No Data to Display Pancreas Panel: No Data to Display Thyroid Panel: No Data to Display Infectious Disease: Coronavirus (COVID-19)(PCR) Negative (Negative) 02/24/21 11:15 02/24/21 Blood Cultures: 2 No Data to Display Toxicology Panel: No Data to Display Imaging and Studies Imaging and Studies Study information below may be from another EMR and interpreted by another provider. Please see original notes in EMR for more complete details. Echocardiogram Summary: Date of Exam: 04/18/18 *[facility]* *[facility]* Transthoracic Echocardiography Summary: 1. Left ventricle: The cavity size was normal. Wall thickness was increased in a pattern of mild LVH. The estimated ejection fraction was 65%. Findings consistent with diastolic dysfunction. Doppler parameters are consistent with high ventricular filling pressure. 2. Mitral valve: There was mild to moderate regurgitation. 3. Right ventricle: The cavity size was normal. Wall thickness was normal. Systolic function was normal. 4. Right atrium: The atrium was mildly dilated. 5. Atrial septum: No defect or patent foramen ovale was identified. 6. Pulmonary arteries: Pulmonary systolic pressure was in the range of 55mm Hg to 65mm Hg. 7. Inferior vena cava: The vessel was patent and normal in size. The respirophasic diameter changes were in the normal range (greater than or equal to 50%), consistent with normal central venous pressure. Carotid Artery Summary:: Date of Exam: 04/18/18 CAROTID ULTRASOUND: Routine examination was performed. On the right, there is significant plaque seen in the carotid bulb with marked elevation of the velocities in the internal carotid artery, particularly proximally. The findings are consistent with significant stenosis (greater than 70%, likely near occlusive). The right vertebral artery is antegrade. There is moderate plaque seen in the distal left common carotid artery and carotid bulb with elevation of the velocities in the internal carotid arteries consistent with greater than 70% internal carotid artery stenosis. The left vertebral artery is antegrade. IMPRESSION: Hemodynamically significant bilateral internal carotid artery stenosis, right greater than left. Date of Exam: 04/22/18Sex: F : 6Age: 82 Exam(s) a CT:CT carotid neck CTA SYMPTOMS/DIAGNOSIS: F/U SIGNIFICANT CAROTID ARTERY STENOSIS: CERVICAL CT ANGIOGRAPHY: CONCLUSION: 1. Limited evaluation of the carotid bifurcations/proximal internal carotid arteries due to heavily calcified plaque. 2. Stenosis of proximal right internal carotid artery estimated at 50% of the luminal diameter, cavernous portion right ICA stenosis estimated at 50-70% luminal diameter. 3. Proximal left ICA luminal diameter stenosis estimated at 70-80% of the luminal diameter, cavernous ICA on the left estimated luminal diameter stenosis about 50%. No additional significant findings. Anesthesia Assessment and Plan Anesthesia History Personal History: No History of Anesthesia Complications Family History: No Family History of Anesthesia Complications Exercise Tolerance Exercise Tolerance: Metabolic Equivalents>4 Pertinent Negatives Pertinent Negatives: No Symptoms of GERD Cardiac & Pulmonary Exam Cardiac Exam: Normal S1/S2 Heart Sounds Pulmonary Exam: Clear Bilateral Breath Sounds Implantable Cardiac Device Does patient have a Pacemaker or an ICD?: No Airway Exam Known Difficult Airway: No Mallampati Class: 2 Mouth Opening: Normal (> 3cm) Thyromental Distance: Greater than 3 cm Neck Range of Motion: Full ROM Neck Circumference: Normal Teeth Condition: Normal Dentition ASA Classification ASA Score: ASA 3 Emergency Case?: No NPO Status NPO Status: NPO Clears >2 hours, Solids >8 hours Anesthesia Plan Resuscitation Status: Full Code Anesthesia Technique: General Anesthesia Airway Planned: Natural Airway Monitors Used: Standard Monitors
[2021-02-26 12:39] VITALS: BMI 27.8
[2021-02-26] MEDS: Lactated Ringers 1,000 ML 80 ML IV (12:40)
[2021-02-26 13:24] VITALS: BP 101/62; PULSE 61; RESP 16; TEMP 35.9; O2SAT 98
--- NOTE | 2021-02-26 13:27 | W.ANESPOSTOP ---
Postoperative Evaluation Date, Time and Location Date Performed: 02/26/21 Time Performed: 13:27 Patient Location: Day Surgery Unit Vital Signs Most Recent Imported Vital Signs: Most Recent Vital Signs Temp Pulse Resp BP Pulse Ox 36.8 C 63 16 162/67 H 99 02/26/21 11:42 02/26/21 11:42 02/26/21 11:42 02/26/21 11:42 02/26/21 11:42 Most Recent Manually Entered Vital Signs: Adult Blood Pressure: 148/72 Heart Rate: 78 Respirations: 12 Oxygen Saturation (%): 97 Temperature (C): 36.7 C Pain Score (0-10 Scale): 0 Pain Score Most Recent Pain Score: Most Recent Pain Score Pain Level 0 02/26/21 11:42 Assessment Mental Status: Awake (Alert & Oriented to Patient Baseline) Airway and Respiratory Function: Patent airway with normal (patient baseline) respiratory exam Cardiovascular Function: Hemodynamically Stable Hydration Status: Adequately Hydrated Nausea & Vomiting: No Nausea or Vomiting Pain: Pt. Denies Any Pain Peripheral Nerve Block: Patient did not receive a nerve block
[2021-02-26 13:28] VITALS: BP 148/72; PULSE 78; RESP 12; TEMPC 36.7; O2SAT 97
[2021-02-26 14:43] VITALS: BP 159/55; PULSE 56; RESP 16; TEMP 36.2; O2SAT 98
== END 2021-02-26 14:35 | disposition home or self-care (01) ==
LOC: SUR 11:14
PROVIDERS: Visit Provider Surgery
PROC: 0DJD8ZZ Inspection of Lower Intestinal Tract, Via Natural or Artificial Opening Endoscopic (ICD-10-PCS; CPT 45330; principal; 2021-02-26 12:00)
DX: K59.00 Constipation, unspecified (principal); R93.3 Abnormal findings on diagnostic imaging of other parts of digestive tract; D64.9 Anemia, unspecified
CPT/HCPCS: 45378

== ENCOUNTER → 2021-05-16 10:24 | Outpatient (BNVA) | payer MEDICARE, SELFPAY | PROVIDERS: Visit Provider Student in an Organized Health Care Education/Training Program | DX: M12.811 Other specific arthropathies, not elsewhere classified, right shoulder (principal); M12.812 Other specific arthropathies, not elsewhere classified, left shoulder | CPT/HCPCS: 20610; J1040 ==

== ENCOUNTER → 2021-08-18 10:47 | Outpatient (BNVA) | payer MEDICARE, SELFPAY | PROVIDERS: Visit Provider Student in an Organized Health Care Education/Training Program | DX: M12.811 Other specific arthropathies, not elsewhere classified, right shoulder (principal); M12.812 Other specific arthropathies, not elsewhere classified, left shoulder | CPT/HCPCS: 20610; J1040 ==

== ENCOUNTER 2021-08-28 02:34 | Outpatient (CLI) | payer MEDICARE, SELFPAY ==
[2021-08-28 13:57] LABS: ALT 34 U/L (14-59); AST 27 U/L (15-37); Albumin 4.1 g/dL (3.4-5.0); Alkaline Phosphatase 81 U/L (46-116); Anion Gap 6.4 mmol/L (3-11); BUN 29 mg/dL (7-18); Bilirubin, Total 0.7 mg/dL (0.2-1.0); CO2 27.6 mmol/L (21.0-32.0); CREATININE 1.1 mg/dL (0.55-1.02); Calcium 9.9 mg/dL (8.5-10.1); Chloride 102 mmol/L (98-107); Estimated GFR 47.09 (mL/min/1.73m2); Glucose 90 mg/dL (74-106); Potassium 4.9 mmol/L (3.5-5.1); Sodium 136 mmol/L (136-145); TSH (W/Ref FT4) 0.56 uIU/mL (0.36-3.74); Total Protein 7.4 g/dL (6.4-8.2)
== END 2021-08-28 02:35 | disposition home or self-care (01) ==
LOC: LOS 02:35
DX: I10 Essential (primary) hypertension (principal); E03.9 Hypothyroidism, unspecified
CPT/HCPCS: 36415; 80053; 84443

== ENCOUNTER → 2021-11-17 10:36 | Outpatient (BNVA) | payer MEDICARE, SELFPAY | PROVIDERS: Visit Provider Student in an Organized Health Care Education/Training Program | DX: M12.811 Other specific arthropathies, not elsewhere classified, right shoulder (principal); M12.812 Other specific arthropathies, not elsewhere classified, left shoulder | CPT/HCPCS: 20610; J1040 ==

== ENCOUNTER → 2022-02-16 10:18 | Outpatient (BNVA) | payer MEDICARE, SELFPAY | PROVIDERS: PCP Family Medicine; Referring Provider Family Medicine; Visit Provider Student in an Organized Health Care Education/Training Program | DX: M12.811 Other specific arthropathies, not elsewhere classified, right shoulder (principal); M12.812 Other specific arthropathies, not elsewhere classified, left shoulder | CPT/HCPCS: 20610; J1040 ==

== ENCOUNTER 2022-03-04 04:14 | Outpatient (CLI) | payer MEDICARE, SELFPAY ==
--- NOTE | 2022-03-04 07:30 | DI.RAD_ITS ---
Exam(s) XR LUMBAR SPINE AP, LAT EXAM: XR LUMBAR SPINE AP, LAT CLINICAL HISTORY: worsening back pain,? spondylolisthesis,SPONDYLOSIS, M47.816. TECHNIQUE: 2D digital imaging was performed. Five views. COMPARISON: No exams were available for comparison FINDINGS: There is severe degenerative disc changes from L 2 3 through L5-S1. There is asymmetric disc space n arrowing at multiple levels creating scoliosis. There are prominent endplate osteophytes. There are prominent facet degenerative changes from L2-3 through L5-S1. There is mild spondylolisthesis at L5 -S1. The SI joints are not widened. There is no evidence of compression fracture. The aorta is hea vily calcified. IMPRESSION: Severe degenerative changes from L2-3 through L5-S1. DATA REPOSITORY: RADIATION DOSE DELIVERED:
--- NOTE | 2022-03-04 07:30 | DI.RAD_ITS ---
Exam(s) XR PELVIS W OBLIQUES 3V EXAM: XR PELVIS W OBLIQUES 3V CLINICAL HISTORY: bilateral SI joint pain,? sacral insuff fX,SACROILITIS,M46.1. TECHNIQUE: 2D digital imaging was performed. Three views. COMPARISON: CR XR LUMBAR SPINE AP, LAT from 03/04/2022 FINDINGS: There is hardware in the proximal right femur, unchanged. There are degenerative changes of both hip s, left greater than right. No fractures are visible. The sacrum is not well visualized. IMPRESSION: Postsurgical and degenerative changes. If there is continued concern for fracture, CT is recommended. DATA REPOSITORY: RADIATION DOSE DELIVERED:
== END 2022-03-04 04:34 ==
LOC: DI 04:14
PROVIDERS: PCP Family Medicine; Visit Provider Internal Medicine
DX: M53.3 Sacrococcygeal disorders, not elsewhere classified (principal); M46.1 Sacroiliitis, not elsewhere classified; M47.816 Spondylosis without myelopathy or radiculopathy, lumbar region; M51.37 Other intervertebral disc degeneration, lumbosacral region; M43.17 Spondylolisthesis, lumbosacral region
CPT/HCPCS: 72100; 72190

== ENCOUNTER 2022-03-12 11:05 | Outpatient (CLI) | payer MEDICARE, SELFPAY ==
--- NOTE | 2022-03-12 06:00 | DI.RAD_ITS ---
Exam(s) XR PAIN CLINIC SACRIOILIAC 2V EXAM: XR PAIN CLINIC SACRIOILIAC 2V CLINICAL HISTORY: Dx: Sacroiliac Joint Dysfunction TECHNIQUE: 2D and realtime digital imaging was performed. CONTRAST MATERIAL: Refer to procedure report. COMPARISON: No exams were available for comparison FINDINGS: Fluoroscopy was provided for Dr. Valenzuela during the performance of a sacroiliac joint injection. Corrie eubanks refer to the procedure report for complete details. Ka,r=6.2 mGy IMPRESSION:
[2022-03-12 11:22] VITALS: BP 167/78; PULSE 66; RESP 20; TEMP 36.8; O2SAT 100
[2022-03-12 12:01] VITALS: BP 158/54; PULSE 77; RESP 19; O2SAT 100
[2022-03-12] MEDS: methylPREDNISolone ACETATE 80 MG/ML VIAL IJ (12:11)
[2022-03-12] MEDS: Omnipaque 240 MG/ML 50 ML BTL IJ (12:11)
--- NOTE | 2022-03-12 12:15 | PDOC.PAIN_ITS ---
Date of service: 03/12/22 Time of Service: 12:18 Pain Clinic Procedure Note Procedure Note Procedure Note: INTRA-ARTICULAR SI JOINT INJECTION Brie Dai has been referred to the [facility] for intra- articular SI joint injection. COMMENTS: She was previously evaluated. She does note that she has a small mass to the left low back. This is firm and movable. She states that her PCP knows about this and is not concerned. Pre-procedure pain VAS was 9/10 Dx: Sacroiliac joint dysfunction Patient was interviewed and the medical record reviewed. There were no medical, pharmacologic, radiographic or other structural contraindications to attempting fluoroscopically guided intra-articular SI joint injection. Risks and expected side effects as well as potential benefit of the procedure were reviewed and voiced concerns addressed. The printed consent form was signed and witnessed. Standard time-out procedure was performed. Patient was placed in the prone position on the fluoroscopy table and automated blood pressure cuff and pulse oximeter applied. The skin entry point for approaching the bilateral SI joints was identified under the most advantageous fluoroscopic view and marked. Following thorough Chlorhexadine preparation of the skin and draping and 1% lidocaine infiltration of the skin entry point and subcutaneous tissues, a 22 gauge 3.5 spinal needle was placed under fluoroscop ic guidance into the bilateral SI joints was identified under the most advantageous fluoroscopic view and marked. Following thorough Chlorhexadine preparation of the skin and draping and 1% lidocaine infiltration of the skin entry point and subcutaneous tissues, a 22 gauge spinal needle was placed under fluoroscopic guidance into the bilateral SI joints. Intra-articular placement was confirmed by a clear arthrogram resulting from the injection of 0.25ml Omnipaque 240, 1ml 1% lidocaine, and 40mg Depomedrol were injected intra- articularily with an initial reproduction of a significant component of the usual pain. Vital signs were stable throughout the procedure and were as recorded in the docflowsheet by the nursing staff. If given, dosages of intravenous drugs for anxiolysis and analgesia were documented in MAR. Follow up plans and appointments were discussed with the patient. Post procedure instruction was given as documented in nursing documentation and having met discharge criteria, and was discharged from the Pain Management Center. COMMENTS: Post-procedure pain VAS was 0/10. Kalia Valenzuela DO, MPH [facility]-Pain Management [facility] for [facility] CC: Rika Kendrick
== END 2022-03-12 11:06 | disposition home or self-care (01) ==
LOC: PC 11:06
PROVIDERS: PCP Family Medicine; Visit Provider Preventive Medicine Occupational Medicine
DX: M54.50 Low back pain, unspecified (principal); M53.3 Sacrococcygeal disorders, not elsewhere classified
CPT/HCPCS: 27096; 72200; J1040; Q9967

== ENCOUNTER 2022-03-25 02:07 | Outpatient (CLI) | payer MEDICARE, SELFPAY ==
[2022-03-25 12:34] LABS: Abs Immature Grans 0.05 10^3/uL (0.0-0.06); Absolute Basophil Count 0.07 10^3/uL (0.0-0.2); Absolute Eosinophil Count 0.17 10^3/uL (0.0-0.7); Absolute Lymphocyte Count 1.63 10^3/uL (1.2-3.4); Absolute Monocyte Count 0.69 10^3/uL (0.1-0.8); Absolute Neutrophil Count 4.64 10^3/uL (1.2-6.7); Eosinophils % 2.3; HCT 33.9 % (36.0-46.0); Immature Grans % 0.7; Lymphocytes % 22.5; MCH 32.2 pg (27.0-33.0); MCHC 32.4 % (32.0-36.0); MCV 99 fL (80-95); MPV 11.1 fL (8.0-11.0); Monocytes % 9.5; Platelet Count 274 10^3/uL (130-400); RBC 3.42 10^6/uL (3.93-5.22); RDW 13.4 % (11.7-14.6); RDW-SD 48.9 fL; WBC 7.25 10^3/uL (4.4-10.8)
[2022-03-25 12:54] LABS: ALT 27 U/L (14-59); AST 23 U/L (15-37); Alkaline Phosphatase 85 U/L (46-116); Anion Gap 6.4 mmol/L (3-11); BUN 29 mg/dL (7-18); Bilirubin, Total 0.6 mg/dL (0.2-1.0); CO2 30.6 mmol/L (21.0-32.0); CREATININE 1.5 mg/dL (0.55-1.02); Calcium 10.2 mg/dL (8.5-10.1); Chloride 104 mmol/L (98-107); Estimated GFR 33.73 (mL/min/1.73m2); Glucose 97 mg/dL (74-106); Potassium 4.5 mmol/L (3.5-5.1); Sodium 141 mmol/L (136-145); TSH (W/Ref FT4) 0.83 uIU/mL (0.36-3.74); Total Protein 7.4 g/dL (6.4-8.2)
== END 2022-03-25 02:08 | disposition home or self-care (01) ==
LOC: LOS 02:07
PROVIDERS: PCP Family Medicine; Visit Provider Family Medicine
DX: D64.9 Anemia, unspecified (principal); E03.9 Hypothyroidism, unspecified; N18.30 Chronic kidney disease, stage 3 unspecified; G47.00 Insomnia, unspecified
CPT/HCPCS: 36415; 80053; 84443; 85025

== ENCOUNTER → 2022-05-18 10:25 | Outpatient (BNVA) | payer MEDICARE, SELFPAY | PROVIDERS: PCP Family Medicine; Visit Provider Student in an Organized Health Care Education/Training Program | DX: M12.811 Other specific arthropathies, not elsewhere classified, right shoulder (principal); M12.812 Other specific arthropathies, not elsewhere classified, left shoulder; M46.1 Sacroiliitis, not elsewhere classified; M54.50 Low back pain, unspecified | CPT/HCPCS: 20610; J1040 ==

== ENCOUNTER 2022-08-21 01:17 | Outpatient (CLI) | payer MEDICARE, SELFPAY ==
[2022-08-21 13:06] LABS: ALT 29 U/L (14-59); AST 26 U/L (15-37); Albumin 3.8 g/dL (3.4-5.0); Alkaline Phosphatase 98 U/L (46-116); Anion Gap 7.9 mmol/L (3-11); BUN 22 mg/dL (7-18); Bilirubin, Total 0.6 mg/dL (0.2-1.0); CO2 28.1 mmol/L (21.0-32.0); CREATININE 1.3 mg/dL (0.55-1.02); Calcium 9.7 mg/dL (8.5-10.1); Chloride 105 mmol/L (98-107); Glucose 110 mg/dL (74-106); Potassium 4.6 mmol/L (3.5-5.1); Sodium 141 mmol/L (136-145); Total Protein 7.2 g/dL (6.4-8.2)
[2022-08-21 13:26] LABS: Bilirubin Negative (Negative); Blood Negative (Negative); Clarity Sl Cloudy (Clear); Glucose Negative (Negative); Ketones Negative (Negative); Leukocyte Esterase Trace (Negative); Nitrite Negative (Negative); Specific Gravity 1.015 (1.005-1.025); Urobilinogen 0.2 mg/dL (Up to 0.2)
[2022-08-21 13:37] LABS: Bacteria Rare HPF (Negative); C & S Indicated? Yes; Casts Negative LPF (Negative); Crystals Negative HPF (Negative); Epithelial Cells Few HPF (Negative); Mucus Trace (Negative); Other Cells Few Transitional (Negative); RBC 0-2 HPF (0-2)
== END 2022-08-21 01:18 | disposition home or self-care (01) ==
LOC: LOS 01:17
PROVIDERS: PCP Family Medicine; Visit Provider Family Medicine
DX: N18.32 Chronic kidney disease, stage 3b (principal); I12.9 Hypertensive chronic kidney disease with stage 1 through stage 4 chronic kidney disease, or unspecified chronic kidney disease; R30.0 Dysuria
CPT/HCPCS: 36415; 80053; 81003; 81015; 87086

== ENCOUNTER → 2022-08-24 10:22 | Outpatient (BNVA) | payer MEDICARE, SELFPAY | PROVIDERS: PCP Family Medicine; Visit Provider Student in an Organized Health Care Education/Training Program | DX: M12.811 Other specific arthropathies, not elsewhere classified, right shoulder (principal); M12.812 Other specific arthropathies, not elsewhere classified, left shoulder | CPT/HCPCS: 20610; J1040 ==

== ENCOUNTER 2022-11-23 11:17 | Outpatient (CLI) | payer MEDICARE, SELFPAY ==
--- NOTE | 2022-11-23 10:30 | DI.RAD_ITS ---
Exam(s) XR HAND LT COMPLETE EXAM: XR HAND LT COMPLETE CLINICAL HISTORY: LEFT HAND PAIN. TECHNIQUE: 2D digital imaging was performed. COMPARISON: No exams were available for comparison FINDINGS: 3 views No evidence of acute fracture nor dislocation. There are advanced degenerative changes in the 1st carpometacarpal joint. Some degenerative changes in the MCP joints noted, most evident at 3rd MCP joint level. PIP joints appear unremarkable. At th e level the DIP joints there are advanced degenerative changes in the DIP joint of the 2nd-index fing er and moderate-advanced degenerative changes of the DIP joint of the 5th finger. Lesser amount dege nerative changes at the DIP joint of the 3rd and 4th finger. Interphalangeal joint of the thumb appe ars unremarkable. IMPRESSION: Degenerative changes as above. No fractures. No erosions. DATA REPOSITORY: RADIATION DOSE DELIVERED:
== END 2022-11-23 11:18 | disposition home or self-care (01) ==
LOC: DIORS 11:18
PROVIDERS: PCP Family Medicine; Referring Provider Family Medicine; Visit Provider Student in an Organized Health Care Education/Training Program
DX: M10.9 Gout, unspecified; M12.811 Other specific arthropathies, not elsewhere classified, right shoulder; M12.812 Other specific arthropathies, not elsewhere classified, left shoulder
CPT/HCPCS: 20610; 99214; 73130; J1040

== ENCOUNTER 2022-11-25 12:27 | Day surgery (SDC) | payer MEDICARE, SELFPAY ==
--- NOTE | 2022-11-25 11:44 | W.PM.DSUDISC ---
Date of service: 11/25/22 Time of Service: 11:44 Discharge Plan Disposition Patient Disposition: Home Condition: Good Discharge Details Reason For Visit: LIF cyst excision Attending Provider: Danish Zavala Primary Care Provider: Rika Kendrick Home Meds and New Rx's Prescriptions: New acetaminophen 500 mg tablet 1,000 mg PO TID Qty: 90 0RF ibuprofen 600 mg tablet 600 mg PO TID PRN (Reason: pain) Qty: 90 0RF Continued hydrocodone-acetaminophen 5-325 mg tablet 1 tab PO BID MDD 2 tabs PRN (Reason: chronic back ) Qty: 60 0RF amlodipine 5 mg tablet 5 mg PO DAILY Qty: 90 3RF atorvastatin [Lipitor] 40 mg tablet 40 mg PO QPM Qty: 30 11RF calcium citrate 200 mg (950 mg) tablet 800 mg PO BID Qty: 240 11RF cyanocobalamin (vitamin B-12) [Vitamin B-12] 1,000 mcg tablet extended release 1,000 mcg PO .every other day Qty: 15 11RF Rx Instructions: 1 tab at 0800 every other day docusate sodium [Colace] 100 mg capsule 100 mg PO BID Qty: 60 11RF ferrous sulfate 325 mg (65 mg iron) tablet 325 mg PO DAILY Qty: 30 11RF acyclovir 400 mg tablet 400 mg PO BID PRN (Reason: cold sores) Qty: 20 8RF Rx Instructions: one pill BID for 5 days at the onset of cold sores levothyroxine 75 mcg tablet 75 mcg PO DAILY@0600 Qty: 30 6RF lisinopril-hydrochlorothiazide 20-12.5 mg tablet 1 tab PO DAILY Qty: 90 3RF polyethylene glycol 3350 17 gram/dose powder 17 g PO DAILY Qty: 510 11RF magnesium oxide 400 mg (241.3 mg magnesium) tablet 400 mg PO BID Qty: 60 11RF ipratropium bromide 42 mcg (0.06 %) spray,non-aerosol 1 spray intranasal TID Qty: 45 1RF Rx Instructions: administer into each nostril Discontinued acetaminophen [Tylenol] 325 MG tablet 650 mg PO Q4H PRN PRN0RF Discharge Instructions Additional Instructions: Cyst Excision Discharge Instructions Activity: You may use the other fingers as tolerated but avoid trying to do too much too soon. You may use the hand for light activities. Dressing/Cast: You may remove the dressing after [address] then place a Band-Aid over the incision as desired. Medications: - You should take Tylenol and Ibuprofen for pain control. - You may apply ice over the finger. Follow-up: 7-10 days Referrals: Danish Zavala MD [ [facility] STAFF PHYSICIAN] - Activity:: Activity as Tolerated Remove Dressings/Wound Care:: 48 hours Shower/Bathe:: 48 hours Diet:: As Tolerated Discharge Orders Discharge Orders: Discharge Order (Routine); Ordered 11/25/22 Ordered By: Manolo Saxena DS: Diagnosis Discharge Diagnosis (1) Gout of left hand: Status: Acute
[2022-11-25 12:33] VITALS: BP 146/44; PULSE 67; RESP 18; TEMP 36.5; O2SAT 97
[2022-11-25] MEDS: Lidocaine 1% Pres-Free W/EPI 1/200,000 10 ML VIAL (13:44)
[2022-11-25] MEDS: Sodium Bicarbonate 50 MEQ/50 ML VIAL (13:44)
[2022-11-25] MEDS: Lidocaine 1% Pres-Free 30 ML VIAL (13:45)
[2022-11-25 14:15] VITALS: BP 144/41; PULSE 66; RESP 16; TEMP 35.9; O2SAT 95
--- NOTE | 2022-11-25 17:02 | ROE_ITS ---
Date of service: 11/25/22 Time of Service: 14:00 Operative Note Operative Note DATE OF PROCEDURE: 11/25/22 PRE-OP DIAGNOSIS: Left Index Finger Tophaceous Gout POST-OP DIAGNOSIS: same PROCEDURE: Excision of Tophaceous Gout - Left Index Finger I&D of Left Index Finger DIP Joint SURGEON: Danish Zavala ANESTHESIA TYPE: Local By Surgeon Refer to Anesthesia Record ESTIMATED BLOOD LOSS: 5 PATHOLOGY: none sent TOURNIQUET TIME: 0 COMPLICATIONS: None Patient was transported to: same day Patient's condition: stable Indications: I have seen [patient name] in clinic for symptoms of a digital mucous cyst. The mass persisted and caused pain to direct contact and with use. The diagnosis of a mucous cyst was made. The symptoms had not responded to conservative measures. I discussed cyst excision with the patient. I reviewed the risks of the procedure to include, but not limited to, bleeding, infection, pain, stiffness, recurrence, damage to nerves or vessels. Despite these risks, the patient elected to proceed. Findings: There was a collection of white, tophaceous material of the distal phalanx, arising from the DIP joint. The material was removed and an arthrotomy at the cyst location performed with I&D of the DIP joint. Procedure Description: Brie was greeted in the preoperative holding area where the correct side was identified and marked. The consent was reviewed with the patient and signed. All questions were answered. Sge was taken back to the operating room. The patient was placed into the supine position on the operating room table with the left arm on an arm board. All bony prominences were well padded. No prophylactic antibiotics were administered since this was a clean, elective hand surgical case. The left arm was then prepped with Chloraprep and draped in a standard fashion with stockinette and extremity drape. A timeout to confirm correct identity, side and site, procedure, allergies, anesthesia, and medical concerns was performed. A digital block was then performed using 1% lidocaine with epinephrine and buffered with sodium bicarbonate. This was allowed time to set up completely and was tested before proceeding with the case. A longitudinal incision was then made overlying the cyst/mass. The skin was incised sharply. Full-thickness flaps were then elevated to expose the material which was located over the ulnar aspect of the distal phalanxt. This was topha ceous type material which was removed sharply with a rongeur and also irrigated. This was arising from the ulnar aspect of the DIP joint where there is some deformity seen. Using a [place] and a rongeur I was able to penetrate into the DIP joint where a debridement was performed with a rongeur followed by irrigation. The skin was then closed using a #4-0 nylon in interrupted fashion. The finger was dressed with Xeroform, 4 x 4, conformer dressing. The patient tolerated the procedure well and was returned to the Same Day Surgery area in a stable condition suffering no known complication.
== END 2022-11-25 14:28 | disposition home or self-care (01) ==
PROVIDERS: PCP Family Medicine; Visit Provider Student in an Organized Health Care Education/Training Program
PROC: (CPT 26160; principal; 2022-11-25 15:30)
DX: M10.042 Idiopathic gout, left hand (principal)
CPT/HCPCS: 26160

== ENCOUNTER → 2022-12-04 10:46 | Outpatient (BNVA) | payer MEDICARE, SELFPAY | PROVIDERS: PCP Family Medicine; Referring Provider Family Medicine | DX: Z47.89 Encounter for other orthopedic aftercare (principal); M79.642 Pain in left hand ==

== ENCOUNTER → 2023-02-25 10:51 | Outpatient (BNVA) | payer MEDICARE, SELFPAY | PROVIDERS: PCP Family Medicine; Referring Provider Family Medicine | DX: M12.811 Other specific arthropathies, not elsewhere classified, right shoulder (principal); M12.812 Other specific arthropathies, not elsewhere classified, left shoulder | CPT/HCPCS: 20610; J1040 ==

== ENCOUNTER 2023-03-21 08:31 | Observation (INO) | payer MEDICARE, SELFPAY ==
[2023-03-21] VITALS (34 sets, daily range): BP systolic 111–197; BP diastolic 17–73; PULSE 54–75; RESP 11–23; TEMP 36–37.1; O2SAT 94–100
--- NOTE | 2023-03-21 08:30 | RT.EKG_ITS ---
APPROVED REPORT Exam: Resting ECG Reason for Exam: weakness Patient Location: E HR:66 bpm ECG Measurements Heart Rate 66 AXIS LA 220 P 61 QRSd 101 QRS -32 QT 427 T 101 QTc 449 Conclusion Sinus rhythm...normal P axis, V-rate 60- 99 Prolonged LA interval...LA >220, V-rate 50- 90 LVH with secondary repolarization abnormality...multi-LVH criteria, abnrm ST-T
--- NOTE | 2023-03-21 08:45 | DI.RAD_ITS ---
Exam(s) XR CHEST 2V PA LATERAL EXAM: XR CHEST 2V PA LATERAL CLINICAL HISTORY: ?pneumonia TECHNIQUE: 2D digital imaging was performed. COMPARISON: CT CT chest PE CTA from 04/16/[address] ABDOMEN PELVIS WO from 03/21/2023 FINDINGS: Exam is limited by under penetration. HEART: Normal size. Aorta: Not dilated. Calcified. PULMONARY VASCULATURE: Normal. LUNGS: Clear. PLEURAL SPACE: No pleural effusion or pneumothorax. BONE:Unremarkable for age. Soft tissues: Unremarkable. IMPRESSION: No acute abnormality. DATA REPOSITORY: RADIATION DOSE DELIVERED:
--- NOTE | 2023-03-21 08:45 | DI.CT_ITS ---
Exam(s) CT ABDOMEN PELVIS WO EXAM: CT ABDOMEN PELVIS WO CLINICAL HISTORY: right sided pain s/p fall. TECHNIQUE: Imaging Protocol: Axial computed tomography images with coronal and sagittal reformatted images were created and reviewed. Oral: yes / no COMPARISON: CT CT chest PE CTA from 04/16/[address] ABDOMEN PELVIS W from 12/13/2020 FINDINGS: Lung Bases: circumscribed nodule right lower lobe, unchanged from 2019. No follow-up recommended. Aortic valve calcification. Liver: Normal density. No measurable mass. Gallbladder and biliary tract: Status post cholecystectomy. Pneumobilia now seen. No biliary dila tation. Pancreas: Normal density, no abnormal calcifications or inflammatory process. Spleen: Normal. Kidneys: Normal size, contour and axis. No radiodense stones or obstructive uropathy. No suspicious m asses seen. Adrenal glands: No masses seen. Lymph nodes: Within normal limits. Vasculature: Abdominal aorta non-dilated. Heavily calcified. Soft tissues: Unremarkable. Bladder: No wall thickening. No mass or calculi. Bowel: Large duodenal diverticulum. Unchanged from prior. No obstruction or bowel wall thickening. Normal quantity of stool. Peritoneal cavity: No ascites or focal collection. There is again haziness within the mesentery Reproductive organs: Unremarkable. Bones: Hardware proximal right femur. Severe degenerative changes lower lumbar spine. Mild degenera tive scoliosis. Degenerative changes of both hips. IMPRESSION: No acute abnormality in the abdomen or pelvis. RADIATION DOSE DELIVERED: Total DLP DATA REPOSITORY: All CT scans at this facility are submitted to the National Radiology Data Registry (NRDR) Dose Index Registry (DIR) with the [employer] (ACR). RADIATION OPTIMIZATION: All CT scans at this facility use at least one of these dose optimization te chniques: automated exposure control; mA and/or kV adjustment per patient size (includes targeted exa ms where dose is matched to clinical indication); or iterative reconstruction.
--- NOTE | 2023-03-21 08:45 | DI.CT_ITS ---
Exam(s) CT HEAD CERV SPINE FACIAL WO EXAM: CT HEAD CERV SPINE FACIAL WO CLINICAL HISTORY: fall, pain. TECHNIQUE: Imaging Protocol: Axial computed tomography images with coronal and sagittal reformatted images were created and reviewed COMPARISON: CT CT carotid neck CTA from 04/22/2018 FINDINGS: CT Head: Ventricles and Extra axial spaces: Normal in size and morphology for the patient's age. Hemorrhage: None. Cerebral parenchyma: No evidence of acute hemorrhage or acute infarct. Midline shift: None. Brainstem/Cerebellum: Normal. Calvarium: Normal. Visualized Paranasal sinuses/Mastoids: Clear. Soft Tissues: Minimal left frontal scalp swelling. CT Face: Facial Bones: No fracture is noted in facial bones. Sinuses and Mastoids: Unremarkable. Globes, extraocular muscles, optic nerves and retrobulbar fat: Normal. Upper aerodigestive tract: Normal. Mandible and bilateral temporomandibular joints: Normal. Soft tissues: Normal. CT Cervical Spine: Bones: No acute fracture or subluxation. Advanced degenerative changes. Soft Tissues: No paraspinal hematoma. Proximal internal prior heavily calcified. Lung Apices: Clear. IMPRESSION: 1. No acute intracranial process. 2. No acute fracture or subluxation in the cervical spine. Advanced degenerative changes. 3. No acute facial fracture. RADIATION DOSE DELIVERED: Total DLP DATA REPOSITORY: All CT scans at this facility are submitted to the National Radiology Data Registry (NRDR) Dose Index Registry (DIR) with the [employer] (ACR). RADIATION OPTIMIZATION: All CT scans at this facility use at least one of these dose optimization te chniques: automated exposure control; mA and/or kV adjustment per patient size (includes targeted exa ms where dose is matched to clinical indication); or iterative reconstruction.
--- NOTE | 2023-03-21 08:54 | W.ED.GENAD ---
HPI General Mode of arrival: wheelchair. Date/Time Provider Initiated Documentation: 03/21/23 08:32. Limitations to Documentation: no limitations. Information obtained by: patient. History of Present Illness 87 year old F presents to the emergency department with the chief complaint of passed out, described as moderate, Patient started experiencing this hour(s) (6) and it has been now resolved. No relieving factors improve symptom(s), No exacerbating factors reported . Patient notes other (nausea, vomiting). Patient did receive the following treatments prior to arrival, none Related Data Home Medications Medication Instructions Recorded Confirmed ipratropium bromide 42 mcg (0.06 1 spray intranasal TID #45 mL 07/02/22 03/21/23 %) nasal spray acyclovir 400 mg tablet 400 mg PO BID PRN cold sores #20 11/13/22 03/21/23 tab-caps amlodipine 5 mg tablet 5 mg PO DAILY #90 tabs 11/13/22 03/21/23 calcium citrate 200 mg (950 mg) 800 mg (4 x 200 mg (950 mg)) PO 11/13/22 03/21/23 tablet BID blisterpack-pickup #240 tabs cyanocobalamin (vitamin B-12) 1,000 mcg PO .every other day 11/13/22 03/21/23 1,000 mcg tablet,extended release Blister Pack-pickup #15 tabs (Vitamin B-12 ER) docusate sodium 100 mg capsule 100 mg PO BID blisterpack-pickup 11/13/22 03/21/23 (Colace) #60 caps ferrous sulfate 325 mg (65 mg 325 mg PO DAILY blisterpack-pickup 11/13/22 03/21/23 iron) tablet #30 tabs lisinopril 20 1 tab PO DAILY #90 tabs 11/13/22 03/21/23 mg-hydrochlorothiazide 12.5 mg tablet magnesium oxide 400 mg (241.3 mg 400 mg PO BID blisterpack-pickup 11/13/22 03/21/23 magnesium) tablet #60 tabs polyethylene glycol 3350 17 17 g PO DAILY constipation #510 11/13/22 03/21/23 gram/dose oral powder grams acetaminophen 500 mg tablet 1,000 mg (2 x 500 mg) PO TID #90 11/25/22 03/21/23 tabs ibuprofen 600 mg tablet 600 mg PO TID PRN pain #90 tabs 11/25/22 03/21/23 atorvastatin 40 mg tablet (Lipitor) 40 mg PO QPM blisterpack-pickup 12/21/22 03/21/23 #30 tabs levothyroxine 75 mcg tablet 75 mcg PO DAILY@0600 12/21/22 03/21/23 blisterpack-pickup #30 tabs hydrocodone 5 mg-acetaminophen 325 1 tab PO BID PRN chronic back #14 02/12/23 02/25/23 mg tablet tabs Previous Rx's Medication Instructions Recorded ipratropium bromide 42 mcg (0.06 1 spray intranasal TID #45 mL 07/02/22 %) nasal spray acyclovir 400 mg tablet 400 mg PO BID PRN cold sores #20 11/13/22 tab-caps amlodipine 5 mg tablet 5 mg PO DAILY #90 tabs 11/13/22 calcium citrate 200 mg (950 mg) 800 mg (4 x 200 mg (950 mg)) PO 11/13/22 tablet BID blisterpack-pickup #240 tabs cyanocobalamin (vitamin B-12) 1,000 mcg PO .every other day 11/13/22 1,000 mcg tablet,extended release Blister Pack-pickup #15 tabs (Vitamin B-12 ER) docusate sodium 100 mg capsule 100 mg PO BID blisterpack-pickup 11/13/22 (Colace) #60 caps ferrous sulfate 325 mg (65 mg 325 mg PO DAILY blisterpack-pickup 11/13/22 iron) tablet #30 tabs lisinopril 20 1 tab PO DAILY #90 tabs 11/13/22 mg-hydrochlorothiazide 12.5 mg tablet magnesium oxide 400 mg (241.3 mg 400 mg PO BID blisterpack-pickup 11/13/22 magnesium) tablet #60 tabs polyethylene glycol 3350 17 17 g PO DAILY constipation #510 11/13/22 gram/dose oral powder grams acetaminophen 500 mg tablet 1,000 mg (2 x 500 mg) PO TID #90 11/25/22 tabs ibuprofen 600 mg tablet 600 mg PO TID PRN pain #90 tabs 11/25/22 atorvastatin 40 mg tablet (Lipitor) 40 mg PO QPM blisterpack-pickup 12/21/22 #30 tabs levothyroxine 75 mcg tablet 75 mcg PO DAILY@0600 12/21/22 blisterpack-pickup #30 tabs hydrocodone 5 mg-acetaminophen 325 1 tab PO BID PRN chronic back #14 02/12/23 mg tablet tabs Allergies Allergy/AdvReac Type Severity Reaction Status Date / Time adhesive Allergy Severe Skin Rash Verified 03/21/23 09:16 latex Allergy Intermediate Skin Rash Verified 03/21/23 09:16 azithromycin AdvReac Severe DIARRHEA Verified 03/21/23 09:16 fluticasone propionate AdvReac Severe SEVER NOSE Verified 03/21/23 09:16 [From Flonase] IRRITATION General Stated Complaint: Fall/Non TraumaCriteria AYAD: 3 Review of Systems All systems reviewed & are unremarkable except as noted in HPI and below Constitutional Constitutional: Denies fever(s) and Reports weakness Cardiovascular Cardiovascular: Denies chest pain and Denies dyspnea Respiratory Respiratory: Denies cough and Denies dyspnea Gastrointestinal Gastrointestinal: Reports cramping, Reports nausea and Reports vomiting Genitourinary Genitourinary: Denies dysuria Integumentary/Breasts Skin/Breast: Denies rash Neurologic Neurologic: Reports weakness Psychiatric Psychiatric: Denies depression Exam Const General: no acute distress Orientation: alert HENSC Head: no palpable skull fracture and normocephalic Ears: external ears normal General nose exam: nares normal and septum normal Mouth: moist mucous membranes Eyes General: appearance normal, both eyes and all related structures Neck Neck: normal visual inspection Chest Chest: no localized rib tenderness Resp Effort & Inspection: normal respiratory effort and able to speak in complete sentences Auscultation: clear to auscultation bilaterally Cardio Jugular venous pressure: no JVD Rate: regular rate Heart Sounds: no murmurs GI Palpation: soft, not firm and no guarding Skin General skin exam: no rashes or lesions noted Neuro General: patient alert and patient oriented x3 Extrem General: capillary refill normal and no cyanosis Psych Mental Status: mental status grossly normal Course Vital Signs Vital signs: Vital Signs Temperature 36.5 C 03/21/23 08:42 Pulse 74 03/21/23 08:42 Respiratory Rate 20 03/21/23 08:42 Blood Pressure 197/70 H 03/21/23 08:42 Pulse Oximetry 97 03/21/23 08:42 Temperature 36.5 C 03/21/23 08:42 Temperature Source Temporal Artery Scan 03/21/23 08:42 Pulse 74 03/21/23 08:42 Respiratory Rate 20 03/21/23 08:42 Blood Pressure 197/70 H 03/21/23 08:42 Pulse Oximetry 97 03/21/23 08:42 Oxygen Delivery Method Room Air 03/21/23 08:42 Oxygen Flow Rate 0 03/21/23 08:42 Pain Level 0 03/21/23 08:42 Medical Decision Making 87 yo female with hx of peripheral neuropathy htn, ckd, who comes in after she passed out this morning. She states she woke up around 230am to use the rest room, doesn't remember feeling unwell or having symptoms such as dizziness or chest pain/dyspnea. She was sitting on the toilet and then around 530am she woke up on the bathroom floor unsure how she got there. She denies having chest pain or dyspnea now, has a mild frontal headache and a superficial abrasion over the mid nose. She has no midline c/t/l spine tenderness, soft abdomen. She does state she had a loose bowel movement and n/v as well. She has a soft abdomen with minimal tenderness in the mid right abdomen lateral to the umbilicus, no guarding or rebound. No focal neuro deficits Given the likely syncope will keep on tele, obtain cbc, cmp, ekg/troponin. Given the fall will also obtain ct head/face/cspine, cxr and noncontrast ct abd/pelvis due to her ckd. She has no hypoxia or tachycardia and no pleuritic chest pain so dout entities such as PE but her right lower leg distal to the knee is mildly swollen compared to the left, she is unsure if this is chronic or not and there is no redness or warmth, intact sensation and cap refill and she has no pain in the leg. Currently no u/s available for dvt study, will screen with d dimer pt stable, still has nausea, zofran ordered, no vomiting here. Imaging shows no acute findings, labs with wbc of 14 otherwise no significant findings or changes from baseline, d dimer is elevated and there is now a tech available to do an u/s. u/s negative, pt states she still feels nausea and when she stands she feels lightheaded. Given her age and syncope will discuss with hospitalist about obs admission Differential Diagnosis Differential Diagnosis: uti, electrolyte abnormality Medical Records Medical records reviewed: Yes I reviewed the patient's medical records. Imaging Data Radiologic Study: Attestation: I personally reviewed and interpreted this imaging study as follows: Imaging: X-Ray Radiologist's impression: no acute findings Radiologic Study #2: Attestation: I personally reviewed and interpreted this imaging study as follows: Imaging: CT Scan Radiologist's impression: IMPRESSION: 1. Stable 8.4 mm nodular density in the right lower lobe. Stable since November 2020. . 2. 3.9 cm collection of air and debris projecting off of the 2nd duodenum. Most likely represents duodenal diverticulum., Less likely duodenal ulcer Radiologic Study #3: Attestation: I personally reviewed and interpreted this imaging study as follows: Imaging: CT Scan Radiologist's impression: no acute findings on head/face/c spine ct Radiologic Study #4: Attestation: I personally reviewed and interpreted this imaging study as follows: Imaging: Ultrasound Radiologist's impression: no acute findings Lab Data Lab results reviewed: Yes I reviewed the patient's lab results. ECG Data Attestation: I personally reviewed and interpreted this ECG (s) as follows: Prior ECG tracings: not available for review Interpretation: sinus rate of 66 pr 220 no stemi Quality:SDOH Health Related Social Needs: No Data to Display PFSH All Active Problems (Updated 03/21/23 @ 12:24 by Jay Akins MD) Syncope (Chronic) Right leg swelling (Acute) Gout of left hand (Acute) LIF s/p excision DOS: 11/25/22 Cervical radiculopathy at C6 (Chronic 08/10/14) neck pain Chronic pain of both shoulders (Chronic 09/18/15) Hypothyroidism (Chronic 06/10/12) Lichen planus (Chronic) OF VULVA (seen at [facility]) Sciatica (Chronic) bilateral; MRI 12/06 spinal stenosis; 2008-spine clinic [facility] steroid injections. 01/12 [facility] pain clinic me[place] branch radiofrequency (MRI severe spinal stenosis) Pulmonary hypertension (Acute ~2019) PA 55-65mmHg Nocturnal hypoxia (Acute) Osteoporosis (Chronic) Chronic constipation (Acute) managed with miralax Carotid stenosis, bilateral (Acute) 70% stenosis; eval by [facility], felt to not need surgery. 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 Peripheral neuropathy (Acute) Rotator cuff arthropathy of both shoulders (Acute) depo medrol 11/23/2022; 08/24/22; 05/18/22; 02/16/22; 11/17/21; 08/18/21 Essential hypertension (Chronic) Lumbar spondylosis (Acute) Sacroiliitis (Acute) Rhinorrhea (Acute) Benign hypertension with stage 3b chronic kidney disease (Acute) Low back pain (Acute) Primary osteoarthritis, left hand (Acute) Medical History Chronic renal disease, stage 3, moderately decreased glomerular filtration rate (GFR) between 30-59 mL/min/1.73 square meter Colon polyps Depressive disorder (01/29/04) Exudative age-related macular degeneration, left eye, with active choroidal neovascularization followed at [facility] Gastroesophageal reflux disease (06/10/12) hiatal hernia (2006 UGI) Hx of breast cancer Hyperlipidemia Nonexudative age-related macular degeneration, right eye, intermediate dry stage followed at [facility] Polymyalgia rheumatica (07/24/14) Posterior vitreous detachment of both eyes Primary osteoarthritis of left hip Pulmonary nodule (~04/2018) right; lost to followup and now declines surgery to evaluate if positive. Transient neurologic deficit noted to have carotid stenosis Umbilical hernia without obstruction and without gangrene (11/20/15) Repair /17 with 6.4 Ventralex Surgical History Breast, Mastectomy 1988-left Cholecystectomy laparoscopic Tata-prosthetic femur fracture at tip of prosthesis S/P ORIF of periprosthetic fracture of right distal femur DOS: 04/16/18 Dr. Villar Repair of umbilical hernia (04/15/16) S/P carpal tunnel release Status post fracture of right hip Status post right knee replacement Family History Sister Cancer Mother No problems noted. Father No problems noted. Sister No problems noted. Son No problems noted. Son No problems noted. Social History Smoking/Tobacco Use Status: Former Tobacco Use tobacco type: cigarettes Quit Date: 03/01/94 Tobacco: How many years used: 40 Second Hand Exposure: Yes Smoking risk assessment performed?: Yes Alcohol Intake: never Drug use: Never Substance use type: does not use Caregiver/Support person: No Household members: none Housing: house Number of Children: 2 Do you need help understanding health information?: Never current occupation: retired Pets and animals: No Sexually active: No Do you think of yourself as: straight/heterosexual Current gender identity: female What is your relationship status?: How often do you talk on the phone with friends or family?: three or more times per week How often do you get together with friends or relatives?: three or more times per week How often do you attend sikh or taoism services?: 4 or more times per year Do you belong to any clubs or organized social groups?: no Panel score (0-1 are the most socially isolated patients): 2 Frequency: 1-2 times per week Evelyn/Hinduism: Roman Catholic Special evelyn needs: No Seatbelt use: always Drive intox or ride w/intox lead driver: No Do you feel safe at home: Yes Do you feel safe in your relationship?: Yes Additional Social history: lives alone Discharge Plan Disposition Patient Disposition: Admit to [facility] Condition: Stable Discharge Details Chief Complaint: Fall/Non TraumaCriteria Clinical Impression: Right leg swelling, Syncope Primary Care Provider: Rika Kendrick ED Provider: Jay Akins Home Meds and New Rx's Prescriptions: No Action amlodipine 5 mg tablet 5 mg PO DAILY Qty: 90 3RF calcium citrate 200 mg (950 mg) tablet 800 mg PO BID Qty: 240 11RF cyanocobalamin (vitamin B-12) [Vitamin B-12] 1,000 mcg tablet extended release 1,000 mcg PO .every other day Qty: 15 11RF Rx Instructions: 1 tab at 0800 every other day docusate sodium [Colace] 100 mg capsule 100 mg PO BID Qty: 60 11RF ferrous sulfate 325 mg (65 mg iron) tablet 325 mg PO DAILY Qty: 30 11RF acyclovir 400 mg tablet 400 mg PO BID PRN (Reason: cold sores) Qty: 20 8RF Rx Instructions: one pill BID for 5 days at the onset of cold sores lisinopril-hydrochlorothiazide 20-12.5 mg tablet 1 tab PO DAILY Qty: 90 3RF polyethylene glycol 3350 17 gram/dose powder 17 g PO DAILY Qty: 510 11RF magnesium oxide 400 mg (241.3 mg magnesium) tablet 400 mg PO BID Qty: 60 11RF ipratropium bromide 42 mcg (0.06 %) spray,non-aerosol 1 spray intranasal TID Qty: 45 1RF Rx Instructions: administer into each nostril atorvastatin [Lipitor] 40 mg tablet 40 mg PO QPM Qty: 30 11RF levothyroxine 75 mcg tablet 75 mcg PO DAILY@0600 Qty: 30 6RF hydrocodone-acetaminophen 5-325 mg tablet 1 tab PO BID MDD 2 tabs PRN (Reason: chronic back ) Qty: 14 0RF acetaminophen 500 mg tablet 1,000 mg PO TID Qty: 90 0RF ibuprofen 600 mg tablet 600 mg PO TID PRN (Reason: pain) Qty: 90 0RF
[2023-03-21 09:10] LABS: Abs Immature Grans 0.06 10^3/uL (0.0-0.06); Absolute Basophil Count 0.07 10^3/uL (0.0-0.2); Absolute Eosinophil Count 0.03 10^3/uL (0.0-0.7); Absolute Neutrophil Count 12.77 10^3/uL (1.2-6.7); Basophils % 0.5; Eosinophils % 0.2; HCT 35.5 % (36.0-46.0); HGB 11.7 g/dL (11.2-15.7); Immature Grans % 0.4; Lymphocytes % 2.6; MCH 31.7 pg (27.0-33.0); MCV 96 fL (80-95); MPV 10.5 fL (8.0-11.0); Monocytes % 5.7; Neutrophils % 90.6; Platelet Count 225 10^3/uL (130-400); RBC 3.69 10^6/uL (3.93-5.22); RDW 12.4 % (11.7-14.6); WBC 14.09 10^3/uL (4.4-10.8)
[2023-03-21 09:12] LABS: Absolute Lymphocyte Count 0.37 10^3/uL (1.2-3.4)
[2023-03-21 09:24] LABS: PTT Activated 21.5 sec (23.6-32.8); Prothrombin Time 10.2 sec (9.1-11.1)
[2023-03-21 09:34] LABS: ALT 41 U/L (14-59); AST 35 U/L (15-37); Albumin 4.1 g/dL (3.4-5.0); Alkaline Phosphatase 101 U/L (46-116); Anion Gap 9.9 mmol/L (3-11); BUN 29 mg/dL (7-18); CO2 27.1 mmol/L (21.0-32.0); CREATININE 1.3 mg/dL (0.55-1.02); Calcium 10.3 mg/dL (8.5-10.1); Chloride 102 mmol/L (98-107); Creatine Kinase 153 U/L (26-192); Glucose 162 mg/dL (74-106); Potassium 3.7 mmol/L (3.5-5.1); Sodium 139 mmol/L (136-145); TSH (W/Ref FT4) 2.14 uIU/mL (0.36-3.74); Total Protein 7.4 g/dL (6.4-8.2); Troponin I < 50 ng/L (< or =60)
[2023-03-21] MEDS: Normal Saline 250 ML 500 ML IV (09:39)
--- NOTE | 2023-03-21 09:41 | DI.VRAD_ITS ---
PROCEDURE INFORMATION: Exam: XR Chest Exam date and time: 03/21/2023 9:30 AM Age: 87 years old Clinical indication: Other: ? Pneumonia TECHNIQUE: Imaging protocol: Radiologic exam of the chest. Views: 2 views. COMPARISON: CT chest PE CTA 04/16/2018 10:09 AM FINDINGS: Lungs: Unremarkable. No consolidation. Pleural spaces: Unremarkable. No pleural effusion. No pneumothorax. Heart/Mediastinum: Unremarkable. No cardiomegaly. Bones/joints: Unremarkable. IMPRESSION: No acute findings. Dictated and Authenticated by: Tonia Henriquez MD. Ordering:JEREMIAH Thompson MD
--- NOTE | 2023-03-21 09:48 | DI.VRAD_ITS ---
PROCEDURE INFORMATION: Preliminary report Exam: CT Head Without Contrast Exam date and time: 03/21/2023 9:12 AM Age: 87 years old Clinical indication: Injury or trauma; Fall; Blunt trauma (contusions or hematomas); Nose; Additional info: ? Pneumonia TECHNIQUE: Imaging protocol: Computed tomography of the head without contrast. COMPARISON: MR brain wo 04/18/2018 9:49 AM FINDINGS: Brain: Symmetric prominence of the cortical and cerebellar sulci. Small-vessel ischemic change. Vascular and dural calcifications. No acute post-traumatic brain injury. Cerebral ventricles: Normal configuration of the ventricles. Paranasal sinuses: No sinus fluid. Mastoid air cells: No mastoid effusion. Bones/joints: No acute calvarial injury. Soft tissues: Trace left frontal scalp hematoma. IMPRESSION: No acute post-traumatic brain injury. Additional findings as described above. PROCEDURE INFORMATION: Preliminary report Exam: CT Maxillofacial Without Contrast Exam date and time: 03/21/2023 9:12 AM Age: 87 years old Clinical indication: Injury or trauma; Fall; Blunt trauma (contusions or hematomas); Nose; Additional info: ? Pneumonia TECHNIQUE: Imaging protocol: Computed tomography of the face without contrast. COMPARISON: None FINDINGS: Beam hardening artifact is identified in association with dental amalgam. Orbital cavities: Unremarkable appearance of the globes, optic nerves, extraocular muscles. Bones/joints: No acute facial fracture. Paranasal sinuses: No sinus fluid. Salivary glands: Punctate right parotid calcifications. Soft tissues: No significant facial soft tissue swelling. Nasal cavity: Symmetric caliber of the nasal turbinates. Midline nasal septum. IMPRESSION: No acute facial fracture. PROCEDURE INFORMATION: Preliminary report Exam: CT Cervical Spine Without Contrast Exam date and time: 03/21/2023 9:12 AM Age: 87 years old Clinical indication: Injury or trauma; Fall; Blunt trauma (contusions or hematomas); Nose; Additional info: ? Pneumonia TECHNIQUE: Imaging protocol: Computed tomography of the cervical spine without contrast. COMPARISON: MR C-SPINE^ROUTINE 04/20/2018 1:23 PM FINDINGS: Bones/joints: No acute bony injury in the visualized cervical spine. 2 mm anterolisthesis of C7 on T1. Stable T1-2 interspinous widening. Osteopenia. Degenerative change and disc bulging. Synov Lungs: Unremarkable lung apices as visualized. Vasculature: Prominent vascular calcification. Soft tissues: Synovial calcification. IMPRESSION: 1. No acute bony injury in the visualized cervical spine. 2. 2 mm anterolisthesis of C7 on T1. Dictated and Authenticated by: Kane Jain MD. Ordering:JEREMIAH Thompson MD
--- NOTE | 2023-03-21 09:48 | DI.VRAD_ITS ---
PROCEDURE INFORMATION: Exam: CT Abdomen And Pelvis Without Contrast Exam date and time: 03/21/2023 9:23 AM Age: 87 years old Clinical indication: Other: Fall, pain; Additional info: ? Pneumonia TECHNIQUE: Imaging protocol: Computed tomography of the abdomen and pelvis without contrast. COMPARISON: CT ABDOMEN PELVIS W 12/13/2020 11:46 AM FINDINGS: Lungs: Stable 8.4 mm nodular density in the right lower lobe. Stable since November 2020.. Heart: There is calcification of the aortic valve annulus. Liver: Normal. No mass. Gallbladder and bile ducts: Cholecystectomy. Pneumobilia Pancreas: Normal. No ductal dilation. Spleen: Normal. No splenomegaly. Adrenal glands: Normal. No mass. Kidneys and ureters: 2.8 cm simple cyst right kidney. 14 mm simple cyst left kidney.. 17 mm simple cyst left kidney. . No follow-up imaging recommended . Nonobstructing left renal calculus. No ureteral calculus Stomach and bowel: 3.9 cm collection of air and debris projecting off of the 2nd duodenum. Most likely represents duodenal diverticulum., Less likely duodenal ulcer. Appendix: No evidence of appendicitis. Intraperitoneal space: Unremarkable. No free air. No significant fluid collection. Vasculature: Calcification in the left renal artery. Stenosis at the origin of the renal arteries Lymph nodes: Unremarkable. No enlarged lymph nodes. Urinary bladder: Unremarkable as visualized. Reproductive: Unremarkable as visualized. Bones/joints: Intramedullary christina in the right femur. Screw in the right femoral neck .Broad-based disc bulge, facet hypertrophy, and ligament hypertrophy at L3/L4 and L4/L5 consistent with spinal stenosis. Soft tissues: Unremarkable. IMPRESSION: 1. Stable 8.4 mm nodular density in the right lower lobe. Stable since November 2020. . 2. 3.9 cm collection of air and debris projecting off of the 2nd duodenum. Most likely represents duodenal diverticulum., Less likely duodenal ulcer. Dictated and Authenticated by: Tonia Henriquez MD. Ordering:JEREMIAH Thompson MD
[2023-03-21 09:49] LABS: COVID-19 PCR Negative (Negative); Influenza A PCR Negative (Negative); Influenza B PCR Negative (Negative); RSV PCR Negative (Negative)
[2023-03-21 09:51] LABS: Source Nasopharynx
[2023-03-21 09:52] LABS: D-Dimer 2487 ng/mlFEU (<500)
[2023-03-21 09:54] LABS: Bilirubin Small (Negative); Blood Trace-intact (Negative); Clarity Clear (Clear); Glucose Negative (Negative); Ketones Trace mg/dL (Negative); Leukocyte Esterase Negative (Negative); Nitrite Negative (Negative); Specific Gravity 1.025 (1.005-1.025); Urobilinogen 0.2 mg/dL (Up to 0.2); pH 5.5 (5-8)
--- NOTE | 2023-03-21 10:00 | DI.US_ITS ---
Exam(s) US LOWER EXTREMITY VENOUS RT EXAM: US LOWER EXTREMITY VENOUS RT CLINICAL HISTORY: right leg swelling. TECHNIQUE: Lower extremity venous ultrasound performed using grayscale, color-flow, and spectral Do ppler analysis. COMPARISON: No exams were available for comparison FINDINGS: The common femoral, femoral and popliteal veins demonstrate normal compressibility, augmentation, and color Doppler. The posterior tibial veins are patent. No saphenous vein thrombosis or other superfi cial venous thrombosis is seen. No hematoma or Orellana's cyst is seen. IMPRESSION: Negative lower extremity ultrasound. No evidence of DVT. DATA REPOSITORY:
[2023-03-21 10:05] LABS: Bacteria Negative HPF (Negative); C & S Indicated? No; Casts 10-20 Hyaline LPF (Negative); Crystals Few Amorphous HPF (Negative); Epithelial Cells Few HPF (Negative); Mucus Heavy (Negative)
[2023-03-21] MEDS: Ondansetron 4 MG/2 ML VIAL IVP ×2 (10:13→16:39)
[2023-03-21] MEDS: Bacitracin 1 PACKET (10:25)
--- NOTE | 2023-03-21 11:13 | DI.VRAD_ITS ---
PROCEDURE INFORMATION: Exam: US Duplex Right Lower Extremity Veins, Limited Exam date and time: 03/21/2023 10:42 AM Age: 87 years old Clinical indication: Injury or trauma; Fall; Blunt trauma (contusions or hematomas); Right; Lower extremity, hip and thigh level; Vessel not specified TECHNIQUE: Imaging protocol: Real-time duplex ultrasound of the right extremity with 2-D tello scale, color Doppler flow and spectral waveform analysis including responses to compression and other maneuvers (when performed) with image documentation. Limited exam was focused on the right lower extremity veins. COMPARISON: CT ABDOMEN PELVIS WO 03/21/2023 9:23 AM FINDINGS: Right deep veins: Unremarkable. The common femoral, femoral, proximal profunda femoral and popliteal veins are patent without thrombus. Normal Doppler waveforms. Normal compressibility and/or augmentation response. Superficial veins: Unremarkable. Saphenofemoral junction is patent without thrombus. Soft tissues: Unremarkable. IMPRESSION: No evidence of deep vein thrombosis. Dictated and Authenticated by: Tonia Henriquez MD. Ordering:JEREMIAH Thompson MD
[2023-03-21] MEDS: Meclizine 25 MG TAB PO (11:22)
[2023-03-21 12:05] LABS: Troponin I < 50 ng/L (< or =60)
--- NOTE | 2023-03-21 12:35 | W.PM.HP.N ---
Date of service: 03/21/23 Time of Service: 12:35 Assessment and Plan Assessment and plan (1) Syncope: Status: Chronic Assessment and plan: Admit to the medical surgical unit observation on telemetry Fall precautions Had similar episode several years ago found to have bilateral carotid stenosis greater than 70% bilaterally by ultrasound, 50% right and 70-80% ICA stenosis on the left by CTA.. She states she was told she is not a surgical candidate and at that time neurology did not feel that her syncopal episode was secondary to her carotid stenosis. (2) Hypothyroidism: Status: Chronic Assessment and plan: TSH 2.14 continue home Synthroid Qualifiers: Hypothyroidism type: unspecified Qualified Code(s): E03.9 - Hypothyroidism, unspecified (3) Pulmonary hypertension: Status: Acute Assessment and plan: Stable continue home medications (4) Carotid stenosis, bilateral: Status: Acute Assessment and plan: Noted >70% bilaterally by ultrasound, 50% right and 70-80% ICA stenosis on the left by CTA in 2019. Unlikely cause for patient's syncope per neurology evaluation at that time. Patient declines aspirin (5) Chronic renal disease, stage 3, moderately decreased glomerular filtration rate (GFR) between 30-59 mL/min/1.73 square meter: Status: Acute Assessment and plan: Creatinine stable and at baseline. Monitor closely avoid nephrotoxic drugs renal dose as needed (6) Right leg swelling: Status: Acute Assessment and plan: DVT ruled out by ultrasound most likely secondary to her pulmonary hypertension. Discussed with Dr. Romero History of Present Illness History of Present Illness Chief Complaint: syncope Narrative: This is an 87-year-old female patient with a history of peripheral neuropathy hypertension chronic kidney disease who reports she was in her usual state of health. She presented to the emergency department after a syncopal episode that occurred during the night. She states she remembers waking up around 2:30 in the morning to use the restroom. She denied any symptoms lasting remembered she was sitting on the toilet and then at 5:30 in the morning states that she woke up on the bathroom floor. She denied chest pain or shortness of breath. She did report a mild frontal headache and did have a superficial abrasion and bruising to the bridge of her nose. Her workup in the emergency department showed no acute injury. Her head and C-spine CT with no acute findings, additional labs and imaging included a CT of the abdomen and pelvis in addition to routine lab including UA. She was noted to have some increased edema to the right lower extremity when compared to the left but ultrasound was negative for DVT. She was not hypoxic or tachycardic with no pleuritic chest pain so PE was less likely. She was unable to receive IV contrast secondary to her chronic kidney disease. EKG showed no acute ischemic changes troponin negative. She was referred to observation on the medical surgical unit on telemetry for further monitoring. Review of Systems All systems reviewed & are unremarkable except as noted in HPI and below PFSH All Active Problems (Updated 03/23/23 @ 00:05 by MONIQUE PRATT) Chronic renal disease, stage 3, moderately decreased glomerular filtration rate (GFR) between 30-59 mL/min/1.73 square meter (Acute) Syncope (Chronic) Right leg swelling (Acute) Gout of left hand (Acute) LIF s/p excision DOS: 11/25/22 Cervical radiculopathy at C6 (Chronic 08/10/14) neck pain Chronic pain of both shoulders (Chronic 09/18/15) Hypothyroidism (Chronic 06/10/12) Lichen planus (Chronic) OF VULVA (seen at [facility]) Sciatica (Chronic) bilateral; MRI 12/06 spinal stenosis; 2008-spine clinic [facility] steroid injections. 01/12 [facility] pain clinic meidal branch radiofrequency (MRI severe spinal stenosis) Pulmonary hypertension (Acute ~2018) PA 55-65mmHg Nocturnal hypoxia (Acute) Osteoporosis (Chronic) Chronic constipation (Acute) managed with miralax Carotid stenosis, bilateral (Acute) 70% stenosis; eval by [facility], felt to not need surgery. 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 Peripheral neuropathy (Acute) Rotator cuff arthropathy of both shoulders (Acute) depo medrol 11/23/2022; 08/24/22; 05/18/22; 02/16/22; 11/17/21; 08/18/21 Essential hypertension (Chronic) Lumbar spondylosis (Acute) Sacroiliitis (Acute) Rhinorrhea (Acute) Benign hypertension with stage 3b chronic kidney disease (Acute) Low back pain (Acute) Primary osteoarthritis, left hand (Acute) Medical History Chronic renal disease, stage 3, moderately decreased glomerular filtration rate (GFR) between 30-59 mL/min/1.73 square meter Colon polyps Depressive disorder (01/29/04) Exudative age-related macular degeneration, left eye, with active choroidal neovascularization followed at [facility] Gastroesophageal reflux disease (06/10/12) hiatal hernia (2006 UGI) Hx of breast cancer Hyperlipidemia Nonexudative age-related macular degeneration, right eye, intermediate dry stage followed at [facility] Polymyalgia rheumatica (07/24/14) Posterior vitreous detachment of both eyes Primary osteoarthritis of left hip Pulmonary nodule (~04/2018) right; lost to followup and now declines surgery to evaluate if positive. Transient neurologic deficit noted to have carotid stenosis Umbilical hernia without obstruction and without gangrene (11/20/15) Repair with 6.4 Ventralex Surgical History Breast, Mastectomy 1988-left Cholecystectomy laparoscopic Tata-prosthetic femur fracture at tip of prosthesis S/P ORIF of periprosthetic fracture of right distal femur DOS: 04/16/18 Dr. Villar Repair of umbilical hernia (04/15/16) S/P carpal tunnel release Status post fracture of right hip Status post right knee replacement Family History Sister Cancer Mother No problems noted. Father No problems noted. Sister No problems noted. Son No problems noted. Son No problems noted. Social History Smoking/Tobacco Use Status: Former Tobacco Use tobacco type: cigarettes Quit Date: 03/01/94 Tobacco: How many years used: 40 Second Hand Exposure: Yes Smoking risk assessment performed?: Yes Alcohol Intake: never Drug use: Never Substance use type: does not use Caregiver/Support person: No Household members: none Housing: house Number of Children: 2 Do you need help understanding health information?: Never current occupation: retired Pets and animals: No Sexually active: No Do you think of yourself as: straight/heterosexual Current gender identity: female What is your relationship status?: How often do you talk on the phone with friends or family?: three or more times per week How often do you get together with friends or relatives?: three or more times per week How often do you attend mosque or yazidism services?: 4 or more times per year Do you belong to any clubs or organized social groups?: no Panel score (0-1 are the most socially isolated patients): 2 Frequency: 1-2 times per week Evelyn/Latter Day: Uatsdin Special evelyn needs: No Seatbelt use: always Drive intox or ride w/intox speedboat driver: No Do you feel safe at home: Yes Do you feel safe in your relationship?: Yes Additional Social history: lives alone Meds Allergies and Home Medications Allergies Allergy/AdvReac Type Severity Reaction Status Date / Time adhesive Allergy Severe Skin Rash Verified 03/21/23 09:16 latex Allergy Intermediate Skin Rash Verified 03/21/23 09:16 azithromycin AdvReac Severe DIARRHEA Verified 03/21/23 09:16 fluticasone propionate AdvReac Severe SEVER NOSE Verified 03/21/23 09:16 [From Flonase] IRRITATION Home Medications Medication Instructions Recorded Confirmed Type ipratropium bromide 42 mcg (0.06 1 spray intranasal TID #45 mL 07/02/22 03/21/23 Rx %) nasal spray acyclovir 400 mg tablet 400 mg PO BID PRN cold sores #20 11/13/22 03/21/23 Rx tab-caps amlodipine 5 mg tablet 5 mg PO DAILY #90 tabs 11/13/22 03/21/23 Rx calcium citrate 200 mg (950 mg) 800 mg (4 x 200 mg (950 mg)) PO 11/13/22 03/21/23 Rx tablet BID blisterpack-pickup #240 tabs cyanocobalamin (vitamin B-12) 1,000 mcg PO .every other day 11/13/22 03/21/23 Rx 1,000 mcg tablet,extended release Blister Pack-pickup #15 tabs (Vitamin B-12 ER) docusate sodium 100 mg capsule 100 mg PO BID blisterpack-pickup 11/13/22 03/21/23 Rx (Colace) #60 caps ferrous sulfate 325 mg (65 mg 325 mg PO DAILY blisterpack-pickup 11/13/22 03/21/23 Rx iron) tablet #30 tabs lisinopril 20 1 tab PO DAILY #90 tabs 11/13/22 03/21/23 Rx mg-hydrochlorothiazide 12.5 mg tablet magnesium oxide 400 mg (241.3 mg 400 mg PO BID blisterpack-pickup 11/13/22 03/21/23 Rx magnesium) tablet #60 tabs polyethylene glycol 3350 17 17 g PO DAILY constipation #510 11/13/22 03/21/23 Rx gram/dose oral powder grams acetaminophen 500 mg tablet 1,000 mg (2 x 500 mg) PO TID #90 11/25/22 03/21/23 Rx tabs ibuprofen 600 mg tablet 600 mg PO TID PRN pain #90 tabs 11/25/22 03/21/23 Rx atorvastatin 40 mg tablet (Lipitor) 40 mg PO QPM blisterpack-pickup 12/21/22 03/21/23 Rx #30 tabs levothyroxine 75 mcg tablet 75 mcg PO DAILY@0600 12/21/22 03/21/23 Rx blisterpack-pickup #30 tabs hydrocodone 5 mg-acetaminophen 325 1 tab PO BID PRN chronic back #14 02/12/23 03/21/23 Rx mg tablet tabs amoxicillin 875 mg-potassium 1 tab PO BID #10 tabs 03/22/23 Rx clavulanate 125 mg tablet guaifenesin 600 mg tablet, 600 mg PO BID #14 tabs 03/22/23 Rx extended release 12 hr (Mucus Relief ER) Exam Const General: no acute distress Orientation: alert [facility] Head: normocephalic General nose exam: nares normal Mouth: moist mucous membranes Eyes General: appearance normal, both eyes and all related structures Neck Neck: normal visual inspection Chest Chest: no localized rib tenderness Resp Effort & Inspection: normal respiratory effort and able to speak in complete sentences Auscultation: clear to auscultation bilaterally Cardio Jugular venous pressure: no JVD Rate: regular rate Heart Sounds: no murmurs GI Palpation: soft, not firm and no guarding Skin Trauma: abrasion (And hematoma to the bridge of her nose) Neuro General: patient alert and patient oriented x3 Extrem General: capillary refill normal and no cyanosis Psych Mental Status: mental status grossly normal Speech and Movement: speech and movement normal Mood: congruent mood Affect: normal affect Results Labs 03/22/23 06:10 03/22/23 06:10 Labs: Laboratory Results - last 24 hr 03/21/23 03/21/23 03/21/23 08:47 09:00 09:10 WBC 14.09 H RBC 3.69 L Hgb 11.7 Hct 35.5 L MCV 96 H MCH 31.7 MCHC 33.0 RDW 12.4 Plt Count 225 MPV 10.5 Immature Gran % 0.4 Neutrophils % 90.6 Lymphocytes % 2.6 Monocytes % 5.7 Eosinophils % 0.2 Basophils % 0.5 Nucleated RBC % 0.0 Absolute Neutrophils 12.77 H Absolute Lymphocytes 0.37 L Absolute Monocytes 0.80 Absolute Eosinophils 0.03 Absolute Basophils 0.07 PT 10.2 INR 1.0 APTT 21.5 L D-Dimer 2487 H Sodium 139 Potassium 3.7 Chloride 102 Carbon Dioxide 27.1 Anion Gap 9.9 BUN 29 H Creatinine 1.3 H Est GFR (CKD-EPI 2020) 39.80 Glucose 162 H Calcium 10.3 H Magnesium 2.0 Total Bilirubin 1.0 AST 35 ALT 41 Alkaline Phosphatase 101 Creatine Kinase Cancelled 153 Troponin I < 50 Total Protein 7.4 Albumin 4.1 TSH 2.14 Urine Color Urine Clarity Urine pH Ur Specific [place] Urine Protein Urine Ketones Urine Blood Urine Nitrite Urine Bilirubin Urine Urobilinogen Ur Leukocyte Esterase Urine RBC Urine WBC Ur Epithelial Cells Urine Crystals Urine Bacteria Urine Casts Urine Mucus Ur Culture Indicated? Urine Glucose COVID-19 Source Nasopharynx SARS-CoV-2 (PCR) Negative Influenza Type A (PCR) Negative Influenza Type B (PCR) Negative RSV (PCR) Negative 03/21/23 03/21/23 09:48 11:40 WBC RBC Hgb Hct MCV MCH MCHC RDW Plt Count MPV Immature Gran % Neutrophils % Lymphocytes % Monocytes % Eosinophils % Basophils % Nucleated RBC % Absolute Neutrophils Absolute Lymphocytes Absolute Monocytes Absolute Eosinophils Absolute Basophils PT INR APTT D-Dimer Sodium Potassium Chloride Carbon Dioxide Anion Gap BUN Creatinine Est GFR (CKD-EPI 2020) Glucose Calcium Magnesium Total Bilirubin AST ALT Alkaline Phosphatase Creatine Kinase Troponin I < 50 Total Protein Albumin TSH Urine Color Yellow Urine Clarity Clear Urine pH 5.5 Ur Specific [place] 1.025 Urine Protein 30 H Urine Ketones Trace H Urine Blood Trace-intact H Urine Nitrite Negative Urine Bilirubin Small H Urine Urobilinogen 0.2 Ur Leukocyte Esterase Negative Urine RBC 3-5 H Urine WBC 3-5 Ur Epithelial Cells Few Urine Crystals Few Amorphous Urine Bacteria Negative Urine Casts 10-20 Hyaline Urine Mucus Heavy Ur Culture Indicated? No Urine Glucose Negative COVID-19 Source SARS-CoV-2 (PCR) Influenza Type A (PCR) Influenza Type B (PCR) RSV (PCR) Last Vital Signs Temp 36.5 C 03/21/23 08:42 Pulse 60 03/21/23 10:31 Resp 13 03/21/23 10:40 BP 162/28 H 03/21/23 10:31 Pulse Ox 94 03/21/23 10:40 Time Spent Time spent with Patient: 40-54 minutes Time was spent: preparing to see the patient(eg.review tests), obtaining and/or reviewing separately otained hiistory, ordering medications,tests, procedures, indepentently interpreting results and counseling the patient
[2023-03-21] MEDS: Prochlorperazine 10 MG/2 ML VIAL 5 MG IVP (12:49)
[2023-03-21] MEDS: Acetaminophen 500 MG TAB 1000 MG PO ×2 (16:38→19:43)
[2023-03-21] MEDS: Normal Saline Flush 10 ML SYR IVP ×2 (16:39→19:44)
[2023-03-21] MEDS: Magnesium Oxide 400 MG TAB PO (19:43)
[2023-03-21] MEDS: Calcium Citrate 950 MG TAB PO (19:43)
[2023-03-21] MEDS: Docusate Sodium 100 MG CAP PO (19:43)
[2023-03-21] MEDS: Atorvastatin 40 MG TAB PO (19:43)
[2023-03-22 04:43] VITALS: BP 134/70; PULSE 66; RESP 18; TEMP 36.6; O2SAT 94
[2023-03-22] MEDS: Levothyroxine 75 MCG TAB PO (06:56)
[2023-03-22 07:03] LABS: Abs Immature Grans 0.03 10^3/uL (0.0-0.06); Absolute Basophil Count 0.04 10^3/uL (0.0-0.2); Absolute Eosinophil Count 0.26 10^3/uL (0.0-0.7); Absolute Lymphocyte Count 1.02 10^3/uL (1.2-3.4); Absolute Monocyte Count 0.65 10^3/uL (0.1-0.8); Absolute Neutrophil Count 4.07 10^3/uL (1.2-6.7); Basophils % 0.7; Eosinophils % 4.3; HCT 29.3 % (36.0-46.0); HGB 9.7 g/dL (11.2-15.7); Immature Grans % 0.5; Lymphocytes % 16.8; MCHC 33.1 % (32.0-36.0); MCV 97 fL (80-95); Monocytes % 10.7; Platelet Count 194 10^3/uL (130-400); RBC 3.03 10^6/uL (3.93-5.22); RDW 12.7 % (11.7-14.6); RDW-SD 45.2 fL; WBC 6.07 10^3/uL (4.4-10.8)
[2023-03-22 07:21] LABS: Magnesium 2.1 mg/dL (1.8-2.4)
[2023-03-22 07:22] VITALS: BP 140/90; PULSE 58; RESP 18; TEMP 36.7; O2SAT 95
[2023-03-22 07:27] LABS: Anion Gap 8.4 mmol/L (3-11); BUN 29 mg/dL (7-18); CO2 26.6 mmol/L (21.0-32.0); CREATININE 1.4 mg/dL (0.55-1.02); Calcium 9.6 mg/dL (8.5-10.1); Chloride 104 mmol/L (98-107); Estimated GFR 36.41 (mL/min/1.73m2); Glucose 95 mg/dL (74-106); Sodium 139 mmol/L (136-145); Troponin I < 50 ng/L (< or =60)
[2023-03-22] MEDS: Acetaminophen 500 MG TAB 1000 MG PO (09:07)
[2023-03-22] MEDS: Docusate Sodium 100 MG CAP PO (09:07)
[2023-03-22] MEDS: Ferrous Sulfate 325 MG TAB PO (09:09)
[2023-03-22] MEDS: Cyanocobalamin 500 MCG TAB 1000 MCG PO (09:09)
[2023-03-22] MEDS: Magnesium Oxide 400 MG TAB PO (09:09)
[2023-03-22] MEDS: amLODIPine 5 MG TAB PO (09:10)
[2023-03-22] MEDS: Normal Saline Flush 10 ML SYR IVP ×2 (09:10→09:11)
[2023-03-22] MEDS: Calcium Citrate 950 MG TAB PO (09:10)
--- NOTE | 2023-03-22 09:26 | PDOC.CMIN ---
Date of service: 03/22/23 Time of Service: 09:26 Care Management Initial Assmt Initial Assessment REASON FOR HOSPITALIZATION:: Syncope PREVIOUS FUNCTIONAL STATUS/SOCIAL/FAMILY SUPPORTS:: Brie lives in [place]. She has 2 sons, Jay and Kenny, who live locally. ADVANCE DIRECTIVES:: states she has them, not on file COLST on file - full code Has patient been provided with info about the portal/API?: Yes Did the patient sign up for the portal?: No CODE STATUS:: Full Code INSURANCE COVERAGE / FINANCIAL ISSUES:: Medicare [facility] Medicare supplement PRIMARY CARE PHYSICIAN:: Rika Kendrick POTENTIAL DISCHARGE NEEDS:: follow up with community providers PATIENT/FAMILY EDUCATION NEEDS:: Review of discharge instructions, activity, limitations, follow up plan, discuss Ask Me Three TRANSPORTATION:: via private vehicle with family PLAN:: Anticipate Brie will be discharged home, possibly with new home health services. She will follow up with her community providers and plan of care and transport with family. PFSH All Active Problems (Updated 03/21/23 @ 12:39 by Teodora Robles NP) Chronic renal disease, stage 3, moderately decreased glomerular filtration rate (GFR) between 30-59 mL/min/1.73 square meter (Acute) Syncope (Chronic) Right leg swelling (Acute) Gout of left hand (Acute) LIF s/p excision DOS: 11/25/22 Cervical radiculopathy at C6 (Chronic 08/10/14) neck pain Chronic pain of both shoulders (Chronic 09/18/15) Hypothyroidism (Chronic 06/10/12) Lichen planus (Chronic) OF VULVA (seen at [facility]) Sciatica (Chronic) bilateral; MRI 12/06 spinal stenosis; 2008-spine clinic [facility] steroid injections. 01/12 [facility] pain clinic meidal branch radiofrequency (MRI severe spinal stenosis) Pulmonary hypertension (Acute ~2019) PA 55-65mmHg Nocturnal hypoxia (Acute) Osteoporosis (Chronic) Chronic constipation (Acute) managed with miralax Carotid stenosis, bilateral (Acute) 70% stenosis; eval by [facility], felt to not need surgery. 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 Peripheral neuropathy (Acute) Rotator cuff arthropathy of both shoulders (Acute) depo medrol 11/23/2022; 08/24/22; 05/18/22; 02/16/22; 11/17/21; 08/18/21 Essential hypertension (Chronic) Lumbar spondylosis (Acute) Sacroiliitis (Acute) Rhinorrhea (Acute) Benign hypertension with stage 3b chronic kidney disease (Acute) Low back pain (Acute) Primary osteoarthritis, left hand (Acute) Medical History Chronic renal disease, stage 3, moderately decreased glomerular filtration rate (GFR) between 30-59 mL/min/1.73 square meter Colon polyps Depressive disorder (01/29/04) Exudative age-related macular degeneration, left eye, with active choroidal neovascularization followed at [facility] Gastroesophageal reflux disease (06/10/12) hiatal hernia (2006 UGI) Hx of breast cancer Hyperlipidemia Nonexudative age-related macular degeneration, right eye, intermediate dry stage followed at [facility] Polymyalgia rheumatica (07/24/14) Posterior vitreous detachment of both eyes Primary osteoarthritis of left hip Pulmonary nodule (~04/2018) right; lost to followup and now declines surgery to evaluate if positive. Transient neurologic deficit noted to have carotid stenosis Umbilical hernia without obstruction and without gangrene (11/20/15) Repair /17 with 6.4 Ventralex Surgical History Breast, Mastectomy 1988-left Cholecystectomy laparoscopic Tata-prosthetic femur fracture at tip of prosthesis S/P ORIF of periprosthetic fracture of right distal femur DOS: 04/16/18 Dr. Villar Repair of umbilical hernia (04/15/16) S/P carpal tunnel release Status post fracture of right hip Status post right knee replacement Family History Sister Cancer Mother No problems noted. Father No problems noted. Sister No problems noted. Son No problems noted. Son No problems noted. Social History Smoking/Tobacco Use Status: Former Tobacco Use tobacco type: cigarettes Quit Date: 03/01/94 Tobacco: How many years used: 40 Second Hand Exposure: Yes Smoking risk assessment performed?: Yes Alcohol Intake: never Drug use: Never Substance use type: does not use Caregiver/Support person: No Household members: none Housing: house Number of Children: 2 Do you need help understanding health information?: Never current occupation: retired Pets and animals: No Sexually active: No Do you think of yourself as: straight/heterosexual Current gender identity: female What is your relationship status?: How often do you talk on the phone with friends or family?: three or more times per week How often do you get together with friends or relatives?: three or more times per week How often do you attend baptist or samaritan services?: 4 or more times per year Do you belong to any clubs or organized social groups?: no Panel score (0-1 are the most socially isolated patients): 2 Frequency: 1-2 times per week Evelyn/Alevism: Scientology Special evelyn needs: No Seatbelt use: always Drive intox or ride w/intox local combination truck driver: No Do you feel safe at home: Yes Do you feel safe in your relationship?: Yes Additional Social history: lives alone SDOH(Care Management) Screening Will the Patient Participate in the Screening?: Yes Do you worry about having a steady place to live?: no Problems where you live: no known problems In the past 12 months, have you had to go without electric, gas, oil or water in your home?: no Have you or anyone in your house had to go without enough food to eat?: no Has lack of transportation kept you from medical appointments or from doing things needed for daily living?: no Has anyone in your support network made you feel unsafe for any reason?: no
[2023-03-22 09:54] LABS: Lab Add On Test DONE
[2023-03-22] MEDS: guaiFENesin 600 MG TABCR PO (10:27)
[2023-03-22] MEDS: Normal Saline 500 ML IV (10:29)
[2023-03-22 10:43] LABS: Procalcitonin 1.2 ng/mL
--- NOTE | 2023-03-22 10:47 | DI.RAD_ITS ---
Exam(s) XR CHEST 2V PA LATERAL EXAM: XR CHEST 2V PA LATERAL CLINICAL HISTORY: cough TECHNIQUE: 2D digital imaging was performed. COMPARISON: CR,XR XR CHEST 2V PA LATERAL from 03/21/2023 FINDINGS: HEART: Normal size. Aorta: Not dilated. Calcified PULMONARY VASCULATURE: Normal. LUNGS: Fibrotic changes, other clear. PLEURAL SPACE: No pleural effusion or pneumothorax. BONE:Unremarkable for age. Soft tissues: Unremarkable. IMPRESSION: No acute abnormality. DATA REPOSITORY: RADIATION DOSE DELIVERED:
[2023-03-22 11:17] LABS: COVID-19 PCR Negative (Negative); Influenza A PCR Negative (Negative); Influenza B PCR Negative (Negative); RSV PCR Negative (Negative)
[2023-03-22 11:19] LABS: Source Nasopharynx
--- NOTE | 2023-03-22 12:01 | PT.INIE ---
PT Notes Visit Reasons: Syncope Physical Therapy Inpatient Initial Evaluation Date: 03/22/2023 Referring Doctor: Teodora Robles NP PT Orders: PT CONSULT: Eval/treat Precautions: Fall. Standard. Activity as tolerated. Patient Profile/Admitting Diagnosis: Brie is an 87-year-old female admitted to the ED on 03/21/2023 due to a fainting episode. Patient is admitted for management of syncope, hypothyroidism, pulmonary hypertension, bilateral carotid stenosis, Stage III chronic renal disease, and right leg swelling. PMHX: All Active Problems (Updated 03/21/23 @ 12:39 by Teodora Robles NP) Chronic renal disease, stage 3, moderately decreased glomerular filtration rate (GFR) between 30-59 mL/min/1.73 square meter (Acute) Syncope (Chronic) Right leg swelling (Acute) Gout of left hand (Acute) LIF s/p excision DOS: 11/25/22 Cervical radiculopathy at C6 (Chronic 08/10/14) neck pain Chronic pain of both shoulders (Chronic 09/18/15) Hypothyroidism (Chronic 06/10/12) Lichen planus (Chronic) OF V[place]VA ([place] [facility] [place] [facility]) Sciatica (Chronic) bilateral; MRI 12/06 spinal stenosis; 2008-spine clinic [facility] steroid injections. 01/12 [facility] pain clinic [place] radiofrequency (MRI severe spinal stenosis) Pulmonary hypertension (Acute ~2018) PA 55-65mmHgNocturnal hypoxia (Acute) Osteoporosis (Chronic) Chronic constipation (Acute) managed with miralaxCarotid stenosis, bilateral (Acute) 70% stenosis; eval by [facility] [place], felt to not need surgery. Pt refuses aspirin Synovial cyst of popliteal space (Acute 01/28/07) Anemia (Acute 03/18/12) negative flex sig acroiliac joint dysfunction of left side (Chronic) Elevated fasting glucose (Acute) Vitamin B12 deficiency disease (Acute) Recurrent canker sores (Acute) Tinnitus of left ear (Acute) Ulnar neuropathy at elbow (Acute ~01/2021) diagnosed via EMGPeripheral neuropathy (Acute) Rotator cuff arthropathy of both shoulders (Acute) depo medrol 11/23/2022; 08/24/22; 05/18/22; 02/16/22; 11/17/21; 6/20/22 Essential hypertension (Chronic) Lumbar spondylosis (Acute) Sacroiliitis (Acute) Rhinorrhea (Acute) Benign hypertension with stage 3b chronic kidney disease (Acute) Low back pain (Acute) Primary osteoarthritis, left hand (Acute) Medical History Chronic renal disease, stage 3, moderately decreased glomerular filtration rate (GFR) between 30-59 mL/min/1.73 square meter Colon polyps Depressive disorder (01/29/04) Exudative age-related macular degeneration, left eye, with active choroidal neovascularization followed at [facility] [place] Gastroesophageal reflux disease (06/10/12) hiatal hernia (2006 UGI) Hx of breast cancer Hyperlipidemia Nonexudative age-related macular degeneration, right eye, intermediate dry stage [facility] [place] (07/24/14) Posterior vitreous detachment of both eyes Primary osteoarthritis of left hip Pulmonary nodule (~04/2018) right; lost to followup and now declines surgery to evaluate if positive. Transient neurologic deficit noted to have carotid stenosisUmbilical hernia without obstruction and without gangrene (11/20/15) Repair / with 6.4 Ventralex Surgical History Breast, Mastectomy 1988-left Cholecystectomy laparoscopic Tata-prosthetic femur fracture at tip of prosthesis S/P ORIF of periprosthetic fracture of right distal femur DOS: 04/16/18 Dr. Villar Repair of umbilical hernia (04/15/16) S/P carpal tunnel release Status post fracture of right hip Status post right knee replacement Social History/Home Situation: Lives in a private home with one-step to enter without rails, door frame close enough for patient to be built to hold off on both sides of the door frame for safety. Modified independent with use of single-point cane. Still drives. Has family members who are able to support as needed. Equipment Owned/DME: [facility] Subjective: Denies headache, chest pain, and lightheadedness throughout session. Did indicate instability using single-point cane. Objective: General Observation: Seated on bedside chair. IV access through left UE. Mental Status: Alert and oriented as to person, place, time, and purpose. Able to pay attention, focus, and respond appropriately. Pain: Denies Vital Signs: Closely monitored via telemetry ROM: Right Upper Extremity: Shoulder Flexion lacks the last 25% of AROM. Shoulder abduction lacks the last 25% of AROM. Elbow flexion WFL. Wrist flexion WFL. Functional opening and closing of hand WFL. Left Upper Extremity: Shoulder Flexion lacks the last 25% of AROM. Shoulder abduction lacks the last 25% of AROM. Elbow flexion WFL. Wrist flexion WFL. Functional opening and closing of hand WFL. Right Lower Extremity: Hip flexion lacks the last 50% of AROM. Hip abduction 20 degrees. Knee flexion 30 degrees to 90 degrees. Knee extension -30 degrees. Ankle dorsiflexion to neutral only. Ankle plantarflexion WFL. Left Lower Extremity: Hip flexion lacks the last 25% of AROM. Hip abduction 20 degrees. Knee flexion 10 degrees to 90 degrees. Knee extension -10 degrees. Ankle dorsiflexion to neutral only. Ankle plantarflexion WFL. Strength: Right Upper Extremity: Shoulder flexors 3-/5. Shoulder abductors 3-/5. Elbow flexors 4-/5. Elbow extensors 4-/5. [employer] strong. Left Upper Extremity: Shoulder flexors 3-/5. Shoulder abductors 3-/5. Elbow flexors 4-/5. Elbow extensors 4-/5. [employer] strong. Right Lower Extremity: Hip flexors 3-/5. Hip abductors 3-/5. Knee flexors 3-/5. Knee extensors 3-/5. Ankle dorsiflexors 3-/5. Ankle plantarflexors 4-/5. Left Lower Extremity: Hip flexors 3-/5. Hip abductors 3-/5. Knee flexors 3-/5. Knee extensors 3-/5. Ankle dorsiflexors 3-/5. Ankle plantarflexors 4-/5. Bed Mobility/Transfers: Minimal cueing provided for use of B hands as needed for support, movement sequence, Ad management, and and posture to reduce fall risk and minimize pain report Sit to stand standby assist, needs several attempts due to B LE weakness Stand to sit standby assist Bed to toilet seat standby assist with FWW Toilet seat to bed standby assist with FWW Bed to reclining standby assist with FWW Reclining chair to bed standby assist with FWW Gait: Facilitated safe and correct performance of level surface ambulation of 150 feet using single-point cane with minimal assist from PT and moderate verbal cueing for overall safety. Able to require less assistance using front wheeled walker with only standby assist and minimal verbal cueing for AD management, posture, and overall safety. Stairs: Guided patient with safe and correct negotiation over 6 x 4 inch steps and 4 x 6 inch steps while holding onto bilateral rails with minimal verbal cueing for hand placement, and overall safety. Balance: Static Sitting: Normal Dynamic Sitting: Normal Static Standing: Fair Dynamic Standing: Fair Special Tests: Mobility Limitations Standardized Measure [facility] AM-PAC 6 clicks Basic Mobility Inpatient Short Form: Raw Score: 24 CMS Score: 0% deficit Informed Consent/Education: Patient was instructed in purpose of PT consult and plan of care. Agreeable to proceed with established PT POC to achieve personal goals. 4-Stage Balance Test: Only able to maintain feet together for 10 seconds but is unable to do with semi-tandem, full tandem, and one legged stance indicating a fall risk with the need for use of a front wheeled walker for all mobility ADL performance to reduce falls. Assessment: Patient requires the use of a front wheeled walker for all mobility ADL performance to maximize independence, conserve energy, and reduce fall risk. Patient presents with clinical signs and symptoms consistent with current/admitting diagnoses that have resulted to mobility limitations, gait instability, generalized weakness, and overall ADL decline as demonstrated by the following impairment level findings: 1. Decreased strength to B UE/LE major muscle groups 2. Impaired sitting/standing balance 3. Impaired activity tolerance 4. Limitation of joint range of motion in R hip and knee (chronic) 5. Shortness of breath mild Impairments are contributing to the following functional limitations: 1. Decline in bed mobility skills 2. Decline in transfer skills 3. Difficulty with ambulation without assistive device 4. Increased completion time for mobility ADL performance 5. Increased risk for falls 6. Difficulty with managing steps alone safely Patient is assessed as a 72218 moderate complexity based on the following: History: 87-year-old female with past medical history as indicated above Examination: Demonstrable impairment in strength, balance, and mobility level with underlying impairments and functional limitations as exhibited above as well as deficit score of 0% utilizing the [facility] Mobility Inpatient Short Form Presentation: Evolving Decision Makin moderate complexity Goals: Goals X1 week 1. Sit-Stand independent with FWW 2. Stand-Sit independent with FWW 3. Bed-Chair independent with FWW 4. Chair-Bed independent with FWW 5. Independent gait on level surface with use of FWW for at least 300 feet without report of pain nor dyspnea 6. Independent stair negotiation while holding onto B rails for at least 3 steps without report of pain nor dyspnea 7. Independent with home exercise program 8. Good static and dynamic standing balance/tolerance Plan of Care/Treatment Plan: 1-2x/day, 7 days/week x 1 week. Plan of care has been reviewed with the [employer]OOFING SUBCONTRACTOR providing the service under Physical Therapy direction. Patient to be seen for HEP instruction and continued functional mobility training using FWW. DISCHARGE RECOMMENDATIONS: [] Home with no services [] [X] Home with services patient will benefit from home health PT services in order to progress mobility level using least restrictive assistive ambulatory device, assess home safety, identify additional equipment needs, and establish a functional maintenance program that will increase ability of patient to remain at home. [] Home with outpatient PT [] [] SNF for continued rehabilitation [] [] [facility] [] [] SNF versus LTC based on ability to participate and progress [] TREATMENT CODE/TIME: 21150 x 23 minutes for 1 unit beginning at 11:33 AM. Thank you for the opportunity to participate in the care of this patient. Nayeli Shaffer PT, DPT, CLT [facility] [place], [place]
--- NOTE | 2023-03-22 12:25 | W.PM.DS.N ---
Date of service: 03/22/23 Time of Service: 12:25 DS: Diagnosis Discharge Diagnosis (1) Syncope: Status: Chronic (2) Hypothyroidism: Status: Chronic (3) Pulmonary hypertension: Status: Acute (4) Carotid stenosis, bilateral: Status: Acute (5) Chronic renal disease, stage 3, moderately decreased glomerular filtration rate (GFR) between 30-59 mL/min/1.73 square meter: Status: Acute (6) Right leg swelling: Status: Acute Discharge Plan Disposition Patient Disposition: Home W/Home Health Services Condition: Stable Discharge Details Reason For Visit: Syncope Admit Date/Time: 03/21/23 12:34 Admit Provider: Karyna Romero Attending Provider: Karyna Romero Primary Care Provider: Rika Kendrick Hospital Course Hospital Course: This is an 87-year-old female patient with a history of peripheral neuropathy hypertension chronic kidney disease who reports she was in her usual state of health. She presented to the emergency department after a syncopal episode that occurred during the night. She states she remembers waking up around 2:30 in the morning to use the restroom. She denied any symptoms lasting remembered she was sitting on the toilet and then at 5:30 in the morning states that she woke up on the bathroom floor. She denied chest pain or shortness of breath. She did report a mild frontal headache and did have a superficial abrasion and bruising to the bridge of her nose. Her workup in the emergency department showed no acute injury. Her head and C-spine CT with no acute findings, additional labs and imaging included a CT of the abdomen and pelvis in addition to routine lab including UA. She was noted to have some increased edema to the right lower extremity when compared to the left but ultrasound was negative for DVT. She was not hypoxic or tachycardic with no pleuritic chest pain so PE was less likely. She was unable to receive IV contrast secondary to her chronic kidney disease. EKG showed no acute ischemic changes troponin negative. She was referred to observation on the medical surgical unit on telemetry for further monitoring. Overnight she remained medically stable with no dysrhythmias on telemetry she was hemodynamically stable with no complaints. She was eating and drinking and safely really ambulated with physical therapy. Plan will be to discharge to home with a cardiac event recorder which unfortunately was not able to be placed prior to discharge so she will arrange to have it applied outpatient. Of note on morning of discharge patient was reporting a productive cough. Chest x-ray did show no acute infiltrates. COVID flu and RSV swab negative but procalcitonin was elevated at 1.2 suspicious for a bacterial infection. I think it is reasonable to treat her with Augmentin and guaifenesin for 5 days and have her closely follow-up outpatient with her primary care provider she was advised to return sooner for new or worsening symptoms Discharge discussed with Dr. Romero [place] Meds and New Rx's Prescriptions: New guaifenesin [Mucus Relief ER] 600 mg Tablet Extended Release 12hr 600 mg PO BID Qty: 14 0RF amoxicillin-pot clavulanate 875-125 mg tablet 1 tab PO BID Qty: 10 0RF Continued amlodipine 5 mg tablet 5 mg PO DAILY Qty: 90 3RF calcium citrate 200 mg (950 mg) tablet 800 mg PO BID Qty: 240 11RF cyanocobalamin (vitamin B-12) [Vitamin B-12] 1,000 mcg tablet extended release 1,000 mcg PO .every other day Qty: 15 11RF Rx Instructions: 1 tab at 0800 every other day docusate sodium [Colace] 100 mg capsule 100 mg PO BID Qty: 60 11RF ferrous sulfate 325 mg (65 mg iron) tablet 325 mg PO DAILY Qty: 30 11RF acyclovir 400 mg tablet 400 mg PO BID PRN (Reason: cold sores) Qty: 20 8RF Rx Instructions: one pill BID for 5 days at the onset of cold sores lisinopril-hydrochlorothiazide 20-12.5 mg tablet 1 tab PO DAILY Qty: 90 3RF polyethylene glycol 3350 17 gram/dose powder 17 g PO DAILY Qty: 510 11RF magnesium oxide 400 mg (241.3 mg magnesium) tablet 400 mg PO BID Qty: 60 11RF ipratropium bromide 42 mcg (0.06 %) spray,non-aerosol 1 spray intranasal TID Qty: 45 1RF Rx Instructions: administer into each nostril atorvastatin [Lipitor] 40 mg tablet 40 mg PO QPM Qty: 30 11RF levothyroxine 75 mcg tablet 75 mcg PO DAILY@0600 Qty: 30 6RF hydrocodone-acetaminophen 5-325 mg tablet 1 tab PO BID MDD 2 tabs PRN (Reason: chronic back ) Qty: 14 0RF acetaminophen 500 mg tablet 1,000 mg PO TID Qty: 90 0RF ibuprofen 600 mg tablet 600 mg PO TID PRN (Reason: pain) Qty: 90 0RF Discharge Instructions Instructions: Syncope (DC) Additional Instructions: you are being treated with an antibiotic for a suspected bacterial respiratory infection, you have a cough and an elevated procalcitonin which is concerning for bacterial infection, even though you have a negative chest xray. please take antibiotics as prescribed. wear cardiac event recorder as directed. Stand Alone Forms: Nursing Discharge Form Referrals: Rika Kendrick MD [Primary Care Provider] - 03/24/23 11:20 am Activity:: walker Equipment/Supplies:: Walker Diet:: As Tolerated Discharge Orders Discharge Orders: Discharge Order (Routine); Ordered 03/22/23 Ordered By: Teodora Robles Other Ambulatory Orders: Cardiac Event Recorder (Routine) Timeframe: [id number] Facility: [facility] - Location: Respiratory Therapy Ordered By: Teodora Robles Discharge Data Discharge Date/Time-TO BE ENTERED AT DEPARTURE: 03/22/23 14:50 DS: Summary Time Spent with Patient providing and/or coordinating discharge services: Greater than 30 minutes Status at Discharge Functional status at discharge: uses cane/walker Overall status at discharge: patient is back to baseline Mental Status: mental status grossly normal Speech and Movement: speech and movement normal Mood: congruent mood Affect: normal affect Quality:SDOH Health Related Social Needs: No Data to Display Exam Const General: no acute distress Orientation: alert HENMT Head: normocephalic General nose exam: nares normal Mouth: moist mucous membranes Eyes General: appearance normal, both eyes and all related structures Neck Neck: normal visual inspection Chest Chest: no localized rib tenderness Resp Effort & Inspection: normal respiratory effort and able to speak in complete sentences Auscultation: clear to auscultation bilaterally Cardio Jugular venous pressure: no JVD Rate: regular rate Heart Sounds: no murmurs GI Palpation: soft, not firm and no guarding Skin Trauma: abrasion (And hematoma to the bridge of her nose) Neuro General: patient alert and patient oriented x3 Extrem General: capillary refill normal and no cyanosis Psych Mental Status: mental status grossly normal Speech and Movement: speech and movement normal Mood: congruent mood Affect: normal affect DS: Data Vitals/I&O Vitals and I&O: Vital Signs Temperature 36.7 C 03/22/23 07:22 Temperature Source Tympanic 03/22/23 07:22 Pulse 58 L 03/22/23 07:22 Pulse Rhythm Regular 03/22/23 09:26 Pulse 62 03/21/23 13:01 Respiratory Rate 18 03/22/23 07:22 Respiratory Effort Normal 03/22/23 09:26 Respiratory Depth Normal 03/22/23 09:26 Respiratory Pattern Normal 03/22/23 09:26 Blood Pressure 140/90 03/22/23 07:22 Blood Pressure Mean 93 03/21/23 13:01 Pulse Oximetry 95 03/22/23 07:22 Oxygen Delivery Method Room Air 03/22/23 07:22 Oxygen Flow Rate 0 03/22/23 07:22 Pain Level 4 03/22/23 09:07 Intake & Output 03/21/23 03/22/23 03/22/23 23:59 11:59 23:59 Intake Total 400 / 650 750 / 750 Balance 400 / 650 750 / 750 Weight 78.018 kg Intake: IV 750 / 750 Oral 400 / 400 Other: Urine Appearance Clear Clear Comment Missed the hat, unable to measure void Data Completed and Pending Labs on day of discharge: Labs from last 24 hours 03/22/23 03/22/23 03/22/23 10:16 09:53 06:10 WBC 6.07 RBC 3.03 L Hgb 9.7 L D Hct 29.3 L MCV 97 H MCH 32.0 MCHC 33.1 RDW 12.7 Plt Count 194 MPV 11.0 Immature Gran % 0.5 Neutrophils % 67.0 Lymphocytes % 16.8 Monocytes % 10.7 Eosinophils % 4.3 Basophils % 0.7 Nucleated RBC % 0.0 Absolute Neutrophils 4.07 Absolute Lymphocytes 1.02 L Absolute Monocytes 0.65 Absolute Eosinophils 0.26 Absolute Basophils 0.04 Sodium 139 Potassium 4.0 Chloride 104 Carbon Dioxide 26.6 Anion Gap 8.4 BUN 29 H Creatinine 1.4 H Est GFR (CKD-EPI 2020) 36.41 Glucose 95 Calcium 9.6 Magnesium 2.1 Troponin I < 50 Procalcitonin 1.2 COVID-19 Source Nasopharynx SARS-CoV-2 (PCR) Negative Influenza Type A (PCR) Negative Influenza Type B (PCR) Negative RSV (PCR) Negative Add-On Test Request DONE PFS All Active Problems (Updated 03/23/23 @ 00:05 by MONIQUE PRATT) Chronic renal disease, stage 3, moderately decreased glomerular filtration rate (GFR) between 30-59 mL/min/1.73 square meter (Acute) Syncope (Chronic) Right leg swelling (Acute) Gout of left hand (Acute) LIF s/p excision DOS: 11/25/22 Cervical radiculopathy at C6 (Chronic 08/10/14) neck pain Chronic pain of both shoulders (Chronic 09/18/15) Hypothyroidism (Chronic 06/10/12) Lichen planus (Chronic) [place] [facility] [place] [facility] Sciatica (Chronic) bilateral; MRI 12/06 spinal stenosis; 2008-spine clinic [facility] steroid injections. 01/12 [facility] pain clinic [place] radiofrequency (MRI severe spinal stenosis) Pulmonary hypertension (Acute ~2018) PA 55-65mmHg Nocturnal hypoxia (Acute) Osteoporosis (Chronic) Chronic constipation (Acute) managed with miralax Carotid stenosis, bilateral (Acute) 70% stenosis; [place] [facility] [place] felt to not need surgery. 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 Peripheral neuropathy (Acute) Rotator cuff arthropathy of both shoulders (Acute) depo medrol 11/23/2022; 08/24/22; 05/18/22; 02/16/22; 11/17/21; 08/18/21 Essential hypertension (Chronic) Lumbar spondylosis (Acute) Sacroiliitis (Acute) Rhinorrhea (Acute) Benign hypertension with stage 3b chronic kidney disease (Acute) Low back pain (Acute) Primary osteoarthritis, left hand (Acute) Medical History Chronic renal disease, stage 3, moderately decreased glomerular filtration rate (GFR) between 30-59 mL/min/1.73 square meter Colon polyps Depressive disorder (01/29/04) Exudative age-related macular degeneration, left eye, with active choroidal neovascularization [place] [facility] [place] Gastroesophageal reflux disease (06/10/12) hiatal hernia (2006 UGI) Hx of breast cancer Hyperlipidemia Nonexudative age-related macular degeneration, right eye, intermediate dry stage [place] [facility] [place] Polymyalgia rheumatica (07/24/14) Posterior vitreous detachment of both eyes Primary osteoarthritis of left hip Pulmonary nodule (~04/2018) right; lost to followup and now declines surgery to evaluate if positive. Transient neurologic deficit noted to have carotid stenosis Umbilical hernia without obstruction and without gangrene (11/20/15) Repair with 6.4 Ventralex Surgical History Breast, Mastectomy 1988-left Cholecystectomy laparoscopic Tata-prosthetic femur fracture at tip of prosthesis S/P ORIF of periprosthetic fracture of right distal femur DOS: 04/16/18 Dr. Villar Repair of umbilical hernia (04/15/16) S/P carpal tunnel release Status post fracture of right hip Status post right knee replacement Family History Sister Cancer Mother No problems noted. Father No problems noted. Sister No problems noted. Son No problems noted. Son No problems noted. Social History Smoking/Tobacco Use Status: Former Tobacco Use tobacco type: cigarettes Quit Date: 03/01/94 Tobacco: How many years used: 40 Second Hand Exposure: Yes Smoking risk assessment performed?: Yes Alcohol Intake: never Drug use: Never Substance use type: does not use Caregiver/Support person: No Household members: none Housing: house Number of Children: 2 Do you need help understanding health information?: Never current occupation: retired Pets and animals: No Sexually active: No Do you think of yourself as: straight/heterosexual Current gender identity: female What is your relationship status?: How often do you talk on the phone with friends or family?: three or more times per week How often do you get together with friends or relatives?: three or more times per week How often do you attend caodaism or jewish services?: 4 or more times per year Do you belong to any clubs or organized social groups?: no Panel score (0-1 are the most socially isolated patients): 2 Frequency: 1-2 times per week Evelyn/Mandaeism: Mosque Special evelyn needs: No Seatbelt use: always Drive intox or ride w/intox chuck wagon driver: No Do you feel safe at home: Yes Do you feel safe in your relationship?: Yes Additional Social history: lives alone Time Spent with Patient Time Spent with Patient: 45-69 minutes Time was spent: preparing to see the patient(eg.review tests), obtaining and/or reviewing separately otained hiistory, ordering medications,tests, procedures, indepentently interpreting results, counseling the patient and care coordination
--- NOTE | 2023-03-22 12:31 | PDOC.HHF2F ---
Home Health Referral Home Health Orders Clinical synopsis of why skilled professionals are needed: elderly female who lives alone, at risk for deterioration Medical diagnosis necessitation home health referral: syncope, bacterial infection, presumed respiratory Registered Nurse: Check all that apply Instruct on new or changed medication(s)/assess compliance: Ordered Assess for exacerbation of medical condition, instruct patient/caregivers on signs and symptoms to report for early detection: Ordered Physical Therapist: Check all that apply Increase strength & endurance for safe mobility at home: Ordered To design/establish home maintenance program: Ordered Fall reduction therapy program for patient with history of frequent falls: Ordered Home safety evaluation and teaching/gait training including stair management (if applicable): Ordered Occupational Therapist: Evaluate and treat for patient unable to perform ADL/IADL/self-care: Ordered Upper extremity strengthening, range and motion: Ordered Home Bound Status Requires the aid of supportive device (check all that apply): Walker Describe why leaving home would require a considerable and taxing effort: Requires frequent rest periods and Safety Concerns: describe (syncope) Encounter Date and Reason: I certify that a FTF encounter for this patient was performed on March 22, 2023 and that such encounter was related to the primary reason the patient requires home health services. The encounter was conducted in the following manner: By me as the certifying physician, SENIOR CLINICAL DATA COORDINATOR, PA or By an inpatient physician, SENIOR CLINICAL DATA COORDINATOR or PA during an inpatient stay who communicated findings to me, Certification And Authentication I certify that I composed the above information based on my clinical judgment relating to this patient's medical condition and, if applicable, clinical findings communicated to me by the NPP or inpatient physician who performed the FTF encounter. Name of Provider that will be monitoring home health services: Rika Kendrick
--- NOTE | 2023-03-22 13:10 | PT.INTREAT ---
Date of service: 03/22/23 PT Notes Visit Reasons: Syncope Inpatient Physical Therapy Treatment Note [facility] Date: 03/22/23 PRECAUTIONS: Fall, standard, activity as tolerated. SUBJECTIVE: Patient reports feeling good, is eager to get home. OBJECTIVE: Sitting up in bedside chair, agreeable to therapy. ? PAIN: reports pain in left foot, states that she thinks she must have bumped it when she fell. VITALS: monitored by nursing staff ? BED MOBILITY/TRANSFERS? Rolling L/R: not assessed Supine-sit: not assessed ? Sit-supine: not assessed ? Sit-stand: SBA ? Stand-sit: SBA ? Bed-Chair: SBA ? Chair-bed: SBA ? Therapeutic Exercises ([id number]): Direct one-on-one instruction in therapeutic exercises to develop strength, endurance, range of motion and flexibility. ? Exercises: Access Code: [email or web address] URL: [email or web address] Date: 03/22/2023 Prepared by: Evon Del Valle Exercises - Standing Hip Abduction with Counter Support - 1 x daily - 7 x weekly - 3 sets - 10 reps - Standing Hip Extension with Counter Support - 1 x daily - 7 x weekly - 3 sets - 10 reps - Heel Toe Raises with Counter Support - 1 x daily - 7 x weekly - 3 sets - 10 reps - Standing Tandem Balance with Counter Support - 1 x daily - 7 x weekly - 3 sets - 10 reps - Squat with Chair and Counter Support - 1 x daily - 7 x weekly - 3 sets - 10 reps Reviewed HEP with patient, with good return demonstration. Encouraged patient to start slow and build up gradually, starting with maybe 2 sets of 8 and working up to 3 sets of 10. Provided skilled instruction in proper exercise performance Provided skilled manual cues to facilitate proper muscle recruitment and/or form. ASSESSMENT:? Patient tolerates therapy well, voices understanding and agreement with the purpose of the HEP. RN enters at close of session to review discharge paperwork and instructions. PLAN: Patient to discharge home, follow up with home health PT. TREATMENT CODE/TIME: 13 minutes beginning at 13:15
--- NOTE | 2023-03-22 13:52 | INITIAL_ITS ---
Care Management Initial Assmt Initial Assessment REASON FOR HOSPITALIZATION:: syncope PREVIOUS FUNCTIONAL STATUS/SOCIAL/FAMILY SUPPORTS:: Brie lives alone in a single family home in [place]. She has 2 sons, Yogi and Kenny who live close by. She also has 3 grandchildren and 7 great grandchildren. 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 She uses a cane for ambulation but will start using a walker as recommended by PT. Brie does not receive any community services and is independent with ADLs. CURRENT FUNCTIONAL STATUS:: Brie was sitting up in a chair eating lunch when CM met with her. She was polite and agreeable to conversation. Brie stated that she is feeling better and will be discharged home this afternoon. She described how she had a syncopal event at home which prompted her admission to the hospital. She will be discharged with a cardiac event recorder. ADVANCE DIRECTIVES:: Stated she has an advanced directive but not on file. Brie does have an active COLST form indicating she wishes to remain a full code. Has patient been provided with info about the portal/API?: Yes Did the patient sign up for the portal?: No CODE STATUS:: Full Code INSURANCE COVERAGE / FINANCIAL ISSUES:: Medicare and iTher[employer] supplement CURRENT HOME/COMMUNITY SERVICES/EQUIPMENT:: walker and cane PRIMARY CARE PHYSICIAN:: Rika Kendrick POTENTIAL DISCHARGE NEEDS:: follow up with PCP and plan of care PATIENT/FAMILY EDUCATION NEEDS:: Review discharge instructions, activity, limitations, follow up plan and discuss Ask Me Three TRANSPORTATION:: via private vehicle PLAN:: Anticipate that Brie will be discharged home with new home health orders for RN, PT and OT. She will follow up with her PCP and plan of care and transport with family. PFSH All Active Problems (Updated 03/21/23 @ 12:39 by Teodora Robles NP) Chronic renal disease, stage 3, moderately decreased glomerular filtration rate (GFR) between 30-59 mL/min/1.73 square meter (Acute) Syncope (Chronic) Right leg swelling (Acute) Gout of left hand (Acute) LIF s/p excision DOS: 11/25/22 Cervical radiculopathy at C6 (Chronic 08/10/14) neck pain Chronic pain of both shoulders (Chronic 09/18/15) Hypothyroidism (Chronic 06/10/12) Lichen planus (Chronic) OF VULVA (seen at [facility] [place] [facility]) Sciatica (Chronic) bilateral; MRI 12/06 spinal stenosis; 2008-spine clinic [facility] steroid injections. 01/12 [facility] pain clinic meidal branch radiofrequency (MRI severe spinal stenosis) Pulmonary hypertension (Acute ~2018) PA 55-65mmHg Nocturnal hypoxia (Acute) Osteoporosis (Chronic) Chronic constipation (Acute) managed with miralax Carotid stenosis, bilateral (Acute) 70% stenosis; eval by [facility] [place], felt to not need surgery. 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 Peripheral neuropathy (Acute) Rotator cuff arthropathy of both shoulders (Acute) depo medrol 11/23/2022; 08/24/22; 05/18/22; 02/16/22; 11/17/21; 08/18/21 Essential hypertension (Chronic) Lumbar spondylosis (Acute) Sacroiliitis (Acute) Rhinorrhea (Acute) Benign hypertension with stage 3b chronic kidney disease (Acute) Low back pain (Acute) Primary osteoarthritis, left hand (Acute) Medical History Chronic renal disease, stage 3, moderately decreased glomerular filtration rate (GFR) between 30-59 mL/min/1.73 square meter Colon polyps Depressive disorder (01/29/04) Exudative age-related macular degeneration, left eye, with active choroidal neovascularization followed at [facility] [place] Gastroesophageal reflux disease (06/10/12) hiatal hernia (2006 [facility]) Hx of breast cancer Hyperlipidemia Nonexudative age-related macular degeneration, right eye, intermediate dry stage followed at [facility] [place] Polymyalgia rheumatica (07/24/14) Posterior vitreous detachment of both eyes Primary osteoarthritis of left hip Pulmonary nodule (~04/2018) right; lost to followup and now declines surgery to evaluate if positive. Transient neurologic deficit noted to have carotid stenosis Umbilical hernia without obstruction and without gangrene (11/20/15) Repair 215/17 with 6.4 Ventralex Surgical History Breast, Mastectomy 1988-left Cholecystectomy laparoscopic Tata-prosthetic femur fracture at tip of prosthesis S/P ORIF of periprosthetic fracture of right distal femur DOS: 04/16/18 Dr. Villar Repair of umbilical hernia (04/15/16) S/P carpal tunnel release Status post fracture of right hip Status post right knee replacement Family History Sister Cancer Mother No problems noted. Father No problems noted. Sister No problems noted. Son No problems noted. Son No problems noted. Social History Smoking/Tobacco Use Status: Former Tobacco Use tobacco type: cigarettes Quit Date: 03/01/94 Tobacco: How many years used: 40 Second Hand Exposure: Yes Smoking risk assessment performed?: Yes Alcohol Intake: never Drug use: Never Substance use type: does not use Caregiver/Support person: No Household members: none Housing: house Number of Children: 2 Do you need help understanding health information?: Never current occupation: retired Pets and animals: No Sexually active: No Do you think of yourself as: straight/heterosexual Current gender identity: female What is your relationship status?: How often do you talk on the phone with friends or family?: three or more times per week How often do you get together with friends or relatives?: three or more times per week How often do you attend orthodox or orthodoxy services?: 4 or more times per year Do you belong to any clubs or organized social groups?: no Panel score (0-1 are the most socially isolated patients): 2 Frequency: 1-2 times per week Evelyn/Synagogue: Zoroastrian Special evelyn needs: No Seatbelt use: always Drive intox or ride w/intox log driver: No Do you feel safe at home: Yes Do you feel safe in your relationship?: Yes Additional Social history: lives alone SDOH(Care Management) Screening Will the Patient Participate in the Screening?: Yes Do you worry about having a steady place to live?: no Problems where you live: no known problems In the past 12 months, have you had to go without electric, gas, oil or water in your home?: no Have you or anyone in your house had to go without enough food to eat?: no Has lack of transportation kept you from medical appointments or from doing things needed for daily living?: no Has anyone in your support network made you feel unsafe for any reason?: no
== END 2023-03-22 14:50 | disposition home health service (06) ==
LOC: ER 12:49 → MS 13:18
PROVIDERS: Nurse Practitioner Acute Care; Admitting Provider Internal Medicine; Emergency Provider Emergency Medicine; PCP Family Medicine; Visit Provider Internal Medicine
DX: R55 Syncope and collapse (principal); E03.9 Hypothyroidism, unspecified; I65.23 Occlusion and stenosis of bilateral carotid arteries; R05.1 Acute cough; R60.0 Localized edema; I27.20 Pulmonary hypertension, unspecified; G62.9 Polyneuropathy, unspecified; I12.9 Hypertensive chronic kidney disease with stage 1 through stage 4 chronic kidney disease, or unspecified chronic kidney disease; R51.9 Headache, unspecified; S00.31XA Abrasion of nose, initial encounter; W18.11XA Fall from or off toilet without subsequent striking against object, initial encounter; M54.12 Radiculopathy, cervical region; M54.32 Sciatica, left side; M54.31 Sciatica, right side; M81.0 Age-related osteoporosis without current pathological fracture; K59.09 Other constipation; E53.8 Deficiency of other specified B group vitamins; D64.9 Anemia, unspecified; M47.816 Spondylosis without myelopathy or radiculopathy, lumbar region; N18.32 Chronic kidney disease, stage 3b; F32.A Depression, unspecified; K21.9 Gastro-esophageal reflux disease without esophagitis; Z85.3 Personal history of malignant neoplasm of breast; M35.3 Polymyalgia rheumatica; R91.1 Solitary pulmonary nodule; Z96.651 Presence of right artificial knee joint; Z79.899 Other long term (current) drug therapy
CPT/HCPCS: 00123; 36415; 36416; 80048; 80053; 82550; 82962; 84145; 87637; 93005; 96361; 96374; 96375; 97110; 97162; 99285; 70450; 70486; 71046; 72125; 74176; 81003; 81015; 83735; 84443; 84484; 85025; 85379; 85610; 85730; 93010; 93971; 99223; 99239; G0378; J0780; J2405

== ENCOUNTER 2023-03-25 10:23 | Outpatient (CLI) | payer MEDICARE, SELFPAY | END 2023-03-25 10:24 | disposition home or self-care (01) | PROVIDERS: PCP Family Medicine; Visit Provider Nurse Practitioner Acute Care | DX: R55 Syncope and collapse (principal) | CPT/HCPCS: 93270 ==

== ENCOUNTER → 2023-04-23 00:07 | Outpatient (CLI) | payer MEDICARE, SELFPAY ==
--- NOTE | 2023-04-23 12:30 | DI.US_ITS ---
APPROVED REPORT EXAM: Comprehensive 2D, Doppler, and color-flow Echocardiogram Patient Location: Out-Patient Resistor Winder: Jassi Cabello RDCS (AE) Indications: syncope, murmur Conclusion Normal left ventricular wall thickness and chamber size. EF is 60-65%. Wall motion is normal Normal right ventricular size and function Both atria are normal in size Aortic valve is trileaflet and mildly sclerotic with mildregurgitation Mildly thickened mitral leaflets, trace regurgitation Estimated right ventricular systolic pressure is 18 mmHg Wall motion Left Ventricle The left ventricle is normal size. The left ventricular systolic function is normal. The left ventric ular ejection fraction is within the normal range. There is normal left ventricular wall thickness. T here is normal LV segmental wall motion. There is no ventricular septal defect visualized. LVEF is 60 -65%. Right Ventricle The right ventricle is normal size. The right ventricular systolic function is normal. Atria The left atrium size is normal. The right atrium size is normal. The interatrial septum is intact wit h no evidence for an atrial septal defect. Aortic Valve The Aortic valve is mildly sclerotic. Aortic valve is trileaflet. There is no aortic valvular stenosi s. Mild aortic regurgitation. Mitral Valve Mitral valve leaflets are mildly thickened. No evidence of mitral valve stenosis. Trace mitral regurg itation. Tricuspid Valve The tricuspid valve is normal in structure. There is no tricuspid valve stenosis. Mild tricuspid regu rgitation. The RVSP is 17.6 mmHg. Pulmonic Valve The pulmonary valve is normal in structure. There is no pulmonic valvular stenosis. Moderate pulmonic regurgitation. Great Vessels The aortic root is normal in size. The ascending aorta is normal in size. Aortic arch is normal in ca liber. IVC is normal in size and collapses >50% with inspiration. Pericardium There is no pericardial effusion. 2D Dimensions IVSD d PLAX 0.73 cm F: 0.6-1.0 Ao Root d 2.86 cm F: 2.7 - 3.3 LVPW d PLAX 0.69 cm F: 0.6 - 1.0 Ao Asc Diam d 2.95 cm F: 2.3 - 3.1 LVID d PLAX 4.86 cm F: 3.8 - 5.2 LVDs 3.19 cm F: 2.2 - 3.5 LV EF Teichholz 63.1 % FS 34.25 % LV EDV (Teich) 110.5 mL LV ESV (Teich) 40.7 mL Stroke Vol Index (Teich) 36.12 M-Mode TAPSE 2.85 cm (M/F) >1.7 Auto EF LV EDV A4C 86.6 mL LV EDV A2C 74.3 mL LV EDV BP 81.5 mL LV ESV A4C 34.7 mL LV ESV A2C 28.8 mL LV ESV BP 31.8 mL LVEF(%) A4C 59.9 % LVEF(%) A2C 61.2 % LVEF(%) BP 60.9 % LV SV A4C 51.9 ml LV SV A2C 45.5 ml LV SV BP 49.7 ml LV CO A4C 3.1 L/min LV CO A2C 2.6 L/min LV CO BP 2.9 L/min HR A4C 60.61 BPM HR A2C 57.42 BPM LV EDV Index (BP) LA Volume LA Length A4C 3.5 cm LA Length A2C 4.4 cm LA Area A4C s 9.95 cm2 LA Area A2C s 14.25 cm2 LA Vol A4C A-L 23.76 mL LA Vol A2C A-L 39.07 mL LA Vol Biplane A-L 34.0 mL LA Vol/BSA A4C A-L LA Vol/BSA A2C A-L LA Vol/BSA BP A-L 17.6 mL/m2 LA Vol A4C MOD 22.8 mL LA Vol A2C MOD 36.4 mL LA Vol BP MOD 31.9 mL RA Volume RA Area A4C 10.6 cm2 RA ESV A4C (A-L) 23.6mL RA Vol/BSA A4C A-L RA Length A4C 4.0 cm RA ESV A4C (MOD) 22.5mL LV Diastology MV E' medial 0.071 (>0.07 m/s) MV E Vmax 0.67 (0.4-1.3 m/s) MV E/E' MED 9.43 (<14) MV A Vmax 0.90 (0.4-1.3 m/s) MV E' lateral 0.077 (>0.1 m/s) E/A Ratio 0.7 MV E/E' LAT 8.77 (<14) MV E' Average 0.074 m/s MV E/E'(average) 9.09 Aortic Valve AoV Vmax 1.52 m/s LVOT Vmax 0.84 m/s AoV Peak Grad 17.5 mmHg LVOT Peak Grad 2.8 mmHg AoV Area (Vmax) 1.55 cm2 LVOT VTI 0.219 m AoV VTI 0.398 m LVOT Mean Grad 1.6 mmHg AoV Mean Cliff. 1.07 m/s LVOT SV 61.76 mL AoV Mean Grad 5.2 mmHg LVOT Diam s 1.85 cm AoV Area (VTI) 1.55 cm2 AV Regurg Peak Gr. 25.55 mmHg Velocity Ratio 0.55 AR Decel Amador 1.2m/sec2 AR DT 2141 msec AR PHT 621 msec AR Vmax 2.53 m/s Mitral Valve MV DT 243 (160-240 msec) Pulmonary Valve PV Vmax 0.82 (0.5-1.5 m/s) RVOT Vmax 0.66 m/s PV Peak Grad 2.7 mmHg RVOT Peak Gr. 1.8 mmHg PV Mean Cliff 0.55 m/s RVOT VTI 0.140 m PV Mean Grad 1.4 mmHg RVOT Mean Gr. 1.1 mmHg Tricuspid Valve RA Pressure 3.00 mmHg TR Vmax 1.91 m/s TR Peak Grad 14.5 mmHg RVSP (TR) 17.6 mmHg
== END ==
PROVIDERS: PCP Family Medicine; Visit Provider Family Medicine
DX: R01.1 Cardiac murmur, unspecified (principal); R55 Syncope and collapse
CPT/HCPCS: 93306

== ENCOUNTER 2023-04-30 07:54 | Outpatient (CLI) | payer MEDICARE, SELFPAY ==
--- NOTE | 2023-04-30 10:15 | CER_ITS ---
Date of service: 04/30/23 Time of Service: 10:15 Cardiac Event Recorder Referring Provider:: Rika Kendrick Indications:: Syncope Cardiac Event Note: This is a quality assurance monitor body ordered for syncope Patient was monitored for 25 days and 17 hours. Rhythm throughout was sinus. Average heart rate was 61. Minimum was 41, maximum 104 There was no atrial fibrillation, no high-grade AV block, no pauses greater than 3 seconds There were no significant ventricular dysrhythmias. There were no apparent patient symptoms
== END 2023-04-30 07:55 | disposition home or self-care (01) ==
LOC: CARDOPNVT 07:54
PROVIDERS: PCP Family Medicine; Visit Provider Internal Medicine Cardiovascular Disease
DX: R55 Syncope and collapse (principal)
CPT/HCPCS: 93272

== ENCOUNTER 2023-05-27 14:49 | Outpatient (CLI) | payer MEDICARE, SELFPAY ==
--- NOTE | 2023-05-27 10:45 | DI.RAD_ITS ---
Exam(s) XR SHOULDER LT COMPLETE 2+V EXAM: XR SHOULDER LT COMPLETE 2+V CLINICAL HISTORY: LEFT SHOULDER PAIN. TECHNIQUE: 2D digital imaging was performed of the left shoulder. Two images were obtained. Grashe y and axillary views were obtained. COMPARISON: CR,XR XR SHOULDER LT COMPLETE 2+V from 08/09/2020 FINDINGS: BONES: No acute fracture is present. No bony destructive lesion is seen. JOINTS: No dislocation present. There are marked degenerative changes seen at the glenohumeral joint with joint space narrowing. There also mild degenerative changes seen at the acromioclavicular joint . SOFT TISSUE: The visualized lungs are clear. IMPRESSION: Osteoarthritis of the shoulder. DATA REPOSITORY: RADIATION DOSE DELIVERED:
== END 2023-05-27 14:50 | disposition home or self-care (01) ==
LOC: DIORS 14:49
PROVIDERS: PCP Family Medicine; Referring Provider Family Medicine; Visit Provider Student in an Organized Health Care Education/Training Program
DX: M12.811 Other specific arthropathies, not elsewhere classified, right shoulder (principal); M12.812 Other specific arthropathies, not elsewhere classified, left shoulder
CPT/HCPCS: 20610; 73030; J1040

== ENCOUNTER 2023-08-11 13:13 | Outpatient (REF) | payer MEDICARE, SELFPAY ==
[2023-08-11 22:45] LABS: Abs Immature Grans 0.02 10^3/uL (0.0-0.06); Absolute Basophil Count 0.08 10^3/uL (0.0-0.2); Absolute Eosinophil Count 0.14 10^3/uL (0.0-0.7); Absolute Lymphocyte Count 0.94 10^3/uL (1.2-3.4); Absolute Monocyte Count 0.66 10^3/uL (0.1-0.8); Basophils % 1.1 %; HGB 10.1 g/dL (11.2-15.7); Immature Grans % 0.3 %; Lymphocytes % 13.2 %; MCH 32.2 pg (27.0-33.0); MCHC 32.6 % (32.0-36.0); MCV 99 fL (80-95); MPV 12.1 fL (8.0-11.0); Monocytes % 9.2 %; Neutrophils % 74.2 %; Platelet Count 264 10^3/uL (130-400); RBC 3.14 10^6/uL (3.93-5.22); RDW 12.9 % (11.7-14.6); RDW-SD 46.4 fL; WBC 7.14 10^3/uL (4.4-10.8)
== END 2023-08-11 13:14 | disposition home or self-care (01) ==
LOC: LBN 13:13
PROVIDERS: PCP Family Medicine; Visit Provider Nurse Practitioner Family
DX: M10.9 Gout, unspecified (principal)
CPT/HCPCS: 84550; 85025

== ENCOUNTER → 2023-08-16 15:27 | Outpatient (CLI) | payer MEDICARE, SELFPAY ==
--- NOTE | 2023-08-16 12:20 | DI.RAD_ITS ---
Exam(s) XR FINGER RT INDEX EXAM: XR FINGER RT INDEX CLINICAL HISTORY: M79.89 Other specified soft tissue disorders,Infected vs gout r/o osteo. TECHNIQUE: 2D digital imaging was performed. Three views. COMPARISON: CR XR HAND LT COMPLETE from 11/23/2022 FINDINGS: BONES: No acute fracture is present. There are severe degenerative changes at the distal interphalang eal joints of the index and middle fingers. Findings are greater at the index finger. There is calc ification adjacent to the joint. There are some marginal erosions. The findings likely represent go ut. Small calcifications are noted adjacent to the 3rd DIP joint. Severe degenerative changes also seen at the 5th DIP joint. Mild degenerative changes also noted at the 1st carpal metacarpal joint SOFT TISSUE: Normal some calcification in the triangular fibrocartilage. IMPRESSION: Severe degenerative changes at the 2nd, 3rd and 5th distal interphalangeal joints. Calcifications adjacent to the distal interphalangeal joint of the 2nd finger with marginal erosions, suspicious for gout. DATA REPOSITORY: RADIATION DOSE DELIVERED:
== END ==
PROVIDERS: PCP Family Medicine; Visit Provider Nurse Practitioner Family
DX: M79.89 Other specified soft tissue disorders (principal)
CPT/HCPCS: 73140

== ENCOUNTER 2023-09-13 12:29 | Outpatient (CLI) | payer MEDICARE, SELFPAY ==
--- NOTE | 2023-09-10 11:00 | DI.RAD_ITS ---
Exam(s) XR SHOULDER LT COMPLETE 2+V EXAM: XR SHOULDER LT COMPLETE 2+V CLINICAL HISTORY: L HUMERUS FX. TECHNIQUE: 2D digital imaging was performed. Two views. COMPARISON: CR XR SHOULDER LT COMPLETE 2+V from 05/27/2023 CR XR SHOULDER LEFT from 08/25/2023 FINDINGS: BONES: No acute fracture is present. No bony destructive lesion is seen. There cyst at the greater t uberosity. JOINTS: No dislocation present. Severe degenerative changes severe narrowing of the glenohumeral ceferino nt space with a [id number] appearance. Some right remodeling of the glenoid. Mild periarticular s purring. SOFT TISSUE: Normal. IMPRESSION: Severe degenerative changes of the glenohumeral joint. No evidence of fracture. DATA REPOSITORY: RADIATION DOSE DELIVERED:
== END 2023-09-13 12:30 | disposition home or self-care (01) ==
LOC: DIORS 12:30
PROVIDERS: PCP Family Medicine; Referring Provider Family Medicine; Visit Provider Physician Assistant
DX: S42.292A Other displaced fracture of upper end of left humerus, initial encounter for closed fracture (principal); W19.XXXA Unspecified fall, initial encounter; M15.1 Heberden's nodes (with arthropathy)
CPT/HCPCS: 99214; 73030

== ENCOUNTER → 2023-09-20 14:41 | Outpatient (BNVA) | payer MEDICARE, SELFPAY | PROVIDERS: PCP Family Medicine; Referring Provider Family Medicine; Visit Provider Student in an Organized Health Care Education/Training Program | DX: M15.1 Heberden's nodes (with arthropathy) (principal); M10.9 Gout, unspecified | CPT/HCPCS: 99212 ==

== ENCOUNTER 2023-09-22 11:16 | Day surgery (SDC) | payer MEDICARE, SELFPAY ==
[2023-09-22 11:30] VITALS: BP 168/86; PULSE 79; RESP 16; TEMP 36.2; O2SAT 97
[2023-09-22] MEDS: Cephalexin 500 MG CAP 1000 MG PO (11:46)
--- NOTE | 2023-09-22 12:43 | W.PM.DSUDISC ---
Date of service: 09/22/23 Time of Service: 12:43 Discharge Plan Disposition Patient Disposition: Home Condition: Good Discharge Details Reason For Visit: I&D RIF Attending Provider: Danish Zavala Primary Care Provider: Rika Kendrick Home Meds and New Rx's Prescriptions: New acetaminophen 500 mg tablet 1,000 mg PO TID Qty: 90 0RF Continued (DME) Aerovent Plus Spacer See Rx Instructions .Route Qty: 1 0RF Rx Instructions: As directed - use with albuterol hydrocodone-acetaminophen 5-325 mg tablet 1 tab PO BID MDD 2 tabs PRN (Reason: chronic back ) Qty: 14 0RF amlodipine 5 mg tablet 5 mg PO DAILY Qty: 90 3RF calcium citrate 200 mg (950 mg) tablet 800 mg PO BID Qty: 240 11RF cyanocobalamin (vitamin B-12) [Vitamin B-12] 1,000 mcg tablet extended release 1,000 mcg PO .every other day Qty: 15 11RF Rx Instructions: 1 tab at 0800 every other day docusate sodium [Colace] 100 mg capsule 100 mg PO BID Qty: 60 11RF ferrous sulfate 325 mg (65 mg iron) tablet 325 mg PO DAILY Qty: 30 11RF acyclovir 400 mg tablet 400 mg PO BID PRN (Reason: cold sores) Qty: 20 8RF Rx Instructions: one pill BID for 5 days at the onset of cold sores lisinopril-hydrochlorothiazide 20-12.5 mg tablet 1 tab PO DAILY Qty: 90 3RF polyethylene glycol 3350 17 gram/dose powder 17 g PO DAILY Qty: 510 11RF magnesium oxide 400 mg (241.3 mg magnesium) tablet 400 mg PO BID Qty: 60 11RF ipratropium bromide 42 mcg (0.06 %) spray,non-aerosol 1 spray intranasal TID Qty: 45 1RF Rx Instructions: administer into each nostril atorvastatin [Lipitor] 40 mg tablet 40 mg PO QPM Qty: 30 11RF levothyroxine 75 mcg tablet 75 mcg PO DAILY@0600 Qty: 30 6RF albuterol sulfate [ProAir HFA] 90 mcg/actuation HFA aerosol inhaler 2 puff inhalation Q6H PRN (Reason: shortness of breath or wheezing) Qty: 8.5 3RF ibuprofen 600 mg tablet 600 mg PO TID PRN (Reason: pain) Qty: 90 0RF Discontinued acetaminophen 500 mg tablet 1,000 mg PO TID Qty: 90 0RF Discharge Instructions Additional Instructions: Finger I&D Discharge Instructions Activity: You should keep the hand elevated as much as possible for the first few days. You may use the other fingers as tolerated but avoid trying to do too much too soon. You may perform light activities with the splint in place. Dressing/Cast: Your splint should stay in place at all times. Do NOT get it wet. You may loosen the ADRIANA wrap if you feel it is too tight and then rewrap more loosely. Medications: - You should take Tylenol and Ibuprofen for baseline pain control. - You have Hydrocodone for breakthrough pain. - You may apply ice over the thumb. 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
[2023-09-22] MEDS: Sodium Bicarbonate 50 MEQ/50 ML VIAL (13:11)
[2023-09-22] MEDS: Lidocaine 1% Multi-Dose W/EPI 1/100,000 50 ML VIAL (13:11)
[2023-09-22 13:45] VITALS: BP 133/46; PULSE 72; RESP 18; TEMP 36.2; O2SAT 94
--- NOTE | 2023-09-22 14:07 | W.PM.OP ---
Date of service: 09/22/23 Time of Service: 13:00 Operative Note Operative Note DATE OF PROCEDURE: 09/22/23 PRE-OP DIAGNOSIS: Tophaceous gout, right index finger DIP joint POST-OP DIAGNOSIS: same PROCEDURE: Irrigation and debridement of gouty arthritis, right index finger DIP joint including arthrotomy and bony debridement SURGEON: Danish Zavala ANESTHESIA TYPE: Local By Surgeon Refer to Anesthesia Record ESTIMATED BLOOD LOSS: 5 PATHOLOGY: none sent COMPLICATIONS: None Patient was transported to: same day Patient's condition: stable Indications: I have seen Brie in clinic for symptoms of tophaceous gout breaking the skin and involving the DIP joint of the right index finger. The mass and swelling persisted and caused pain to direct contact and with use. The symptoms had not responded to conservative measures. I discussed irrigation and debridement with the patient. I reviewed the risks of the procedure to include, but not limited to, bleeding, infection, pain, stiffness, recurrence, damage to nerves or vessels. Despite these risks, the patient elected to proceed. Findings: There is abundant amount of tophaceous gout material. This was debrided from the soft tissues of both radial and ulnar aspects of the finger. This is also debrided from the flexor extensor tendon as well as the bone. Arthrotomy is also made of the DIP joint which allow for thorough irrigation. Procedure Description: Brie was greeted in the preoperative holding area where the correct side was identified and marked. The consent was reviewed with the patient and signed. All questions were answered. Brie was taken back to the operating room. The patient was placed into the supine position on the operating room table with the right arm on an arm board. All bony prominences were well padded. No prophylactic antibiotics were administered since this was a clean, elective hand surgical case. The right arm was then prepped with Chloraprep and draped in a standard fashion with stockinette and extremity drape. A timeout to confirm correct identity, side and site, procedure, allergies, anesthesia, and medical concerns was performed. A digital block was then performed using 1% lidocaine with epinephrine and buffered with sodium bicarbonate. This was allowed time to set up completely and was tested before proceeding with the case. A finger tourniquet was placed using a Rosalind drain. Then, a longitudinal incision was made in the mid axial plane of both the radial and ulnar aspects of the DIP joint. This was taken sharply through the skin. Immediately, there is significant amount tophaceous gout material encountered. This was debrided and evacuated. A rongeur was utilized to debride the materials. Dissection was carried down into the joint of the DIP joint where the joint was opened. I also debrided palmarly and dorsally to encounter the flexor and extensor tendon. Once again there was notable gouty material around this as well. This was evacuated. It was irrigated from both radial and ulnar aspects. The bone in this region was also debrided of any thing that appeared to be contaminated. Once again the finger area was irrigated thoroughly. The finger was inspected. There was what appeared to be some gouty material dorsally but this was inspected directly and show that it was simply a bony prominence associated with the attachment of the extensor tendon. The wound was once again thoroughly irrigated. This was then closed with 4-0 nylon. Finger was dressed with Xeroform, 4 x 4, conform dressing with an AlumaFoam splint incorporated into the dressing to minimize DIP motion. The patient tolerated the procedure well and was returned to the Same Day Surgery area in a stable condition suffering no known complication.
== END 2023-09-22 14:11 | disposition home or self-care (01) ==
PROVIDERS: PCP Family Medicine; Visit Provider Student in an Organized Health Care Education/Training Program
PROC: (CPT 26080; principal; 2023-09-22 13:45)
DX: M1A.9XX1 Chronic gout, unspecified, with tophus (tophi) (principal)
CPT/HCPCS: 26080; J2004

== ENCOUNTER → 2023-10-01 10:05 | Outpatient (BNVA) | payer MEDICARE, SELFPAY | PROVIDERS: PCP Family Medicine; Referring Provider Family Medicine | DX: Z48.817 Encounter for surgical aftercare following surgery on the skin and subcutaneous tissue (principal); M15.1 Heberden's nodes (with arthropathy) ==

== ENCOUNTER 2023-10-04 10:50 | Outpatient (CLI) | payer MEDICARE, SELFPAY ==
--- NOTE | 2023-10-04 10:30 | DI.RAD_ITS ---
Exam(s) XR SHOULDER LT COMPLETE 2+V EXAM: XR SHOULDER LT COMPLETE 2+V CLINICAL HISTORY: f/u L HUMERUS FX. TECHNIQUE: 2D digital imaging was performed. Three views. COMPARISON: CR,XR XR SHOULDER LT COMPLETE 2+V from 08/09/2020 CR,XR XR CHEST 2V PA LATERAL from 03/21/2023 CR XR SHOULDER LT COMPLETE 2+V from 05/27/2023 CR XR SHOULDER LT COMPLETE 2+V from 09/10/2023 FINDINGS: BONES: No acute fracture is present. No bony destructive lesion is seen. Spurring at the greater tub erosity. JOINTS: No dislocation present. Severe narrowing of the glenohumeral joint space, with a bone-on-bon e appearance. Stable appearance from prior. Mild degenerative changes of the acromioclavicular join t. SOFT TISSUE: Normal. IMPRESSION: Severe degenerative changes of the glenohumeral joint. DATA REPOSITORY: RADIATION DOSE DELIVERED:
== END 2023-10-04 10:51 | disposition home or self-care (01) ==
LOC: DIORS 10:51
PROVIDERS: PCP Family Medicine; Referring Provider Family Medicine; Visit Provider Student in an Organized Health Care Education/Training Program
DX: M10.9 Gout, unspecified; M19.012 Primary osteoarthritis, left shoulder
CPT/HCPCS: 20610; J1010; 73030

== ENCOUNTER 2023-10-05 03:00 | Outpatient (CLI) | payer MEDICARE, SELFPAY ==
[2023-10-05 12:25] LABS: Abs Immature Grans 0.06 10^3/uL (0.0-0.06); Absolute Basophil Count 0.05 10^3/uL (0.0-0.2); Absolute Eosinophil Count 0.01 10^3/uL (0.0-0.7); Absolute Lymphocyte Count 1.12 10^3/uL (1.2-3.4); Basophils % 0.4 %; Eosinophils % 0.1 %; HCT 33.1 % (36.0-46.0); HGB 10.9 g/dL (11.2-15.7); Immature Grans % 0.5 %; Lymphocytes % 9.2 %; MCH 31.1 pg (27.0-33.0); MCHC 32.9 % (32.0-36.0); MCV 95 fL (80-95); MPV 10.9 fL (8.0-11.0); Monocytes % 7.4 %; Neutrophils % 82.4 %; Platelet Count 344 10^3/uL (130-400); RDW 12.7 % (11.7-14.6); RDW-SD 43.8 fL; WBC 12.21 10^3/uL (4.4-10.8)
[2023-10-05 12:27] LABS: Absolute Neutrophil Count 10.06 10^3/uL (1.2-6.7)
[2023-10-05 13:10] LABS: ALT 33 U/L (14-59); AST 26 U/L (15-37); Alkaline Phosphatase 107 U/L (46-116); Anion Gap 12.1 mmol/L (3-11); BUN 28 mg/dL (7-18); Bilirubin, Total 0.48 mg/dL (0.2-1.0); CO2 24.9 mmol/L (21.0-32.0); CREATININE 1.5 mg/dL (0.55-1.02); Calcium 10.7 mg/dL (8.5-10.1); Chloride 101 mmol/L (98-107); Estimated GFR 33.31 (mL/min/1.73m2); Glucose 141 mg/dL (74-106); Potassium 4.7 mmol/L (3.5-5.1); Sodium 138 mmol/L (136-145); Total Protein 7.6 g/dL (6.4-8.2)
== END 2023-10-05 03:01 | disposition home or self-care (01) ==
LOC: LOS 03:01
PROVIDERS: PCP Family Medicine; Visit Provider Family Medicine
DX: N18.32 Chronic kidney disease, stage 3b (principal); Z00.00 Encounter for general adult medical examination without abnormal findings; M1A.3411 Chronic gout due to renal impairment, right hand, with tophus (tophi)
CPT/HCPCS: 36415; 80053; 85025

== ENCOUNTER → 2023-10-28 13:09 | Outpatient (BNVA) | payer MEDICARE, SELFPAY | PROVIDERS: PCP Family Medicine; Referring Provider Family Medicine; Visit Provider Student in an Organized Health Care Education/Training Program | DX: X58.XXXA Exposure to other specified factors, initial encounter (principal); M19.012 Primary osteoarthritis, left shoulder; S42.292A Other displaced fracture of upper end of left humerus, initial encounter for closed fracture | CPT/HCPCS: 20611; J1010 ==

== ENCOUNTER 2023-11-29 13:28 | Outpatient (CLI) | payer MEDICARE, SELFPAY ==
--- NOTE | 2023-11-29 13:15 | DI.RAD_ITS ---
Exam(s) XR FINGER RT INDEX EXAM: XR FINGER RT INDEX CLINICAL HISTORY: eval bony destruction, gouty arthritis - RIF DIP. TECHNIQUE: 2D digital imaging was performed. Three views. COMPARISON: CR XR FINGER RT INDEX from 08/16/2023 FINDINGS: No acute fracture is present. Severe joint space narrowing and prominent spurring again noted at the distal phalangeal joint of the index finger. Worsening of marginal erosions. Calcification again n oted around the joint as well as soft tissue swelling, consistent with gout. The appearance of the a rm advanced degenerative changes of the DIP joint of the 3rd and 5th fingers appears stable. Mild de generative changes also noted at the 1st carpal metacarpal joint. Calcification in the triangular fi brocartilage again noted. IMPRESSION: Worsening of bony erosions at the distal interphalangeal joint of the index finger consistent with go ut. Adjacent soft tissue calcifications. DATA REPOSITORY: RADIATION DOSE DELIVERED:
== END 2023-11-29 13:29 | disposition home or self-care (01) ==
LOC: DIORS 13:32
PROVIDERS: PCP Family Medicine; Referring Provider Family Medicine; Visit Provider Student in an Organized Health Care Education/Training Program
DX: M19.012 Primary osteoarthritis, left shoulder
CPT/HCPCS: 99213; 73140

== ENCOUNTER → 2023-12-27 13:52 | Outpatient (BNVA) | payer MEDICARE, SELFPAY | PROVIDERS: PCP Family Medicine; Referring Provider Family Medicine; Visit Provider Student in an Organized Health Care Education/Training Program | DX: M19.012 Primary osteoarthritis, left shoulder; M10.9 Gout, unspecified | CPT/HCPCS: 99213 ==

== ENCOUNTER 2023-12-29 10:00 | Emergency (ER) | payer MEDICARE, SELFPAY ==
[2023-12-29 10:01] VITALS: BP 159/70; PULSE 64; RESP 16; TEMP 36.4; O2SAT 98
--- NOTE | 2023-12-29 10:15 | RT.EKG_ITS ---
APPROVED REPORT Exam: Resting ECG Reason for Exam: luq pain Patient Location: E HR:59 bpm ECG Measurements Heart Rate 59 AXIS HI 219 P 48 QRSd 101 QRS -26 QT 437 T 56 QTc 434 Conclusion Sinus bradycardia...rate< 60 Borderline prolonged HI interval...HI >212, V-rate 50- 90 Probable left ventricular hypertrophy...multiple LVH criteria
[2023-12-29] MEDS: ACETAMINOPHEN 650 MG/65 ML BAG 260 MG IVPB (10:45)
[2023-12-29] MEDS: Ondansetron 4 MG/2 ML VIAL IVP (10:45)
[2023-12-29 10:49] LABS: Abs Immature Grans 0.04 10^3/uL (0.0-0.06); Absolute Basophil Count 0.08 10^3/uL (0.0-0.2); Absolute Eosinophil Count 0.17 10^3/uL (0.0-0.7); Absolute Lymphocyte Count 1.19 10^3/uL (1.2-3.4); Absolute Monocyte Count 0.61 10^3/uL (0.1-0.8); Absolute Neutrophil Count 5.68 10^3/uL (1.2-6.7); Eosinophils % 2.2 %; HCT 32.1 % (36.0-46.0); HGB 10.5 g/dL (11.2-15.7); Immature Grans % 0.5 %; Lymphocytes % 15.3 %; MCH 32.2 pg (27.0-33.0); MCHC 32.7 % (32.0-36.0); MCV 99 fL (80-95); MPV 10.5 fL (8.0-11.0); Monocytes % 7.9 %; Neutrophils % 73.1 %; Platelet Count 298 10^3/uL (130-400); RBC 3.26 10^6/uL (3.93-5.22); RDW 13.2 % (11.7-14.6); RDW-SD 47.2 fL; WBC 7.77 10^3/uL (4.4-10.8)
[2023-12-29 10:57] LABS: ALT 28 U/L (14-59); AST 27 U/L (15-37); Albumin 3.7 g/dL (3.4-5.0); Alkaline Phosphatase 122 U/L (46-116); Anion Gap 6.7 mmol/L (3-11); BUN 15 mg/dL (7-18); Bilirubin, Total 0.56 mg/dL (0.2-1.0); CO2 28.3 mmol/L (21.0-32.0); CREATININE 1.1 mg/dL (0.55-1.02); Calcium 10.3 mg/dL (8.5-10.1); Chloride 103 mmol/L (98-107); Estimated GFR 48.33 (mL/min/1.73m2); Glucose 105 mg/dL (74-106); Lipase 78 U/L (16-77); Magnesium 1.8 mg/dL (1.8-2.4); Potassium 4.4 mmol/L (3.5-5.1); Sodium 138 mmol/L (136-145); Total Protein 7.1 g/dL (6.4-8.2); Troponin I 9 ng/L (<or=51); Uric Acid 7.7 mg/dL (2.6-6.0)
[2023-12-29 11:24] VITALS: BP 162/58; PULSE 80; RESP 22; TEMP 36.5; O2SAT 96
[2023-12-29 11:31] LABS: Bilirubin Negative (Negative); Blood Negative (Negative); Clarity Clear (Clear); Glucose Negative (Negative); Ketones Negative (Negative); Leukocyte Esterase Negative (Negative); Nitrite Negative (Negative); Urobilinogen 0.2 mg/dL (Up to 0.2)
[2023-12-29] MEDS: Normal Saline - Diluent 50 ML VIAL IJ (11:55)
[2023-12-29] MEDS: Omnipaque 350 MG/ML 500 ML BTL-Imaging package 85 ML IJ (11:56)
--- NOTE | 2023-12-29 11:58 | DI.CT_ITS ---
Exam(s) CT ABDOMEN PELVIS W EXAM: CT ABDOMEN PELVIS W CLINICAL HISTORY: left sided abd pain. TECHNIQUE: Imaging Protocol: Axial computed tomography images with coronal and sagittal reformatted images were created and reviewed CONTRAST MATERIAL: Intravenous: Omnipaque 350 Contrast volume:85 ml Oral: / no COMPARISON: CT CT ABDOMEN PELVIS WO from 03/21/2023 FINDINGS: ABDOMEN and PELVIS: Lung Bases: No acute findings. Stable nodule right lower lobe. Liver: Normal density. No suspicious mass. Gallbladder and biliary tract: Status post cholecystectomy. No biliary dilation. Pancreas: Normal density. No abnormal calcifications or inflammatory process. No evidence of mass. Spleen: Normal. Kidneys: Parenchymal thickening being lower pole of left kidney. Nonobstructing stones upper and low er pole left kidney. No obstructive uropathy. Bilateral renal cysts, stable. No follow-up recommen ded. No suspicious masses seen. Adrenal glands: No masses seen. Vasculature: Abdominal aorta non-dilated. Severe atherosclerotic changes. 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 Soft tissues: Unremarkable. Bladder: Nearly empty. Not well evaluated. Bowel: Diverticulum 2nd portion of duodenum. No obstruction. No bowel wall thickening. Appendix no rmal. Peritoneal cavity: No ascites. No focal collection. Stable mild stranding in mesenteric fat. Bones: Hardware right femur. Advanced degenerative changes in the lumbar spine. Reproductive organs: Unremarkable. Lymph nodes: No pathologically enlarged lymph nodes. IMPRESSION:: No acute abnormality in the abdomen or pelvis. RADIATION DOSE DELIVERED: 460.34mGy.cm Total DLP DATA REPOSITORY: All CT scans at this facility are submitted to the National Radiology Data Registry (NRDR) Dose Index Registry (DIR) with the [employer] (ACR). RADIATION OPTIMIZATION: All CT scans at this facility use at least one of these dose optimization te chniques: automated exposure control; mA and/or kV adjustment per patient size (includes targeted exa ms where dose is matched to clinical indication); or iterative reconstruction.
--- NOTE | 2023-12-29 12:15 | DI.RAD_ITS ---
Exam(s) XR ANKLE LT COMPLETE EXAM: XR ANKLE LT COMPLETE CLINICAL HISTORY: pain left ankle TECHNIQUE: 2D digital imaging was performed. Three views. COMPARISON: No exams were available for comparison FINDINGS: BONES: No acute fracture is present. No bony destructive lesion is seen. Heel spurs. JOINTS:The ankle mortise is normally aligned. Mild ankle joint space narrowing. SOFT TISSUE: Swelling, greatest around lateral malleolus. IMPRESSION: Soft tissue swelling. No acute bony abnormality. DATA REPOSITORY: RADIATION DOSE DELIVERED:
--- NOTE | 2023-12-29 12:15 | DI.RAD_ITS ---
Exam(s) XR HIP RT COMPLETE AP PELVIS EXAM: XR HIP RT COMPLETE AP PELVIS CLINICAL HISTORY: right hip pain post fall. TECHNIQUE: 2D digital imaging was performed. Two views COMPARISON: CT CT ABDOMEN PELVIS W from 12/29/2023 FINDINGS: BONES: Hardware in proximal right femur or related to old intertrochanteric fracture. No acute fract ure is present. No bony destructive lesion is seen. JOINTS: No dislocation present. Bilateral hip joint space narrowing, left greater than right. SOFT TISSUE: Contrast seen in urinary bladder from recent CT. IMPRESSION: No acute abnormality. DATA REPOSITORY: RADIATION DOSE DELIVERED:
[2023-12-29 12:46] LABS: Troponin I 9 ng/L (<or=51)
[2023-12-29 13:56] VITALS: BP 137/40; PULSE 61; RESP 18; TEMP 36.5; O2SAT 98
--- NOTE | 2023-12-30 08:13 | W.ED.GENAD ---
Discharge Plan Disposition Patient Disposition: Home Condition: Stable Discharge Details Clinical Impression: Back pain, Hamstring muscle strain, Acute gout of ankle, Fall Primary Care Provider: Rika Kendrick ED Provider: Emmie Diaz Home Meds and New Rx's Prescriptions: New diclofenac sodium [Aleve (diclofenac)] 1 % gel 4 g topical QID Qty: 100 0RF Rx Instructions: apply to single knee, ankle, foot; for foot includes sole/toes/top of foot prednisone 20 mg tablet 40 mg PO ONCE Qty: 10 0RF diazepam [Valium] 2 mg tablet 2 mg PO QHS PRNQty: 5 0RF Continued (DME) Aerovent Plus Spacer See Rx Instructions .Route Qty: 1 0RF Rx Instructions: As directed - use with albuterol hydrocodone-acetaminophen 5-325 mg tablet 1 tab PO BID MDD 2 tabs PRN (Reason: chronic back ) Qty: 14 0RF allopurinol 100 mg tablet 100 mg PO DAILY Qty: 30 2RF polyethylene glycol 3350 17 gram/dose powder 17 g PO DAILY Qty: 510 11RF ipratropium bromide 42 mcg (0.06 %) spray,non-aerosol 1 spray intranasal TID Qty: 45 1RF Rx Instructions: administer into each nostril albuterol sulfate [ProAir HFA] 90 mcg/actuation HFA aerosol inhaler 2 puff inhalation Q6H PRN (Reason: shortness of breath or wheezing) Qty: 8.5 3RF magnesium oxide 400 mg (241.3 mg magnesium) tablet 400 mg PO BID Qty: 56 11RF docusate sodium [Colace] 100 mg capsule 100 mg PO BID Qty: 60 11RF cyanocobalamin (vitamin B-12) [Vitamin B-12] 1,000 mcg tablet extended release 1,000 mcg PO .every other day Qty: 15 11RF Rx Instructions: 1 tab at 0800 every other day ferrous sulfate 325 mg (65 mg iron) tablet 325 mg PO DAILY Qty: 30 11RF calcium citrate 200 mg (950 mg) tablet 800 mg PO BID Qty: 240 11RF levothyroxine 75 mcg tablet 75 mcg PO DAILY@0600 Qty: 30 6RF lisinopril-hydrochlorothiazide 20-12.5 mg tablet 1 tab PO DAILY Qty: 90 3RF amlodipine 5 mg tablet 5 mg PO DAILY Qty: 90 3RF atorvastatin [Lipitor] 40 mg tablet 40 mg PO QPM Qty: 30 11RF ibuprofen 600 mg tablet 600 mg PO TID PRN (Reason: pain) Qty: 90 0RF acetaminophen 500 mg tablet 1,000 mg PO TID Qty: 90 0RF amoxicillin 500 mg capsule 2,000 mg PO ONCE Patient Comments: TAKE FOUR CAPSULES BY MOUTH 1 HOUR PRIOR TO DENTAL PROCEDURE Rx Instructions: take 4 capsules 1 hour prior to dental procedure Discharge Instructions Instructions: Gout, Low Back Pain (DC), Hamstring Muscle Strain (DC) Additional Instructions: take prednisone for suspected gout and pain control Take Valium sparingly, this can be addictive and make you lightheaded, this will help with muscle pain Use your walker with any ambulation You may develop a shingles rash over the area that you are experiencing discomfort, alternatively this may be isolated back pain Recommendation for recheck in 24 to 48 hours with your primary care physician apply diclofenac gel over the area of discomfort Please have your calcium level rechecked by your primary care physician Make sure you are consuming at least eight 8 ounce glasses of water daily Referrals: Rika Kendrick MD [Primary Care Provider] - 2 days Discharge Data Discharge Date/Time-TO BE ENTERED AT DEPARTURE: 12/29/23 14:38 HPI General Date/Time Provider Initiated Documentation: 12/29/23 10:16. HPI Narrative: This 80-year-old female presents with left side pain that started 2 days ago. She describes as dull pain that is constant in nature. She denies any associated chest pain or shortness of breath. She was heading to the card to be evaluated for this discomfort when she tripped on a step landing on her right side, buttocks and now has pain to the posterior hamstring region. She states she is able to ambulate with discomfort. She had no fever or chills. There has been no nausea or vomiting. Denies any blood in urine diarrhea. Denies any rashes or lesions or history of similar pain in the past. Related Data Home Medications ?Medication ?Instructions ?Recorded ?Confirmed ipratropium bromide 42 mcg (0.06 1 spray intranasal TID #45 mL 07/02/22 12/29/23 %) nasal spray ibuprofen 600 mg tablet 600 mg PO TID PRN pain #90 tabs 11/25/22 12/29/23 inhalational spacing device #1 ea 03/31/23 12/29/23 (Aerovent Plus spacer) albuterol sulfate 90 mcg/actuation 2 puff inhalation Q6H PRN 04/22/23 12/29/23 aerosol inhaler (ProAir HFA) shortness of breath or wheezing #8.5 grams hydrocodone 5 mg-acetaminophen 325 1 tab PO BID PRN chronic back #14 08/16/23 12/29/23 mg tablet tabs acetaminophen 500 mg tablet 1,000 mg (2 x 500 mg) PO TID #90 09/22/23 12/29/23 tabs allopurinol 100 mg tablet 100 mg PO DAILY #30 tabs 10/06/23 12/29/23 polyethylene glycol 3350 17 17 g PO DAILY constipation #510 10/06/23 12/29/23 gram/dose oral powder grams calcium citrate 800 mg (4 x 200 mg (950 mg)) PO 11/02/23 12/29/23 BID blisterpack-pickup #240 tabs cyanocobalamin (vitamin B-12) 1,000 mcg PO .every other day 11/02/23 12/29/23 1,000 mcg tablet,extended release Blister Pack-pickup #15 tabs (Vitamin B-12 ER) docusate sodium 100 mg capsule 100 mg PO BID blisterpack-pickup 11/02/23 12/29/23 (Colace) #60 caps ferrous sulfate 325 mg (65 mg 325 mg PO DAILY blisterpack-pickup 11/02/23 12/29/23 iron) tablet #30 tabs levothyroxine 75 mcg tablet 75 mcg PO DAILY@0600 11/02/23 12/29/23 blisterpack-pickup #30 tabs magnesium oxide 400 mg (241.3 mg 400 mg PO BID blisterpack-pickup 11/02/23 12/29/23 magnesium) tablet #56 tabs amlodipine 5 mg tablet 5 mg PO DAILY #90 tabs 11/29/23 12/29/23 lisinopril 20 1 tab PO DAILY #90 tabs 11/29/23 12/29/23 mg-hydrochlorothiazide 12.5 mg tablet amoxicillin 500 mg capsule 2,000 mg PO ONCE dental procedure 12/29/23 12/29/23 atorvastatin 40 mg tablet (Lipitor) 40 mg PO QPM blisterpack-pickup 12/29/23 12/29/23 #30 tabs diazepam 2 mg tablet (Valium) 2 mg PO QHS PRN #5 tabs 12/29/23 diclofenac sodium 1 % topical gel 4 g topical QID #100 grams 12/29/23 (Aleve (diclofenac)) prednisone 20 mg tablet 40 mg (2 x 20 mg) PO ONCE #10 tabs 12/29/23 Previous Rx's ?Medication ?Instructions ?Recorded ipratropium bromide 42 mcg (0.06 1 spray intranasal TID #45 mL 07/02/22 %) nasal spray ibuprofen 600 mg tablet 600 mg PO TID PRN pain #90 tabs 11/25/22 inhalational spacing device #1 ea 03/31/23 (Aerovent Plus spacer) albuterol sulfate 90 mcg/actuation 2 puff inhalation Q6H PRN 04/22/23 aerosol inhaler (ProAir HFA) shortness of breath or wheezing #8.5 grams hydrocodone 5 mg-acetaminophen 325 1 tab PO BID PRN chronic back #14 08/16/23 mg tablet tabs acetaminophen 500 mg tablet 1,000 mg (2 x 500 mg) PO TID #90 09/22/23 tabs allopurinol 100 mg tablet 100 mg PO DAILY #30 tabs 10/06/23 polyethylene glycol 3350 17 17 g PO DAILY constipation #510 10/06/23 gram/dose oral powder grams calcium citrate 800 mg (4 x 200 mg (950 mg)) PO 11/02/23 BID blisterpack-pickup #240 tabs cyanocobalamin (vitamin B-12) 1,000 mcg PO .every other day 11/02/23 1,000 mcg tablet,extended release Blister Pack-pickup #15 tabs (Vitamin B-12 ER) docusate sodium 100 mg capsule 100 mg PO BID blisterpack-pickup 11/02/23 (Colace) #60 caps ferrous sulfate 325 mg (65 mg 325 mg PO DAILY blisterpack-pickup 11/02/23 iron) tablet #30 tabs levothyroxine 75 mcg tablet 75 mcg PO DAILY@0600 11/02/23 blisterpack-pickup #30 tabs magnesium oxide 400 mg (241.3 mg 400 mg PO BID blisterpack-pickup 11/02/23 magnesium) tablet #56 tabs amlodipine 5 mg tablet 5 mg PO DAILY #90 tabs 11/29/23 lisinopril 20 1 tab PO DAILY #90 tabs 11/29/23 mg-hydrochlorothiazide 12.5 mg tablet atorvastatin 40 mg tablet (Lipitor) 40 mg PO QPM blisterpack-pickup 12/29/23 #30 tabs diazepam 2 mg tablet (Valium) 2 mg PO QHS PRN #5 tabs 12/29/23 diclofenac sodium 1 % topical gel 4 g topical QID #100 grams 12/29/23 (Aleve (diclofenac)) prednisone 20 mg tablet 40 mg (2 x 20 mg) PO ONCE #10 tabs 12/29/23 Allergies Allergy/AdvReac Type Severity Reaction Status Date / Time adhesive Allergy Severe Skin Rash Verified 12/29/23 10:10 latex Allergy Intermediate Skin Rash Verified 12/29/23 10:10 azithromycin AdvReac Severe DIARRHEA Verified 12/29/23 10:10 fluticasone propionate (From AdvReac Severe SEVER NOSE Verified 12/29/23 10:10 Flonase) IRRITATION colchicine AdvReac Intermediate Diarrhea Uncoded 12/29/23 10:10 General Stated Complaint: Abd Prob AYAD: 3 Exam Narrative Exam Narrative: 88-year-old female, no acute distress, refill is for pain along the CVA midaxillary line of anterior thorax region. Neurovascularly intact, no abdominal bruit or pulsatile mass, no rebound or guarding, lungs clear to auscultation, no respiratory distress, cardiac rate normal regular, distal pulses intact all 4 extremities. Tenderness with palpation to right hip and right hamstring, flexion extension knee and hip intact, no visible sign of trauma Course Vital Signs Vital signs: Vital Signs Temperature 36.4 C 12/29/23 10:01 Pulse 64 12/29/23 10:01 Respiratory Rate 16 12/29/23 10:01 Blood Pressure 159/70 H 12/29/23 10:01 Pulse Oximetry 98 12/29/23 10:01 Temperature 36.5 C 12/29/23 13:56 Temperature Source Oral 12/29/23 13:56 Pulse 61 12/29/23 13:56 Pulse Rhythm Regular 12/29/23 11:24 Pulse Strength Normal 12/29/23 11:24 Respiratory Rate 18 12/29/23 13:56 Respiratory Effort Normal 12/29/23 10:08 Respiratory Depth Normal 12/29/23 11:24 Blood Pressure 137/40 L 12/29/23 13:56 Blood Pressure Mean 92 12/29/23 11:24 Blood Pressure Position Sitting 12/29/23 11:24 Pulse Oximetry 98 12/29/23 13:56 Oxygen Delivery Method Room Air 12/29/23 13:56 Oxygen Flow Rate 0 12/29/23 13:56 Pain Level 3 12/29/23 11:24 Lab/Test Results Lab/Test Results: Laboratory Tests Range/Units 12/29/23 12/29/23 12/29/23 10:31 11:22 12:22 WBC (4.4-10.8) 10^3/uL 7.77 RBC (3.93-5.22) 10^6/uL 3.26 L Hgb (11.2-15.7) g/dL 10.5 L Hct (36.0-46.0) % 32.1 L MCV (80-95) fL 99 H MCH (27.0-33.0) pg 32.2 MCHC (32.0-36.0) % 32.7 RDW (11.7-14.6) % 13.2 Plt Count (130-400) 10^3/uL 298 MPV (8.0-11.0) fL 10.5 Immature Gran % % 0.5 Neutrophils % % 73.1 Lymphocytes % % 15.3 Monocytes % % 7.9 Eosinophils % % 2.2 Basophils % % 1.0 Nucleated RBC % (0.0-0.3) % 0.0 Absolute Neutrophils (1.2-6.7) 10^3/uL 5.68 Absolute Lymphocytes (1.2-3.4) 10^3/uL 1.19 L Absolute Monocytes (0.1-0.8) 10^3/uL 0.61 Absolute Eosinophils (0.0-0.7) 10^3/uL 0.17 Absolute Basophils (0.0-0.2) 10^3/uL 0.08 Sodium (136-145) mmol/L 138 Potassium (3.5-5.1) mmol/L 4.4 Chloride (98-107) mmol/L 103 Carbon Dioxide (21.0-32.0) mmol/L 28.3 Anion Gap (3-11) mmol/L 6.7 BUN (7-18) mg/dL 15 Creatinine (0.55-1.02) mg/dL 1.1 H Est GFR (CKD-EPI 2020) (mL/min/1.73m2) 48.33 Glucose (74-106) mg/dL 105 Uric Acid (2.6-6.0) mg/dL 7.7 H Calcium (8.5-10.1) mg/dL 10.3 H Magnesium (1.8-2.4) mg/dL 1.8 Total Bilirubin (0.2-1.0) mg/dL 0.56 AST (15-37) U/L 27 ALT (14-59) U/L 28 Alkaline Phosphatase (46-116) U/L 122 H Troponin I (<or=51) ng/L 9 9 Total Protein (6.4-8.2) g/dL 7.1 Albumin (3.4-5.0) g/dL 3.7 Lipase (16-77) U/L 78 H Urine Color (Yellow) Yellow Urine Clarity (Clear) Clear Urine pH (5-8) 6.0 Ur Specific [place] (1.005-1.025) 1.010 Urine Protein (Neg-Trace) mg/dL Negative Urine Ketones (Negative) mg/dL Negative Urine Blood (Negative) Negative Urine Nitrite (Negative) Negative Urine Bilirubin (Negative) Negative Urine Urobilinogen (Up to 0.2) mg/dL 0.2 Ur Leukocyte Esterase (Negative) Negative Urine Glucose (Negative) mg/dL Negative Range/Units 12/29/23 13:27 WBC (4.4-10.8) 10^3/uL RBC (3.93-5.22) 10^6/uL Hgb (11.2-15.7) g/dL Hct (36.0-46.0) % MCV (80-95) fL MCH (27.0-33.0) pg MCHC (32.0-36.0) % RDW (11.7-14.6) % Plt Count (130-400) 10^3/uL MPV (8.0-11.0) fL Immature Gran % % Neutrophils % % Lymphocytes % % Monocytes % % Eosinophils % % Basophils % % Nucleated RBC % (0.0-0.3) % Absolute Neutrophils (1.2-6.7) 10^3/uL Absolute Lymphocytes (1.2-3.4) 10^3/uL Absolute Monocytes (0.1-0.8) 10^3/uL Absolute Eosinophils (0.0-0.7) 10^3/uL Absolute Basophils (0.0-0.2) 10^3/uL Sodium (136-145) mmol/L Potassium (3.5-5.1) mmol/L Chloride (98-107) mmol/L Carbon Dioxide (21.0-32.0) mmol/L Anion Gap (3-11) mmol/L BUN (7-18) mg/dL Creatinine (0.55-1.02) mg/dL Est GFR (CKD-EPI 2020) (mL/min/1.73m2) Glucose (74-106) mg/dL Uric Acid (2.6-6.0) mg/dL Calcium (8.5-10.1) mg/dL Magnesium (1.8-2.4) mg/dL Total Bilirubin (0.2-1.0) mg/dL AST (15-37) U/L ALT (14-59) U/L Alkaline Phosphatase (46-116) U/L Troponin I (<or=51) ng/L Cancelled Total Protein (6.4-8.2) g/dL Albumin (3.4-5.0) g/dL Lipase (16-77) U/L Urine Color (Yellow) Urine Clarity (Clear) Urine pH (5-8) Ur Specific [place] (1.005-1.025) Urine Protein (Neg-Trace) mg/dL Urine Ketones (Negative) mg/dL Urine Blood (Negative) Urine Nitrite (Negative) Urine Bilirubin (Negative) Urine Urobilinogen (Up to 0.2) mg/dL Ur Leukocyte Esterase (Negative) Urine Glucose (Negative) mg/dL Medical Decision Making 88-year-old female, no acute distress presenting with abdominal pain and right leg pain status post fall. Given age and medical comorbidities will order CT imaging abdomen and pelvis, x-rays right hip and left ankle secondary to some swelling to left ankle and diagnostic blood work. Tenderness labs are reassuring, do not see significant evidence of acute abnormality mild anemia consistent with patient's prior, hemoglobin 10.5 hematocrit 32.1 uric acid is 7.7, could explain left ankle swelling, no erythema or evidence of septic arthritis, will treat with prednisone which will likely assist with back pain and the swelling patient's joint, no history of diabetes. Mild elevation in calcium, will encourage fluids and recheck of calcium level, will refrain from calcium and vitamin D supplements. EKG and 2 troponins do not show evidence of acute abnormality, lower suspicion for cardiac etiology of patient's complaints, especially with reproducible discomfort. Will treat for back pain, less likely, patient may develop a shingles rash. Will give low-dose Valium risk of addiction reviewed. Patient does not operate a vehicle. Will use her walker, did perform ambulatory trial in the emergency department and patient had antalgic gait but was safe with her walker. Think she stable for discharge home at this time. She will need close outpatient follow-up with PCP. She likely has hamstring strain from her fall and injury. Will treat for gout and back pain in the absence of any CT abnormalities for acute pathology. Reviewed radiologist interpretation were available. Quality:[facility] Health Related Social Needs: No Data to Display PFSH All Active Problems (Updated 12/29/23 @ 14:07 by PHYLICIA Ortiz) Fall (Acute) Acute gout of ankle (Acute) Hamstring muscle strain (Acute) Back pain (Acute) Gouty arthritis of right hand (Acute) Arthritis of left glenohumeral joint (Acute) POCUS INJECTION 10/28/23 Degenerative arthritis of distal interphalangeal joint of index finger of right hand (Acute) Gout (Chronic) Chronic renal disease, stage 3, moderately decreased glomerular filtration rate (GFR) between 30-59 mL/min/1.73 square meter (Acute) Hypothyroidism (Chronic 06/10/12) Osteoporosis (Chronic) Vitamin B12 deficiency disease (Acute) Essential hypertension (Chronic) Lumbar spondylosis (Acute) Sacroiliitis (Acute) Benign hypertension with stage 3b chronic kidney disease (Acute) Low back pain (Acute) Primary osteoarthritis, left hand (Acute) Medical History Bilateral shoulder pain bilat DEPO MEDROL 05/27/23 Pulmonary hypertension (~2018) PA 55-65mmHg Syncope (03/2023) negative event monitor, negative echo. Rotator cuff arthropathy of both shoulders depo medrol 11/23/2022; 08/24/22; 05/18/22; 02/16/22; 11/17/21; 08/18/21 Carotid stenosis, bilateral 70% stenosis; [place] [facility] [place] felt to not need surgery. Pt refuses aspirin Sciatica bilateral; MRI 12/06 spinal stenosis; 2008-spine clinic [facility] steroid injections. 01/[address] [facility] pain clinic [place] radiofrequency (MRI severe spinal stenosis) Lichen planus OF [place] [facility] [place] [facility] Cervical radiculopathy at C6 (08/10/14) neck pain Primary osteoarthritis of left hip Depressive disorder (01/29/04) Posterior vitreous detachment of both eyes Nonexudative age-related macular degeneration, right eye, intermediate dry stage [place] [facility] [place] Exudative age-related macular degeneration, left eye, with active choroidal neovascularization [place] [facility] [place] Pulmonary nodule (~04/2018) right; lost to followup and now declines surgery to evaluate if positive. Transient neurologic deficit noted to have carotid stenosis Umbilical hernia without obstruction and without gangrene (11/20/15) Repair with 6.4 Ventralex Polymyalgia rheumatica (07/24/14) Hyperlipidemia Gastroesophageal reflux disease (06/10/12) hiatal hernia (2006 UGI) Colon polyps Hx of breast cancer Surgical History Gout of left hand LIF s/p excision DOS: 11/25/22 Tophaceous gout of joint S/P I&D RIF: 09/22/2023 Status post right knee replacement Status post fracture of right hip Tata-prosthetic femur fracture at tip of prosthesis S/P ORIF of periprosthetic fracture of right distal femur DOS: 04/16/18 Dr. Villar S/P carpal tunnel release Repair of umbilical hernia (04/15/16) Cholecystectomy laparoscopic Breast, Mastectomy 1988-left Family History Sister Cancer Mother No problems noted. Father No problems noted. Sister No problems noted. Son No problems noted. Son No problems noted. Social History Smoking/Tobacco Use Status: Former Tobacco Use tobacco type: cigarettes Quit Date: 03/01/94 Tobacco: How many years used: 40 Second Hand Exposure: Yes Smoking risk assessment performed?: Yes Alcohol Intake: never Drug use: Never Substance use type: does not use Caregiver/Support person: No Household members: none Housing: house Number of Children: 2 Do you need help understanding health information?: Never current occupation: retired Pets and animals: No Sexually active: No Do you think of yourself as: straight/heterosexual Current gender identity: female What is your relationship status?: How often do you talk on the phone with friends or family?: three or more times per week How often do you get together with friends or relatives?: three or more times per week How often do you attend islam or sikhism services?: 4 or more times per year Do you belong to any clubs or organized social groups?: no Panel score (0-1 are the most socially isolated patients): 2 Frequency: 1-2 times per week Evelyn/Rastafari: Cheondoism Special evelyn needs: No Seatbelt use: always Drive intox or ride w/intox furniture mover driver: No Do you feel safe at home: Yes Do you feel safe in your relationship?: Yes Additional Social history: lives alone
== END 2023-12-29 14:38 | disposition home or self-care (01) ==
PROVIDERS: Emergency Provider Physician Assistant; PCP Family Medicine
DX: S76.312A Strain of muscle, fascia and tendon of the posterior muscle group at thigh level, left thigh, initial encounter (principal); M10.072 Idiopathic gout, left ankle and foot; M25.551 Pain in right hip; R10.32 Left lower quadrant pain; W10.8XXA Fall (on) (from) other stairs and steps, initial encounter
CPT/HCPCS: 80053; 83690; 93005; 96365; 96375; 99285; 73502; 73610; 74177; 81003; 83735; 84484; 84550; 85025; 93010; 99284; J0131; J2405

== ENCOUNTER → 2024-01-31 14:28 | Outpatient (BNVA) | payer MEDICARE, SELFPAY | PROVIDERS: PCP Family Medicine; Referring Provider Family Medicine; Visit Provider Student in an Organized Health Care Education/Training Program | DX: M19.012 Primary osteoarthritis, left shoulder (principal) | CPT/HCPCS: 20611; J1010 ==

== ENCOUNTER 2024-03-14 08:08 | Outpatient (CLI) | payer MEDICARE, SELFPAY ==
--- NOTE | 2024-03-14 08:00 | DI.RAD_ITS ---
Exam(s) XR CHEST 2V PA LATERAL EXAM: XR CHEST 2V PA LATERAL CLINICAL HISTORY: cough, ? pneumonia,R05.9 TECHNIQUE: 2D digital imaging was performed. Two views. COMPARISON: CR XR SHOULDER LEFT from 08/25/2023 FINDINGS: HEART: Normal size. Aorta: Not dilated. Calcification at arch. PULMONARY VASCULATURE: Normal. MEDIASTINUM: Unremarkable. LUNGS: Clear. PLEURAL SPACE: Apical scarring. No pleural effusion or pneumothorax. BONE:Unremarkable for age. SOFT TISSUES: Unremarkable. IMPRESSION: No acute abnormality. DATA REPOSITORY: RADIATION DOSE DELIVERED:
== END 2024-03-14 08:28 ==
LOC: DI 08:08
PROVIDERS: PCP Family Medicine; Visit Provider Physician Assistant
DX: R05.9 Cough, unspecified (principal)
CPT/HCPCS: 71046

== ENCOUNTER → 2024-03-29 12:46 | Outpatient (BNVA) | payer MEDICARE, SELFPAY | PROVIDERS: PCP Family Medicine; Referring Provider Family Medicine; Visit Provider Student in an Organized Health Care Education/Training Program | DX: M19.011 Primary osteoarthritis, right shoulder (principal); M19.012 Primary osteoarthritis, left shoulder | CPT/HCPCS: 99214 ==

== ENCOUNTER → 2024-03-31 10:21 | Outpatient (BNVA) | payer MEDICARE, SELFPAY | PROVIDERS: PCP Family Medicine; Referring Provider Family Medicine | DX: M19.011 Primary osteoarthritis, right shoulder (principal) | CPT/HCPCS: 20611; 99213; J1010 ==

== ENCOUNTER 2024-05-01 02:09 | Outpatient (CLI) | payer MEDICARE, SELFPAY ==
[2024-05-01 12:29] LABS: Abs Immature Grans 0.03 10^3/uL (0.0-0.06); Absolute Basophil Count 0.08 10^3/uL (0.0-0.2); Absolute Eosinophil Count 0.32 10^3/uL (0.0-0.7); Absolute Lymphocyte Count 1.34 10^3/uL (1.2-3.4); Absolute Monocyte Count 0.56 10^3/uL (0.1-0.8); Absolute Neutrophil Count 3.14 10^3/uL (1.2-6.7); Basophils % 1.5 %; Eosinophils % 5.9 %; HCT 29.4 % (36.0-46.0); HGB 9.5 g/dL (11.2-15.7); Immature Grans % 0.5 %; Lymphocytes % 24.5 %; MCH 32.4 pg (27.0-33.0); MCHC 32.3 % (32.0-36.0); MCV 100 fL (80-95); MPV 11.2 fL (8.0-11.0); Monocytes % 10.2 %; Neutrophils % 57.4 %; Platelet Count 275 10^3/uL (130-400); RBC 2.93 10^6/uL (3.93-5.22); RDW 13.4 % (11.7-14.6); RDW-SD 49.8 fL; WBC 5.47 10^3/uL (4.4-10.8)
[2024-05-01 13:04] LABS: ALT 24 U/L (14-59); AST 25 U/L (15-37); Albumin 3.6 g/dL (3.4-5.0); Alkaline Phosphatase 104 U/L (46-116); Anion Gap 8.9 mmol/L (3-11); BUN 26 mg/dL (7-18); Bilirubin, Total 0.45 mg/dL (0.2-1.0); CO2 27.1 mmol/L (21.0-32.0); CREATININE 1.3 mg/dL (0.55-1.02); Calcium 10.1 mg/dL (8.5-10.1); Chloride 109 mmol/L (98-107); Estimated GFR 39.55 (mL/min/1.73m2); Glucose 96 mg/dL (74-106); Potassium 4.5 mmol/L (3.5-5.1); Sodium 145 mmol/L (136-145); Total Protein 6.8 g/dL (6.4-8.2); Uric Acid 8.1 mg/dL (2.6-6.0)
== END 2024-05-01 02:10 | disposition home or self-care (01) ==
LOC: LOS 02:09
PROVIDERS: PCP Family Medicine; Visit Provider Family Medicine
DX: N18.32 Chronic kidney disease, stage 3b (principal); M1A.9XX0 Chronic gout, unspecified, without tophus (tophi); M1A.3411 Chronic gout due to renal impairment, right hand, with tophus (tophi)
CPT/HCPCS: 36415; 80053; 84550; 85025

== ENCOUNTER 2024-05-10 15:20 | Outpatient (REF) | payer MEDICARE, SELFPAY ==
[2024-05-10 21:36] LABS: ESR 20 mm/hr (0-30)
[2024-05-10 22:13] LABS: TSH (W/Ref FT4) 0.81 uIU/mL (0.36-3.74); Vitamin B12 882 pg/mL (193-986)
== END 2024-05-10 15:21 | disposition home or self-care (01) ==
LOC: LBN 15:20
PROVIDERS: PCP Family Medicine; Visit Provider Family Medicine
DX: N18.32 Chronic kidney disease, stage 3b (principal); D63.1 Anemia in chronic kidney disease; M35.3 Polymyalgia rheumatica
CPT/HCPCS: 85652; 82607; 84443

== ENCOUNTER → 2024-05-12 10:39 | Outpatient (BNVA) | payer MEDICARE, SELFPAY | PROVIDERS: PCP Family Medicine; Referring Provider Family Medicine | DX: M19.011 Primary osteoarthritis, right shoulder (principal); M19.012 Primary osteoarthritis, left shoulder | CPT/HCPCS: 20611; 99213; J1010 ==

== ENCOUNTER 2024-06-15 00:43 | Outpatient (CLI) | payer MEDICARE, SELFPAY ==
--- NOTE | 2024-06-15 | DI.MRI_ITS ---
Exam(s) MR BRAIN WO/W EXAM: MR BRAIN WO/W CLINICAL HISTORY: Hallucinations TECHNIQUE: Multiplanar multisequence MRI of the brain was performed. Both noninfused and contrast i nfused sequences were performed. IV Contrast injected was 15 cc Dotarem. COMPARISON: CT CT HEAD CERV SPINE FACIAL WO from 03/21/2023 03/21/2023 was reviewed. FINDINGS: CEREBRAL PARENCHYMA: No evidence of intracranial hemorrhage, mass effect nor shift of midline structu re. No extraaxial fluid collections. There is symmetrical involutional change consistent with this mookie ent's advanced age. Ventricles are not enlarged nor shifted. Size of the ventricles is not out of pr oportion when compared to the size of the overlying cortical sulci. There is no significant focal signal abnormality in the cerebellar hemispheres nor within the jovon, m idbrain, and thalami. There is a moderate amount of bilateral periventricular signal abnormality consistent with chronic sm all vessel disease. There are no foci of restricted diffusion to suggest acute or subacute ischemic event. There are no ring enhancing lesions in the brain. There is no abnormal meningeal enhancement , focal nor diffuse. DWI: No areas of restricted diffusion to suggest acute ischemic event. SWI: No microhemorrhages evident. There are no ring enhancing lesions in the brain. There is no abnormal meningeal enhancement. PITUITARY GLAND: No mass nor parasellar abnormality. No obvious abnormality in the cavernous sinuses. FLOW VOIDS: The expected flow void are noted. No evidence of obvious aneurysm nor obvious vascular ma lformation. PARANASAL SINUSES: The visualized paranasal sinuses appear unremarkable. ORBITS: No obvious abnormal findings. Previous bilateral cataract surgery. IMPRESSION: 1. No significant acute intracranial findings on this MRI scan of the brain. 2. No abnormal enhancing intracranial findings. There are no ring enhancing lesions in the brain and there is no abnormal meningeal enhancement. 3. The amount of involutional change is consistent with the patient's advanced age and the size of t he ventricles is not out of proportion when compared to the size of the overlying cortical sulci. DATA REPOSITORY:
[2024-06-15] MEDS: Gadoterate meglumine 20 ML VIAL 15 ML IVP (12:19)
[2024-06-15] MEDS: Normal Saline Flush 10 ML SYR IVP (12:19)
== END 2024-06-15 01:03 ==
PROVIDERS: PCP Family Medicine; Visit Provider Optometrist
DX: H53.19 Other subjective visual disturbances (principal); H18.593 Other hereditary corneal dystrophies, bilateral
CPT/HCPCS: 70553

== ENCOUNTER → 2024-06-30 10:45 | Outpatient (BNVA) | payer MEDICARE, SELFPAY | PROVIDERS: PCP Family Medicine; Referring Provider Family Medicine; Visit Provider Physician Assistant | DX: M19.011 Primary osteoarthritis, right shoulder (principal) | CPT/HCPCS: 20611; J1010 ==

== ENCOUNTER → 2024-07-11 12:48 | Outpatient (BNVA) | payer MEDICARE, SELFPAY | PROVIDERS: PCP Family Medicine; Referring Provider Family Medicine; Visit Provider Student in an Organized Health Care Education/Training Program | DX: M19.011 Primary osteoarthritis, right shoulder (principal); M19.012 Primary osteoarthritis, left shoulder | CPT/HCPCS: 99213 ==

== ENCOUNTER 2024-08-09 14:14 | Outpatient (CLI) | payer MEDICARE, SELFPAY ==
[2024-08-09 14:13] VITALS: BP 147/59; PULSE 61; RESP 20; TEMP 36.6; O2SAT 98
--- NOTE | 2024-08-09 14:15 | DI.RAD_ITS ---
Exam(s) XR PAIN CLINIC FLUORO JOINT IN EXAM: XR PAIN CLINIC FLUORO JOINT IN CLINICAL HISTORY: Dx: Osteoarthritis of the shoulder - left TECHNIQUE: 2D and realtime digital imaging was performed. CONTRAST MATERIAL: Refer to procedure report. COMPARISON: No exams were available for comparison FINDINGS: Fluoroscopy was provided for Dr. Valenzuela during the performance of a capsular dilatation procedure. Pl ease refer to the procedure report for complete details. Ka,r=1.0 mGy IMPRESSION: RADIATION DOSE DELIVERED: 0.0 0.0 0
[2024-08-09 14:34] VITALS: PULSE 58; O2SAT 97
[2024-08-09 14:40] VITALS: PULSE 59; O2SAT 99
[2024-08-09] MEDS: Omnipaque 240 MG/ML 50 ML BTL IJ (14:49)
[2024-08-09] MEDS: Nerve Block Tray 1 EACH MC (14:52)
[2024-08-09] MEDS: methylPREDNISolone ACETATE 40 MG/ML VIAL IJ (14:53)
--- NOTE | 2024-08-09 14:57 | PDOC.PAIN ---
Date of service: 08/09/24 Time of Service: 14:57 Pain Managment Procedure Note Procedure Note Procedure Note: PROCEDURE NOTE LEFT INTRA-ARTICULAR SHOULDER JOINT STEROID INJECTION AND CAPSULER DILATION Date of Service: August 09, 2024 Patient:? Brie Dai? Provider:? Kalia Valenzuela DO, MPH Brie Dai has been [facility] for LEFT intra-articular shoulder joint injection and capsular dilation. Pre-operative diagnosis: Shoulder Osteoarthritis ICD-10 M19.019 and left shoulder adhesive capsulitis M75.01 Post-operative diagnosis: Same Pre-procedure pain: VAS=8-9/10 COMMENTS: I evaluated her earlier in the day in the office. Brie?was interviewed and the medical record was reviewed.? There were no medical, pharmacologic, radiographic or other structural contraindications to attempting fluoroscopically guided LEFT intra-articular shoulder joint injection.? Risks and expected side effects as well as potential benefit of the procedure were reviewed with Brie, and the patient's voiced concerns were addressed.? The printed consent form was signed.? Standard time-out procedure was performed. Brie was placed in the supine position on the fluoroscopy table and the pulse oximeter was applied. The skin entry point for approaching superolateral aspect of the LEFT humeral head area was identified under the most advantageous fluoroscopic view and marked. Following thorough Chlorhexadine preparation of the skin and draping, 1% lidocaine infiltration of the skin entry point and subcutaneous tissues was accomplished using a 1.5 25G needle. Next, the 1.5 25G needle was advanced to the superior portion of the humeral head under fluoroscopic guidance into the LEFT shoulder joint. Intra-articular placement was confirmed by a clear arthrogram resulting from the injection of 2 ml Omnipaque 240. Next, 40 mg Depo-Medrol mixed with 5 mls of 1% Lidocaine was injected into the joint. I then injected 17 cc of normal saline. This was followed with another 3cc of 1% lidocaine to clear the needle of any steroid. (48 mls of Omnipaque was wasted). There was no unusual discomfort expressed by Brie. The needle was withdrawn without difficulty. Brie was observed and was without hemodynamic, neurologic, or allergic reactions.? Fluoroscopic images were digitally archived. Brie's vital signs were stable throughout the procedure and were as recorded in the docflowsheet by the nursing staff. If given, dosages of intravenous drugs for anxiolysis and analgesia were documented in MAR. Follow up plans and appointments were discussed with Brie.? Post procedure instruction was given as documented in nursing documentation and having met discharge criteria, B[facility] was [facility] from the [facility]. COMMENTS: No apparent complications. Post-procedure pain: VAS= 4/10. Brie to contact [facility] as needed. If at least 50% improvement in pain and/or function for at least 3 months is achieved, this procedure can be repeated. I personally completed the entire procedure. KALIA VALENZUELA DO, MPH ABPM&R - Subspecialty board certification in Pain Medicine [facility] Coding Conscious Sedation used for procedure: No CPT Codes: Inj,Bursa/Tendon Major (not SI); Ischial Bursa - 54536 ([id number] ~G) Fluoroscopic guidance (non spine inj.) - 72851 ([id number] ~G) Additional Codes: Date of Service (92548) Date of service: 08/09/24
== END 2024-08-09 14:15 | disposition home or self-care (01) ==
PROVIDERS: PCP Family Medicine; Visit Provider Preventive Medicine Occupational Medicine
DX: M25.512 Pain in left shoulder (principal); M19.012 Primary osteoarthritis, left shoulder; M75.02 Adhesive capsulitis of left shoulder
CPT/HCPCS: 20610; 77002; J1010; Q9967

== ENCOUNTER 2024-09-20 09:21 | Outpatient (CLI) | payer MEDICARE, SELFPAY ==
[2024-09-20 12:42] LABS: Abs Immature Grans 0.10 10^3/uL (0.0-0.06); HCT 33.2 % (36.0-46.0); HGB 10.6 g/dL (11.2-15.7); Immature Grans % 1.3 %; MCH 30.9 pg (27.0-33.0); MCHC 31.9 % (32.0-36.0); MCV 97 fL (80-95); MPV 11.2 fL (8.0-11.0); Platelet Count 306 10^3/uL (130-400); RBC 3.43 10^6/uL (3.93-5.22); RDW 13.0 % (11.7-14.6); RDW-SD 46.3 fL; WBC 7.59 10^3/uL (4.4-10.8)
[2024-09-20 13:12] LABS: ALT 29 U/L (14-59); AST 24 U/L (15-37); Albumin 4.0 g/dL (3.4-5.0); Alkaline Phosphatase 115 U/L (46-116); Anion Gap 6.3 mmol/L (3-11); BUN 22 mg/dL (7-18); Bilirubin, Total 0.7 mg/dL (0.2-1.0); CO2 28.7 mmol/L (21.0-32.0); Calcium 10.4 mg/dL (8.5-10.1); Chloride 103 mmol/L (98-107); Estimated GFR 43.27 (mL/min/1.73m2); Glucose 101 mg/dL (74-106); Potassium 4.4 mmol/L (3.5-5.1); Sodium 138 mmol/L (136-145); Total Protein 7.1 g/dL (6.4-8.2)
== END 2024-09-20 09:22 | disposition home or self-care (01) ==
PROVIDERS: PCP Family Medicine; Visit Provider Family Medicine
DX: N18.32 Chronic kidney disease, stage 3b (principal); D63.1 Anemia in chronic kidney disease; D64.9 Anemia, unspecified; Z00.00 Encounter for general adult medical examination without abnormal findings
CPT/HCPCS: 36415; 80053; 85025

== ENCOUNTER → 2024-10-06 10:20 | Outpatient (BNVA) | payer MEDICARE, SELFPAY | PROVIDERS: PCP Family Medicine; Referring Provider Family Medicine; Visit Provider Physician Assistant | DX: M19.011 Primary osteoarthritis, right shoulder (principal); M19.012 Primary osteoarthritis, left shoulder; G56.01 Carpal tunnel syndrome, right upper limb | CPT/HCPCS: 20611; J1010 ==

== ENCOUNTER 2024-10-11 19:24 | Emergency (ER) | payer MEDICARE, SELFPAY ==
[2024-10-11 19:25] VITALS: BP 180/81; PULSE 82; RESP 16; TEMP 37.1; O2SAT 96
--- NOTE | 2024-10-11 20:08 | W.ED.GENAD ---
Discharge Plan Disposition Patient Disposition: Home Condition: Improving Discharge Details Clinical Impression: Fecal impaction of colon, Acute proctitis Primary Care Provider: Rika Kendrick ED Provider: Osvaldo White Home Meds and New Rx's Prescriptions: New metronidazole 250 mg tablet 250 mg PO TID Qty: 20 0RF ciprofloxacin HCl 250 mg tablet 250 mg PO BID Qty: 14 0RF No Action (DME) Aerovent Plus Spacer See Rx Instructions .Route Qty: 1 0RF Rx Instructions: As directed - use with albuterol polyethylene glycol 3350 17 gram/dose powder 17 g PO DAILY Qty: 510 11RF hydrocodone-acetaminophen 5-325 mg tablet 1 tab PO BID MDD 2 tabs PRN (Reason: chronic back and shoulder pain) Qty: 60 0RF Patient Comments: takes sparingly ipratropium bromide 42 mcg (0.06 %) spray,non-aerosol 1 spray intranasal TID Qty: 45 1RF Rx Instructions: administer into each nostril albuterol sulfate [ProAir HFA] 90 mcg/actuation HFA aerosol inhaler 2 puff inhalation Q6H PRN (Reason: shortness of breath or wheezing) Qty: 8.5 3RF magnesium oxide 400 mg (241.3 mg magnesium) tablet 400 mg PO BID Qty: 56 11RF docusate sodium [Colace] 100 mg capsule 100 mg PO BID Qty: 60 11RF cyanocobalamin (vitamin B-12) [Vitamin B-12] 1,000 mcg tablet extended release 1,000 mcg PO .every other day Qty: 15 11RF Rx Instructions: 1 tab at 0800 every other day ferrous sulfate 325 mg (65 mg iron) tablet 325 mg PO DAILY Qty: 30 11RF calcium citrate 200 mg (950 mg) tablet 800 mg PO BID Qty: 240 11RF lisinopril-hydrochlorothiazide 20-12.5 mg tablet 1 tab PO DAILY Qty: 90 3RF amlodipine 5 mg tablet 5 mg PO DAILY Qty: 90 3RF atorvastatin [Lipitor] 40 mg tablet 40 mg PO QPM Qty: 30 11RF acyclovir 400 mg tablet 400 mg PO BID PRN (Reason: cold sores) Qty: 20 8RF Rx Instructions: one pill BID for 5 days at the onset of cold sores levothyroxine 75 mcg tablet 75 mcg PO DAILY@0600 Qty: 30 12RF allopurinol 100 mg tablet 100 mg PO DAILY Qty: 90 3RF ibuprofen 600 mg tablet 600 mg PO TID PRN (Reason: pain) Qty: 90 0RF acetaminophen 500 mg tablet 1,000 mg PO TID Qty: 90 0RF amoxicillin 500 mg capsule 2,000 mg PO ONCE Patient Comments: TAKE FOUR CAPSULES BY MOUTH 1 HOUR PRIOR TO DENTAL PROCEDURE Rx Instructions: take 4 capsules 1 hour prior to dental procedure diclofenac sodium [Aleve (diclofenac)] 1 % gel 4 g topical QID Qty: 100 0RF Rx Instructions: apply to single knee, ankle, foot; for foot includes sole/toes/top of foot Discharge Instructions Instructions: Proctitis, Fecal Impaction (DC) Referrals: Rika Kendrick MD [Primary Care Provider, Medicine] - 10/13/24 Referral Note: CALL TOMORROW TO BE SEEN WEDNESDAY Discharge Data Discharge Physician: Osvaldo White HPI General Date/Time Provider Initiated Documentation: 10/11/24 19:44. HPI Narrative: Patient presents emergency department complaining of being constipated for the last 2 days and feeling tenderness in her rectum for she says she has hemorrhoids. She states that she has very small palpable mass. Denies any lower abdominal pain just with pressure in the area of the rectum Related Data Home Medications ?Medication ?Instructions ?Recorded ?Confirmed ibuprofen 600 mg tablet 600 mg PO TID PRN pain #90 tabs 11/25/22 10/11/24 inhalational spacing device #1 ea 03/31/23 10/11/24 (Aerovent Plus spacer) albuterol sulfate 90 mcg/actuation 2 puff inhalation Q6H PRN 04/22/23 10/11/24 aerosol inhaler (ProAir HFA) shortness of breath or wheezing #8.5 grams acetaminophen 500 mg tablet 1,000 mg (2 x 500 mg) PO TID #90 09/22/23 10/11/24 tabs polyethylene glycol 3350 17 17 g PO DAILY constipation #510 10/06/23 10/11/24 gram/dose oral powder grams calcium citrate 800 mg (4 x 200 mg (950 mg)) PO 11/02/23 10/11/24 BID blisterpack-pickup #240 tabs cyanocobalamin (vitamin B-12) 1,000 mcg PO .every other day 11/02/23 10/11/24 1,000 mcg tablet,extended release Blister Pack-pickup #15 tabs (Vitamin B-12 ER) docusate sodium 100 mg capsule 100 mg PO BID blisterpack-pickup 11/02/23 10/11/24 (Colace) #60 caps ferrous sulfate 325 mg (65 mg 325 mg PO DAILY blisterpack-pickup 11/02/23 10/11/24 iron) tablet #30 tabs magnesium oxide 400 mg (241.3 mg 400 mg PO BID blisterpack-pickup 11/02/23 10/11/24 magnesium) tablet #56 tabs amlodipine 5 mg tablet 5 mg PO DAILY #90 tabs 11/29/23 10/11/24 lisinopril 20 1 tab PO DAILY #90 tabs 11/29/23 10/11/24 mg-hydrochlorothiazide 12.5 mg tablet amoxicillin 500 mg capsule 2,000 mg PO ONCE dental procedure 12/29/23 10/11/24 atorvastatin 40 mg tablet (Lipitor) 40 mg PO QPM blisterpack-pickup 12/29/23 10/11/24 #30 tabs diclofenac sodium 1 % topical gel 4 g topical QID #100 grams 12/29/23 10/11/24 (Aleve (diclofenac)) acyclovir 400 mg tablet 400 mg PO BID PRN cold sores #20 03/22/24 10/11/24 tab-caps ipratropium bromide 42 mcg (0.06 1 spray intranasal TID #45 mL 05/10/24 10/11/24 %) nasal spray levothyroxine 75 mcg tablet 75 mcg PO DAILY@0600 05/16/24 10/11/24 blisterpack-pickup #30 tabs hydrocodone 5 mg-acetaminophen 325 1 tab PO BID PRN chronic back and 09/20/24 10/11/24 mg tablet shoulder pain #60 tabs allopurinol 100 mg tablet 100 mg PO DAILY #90 tabs 09/22/24 10/06/24 ciprofloxacin HCl 250 mg tablet 250 mg PO BID #14 tabs 10/11/24 metronidazole 250 mg tablet 250 mg PO TID #20 tabs 10/11/24 Previous Rx's ?Medication ?Instructions ?Recorded ibuprofen 600 mg tablet 600 mg PO TID PRN pain #90 tabs 11/25/22 inhalational spacing device #1 ea 03/31/23 (Aerovent Plus spacer) albuterol sulfate 90 mcg/actuation 2 puff inhalation Q6H PRN 04/22/23 aerosol inhaler (ProAir HFA) shortness of breath or wheezing #8.5 grams acetaminophen 500 mg tablet 1,000 mg (2 x 500 mg) PO TID #90 09/22/23 tabs polyethylene glycol 3350 17 17 g PO DAILY constipation #510 10/06/23 gram/dose oral powder grams calcium citrate 800 mg (4 x 200 mg (950 mg)) PO 11/02/23 BID blisterpack-pickup #240 tabs cyanocobalamin (vitamin B-12) 1,000 mcg PO .every other day 11/02/23 1,000 mcg tablet,extended release Blister Pack-pickup #15 tabs (Vitamin B-12 ER) docusate sodium 100 mg capsule 100 mg PO BID blisterpack-pickup 11/02/23 (Colace) #60 caps ferrous sulfate 325 mg (65 mg 325 mg PO DAILY blisterpack-pickup 11/02/23 iron) tablet #30 tabs magnesium oxide 400 mg (241.3 mg 400 mg PO BID blisterpack-pickup 11/02/23 magnesium) tablet #56 tabs amlodipine 5 mg tablet 5 mg PO DAILY #90 tabs 11/29/23 lisinopril 20 1 tab PO DAILY #90 tabs 11/29/23 mg-hydrochlorothiazide 12.5 mg tablet atorvastatin 40 mg tablet (Lipitor) 40 mg PO QPM blisterpack-pickup 12/29/23 #30 tabs diclofenac sodium 1 % topical gel 4 g topical QID #100 grams 12/29/23 (Aleve (diclofenac)) acyclovir 400 mg tablet 400 mg PO BID PRN cold sores #20 03/22/24 tab-caps ipratropium bromide 42 mcg (0.06 1 spray intranasal TID #45 mL 05/10/24 %) nasal spray levothyroxine 75 mcg tablet 75 mcg PO DAILY@0600 05/16/24 blisterpack-pickup #30 tabs hydrocodone 5 mg-acetaminophen 325 1 tab PO BID PRN chronic back and 09/20/24 mg tablet shoulder pain #60 tabs allopurinol 100 mg tablet 100 mg PO DAILY #90 tabs 09/22/24 ciprofloxacin HCl 250 mg tablet 250 mg PO BID #14 tabs 10/11/24 metronidazole 250 mg tablet 250 mg PO TID #20 tabs 10/11/24 Allergies Allergy/AdvReac Type Severity Reaction Status Date / Time adhesive Allergy Severe Skin Rash Verified 10/11/24 19:32 latex Allergy Intermediate Skin Rash Verified 10/11/24 19:32 azithromycin AdvReac Severe DIARRHEA Verified 10/11/24 19:32 fluticasone propionate (From AdvReac Severe SEVER NOSE Verified 10/11/24 19:32 Flonase) IRRITATION colchicine AdvReac Unknown Unknown Verified 10/11/24 19:32 General Stated Complaint: Abd Prob AYAD: 3 Review of Systems Narrative: Review of Systems: Constitutional: No fevers, chills, sweats Eye: No recent visual problems ENT: No ear pain, nasal congestion, sore throat Respiratory: No shortness of breath, cough Cardiovascular: No Chest pain, palpitations, syncope Gastrointestinal: No nausea, vomiting, diarrhea Genitourinary: No hematuria Justin/Lymph: Negative for bruising tendency, swollen lymph glands Endocrine: Negative for excessive thirst, excessive hunger Musculoskeletal: No back pain, neck pain, joint pain, muscle pain, decreased range of motion Integumentary: No rash, pruritus, abrasions Neurologic: Alert & oriented X 4 Psychiatric: No anxiety, depression Exam Narrative Exam Narrative: Exam; vitals signs as reported above normal Constitutional; In no acute distress, afebrile General: cooperative, healthy appearing, comfortable and no acute distress HEENT: Head: normal to inspection, no palpable skull fracture and normocephalic atraumatic Eyes: : appearance normal, both eyes and all related structures EOM intact bilaterally Pupils: PERRL : conjunctiva normal Direct ophthalmoscopy: normal light reflex, normal conjunctiva, normal visual acuity Ears: Normal TM, normal external canal Nose: normal no rhinorreha Neck no JVD, supple non tender Neck: normal visual inspection, full ROM and no lymphadenopathy Chest: normal inspection of the chest Respiratory : normal respiratory effort and able to speak in complete sentences no wheezing no rales Cardio Rate: regular rate, rhythm: regular rhythm normal heart sounds S1 and S2 no murmurs, gallops, or rubs GI : normal to inspection, normal bowel sounds, soft, non tender, non distended, no organomegaly Back/Spine/ no CVA tenderness Thoracic/Lumbar Spine: no tenderness or deformities Skin no rashes or lesions Neuro: patient alert oriented x 4 and no meningeal signs, Cranial Nerves: CN's II-XI intact bilaterally, Cognition: normal cognition, Speech: speech normal, Gait: normal gait, Depp tendon reflexes normal 2+ muscle strength 5/5 bilaterally Extremities, no edema, full range of motion, normal strength : normal Rectal: External hemorrhoids with very difficult to palpate stool in the rectal vault Course Vital Signs Vital signs: Vital Signs Temperature 37.1 C 10/11/24 19:25 Pulse 82 10/11/24 19:25 Respiratory Rate 16 10/11/24 19:25 Blood Pressure 180/81 H 10/11/24 19:25 Pulse Oximetry 96 10/11/24 19:25 Temperature 37.1 C 10/11/24 19:25 Temperature Source Temporal Artery Scan 10/11/24 19:25 Pulse 82 10/11/24 19:25 Respiratory Rate 16 10/11/24 19:25 Blood Pressure 180/81 H 10/11/24 19:25 Blood Pressure Position Sitting 10/11/24 19:25 Pulse Oximetry 96 10/11/24 19:25 Oxygen Delivery Method Room Air 10/11/24 19:25 Oxygen Flow Rate 0 10/11/24 19:25 Pain Level 7 10/11/24 19:25 Medical Decision Making MDM: Summary: Patient presented emergency department with constipation and rectal exam is hard to assess. He is able to palpate she has fecal impaction likely. She has external hemorrhoids. Labs were done which are unremarkable. CT of the abdomen pelvis shows some thickening of the rectum compatible with proctitis and some high fecal impaction. Patient was given ciprofloxacin and Flagyl for proctitis but she does not have a white count. She was given a soapsuds enema to relieve her rectum but otherwise has been evacuated. Patient will be evaluated by primary care physician t. Data Review Analysis All the data on this patient was reviewed by me including laboratory and imaging studies as well as bedside studies performed by me Independent review of Studies Imaging CT scan showing proctitis and small amount of stool in the upper rectum Lab: Labs are unremarkable Risk Stratification: Patient with some proctitis and fecal impaction we discharged home after she had a bowel movement the soapsuds enema Differential Diagnosis: 1. Fecal impaction 2. Proctitis 3. Diverticulitis 4. Perirectal abscess 5. Consultants: Shared disposition: Patient assents to disposition will follow accordingly Impression: Medical Records Medical records reviewed: Yes I reviewed the patient's medical records. Lab Data Lab results reviewed: Yes I reviewed the patient's lab results. PFSH All Active Problems (Updated 10/11/24 @ 23:02 by Osvaldo White MD) Acute proctitis (Acute) Fecal impaction of colon (Acute) Gout (Chronic) Right carpal tunnel syndrome (Acute) Godwin Bonnet syndrome (Acute) Anemia (Chronic 03/18/12) negative flex sig 01/2021 Osteoarthritis of shoulders, bilateral (Chronic) Right intraarticular inj under U/S: 10/06/24; 06/30/24; 03/31/24 Left intaarticular inj under U/S: 05/12/24 Gastroesophageal reflux disease (Chronic 06/10/12) hiatal hernia (2006 [facility]) Hyperlipidemia (Chronic) Polymyalgia rheumatica (Chronic 07/24/14) Transient neurologic deficit (Chronic) noted to have carotid stenosis Depressive disorder (Chronic 01/29/04) Carotid stenosis, bilateral (Chronic) 70% stenosis; eval by [facility] [place], felt to not need surgery. Pt refuses aspirin Arthritis of left glenohumeral joint (Chronic) POCUS INJECTION: 05/12/24; 01/31/2024; 10/28/2023 Degenerative arthritis of distal interphalangeal joint of index finger of right hand (Chronic) Chronic renal disease, stage 3, moderately decreased glomerular filtration rate (GFR) between 30-59 mL/min/1.73 square meter (Chronic) Hypothyroidism (Chronic 06/10/12) Cervical stenosis of spinal canal (Chronic) Osteoporosis (Chronic) Vitamin B12 deficiency disease (Chronic) Essential hypertension (Chronic) Lumbar spondylosis (Chronic) Sacroiliitis (Chronic) Benign hypertension with stage 3b chronic kidney disease (Chronic) Primary osteoarthritis, left hand (Chronic) Medical History Low back pain Gout Gouty arthritis of right hand Bilateral shoulder pain bilat DEPO MEDROL 3/28/24 Pulmonary hypertension (~2018) PA 55-65mmHg Syncope (03/2023) negative event monitor, negative echo. Rotator cuff arthropathy of both shoulders depo medrol 11/23/2022; 08/24/22; 05/18/22; 02/16/22; 11/17/21; 08/18/21 Sciatica bilateral; MRI 12/06 spinal stenosis; [facility]. 01/12 [facility] [place] [facility] radiofrequency (MRI severe spinal stenosis) Lichen planus OF VULVA (seen at [facility] [place] [facility]) Cervical radiculopathy at C6 (08/10/14) neck pain Primary osteoarthritis of left hip Posterior vitreous detachment of both eyes Nonexudative age-related macular degeneration, right eye, intermediate dry stage followed at [facility] [place] Exudative age-related macular degeneration, left eye, with active choroidal neovascularization followed at [facility] [place] Pulmonary nodule (~04/2018) right; lost to followup and now declines surgery to evaluate if positive. Umbilical hernia without obstruction and without gangrene (11/20/15) Repair with 6.4 Ventralex Colon polyps Hx of breast cancer Surgical History Gout of left hand LIF s/p excision DOS: 11/25/22 Tophaceous gout of joint S/P I&D RIF: 09/22/2023 Status post right knee replacement Status post fracture of right hip Tata-prosthetic femur fracture at tip of prosthesis S/P ORIF of periprosthetic fracture of right distal femur DOS: 04/16/18 Dr. Villar S/P carpal tunnel release Repair of umbilical hernia (04/15/16) Cholecystectomy laparoscopic Breast, Mastectomy 1988-left Family History Sister Cancer Mother No problems noted. Father No problems noted. Sister No problems noted. Son No problems noted. Son No problems noted. Social History (Updated 05/11/24 @ 11:24 by Marycruz Eldridge) Smoking/Tobacco Use Status: Former Tobacco Use tobacco type: cigarettes Quit Date: 03/01/94 Tobacco: How many years used: 40 Second Hand Exposure: Yes Smoking risk assessment performed?: Yes Alcohol Intake: never Drug use: Never Substance use type: does not use Caregiver/Support person: No Household members: none Housing: house Number of Children: 2 Do you need help understanding health information?: Never current occupation: retired Pets and animals: No Sexually active: No Do you think of yourself as: straight/heterosexual Current gender identity: female What is your relationship status?: How often do you talk on the phone with friends or family?: three or more times per week How often do you get together with friends or relatives?: three or more times per week How often do you attend taoist or christian services?: 4 or more times per year Do you belong to any clubs or organized social groups?: no Panel score (0-1 are the most socially isolated patients): 2 Frequency: 1-2 times per week Evelyn/Christian: Jainism Special evelyn needs: No Seatbelt use: always Drive intox or ride w/intox route driver coin machines: No Do you feel safe at home: Yes Do you feel safe in your relationship?: Yes Additional Social history: lives alone
[2024-10-11] MEDS: Normal Saline 1,000 ML 1000 ML IV (20:29)
[2024-10-11 20:32] LABS: Abs Immature Grans 0.11 10^3/uL (0.0-0.06); HCT 31.8 % (36.0-46.0); HGB 10.5 g/dL (11.2-15.7); Immature Grans % 1.1 %; MCH 31.8 pg (27.0-33.0); MCHC 33.0 % (32.0-36.0); MCV 96 fL (80-95); MPV 10.1 fL (8.0-11.0); Platelet Count 282 10^3/uL (130-400); RBC 3.30 10^6/uL (3.93-5.22); RDW 12.7 % (11.7-14.6); RDW-SD 44.9 fL; WBC 10.41 10^3/uL (4.4-10.8)
[2024-10-11 20:59] LABS: ALT 25 U/L (14-59); AST 21 U/L (15-37); Albumin 3.9 g/dL (3.4-5.0); Alkaline Phosphatase 104 U/L (46-116); Anion Gap 7.8 mmol/L (3-11); BUN 26 mg/dL (7-18); Bilirubin, Total 0.6 mg/dL (0.2-1.0); CO2 27.2 mmol/L (21.0-32.0); Calcium 9.9 mg/dL (8.5-10.1); Chloride 105 mmol/L (98-107); Estimated GFR 43.27 (mL/min/1.73m2); Glucose 100 mg/dL (74-106); Potassium 4.1 mmol/L (3.5-5.1); Sodium 140 mmol/L (136-145); Total Protein 6.9 g/dL (6.4-8.2)
[2024-10-11 21:05] VITALS: BP 175/77; PULSE 73; RESP 18; O2SAT 97
[2024-10-11] MEDS: Omnipaque 350 MG/ML 100 ML BTL IJ (21:28)
[2024-10-11] MEDS: Normal Saline - Diluent 50 ML VIAL IJ (21:29)
--- NOTE | 2024-10-11 21:36 | DI.CT_ITS ---
Exam(s) CT ABDOMEN PELVIS W EXAM: CT ABDOMEN PELVIS W CLINICAL HISTORY: LOWER ABDOMINAL PAIN CONSTIPATION. TECHNIQUE: Imaging Protocol: Axial computed tomography images with coronal and sagittal reformatted images were created and reviewed CONTRAST MATERIAL: Intravenous: Omnipaque 350 Contrast volume:75 ml Oral: no COMPARISON: CT CT ABDOMEN PELVIS W from 12/29/2023 FINDINGS: ABDOMEN and PELVIS: Exam is limited by streak artifact secondary to patient arm positioning. There is artifact related to right femoral hardware. Lung Bases: No acute findings. Liver: Normal density. No suspicious mass. Gallbladder and biliary tract: Cholecystectomy. No biliary dilation. Pancreas: Normal density. No abnormal calcifications or inflammatory process. No evidence of mass. Spleen: Normal. Kidneys: Normal size, contour and axis. 4 millimeter nonobstructing stone left kidney. No obstructive uropathy. Stable simple cysts. No suspicious masses seen. Adrenal glands: No masses seen. Vasculature: Abdominal aorta non-dilated. Severe atherosclerotic changes. Soft tissues: Unremarkable. Bladder: No gross wall thickening. No calculi.No focal mass. Bowel: There is fluid in the soft again is consistent with reflux. The stomach is not abnormally distended. Diverticulum 2nd portion of duodenum. There is a large quantity of stool noted in the rectum. There is thickening of the wall of the rectum and small some surrounding stranding in the fat. The findings could represent proctitis. A mass is not excluded. The remainder of the colon shows small amount of stool. Appendix normal. Peritoneal cavity: No ascites. No focal collection. No mesenteric inflammatory response. No free air. Bones: Advanced degenerative changes in the lumbar spine. Hardware noted in right femur. Reproductive organs: Unremarkable. Lymph nodes: No pathologically enlarged lymph nodes. IMPRESSION:: Rectal wall thickening and stranding in the surrounding fat suspicious for proctitis. A mass is not excluded. There is retained stool in the rectum. The preliminary [facility] report was reviewed. RADIATION DOSE DELIVERED: 645.22mGy.cm Total DLP DATA REPOSITORY: All CT scans at this facility are submitted to the National Radiology Data Registry (NRDR) Dose Index Registry (DIR) with the [employer] ([employer]). RADIATION OPTIMIZATION: All CT scans at this facility use at least one of these dose optimization techniques: automated exposure control; mA and/or kV adjustment per patient size (includes targeted exams where dose is matched to clinical indication); or iterative reconstruction.
--- NOTE | 2024-10-11 22:00 | DI.[facility]_ITS ---
PROCEDURE INFORMATION: Exam: CT Abdomen And Pelvis With Contrast Exam date and time: 10/11/2024 9:28 PM Age: 89 years old Clinical indication: Localized; Prior surgery; Surgery date: 6+ months; Surgery type: Hip christina; Lower abdominal pain, constipation TECHNIQUE: Imaging protocol: Computed tomography of the abdomen and pelvis with contrast. Radiation optimization: All CT scans at this facility use at least one of these dose optimization techniques: automated exposure control; mA and/or kV adjustment per patient size (includes targeted exams where dose is matched to clinical indication); or iterative reconstruction. Contrast material: [id number]; Contrast volume: 75 ml; Contrast route: INTRAVENOUS (IV); COMPARISON: CT ABDOMEN PELVIS W 12/29/2023 11:48 AM FINDINGS: Limitations: Extensive streak artifact, created at least in part by arm positioning. Lungs: Lung bases clear. Esophagus: Fluid throughout the distal esophagus suggesting gastroesophageal reflux. Liver: Normal appearing liver. Gallbladder and biliary ducts: Prior cholecystectomy. No biliary dilatation. Pancreas: Normal appearing pancreas. Spleen: Normal appearing spleen. Adrenal glands: Normal appearing adrenal glands. Kidneys and ureters: Renal cysts with the largest measuring 2.5 cm on the right. Small indeterminate hypoattenuating renal lesions, not well characterized by today's exam but statistically most likely additional small cysts. 4 mm nonobstructing left renal calculus. No hydronephrosis. No obstructing ureteral stones. Stomach and bowel: No oral contrast. Stomach partially distended with fluid. 4.0 cm proximal duodenal diverticulum. No small bowel dilatation to suggest obstruction. Normal amount of fecal material and gas in the cecum, ascending colon, transverse colon, descending colon, and sigmoid colon. No evidence of diverticulitis or colitis. Prominent retained fecal material in the rectum. Circumferential mural thickening through the distal rectum in the rectoanal region with adjacent hazy fat stranding and fluid. Appendix: Appendix partially obscured but normal in caliber and appearance through its visualized portion. Intraperitoneal space: No gross ascites. No free air. Regional hazy density in the central small bowel mesentery, also present on the comparison exam from December 29, 2023. Vasculature: No abdominal aortic aneurysm. Extensive atherosclerotic calcification. Lymph nodes: No pathologically enlarged mesenteric, retroperitoneal, or pelvic sidewall lymph nodes. Urinary bladder: Normal appearing urinary bladder. Reproductive: Uterus and ovaries partially obscured and not well evaluated but grossly normal in size. Bones/joints: Intramedullary christina with the associated screws in the right proximal femur. No acute fracture seen among the bones of the abdomen or pelvis. Spinal degenerative change with discogenic degeneration, marginal osteophytes, and facet arthrosis at multiple levels resulting in multilevel central canal narrowing and neural foraminal narrowing. Soft tissues: No significant ventral or inguinal hernia. IMPRESSION: 1. Colon relatively well evacuated. Prominent retained fecal material in the rectum. Circumferential mural thickening through the distal rectum in the rectoanal region with adjacent hazy fat stranding and fluid. Acute proctitis is suspected; however, a rectal neoplasm should be excluded. 2. Fluid throughout the distal esophagus suggesting gastroesophageal reflux. Dictated and Authenticated by: Goran Pena MD. Orderin Cindy Riley MD
[2024-10-11] MEDS: Na Phosphate Enema-Adult 133 ML BTL PR (22:14)
[2024-10-11 23:53] VITALS: BP 180/77; PULSE 85; RESP 18; TEMP 36.9; O2SAT 97
== END 2024-10-12 00:19 | disposition home or self-care (01) ==
PROVIDERS: Emergency Provider Emergency Medicine Emergency Medical Services; PCP Family Medicine
DX: K56.41 Fecal impaction (principal); K62.89 Other specified diseases of anus and rectum
CPT/HCPCS: 99285; 99283; 80053; 96360; 74177; 85025; J3490

== ENCOUNTER 2024-10-13 10:42 | Outpatient (CLI) | payer MEDICARE, SELFPAY ==
--- NOTE | 2024-10-13 10:15 | DI.RAD_ITS ---
Exam(s) XR HAND RT COMPLETE EXAM: XR HAND RT COMPLETE CLINICAL HISTORY: right hand pain. TECHNIQUE: 2D digital imaging was performed. Three views. COMPARISON: CR XR FINGER RT INDEX from 11/29/2023 FINDINGS: BONES: No acute fracture is present. No bony destructive lesion is seen. JOINTS: Severe joint space narrowing prominent periarticular spurring as well as periarticular erosions are again noted at the 2nd and 5th distal interphalangeal joints. There are mild flexion deformities at these joints. Advanced degenerative changes also noted at the distal interphalangeal joint of the middle finger. Milder Staci degenerative changes are seen at the 1st carpal metacarpal joint and remaining interphalangeal joints. SOFT TISSUE: decreased soft tissue swelling around the distal interphalangeal joint of the index finger. Calcification again noted around the distal interphalangeal joints of the 2nd, 3rd and 5th fingers as well as adjacent to the 1st carpal metacarpal joint. IMPRESSION: Stable appearance of severe degenerative changes and bony erosions greatest at the 2nd and 5th distal interphalangeal joints. DATA REPOSITORY: RADIATION DOSE DELIVERED:
== END 2024-10-13 10:43 | disposition home or self-care (01) ==
LOC: DIORS 10:42
PROVIDERS: PCP Family Medicine; Referring Provider Family Medicine; Visit Provider Physician Assistant
DX: M79.641 Pain in right hand (principal); G56.01 Carpal tunnel syndrome, right upper limb; M19.041 Primary osteoarthritis, right hand; M18.11 Unilateral primary osteoarthritis of first carpometacarpal joint, right hand; M10.9 Gout, unspecified
CPT/HCPCS: 99214; 73130